=== PATIENT | female | born 1980 | race Caucasian/White ===

== ENCOUNTER → 2018-03-16 13:55 | Outpatient (CLI) | payer MEDICAID, SELFPAY ==
[2018-03-16 15:06] LABS: ALT 84 U/L (12-78); AST 50 U/L (15-37); Albumin 3.8 g/dL (3.4-5.0); Alkaline Phosphatase 73 U/L (46-116); BUN 12 mg/dL (7-18); Bilirubin, Total 0.4 mg/dL (0.2-1.0); CREATININE 1.18 mg/dL (0.55-1.02); Calcium 8.9 mg/dL (8.5-10.1); Chloride 105 mmol/L (98-107); Estimated GFR 51.83 (mL/min/1.73m2); Glucose 89 mg/dL (70-100); Sodium 137 mmol/L (136-145); Total Protein 7.5 g/dL (6.4-8.2)
[2018-03-16 15:06] LABS: PROTEIN < 6.0 mg/dL
[2018-03-16 15:07] LABS: COMMENT (LAB VIEW ONLY) 27.01 mg/dL
[2018-03-16 15:08] LABS: Hemoglobin A1C 6.4 % (4.5-6.2)
== END ==
PROVIDERS: PCP Nurse Practitioner Family; Visit Provider Nurse Practitioner Family
DX: E11.9 Type 2 diabetes mellitus without complications (principal)
CPT/HCPCS: 36415; 80053; 82043; 82565; 82570; 83036; 84156

== ENCOUNTER 2018-03-17 09:23 | Emergency (ER) | payer MEDICAID, SELFPAY ==
[2018-03-17 09:27] VITALS: BP 126/60; PULSE 92; RESP 18; TEMP 36.6; O2SAT 99
[2018-03-17] MEDS: Ketorolac 30 MG/ML VIAL IM (09:51)
[2018-03-17] MEDS: Acetaminophen 500 MG TAB 1000 MG PO (09:53)
[2018-03-17] MEDS: Lidocaine 5% Patch 1 PATCH TP (09:53)
--- NOTE | 2018-03-17 10:15 | ED.GENADUL ---
Disposition Clinical Impression: Rib pain Disposition: HOME Condition: Good Instructions: Chest Wall Pain (ED) Additional Instructions: If you notice any worsening of your symptoms, or any new symptoms such as vomiting, diarrhea, fever, chills, shortness of breath, chest pain, numbness, weakness, or fainting , please return immediately to the emergency department for reevaluation. Please follow up with your primary care provider as soon as possible for reassessment and reevaluation. As always, it was a pleasure participating in your medical care today. Referrals: Toma Isabel [Primary Care Provider] - Medical Decision Making - Medical Decision Making This is a 37-year-old female who presents for evaluation of left rib pain. It occurred when she was having her regular episode of morning vomiting. She had one episode of vomiting, while turning, and she developed a sudden onset of the pain. There is no radiation of the pain to anywhere else in the chest, or the abdomen. It is located on the 10th left rib. The patient has no risk factors for pulmonary embolism, or cardiac disease aside for smoking however she is only 37 years old and has no significant family history and she claims. Her signs and symptoms appear consistent with mildly subluxed rib with an associated pulled muscle. We did get a chest x-ray of the left ribs to evaluate for any evidence of fracture, pneumothorax or deformity. Unfortunately we had a critical patient presented to the ER not long after and I was occupied with this other patient. The patient's chest x-ray came back as negative for any deformity or fracture. The patient was extremely kind and understanding, however she did state that she had a meeting that she needed to leave for. Understanding that the imaging was negative she requested to leave, fully aware of the risks and benefits. She had a long discussion with the nurse regarding the risks and benefits of prolonged observation, waiting for the results, versus leaving. She chose to leave. There was no malice, and she stated she understood the current situation but unfortunately had to leave because of her meeting. 7 PM patient was given a Lidoderm patch, and did have notable relief with this. She was encouraged to take Tylenol Motrin prior to discharge. I did contact the patient and discussed this with her. She has no additional questions or concerns at this time. I feel her symptoms were consistent with a pulled muscle or subluxed rib on her left, and inconsistent with ACS, pulmonary embolism, or aortic dissection. We discussed red flags which to return over phone: The patient understands. I have extensively reviewed the treatment plan with the patient. I have addressed all patient concerns at this time. The patient was made aware of what symptoms to monitor for that would warrant a return to the emergency department. Discussed the plan with the patient, they demonstrate verbal understanding and agreement with our assessment and plan at this time. History of Present Illness - General Chief complaint: Abd Prob Stated complaint: ABDOMINAL PAIN Time Seen by Provider: 03/17/18 09:41 - History of Present Illness Initial comments: This is a 37-year-old female with a past medical history of substance abuse in the past, reflux, chronic daily vomiting in the morning who presents today for left rib pain. Patient states that this morning when she went to have her daily morning vomit she turned to the left and vomited as soon as she was turning while vomiting she developed a sharp aching pain in her 10th rib. Since then the pain has continued. She describes it as dull in nature, it is notably worse with movement. There is no significant pleuritic pain. No abdominal pain. It is mainly focused on the rib itself. She denies any hematuria, dysuria, increased urinary frequency or history of kidney stones. She denies any hematochezia, melena or acholic stool. She states that her vomit had no hematemesis or any other abnormality. It was not green. She has had no other complaints since then. Denies PE risk factors such as recent long car rides, immobilization, recent surgery, prior history of DVT or PE, family history of PE or DVT, morbid obesity, exogenous estrogen and smoking, hemoptysis, history of cancer. Patient does admit to regular tobacco and marijuana use. She denies any other illicit drugs. She denies any pertinent family history. She has no other complaints at this time. - Related Data Omeprazole [Prilosec] 40 mg PO DAILY tab-cap 04/18/15 Albuterol Sulfate [Proair Hfa] PRN 05/10/16 MetFORMIN [Glucophage] 1,000 mg PO DAILY 05/10/16 LevETIRAcetam [Keppra] 500 mg PO BID #60 tab 08/17/16 Loratadine [Claritin] 10 mg PO DAILY tab-cap 07/04/17 Fluticasone Propionate [Flonase] 50 mcg NS DAILY spray 12/01/17 Carmel-3 Fatty Acids/Fish Oil [Fish Oil 1,000 mg Softgel] 2 each PO DAILY 12/01/17 Olanzapine 15 mg PO BID #60 tab-cap 12/14/17 Bupropion HCl [Bupropion Xl] 300 mg PO DAILY #30 tab-cap 12/21/17 Zolpidem Tartrate [Ambien] 5 mg PO DAILY #30 tab 12/21/17 Allergies Allergy/AdvReac Type Severity Reaction Status Date / Time Penicillins Allergy hives/swell Unverified 03/17/18 09:47 ing ondansetron HCl AdvReac Intermediate Hives Unverified 03/17/18 09:47 [From Zofran (as hydrochloride)] erythromycin base AdvReac stomach Unverified 03/17/18 09:47 pain Sulfa (Sulfonamide AdvReac body aches Unverified 03/17/18 09:47 Antibiotics) Review of Systems Other: 10 point review of systems was performed, pertinent positives and negatives are noted in the history of present illness. Past Medical History - Past Medical History Medical history: diabetes, liver disease (Chronic hepatitis C), seizures colitis Surgical history: cholecystectomy, other (tonsillectomy) - Social History Alcohol use: none Drug use: marijuana, other (hx of polysubstance abuse, currently sober on methadone) General Exam - Other Other exam information: 1.Const: Well-nourished, Well-developed, appearing stated age 2.Eyes: PERRL, no conjunctival injection, and symmetrical lids. 3.ENT: Atraumatic external nose and ears. Moist MM. Neck: Symmetric, trachea midline, No thyromegaly. 4.CVS: +S1/S2, No murmurs or gallops. Peripheral pulses 2+ and equal in all extremities. Brisk capillary refill in all extremities. 5.RESP: Unlabored respiratory effort. Clear to auscultation bilaterally. No wheezes rales or rhonchi 6.GI: Soft, Nontender/Nondistended, No hepatosplenomegaly. No guarding or rebound. No abdominal tenderness or flank tenderness on percussion whatsoever. The patient does have pain on the 10th rib, however even with close and deep palpation on the abdomen to this area she has no pain at all. It is only with contact with the rib itself. 7.MSK: Normocephalic/Atraumatic, Extremities w/o deformity. No cyanosis or clubbing, Normal movement of all extremities. Good range of motion of the shoulder and arm. No radiation of pain to the shoulder or arm. Patient has pinpoint focal tenderness on the anterior lateral aspect of the 10th rib. There is no radiation of the pain to any other ribs. No radiation of the pain to the abdomen. No palpation on the abdomen. No deformity, no signs of bruising. 8.Skin: Warm, Dry. No rashes or lesions. 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 Sensation grossly intact, no focal neurologic deficits. 10.Psych: (AAO) x3. Appropriate mood and affect Course Vital Signs - 24 hr 03/17/18 09:27 Temperature 36.6 C Pulse 92 H Respiratory 18 Rate Blood Pressure 126/60 Pulse Oximetry 99
--- NOTE | 2018-03-17 10:17 | DI.REPORT_ITS ---
SYMPTOM/DIAGNOSIS: POST EMESIS LT RIB PAIN, REDUCIBLE PAIN 10TH LT RIBS LEFT RIBS AND PA CHEST: Comparison is made with 04/24/14. Heart size and pulmonary vasculature are within normal limits. The lungs are clear and well expanded. No effusions or pneumothoraces are identified. No rib fracture is present. IMPRESSION: Negative examination.
== END 2018-03-17 11:00 | disposition home or self-care (01) ==
LOC: ER 03-18 10:14
PROVIDERS: Emergency Provider Student in an Organized Health Care Education/Training Program; PCP Nurse Practitioner Family
DX: R07.81 Pleurodynia (principal); Z53.29 Procedure and treatment not carried out because of patient's decision for other reasons; E11.9 Type 2 diabetes mellitus without complications; Z79.84 Long term (current) use of oral hypoglycemic drugs
CPT/HCPCS: 71101; 96372; 99284; 99285; J1885

== ENCOUNTER 2018-05-22 11:16 | Outpatient (REF) | payer MEDICAID, SELFPAY ==
--- NOTE | 2018-05-22 09:20 | PAPFT_PTH ---
PATIENT: Ne Kennedy LOC: [facility] U#:[id number] AGE/SX: 37/F ROOM: RE05/22/[address]: Toma Isabel : 1980 BED: DIS: 05/22/2018 SPEC #: [id number] RECD: 05/22/18 17:45 STATUS: EDGAR REAnand #: [id number] VIKA: 05/22/18 09:[address]: Toma Isabel DEPT: [facility] Cytology RECD BY: Raven Allen Tissues: 1 - CX/ENDOCX FOR PAP SMEARS Procedures: PAP THIN PREP/UVM Screening HPV DNA PROBE Comments: [id number] (CHLAMYDIA/GC)
[2018-05-23 14:06] LABS: Chlamydia Result Negative; GC Result Negative; Specimen Description SEE COMMENTS
== END 2018-05-22 11:36 ==
LOC: NCHCN 11:16
PROVIDERS: PCP Nurse Practitioner Family; Visit Provider Nurse Practitioner Family
DX: Z12.4 Encounter for screening for malignant neoplasm of cervix (principal); Z11.51 Encounter for screening for human papillomavirus (HPV); Z00.00 Encounter for general adult medical examination without abnormal findings; N89.8 Other specified noninflammatory disorders of vagina
CPT/HCPCS: 87491; 87591; 88142; 87480; 87510; 87624; 87660

== ENCOUNTER 2018-08-02 08:24 | Outpatient (CLI) | payer MEDICAID, SELFPAY ==
[2018-08-02 09:07] LABS: Abs Immature Grans 0.13 k/cumm (0.0-0.09); Absolute Basophil Count 0.03 k/cumm (0.0-0.2); Absolute Eosinophil Count 0.29 k/cumm (0.0-0.7); Absolute Lymphocyte Count 2.54 k/cumm (1.2-3.4); Absolute Monocyte Count 0.64 k/cumm (0.11-0.7); Basophils % 0.3; Eosinophils % 2.6; HGB 13.3 g/dL (12.0-15.5); Immature Grans % 1.2; Lymphocytes % 22.6; Mean Corp. HGB Concentration 32.4 g/dL (32.0-36.0); Mean Corpuscular Volume 80.1 fL (80-95); Mean Platelet Volume 9.2 fL (8.0-11.0); Monocytes % 5.7; Neutrophils % 67.6; Platelet Count 303 x1000/uL (130-400); RBC 5.12 m/cumm (4.00-5.20); White Blood Cell Count 11.25 k/cumm (4.4-10.8)
[2018-08-02 09:09] LABS: Absolute Neutrophil Count 7.61 k/cumm (1.2-6.7)
[2018-08-02 10:07] LABS: ALT 130 U/L (12-78); AST 63 U/L (15-37); Albumin 3.4 g/dL (3.4-5.0); Alkaline Phosphatase 92 U/L (46-116); Anion Gap 11.7 mmol/L (3-11); BUN 20 mg/dL (7-18); Bilirubin, Total 0.4 mg/dL (0.2-1.0); CO2 23.3 mmol/L (21.0-32.0); CREATININE 1.31 mg/dL (0.55-1.02); Calcium 8.7 mg/dL (8.5-10.1); Chloride 102 mmol/L (98-107); Estimated GFR 45.94 (mL/min/1.73m2); Glucose 209 mg/dL (70-100); Potassium 4.2 mmol/L (3.5-5.1); Sodium 137 mmol/L (136-145); Total Protein 7.1 g/dL (6.4-8.2)
[2018-08-02 10:08] LABS: COMMENT (LAB VIEW ONLY) 79.28 mg/dL; Microalb ug/mg Crea 2.6 ug/mg Cr
[2018-08-02 10:22] LABS: Ferritin 24 ng/mL (8-388); TSH 0.96 uIU/mL (0.358-3.74)
[2018-08-03 06:07] LABS: Vitamin D 25 Total 59.6 ng/ml (30-100)
== END 2018-08-02 08:44 ==
PROVIDERS: PCP Nurse Practitioner Family; Referring Provider Internal Medicine Sleep Medicine; Visit Provider Nurse Practitioner Family
DX: M25.50 Pain in unspecified joint (principal); E55.9 Vitamin D deficiency, unspecified; B18.2 Chronic viral hepatitis C; E11.9 Type 2 diabetes mellitus without complications
CPT/HCPCS: 36415; 80053; 82306; 82043; 82570; 82728; 84443; 85025

== ENCOUNTER 2018-10-03 12:26 | Outpatient (CLI) | payer MEDICAID, SELFPAY ==
[2018-10-04 10:09] LABS: Hepatitis B Surface Ag Negative (NEGAT)
[2018-10-04 10:57] LABS: HIV-1/2 Ag & Ab Screen Negative (NEGAT)
[2018-10-04 11:24] LABS: HBs Antibody, Quant 46.2 mIU/mL; Hep A Total Ab w Rflx IgM Positive (NEGAT); Hep B Core Antibody Negative (NEGAT); Hepatitis B Surface Ab Positive
[2018-10-04 15:12] LABS: Hep A Antibody IgM Negative (NEGAT)
== END 2018-10-03 12:46 ==
PROVIDERS: PCP Nurse Practitioner Family; Visit Provider Family Medicine
DX: B18.2 Chronic viral hepatitis C (principal)
CPT/HCPCS: 36415; 86704; 86706; 86709; 87340; 87389; 87522

== ENCOUNTER 2018-11-28 09:03 | Outpatient (CLI) | payer MEDICAID, SELFPAY ==
[2018-11-28 10:25] LABS: ALT 103 U/L (12-78); AST 54 U/L (15-37); Albumin 3.8 g/dL (3.4-5.0); Alkaline Phosphatase 80 U/L (46-116); Anion Gap 13.9 mmol/L (3-11); BUN 15 mg/dL (7-18); Bilirubin, Total 0.7 mg/dL (0.2-1.0); CO2 21.1 mmol/L (21.0-32.0); CREATININE 1.19 mg/dL (0.55-1.02); Chloride 100 mmol/L (98-107); Estimated GFR 51.33 (mL/min/1.73m2); Glucose 212 mg/dL (70-100); Potassium 4.3 mmol/L (3.5-5.1); Sodium 135 mmol/L (136-145); Total Protein 7.5 g/dL (6.4-8.2)
[2018-11-29 15:15] LABS: HCV RNA Detection Quantitative Undetected IU/mL (UNDECT)
== END 2018-11-28 09:23 ==
PROVIDERS: PCP Nurse Practitioner Family; Visit Provider Family Medicine
DX: B18.2 Chronic viral hepatitis C (principal)
CPT/HCPCS: 36415; 80053; 87522

== ENCOUNTER 2019-03-08 13:40 | Emergency (ER) | payer MEDICAID, SELFPAY ==
[2019-03-08 13:44] VITALS: BP 133/96; PULSE 110; RESP 18; TEMP 36.6; O2SAT 98
--- NOTE | 2019-03-08 13:51 | DI.RAD_ITS ---
SYMPTOM/DIAGNOSIS: COUGH, FEVER CHEST X-RAY: PA, lateral. Comparison 03/17/18 The heart is normal in size. The lungs are clear. The mediastinal structures and pleura appear intact. CONCLUSION: Normal chest.
--- NOTE | 2019-03-08 14:53 | ED.GENADUL_ITS ---
Discharge Plan Disposition Patient Disposition: HOME Discharge Details Chief Complaint: RespSymp Clinical Impression: Infection, respiratory tract, Otitis externa Primary Care Provider: Nikki Phillips ED Provider: Jovani Zavala Home Meds and New Rx's Prescriptions: New doxycycline hyclate 100 mg capsule 100 mg PO BID Qty: 14 RF: 0 benzonatate 200 mg capsule 200 mg PO TID PRN (Reason: cough) Qty: 30 RF: 0 Ciprodex 0.3-0.1 % drops,suspension 4 drp OT BID 7 Days Qty: 7.5 RF: 0 Continued lorazepam 2 mg tablet 2 mg PO DAILY Qty: 36 RF: 1 gabapentin 800 mg tablet 800 mg PO QHS Qty: 30 RF: 1 bupropion HCl 300 mg tablet extended release 24 hr 300 mg PO DAILY Qty: 30 RF: 5 olanzapine 15 mg tablet 15 mg PO BID Qty: 60 RF: 5 omeprazole [Prilosec] 20 MG capsule,delayed release(DR/EC) 40 mg PO DAILY RF: 0 loratadine 10 MG tablet 10 mg PO DAILY RF: 0 omega-3 fatty acids-fish oil 1 EACH capsule 2 ea PO DAILY RF: 0 metformin [Glucophage] 1,000 MG tablet 1,000 mg PO DAILY RF: 0 levetiracetam [Keppra] 500 MG tablet 500 mg PO BID Qty: 60 RF: 2 Discharge Instructions Instructions: Otitis Externa (ED), Upper Respiratory Infection (ED) Additional Instructions: Please take medication as prescribed and follow-up with your primary care provider if not improving over the next week. Return to emergency department for any new or significant worsening of symptoms. During illness please stay well-hydrated, get plenty of rest. For any fever chills you may take [id number] acetaminophen or Motrin as directed on packaging. Referrals: Nikki Phillips [Primary Care Provider] - (As needed for reassessment or if not improving) Discharge Data Discharge Date/Time-TO BE ENTERED AT DEPARTURE: 03/08/19 16:00 Medical Decision Making Patient presenting to the emergency department for chief complaint of cold-like symptoms for the past pipe 5 days. She states otalgia, nasal congestion, sore throat, and nonproductive cough. She does state night sweats and some chills. Patient is a smoker. Physical exam shows tachycardic patient which is currently afebrile, non-hypotensive, and no acute signs of respiratory distress but does appear ill but nontoxic in appearance. Cardiac exam is unremarkable beyond tachycardia, respiratory exam does show crackles in the left lower lung, patient does have some sinus tenderness. Otherwise nondiagnostic exam. Plan to check chest x-ray for concern of pneumonia. At this point I do not feel that patient needs any laboratory work-up. Review of chest x-ray and radiologist interpretation shows no acute findings noted. And rapid strep is negative. I am concerned for possible bacterial etiology given 5 days worsening symptoms, patient tachycardic, and stating night sweats and chills. Plan to place patient on doxycycline that would cover both early pneumonia or sinusitis. [id number] therapies were also discussed and patient also prescribed Tessalon Perles for cough suppressant. Close return precautions were discussed otherwise I do feel the patient is able to be safely discharged. After discussion of diagnosis and plan of care patient has no further needs, questions, or concerns and states clear understanding to return to the emergency department for any worsening symptoms. HPI General Mode of arrival: ambulatory . Date/Time Provider Initiated Documentation: 03/08/19 13:51 . Limitations to Documentation: no limitations . Information obtained by: patient and RN notes reviewed . History of Present Illness 38 year old F presents to the emergency department with the chief complaint of Cold symptoms with cough, fever, otalgia, described as moderate, with intensity rated at 8. Quality is described as aching, and is localized to the face (Sinuses). Patient started experiencing this day(s) (5) and it has been constant. No relieving factors improve symptom(s), No exacerbating factors reported . Patient did receive the following treatments prior to arrival, none Related Data Home Medications Medication Instructions Recorded Confirmed omeprazole [Prilosec] 40 mg PO DAILY tab-cap 04/18/15 03/08/19 metformin [Glucophage] 1,000 mg PO DAILY 05/10/16 03/08/19 levetiracetam [Keppra] 500 mg PO BID #60 tab 08/17/16 03/08/19 loratadine 10 mg PO DAILY tab-cap 07/04/17 03/08/19 omega-3 fatty acids-fish oil 2 ea PO DAILY 12/01/17 03/08/19 bupropion HCl 300 mg 24 hr tablet, 300 mg PO DAILY #30 tab-cap 11/13/18 03/08/19 extended release olanzapine 15 mg tablet 15 mg PO BID #60 tab-cap 11/13/18 03/08/19 lorazepam 2 mg tablet 2 mg PO DAILY #36 tab 12/25/18 03/08/19 gabapentin 800 mg tablet 800 mg PO QHS #30 tab 01/18/19 03/08/19 benzonatate 200 mg PO TID PRN #30 cap 03/08/19 ciprofloxacin-dexamethasone 4 drp OT BID 7 Days #7.5 ml 03/08/19 [Ciprodex] doxycycline hyclate 100 mg PO BID #14 cap 03/08/19 Previous Rx's Medication Instructions Recorded levetiracetam [Keppra] 500 mg PO BID #60 tab 08/17/16 bupropion HCl 300 mg 24 hr tablet, 300 mg PO DAILY #30 tab-cap 11/13/18 extended release olanzapine 15 mg tablet 15 mg PO BID #60 tab-cap 11/13/18 lorazepam 2 mg tablet 2 mg PO DAILY #36 tab 12/25/18 gabapentin 800 mg tablet 800 mg PO QHS #30 tab 01/18/19 benzonatate 200 mg PO TID PRN #30 cap 03/08/19 ciprofloxacin-dexamethasone 4 drp OT BID 7 Days #7.5 ml 03/08/19 [Ciprodex] doxycycline hyclate 100 mg PO BID #14 cap 03/08/19 Allergies Allergy/AdvReac Type Severity Reaction Status Date / Time Penicillins Allergy hives/swell Unverified 03/08/19 13:49 ing ondansetron HCl AdvReac Intermediate Hives Unverified 03/08/19 13:49 [From Zofran (as hydrochloride)] erythromycin base AdvReac stomach Unverified 03/08/19 13:49 pain Sulfa (Sulfonamide AdvReac body aches Unverified 03/08/19 13:49 Antibiotics) General Stated Complaint: RespSymp RAVEN: 3 Review of Systems Constitutional Reports body ache(s), Reports chills, Reports fever(s), Reports headache(s) and Reports malaise ENT Reports as per HPI, Denies ear discharge, Reports otalgia, Reports headache(s), Denies nasal congestion, Denies nasal discharge, Denies neck pain, Reports sore throat and Denies throat swelling Cardiovascular Denies chest pain and Denies dyspnea Respiratory Reports cough and Denies dyspnea Musculoskeletal Denies joint swelling and Denies neck pain Integumentary/Breasts Denies rash Neurologic Reports headache(s) Allergic/Immunologic Denies throat swelling [facility] Medical History Amenorrhea, secondary Bipolar disorder GERD Hepatitis C IVDU Surgical History Cholecystectomy Diagnostic Laproscopy (~2005) molar extraction , Ectopic (~2010) Social History Smoking/Tobacco Use Status: Current every day Alcohol Intake: never Drug use: Daily Substance use type: marijuana Do you feel safe at home: Yes Do you feel safe in your relationship?: Yes Exam Const General: cooperative, comfortable and no acute distress Orientation: alert and awake HENTX Head: normal to inspection, normocephalic and atraumatic Ears: hearing grossly normal bilaterally and TM's normal bilaterally General nose exam: external nose normal Face and sinus: no erythema and sinus tenderness frontal and maxillary Mouth: oral mucosae normal, no drooling, no muffled voice and no trismus Throat: posterior oropharynx normal Neck Neck: normal visual inspection, full ROM, no lymphadenopathy, no meningeal signs, trachea midline and supple Resp Effort & Inspection: normal respiratory effort, able to speak in complete sentences and cough Quality of cough: dry Auscultation: crackles on the left in the lower lung briscoe Cardio Rate: regular rate Rhythm: regular rhythm Heart Sounds: S1 normal, S2 normal, normal S1 and S2, no click, no gallops, no murmurs and no rubs Skin General skin exam: no rashes or lesions noted and dry skin (warm) Neuro General: alert, awake, oriented x3, gait normal and moves all extremities Cognition: normal cognition Speech: speech normal Course Vital Signs Temperature 36.6 C 03/08/19 13:44 Pulse 110 H 03/08/19 13:44 Respiratory Rate 18 03/08/19 13:44 Blood Pressure 133/96 H 03/08/19 13:44 Pulse Oximetry 98 03/08/19 13:44 Temperature 36.6 C 03/08/19 13:44 Temperature Source Skin 03/08/19 13:44 Pulse 110 H 03/08/19 13:44 Respiratory Rate 18 03/08/19 13:44 Respiratory Effort 03/08/19 13:50 Blood Pressure 133/96 H 03/08/19 13:44 Blood Pressure Position Sitting 03/08/19 13:44 Pulse Oximetry 98 03/08/19 13:44 Oxygen Delivery Method Room Air 03/08/19 13:44 Oxygen Flow Rate 0 03/08/19 13:44 Pain Level 5 03/08/19 13:44 Lab/Test Results Lab/Test Results: 03/08/19 14:20 Pharynx Streptococcus Screen ([facility]) - Pending POC Strep Test-[facility](Rapid) Start: 03/08/19 14:17 Freq: .Rapid Strep Test Status: Active Protocol: Document 03/08/19 14:32 CT (Rec: 03/08/19 14:33 CT [id number]) Strep test-[facility](Rapid)-POC POC-Strep test-[facility] (Rapid) Negative POC-Strep test-[facility] (Rapid) Negative
[2019-03-08 15:59] VITALS: BP 133/96; PULSE 110; RESP 18; TEMP 36.6; O2SAT 98
== END 2019-03-08 16:00 | disposition home or self-care (01) ==
PROVIDERS: Emergency Provider Nurse Practitioner Family; PCP Nurse Practitioner Family
DX: J22 Unspecified acute lower respiratory infection (principal); J02.9 Acute pharyngitis, unspecified
CPT/HCPCS: 87880; 99283; 71046; 87081

== ENCOUNTER 2019-04-02 13:58 | Outpatient (REF) | payer MEDICAID, SELFPAY ==
[2019-04-02 14:14] LABS: HCT 44.8 % (36.0-46.0); HGB 15.1 g/dL (12.0-15.5); Mean Corp. HGB Concentration 33.7 g/dL (32.0-36.0); Mean Corpuscular Hemoglobin 32.5 pg (27.0-33.0); Mean Corpuscular Volume 96.6 fL (80-95); Mean Platelet Volume 11.2 fL (8.0-11.0); Platelet Count 122 x1000/uL (130-400); RBC 4.64 m/cumm (4.00-5.20); RBC Distribution Width 14.9 % (11.7-14.6); White Blood Cell Count 8.18 k/cumm (4.4-10.8)
[2019-04-02 15:03] LABS: ALT 62 U/L (14-59); AST 46 U/L (15-37); Albumin 3.1 g/dL (3.4-5.0); Alkaline Phosphatase 67 U/L (46-116); Anion Gap 12.7 mmol/L (3-11); BUN 10 mg/dL (7-18); Bilirubin, Total 0.7 mg/dL (0.2-1.0); CO2 21.3 mmol/L (21.0-32.0); CREATININE 1.28 mg/dL (0.55-1.02); Calcium 8.4 mg/dL (8.5-10.1); Chloride 101 mmol/L (98-107); Estimated GFR 46.92 (mL/min/1.73m2); Glucose 279 mg/dL (70-100); Potassium 4.2 mmol/L (3.5-5.1); Sodium 135 mmol/L (136-145)
[2019-04-03 15:58] LABS: HCV RNA Detection Quantitative Undetected IU/mL (UNDECT)
== END 2019-04-02 14:18 ==
LOC: NCHCN 13:58
PROVIDERS: PCP Nurse Practitioner Family; Visit Provider Family Medicine
DX: B18.2 Chronic viral hepatitis C (principal)
CPT/HCPCS: 80053; 85027; 87522

== ENCOUNTER 2019-04-22 08:30 | Emergency (ER) | payer MEDICAID, SELFPAY ==
--- NOTE | 2019-04-22 08:33 | ED.GENADUL_ITS ---
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 Clinical Impression: Contact dermatitis Primary Care Provider: Damian Murillo ED Provider: Mckenzie Rowland Home Meds and New Rx's Prescriptions: New methylprednisolone [Medrol (Karan)] 4 mg tablets,dose pack See Rx Instructions .ROUTE .COMPLEX Qty: 21 RF: 0 Continued lorazepam 2 mg tablet 2 mg PO DAILY Qty: 36 RF: 1 gabapentin 800 mg tablet 800 mg PO QHS Qty: 30 RF: 1 bupropion HCl 300 mg tablet extended release 24 hr 300 mg PO DAILY Qty: 30 RF: 5 omeprazole [Prilosec] 20 MG capsule,delayed release(DR/EC) 40 mg PO DAILY RF: 0 loratadine 10 MG tablet 10 mg PO DAILY RF: 0 omega-3 fatty acids-fish oil 1 EACH capsule 2 ea PO DAILY RF: 0 metformin [Glucophage] 1,000 MG tablet 1,000 mg PO DAILY RF: 0 levetiracetam [Keppra] 500 MG tablet 500 mg PO BID Qty: 60 RF: 2 olanzapine 15 mg tablet 30 mg PO HS RF: 0 methylphenidate HCl [Ritalin] 20 mg Tablet 20 mg PO BID RF: 0 glipizide-metformin 5-500 mg Tablet RF: 0 cholecalciferol (vitamin D3) [Vitamin D3] 1,000 unit Capsule 1,000 unit PO DAILY RF: 0 Discharge Instructions Instructions: Dermatitis (ED) Additional Instructions: Encourage hydration. You may use Tylenol and/or Ibuprofen as needed for discomfort. Your labs thus far been negative here. This is most consistent with your known allergy. You will need to take the steroids as prescribed. Please begin the pack today. You will need to closely monitor your glucose as this can cause temporary rising sugars. Please follow-up with your primary care to discuss this further if they continue to rise. A topical numbing cream has been called into your pharmacy. Please call women's wellness tomorrow to schedule appointment as soon as possible for reevaluation. If you develop fever/chills, increased pain or other new/worsening symptoms please seek care urgently once again. Referrals: Sarah Harper [ [facility]YSICIAN] - Damian Murillo [Primary Care Provider] - Discharge Data Discharge Date/Time-TO BE ENTERED AT DEPARTURE: 04/22/19 10:47 Medical Decision Making Patient is a 38-year-old female presenting today with chief complaint of external genitalia pain. She reports the pain began 5 days ago. Does note some discharge associated with this. 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 States that the symptoms came on, she had multiple episodes of unprotected sex. [place] was with a new partner. She denies any fevers or chills. No abdominal pain. No nausea vomiting. No change in bowel or bladder habits. Denies any shortness of breath, wheezing or feeling of tightness. No evidence of anaphylactic reaction. She is self treated with [id number] Monistat without success. Feels that the symptoms have progressively been worsening. Patient reports that she had similar episode historically after being exposed to semen. Had been advised that she has allergy to semen by women's wellness provider. However, patient continues to have unprotected sex as she feels she is low risk for . Patient has had one full-time and one ending in ectopic with right-sided oophorectomy. She reports that the symptoms after unprotected intercourse has progressively been increasing. She describes as burning and itching. On exam, patient appears very uncomfortable. She is tearing and walking with an antalgic gait. She is nontoxic, afebrile. She has raw areas noted on exam of external genitalia. I do not see any erythema, warmth, swelling to suggest vaginosis vaginitis. She does have a thick white discharge which will sampled and sent for vaginal pathology screen. I was able to get a sample from vaginal vault. The exam was limited internally secondary to the patient's exquisite external pain. She would not tolerate having the speculum placed. The change of the skin does not appear assistance with the new onset of herpes. Patient is also been asked to give a sample of urine for gonorrhea and Chlamydia testing. UPT negative. Her exam and history is most consistent with her known allergy being flared after several episodes of re-exposure. Patient has no abdominal tenderness. She is afebrile with no abdominal tenderness, I do not feel that she is likely suffering from PID at this time. She feels that all of her symptoms are external and that she is not having any internal vaginal symptoms. Patient is negative for Hope, Gardnerella, trichomonas. Gonorrhea chlamydia pending. Consulted with Dr. Harper with gynecology. She advised continuing the patient on a topical anesthetic such as Xylocaine or lidocaine. Also advised placing the patient on a Medrol Dosepak. Advised the patient call tomorrow to schedule appointment this week for reevaluation at [facility]. I discussed these plans with the patient. She is feeling much improved and resting comfortably after application of LMX cream. I did call her pharmacy and discussed that there are topical options available to help with discomfort. This is called in. A prescription for Medrol Dosepak will be given. Encourage hydration. We discussed signs symptoms of infection with the care urgently once again. She will call [facility] tomorrow to schedule prompt follow-up exam. All questions and concerns were addressed and she is agreement with this plan. [facility] General Mode of arrival: ambulatory . Date/Time Provider Initiated Documentation: 04/22/19 08:33 . Limitations to Documentation: no limitations . Information obtained by: patient and RN notes reviewed . History of Present Illness 38 year old F presents to the emergency department with the chief complaint of External genitalia pain, described as severe, with intensity rated at >10. Quality is described as burning, and is localized to the genitals. Patient reports no radiation. Patient started experiencing this day(s) (5) and it has been constant. No relieving factors improve symptom(s), No exacerbating factors reported . Patient notes denies cough, fever/chills, loss of appetite, nausea/vomiting and shortness of breath. Patient did receive the following treatments prior to arrival, other ([id number] Monistat) Related Data Home Medications Medication Instructions Recorded Confirmed omeprazole [Prilosec] 40 mg PO DAILY tab-cap 04/18/15 04/22/19 metformin [Glucophage] 1,000 mg PO DAILY 05/10/16 03/08/19 levetiracetam [Keppra] 500 mg PO BID #60 tab 08/17/16 04/22/19 loratadine 10 mg PO DAILY tab-cap 07/04/17 04/22/19 omega-3 fatty acids-fish oil 2 ea PO DAILY 12/01/17 04/22/19 bupropion HCl 300 mg 24 hr tablet, 300 mg PO DAILY #30 tab-cap 11/13/18 04/22/19 extended release lorazepam 2 mg tablet 2 mg PO DAILY #36 tab 12/25/18 04/22/19 gabapentin 800 mg tablet 800 mg PO QHS #30 tab 01/18/19 04/22/19 cholecalciferol (vitamin D3) 1,000 unit PO DAILY 04/22/19 04/22/19 [Vitamin D3] glipizide-metformin tab 04/22/19 methylphenidate HCl [Ritalin] 20 mg PO BID 04/22/19 04/22/19 methylprednisolone [Medrol (Karan)] See Rx Instructions .ROUTE 04/22/19 .COMPLEX #21 dose pk olanzapine 30 mg PO HS 04/22/19 04/22/19 Previous Rx's Medication Instructions Recorded levetiracetam [Keppra] 500 mg PO BID #60 tab 08/17/16 bupropion HCl 300 mg 24 hr tablet, 300 mg PO DAILY #30 tab-cap 11/13/18 extended release lorazepam 2 mg tablet 2 mg PO DAILY #36 tab 12/25/18 gabapentin 800 mg tablet 800 mg PO QHS #30 tab 01/18/19 methylprednisolone [Medrol (Karan)] See Rx Instructions .ROUTE 04/22/19 .COMPLEX #21 dose pk Allergies Allergy/AdvReac Type Severity Reaction Status Date / Time Penicillins Allergy hives/swell Unverified 03/08/19 13:49 ing ondansetron HCl AdvReac Intermediate Hives Unverified 03/08/19 13:49 [From Zofran (as hydrochloride)] erythromycin base AdvReac stomach Unverified 03/08/19 13:49 pain Sulfa (Sulfonamide AdvReac body aches Unverified 03/08/19 13:49 Antibiotics) semen Allergy Hives Uncoded 04/22/19 08:45 General RAVEN: 3 Review of Systems Constitutional Constitutional: Reports as per HPI, Denies chills, Denies fatigue, Denies fever(s) and Denies headache(s) ENT Ears, Nose, Mouth, and Throat: Denies headache(s) Cardiovascular Cardiovascular: Reports as per HPI, Denies chest pain and Denies dyspnea Respiratory Respiratory: Reports as per HPI, Denies cough and Denies dyspnea Gastrointestinal Gastrointestinal: Reports as per HPI Genitourinary Genitourinary: Reports as per HPI, Denies abnormal menses, Reports genital pruritis, Denies genital lesions, Reports dyspareunia, Denies dysuria, Denies pelvic pain, Denies flank pain, Denies urinary incontinence, Denies urinary hesi tancy, Denies urinary urgency, Reports vaginal discharge, Denies vaginal dryness, Denies vaginal odor and Reports vaginal pruritus Musculoskeletal Musculoskeletal: Reports as per HPI and Denies back pain Integumentary/Breasts Skin/Breast: Reports as per HPI, Reports rash, Reports skin pain, Denies skin swelling, Denies sores and Denies wounds Neurologic Neurologic: Reports as per HPI and Denies headache(s) Endocrine Endocrine: Denies fatigue [facility] Medical History Amenorrhea, secondary 06/2014 Nl pelvic us. ES 3.5mm. No response to Progestin challenges. Nl labs. Bipolar disorder ADD, PTSD, Anxiety and Depression GERD Hepatitis C IVDU Surgical History Cholecystectomy Diagnostic Laproscopy (~2005) molar extraction , Ectopic (~2010) Social History Smoking/Tobacco Use Status: Current every day Alcohol Intake: never Drug use: Daily Substance use type: marijuana and crack/cocaine Details: patient states uses crack occasionally. Do you feel safe at home: Yes Do you feel safe in your relationship?: Yes Exam Const General: cooperative, healthy appearing, well developed and acute distress moderate (patient is weeping, appears very uncomfortable) Nutritional Appearance: well nourished and overweight Orientation: alert and awake HENNM Head: normal to inspection Mouth: moist mucous membranes Resp Effort & Inspection: normal respiratory effort, able to speak in complete sentences and no respiratory distress Auscultation: clear to auscultation bilaterally, no rales, no rhonchi and no wheezes Cardio Rate: regular rate Rhythm: regular rhythm Heart Sounds: S1 normal and S2 normal GI Inspection: normal to inspection, no edema, non-distended, no visible herniation and no visible pulsation Palpation: soft, no hepatosplenomegaly, not firm, no hepatosplenomegaly, not rigid and nontender Percussion: normal to percussion Auscultation: normal bowel sounds External Female Exam: abnormal external appearance (Patient has raw areas of the bilateral labia. No erythema, swelling), no erythema, externally tender, no external swelling, external lesions (Raw areas, no evidence of vesicles to suggest herpes), no lacerations, no ecchymosis, No urethral discharge, tenderness of urethra, No bartholin cyst and other (White discharge is noted at vaginal vault) Speculum Exam - Vagina: abnormal appearance of the vagina (Unable to perform secondary to external pain) Back/Spine/Pelvis Back: no CVA tenderness Skin General skin exam: no rashes or lesions noted Trauma: no lacerations or abrasions Neuro General: alert and awake Cognition: normal cognition Speech: speech normal Gait: normal gait Psych Appearance: grossly normal and well kempt Mental Status: mental status grossly normal Speech and Movement: speech and movement normal
[2019-04-22 08:35] VITALS: BP 161/96; PULSE 93; RESP 18; TEMP 36.6; O2SAT 98
[2019-04-22] MEDS: Lidocaine 4% Cream 5 GM TUBE TP (09:00)
[2019-04-22] MEDS: Promethazine 25 MG TAB PO (09:36)
[2019-04-22 10:44] VITALS: BP 122/87; PULSE 98; RESP 16; O2SAT 98
[2019-04-24 12:41] LABS: Chlamydia Result Negative; GC Result Negative; Specimen Description URINE
== END 2019-04-22 10:47 | disposition home or self-care (01) ==
PROVIDERS: Emergency Provider Physician Assistant; PCP Family Medicine
DX: L25.9 Unspecified contact dermatitis, unspecified cause (principal)
CPT/HCPCS: 81025; 87491; 87591; 99283; 87480; 87510; 87660

== ENCOUNTER 2019-06-08 01:27 | Outpatient (CLI) | payer MEDICAID, SELFPAY ==
--- NOTE | 2019-06-08 07:27 | DI.US_ITS ---
EXAM: US ABDOMEN CLINICAL HISTORY: HEPATIC FIBROSIS, K74.0,H/O LIVER FIBROSIS, RECENTlabs suggest cirrhosis, assess l iver contour and spleen size TECHNIQUE: Ultrasound abdomen performed using standard protocol. COMPARISON: PELVIS TRANSVAG from 12/05/2017 FINDINGS: LIVER: There is diffuse increased echogenicity of the liver consistent with hepatic steatosis. The l iver has a nodular contour. The findings are suggestive of hepatic cirrhosis. No hepatic mass is se en. The liver is enlarged measuring 19 centimeters. GALLBLADDER: Patient is status post cholecystectomy. KIDNEYS: Kidneys are symmetric in size. No evidence of renal calculi. No evidence of hydronephrosis. No renal mass or cyst identified. BILIARY SYSTEM: Common bile duct measures 2 millimeters. No intrahepatic biliary ductal dilation. PANCREAS: Normal where visualized. SPLEEN: Not enlarged. ABDOMINAL AORTA AND IVC: Visualized portions normal caliber. ASCITES: None seen. IMPRESSION: 1. Findings suggestive of hepatic cirrhosis and hepatomegaly. 2. Status post cholecystectomy.
== END 2019-06-08 01:47 ==
PROVIDERS: PCP Family Medicine; Visit Provider Family Medicine
DX: K74.0 Hepatic fibrosis (principal); K76.0 Fatty (change of) liver, not elsewhere classified; Z90.49 Acquired absence of other specified parts of digestive tract; R16.0 Hepatomegaly, not elsewhere classified
CPT/HCPCS: 76700

== ENCOUNTER 2019-09-13 20:31 | Outpatient (REF) | payer MEDICAID, SELFPAY ==
[2019-09-17 13:31] LABS: Chlamydia Result Negative (Negative); GC Result Negative (Negative)
== END 2019-09-13 20:51 ==
LOC: NCHCN 20:31
PROVIDERS: PCP Family Medicine; Visit Provider Nurse Practitioner Family
DX: Z20.2 Contact with and (suspected) exposure to infections with a predominantly sexual mode of transmission (principal)
CPT/HCPCS: 87491; 87591

== ENCOUNTER 2019-09-29 13:33 | Emergency (ER) | payer MEDICAID, SELFPAY ==
--- NOTE | 2019-09-29 13:34 | ED.GENADUL_ITS ---
Discharge Plan Disposition Patient Disposition: HOME Condition: Good Discharge Details Chief Complaint: HeadInjury Clinical Impression: Contusion of head, Concussion Primary Care Provider: Damian Murillo ED Provider: Mckenzie Rowland Home Meds and New Rx's Prescriptions: Continued lorazepam 2 mg tablet 2 mg PO DAILY Qty: 36 RF: 1 gabapentin 800 mg tablet 800 mg PO QHS Qty: 30 RF: 1 bupropion HCl 300 mg tablet extended release 24 hr 300 mg PO DAILY Qty: 30 RF: 5 omeprazole [Prilosec] 20 MG capsule,delayed release(DR/EC) 40 mg PO DAILY RF: 0 loratadine 10 MG tablet 10 mg PO DAILY RF: 0 omega-3 fatty acids-fish oil 1 EACH capsule 2 ea PO DAILY RF: 0 metformin [Glucophage] 1,000 MG tablet 1,000 mg PO DAILY RF: 0 levetiracetam [Keppra] 500 MG tablet 500 mg PO BID Qty: 60 RF: 2 olanzapine 15 mg tablet 30 mg PO HS RF: 0 methylphenidate HCl [Ritalin] 20 mg Tablet 20 mg PO BID RF: 0 glipizide-metformin 5-500 mg Tablet RF: 0 cholecalciferol (vitamin D3) [Vitamin D3] 1,000 unit Capsule 1,000 unit PO DAILY RF: 0 Discharge Instructions Instructions: Concussion (ED), Contusion in Adults (ED) Additional Instructions: Encourage water intake. Tylenol as needed for discomfort. Ice or heat to affected area. Try to avoid screens and physical exertion at this time as this will likely increase your headache. You do appear dehydrated on exam which can also increase her symptoms, water intake will help with this. If you develop increased pain, visual changes, fever/chills, weakness or other new/worsening symptom please seek care urgently once again. Otherwise, please follow-up with primary care next week to discuss further return to activity and return to screens. Referrals: Damian Murillo [Primary Care Provider] - Medical Decision Making Patient is a 38-year-old female presenting today with chief complaint of headache. She reports that yesterday she was opening the car door and struck her forehead. No loss of consciousness. No visual changes. Denies falling to the ground after the incident. States that since that time, she has had discomfort in the area that was struck. No swelling or ecchymosis was noted. States that she took ibuprofen but typically this upsets her stomach and she subsequently developed nausea and vomited x1. Is not currently endorsing any nausea. On exam, patient is resting comfortably. Recently into the room, patient is texting on her phone and appears comfortable but quickly and changes do appear more uncomfortable. Did not see any evidence of trauma, no palpable swelling, no ecchymosis. No evidence to suggest skull fracture. Neurologic exam is intact. She did not tolerate the ibuprofen well, plan to give p.o. Tylenol. She is not currently nauseated so hold off on any anti-emetics at this point Patient is able to hydrate orally. Continues to text frequently. At this point, advise head contusion with possible concussion and she continues to have symptoms. However, we did discuss that her cell phone will likely continue to cause increased discomfort in the lighting of the screen and she continues to text and plan her phone despite my warning. Encourage water intake. Advised she can continue with Tylenol as needed for discomfort. She was given return precautions. We discussed postconcussive care. I advised that she contact primary care to discuss return to full activity in the postconcussive time.. All of her questions and concerns were addressed and she is in agreement this plan. HPI General Mode of arrival: ambulatory . Date/Time Provider Initiated Documentation: 09/29/19 13:34 . Limitations to Documentation: no limitations . Information obtained by: patient and RN notes reviewed . History of Present Illness 38 year old F presents to the emergency department with the chief complaint of head injury, described as moderate, with intensity rated at 6. Quality is described as aching, and is localized to the head. Patient reports no radiation. Patient started experiencing this day(s) (1) and it has been constant. No relieving factors improve symptom(s), No exacerbating factors reported . Patient notes nausea/vomiting (one episode of nausea after ibuprofen, none at this time). Patient did receive the following treatments prior to arrival, NSAID Related Data Home Medications Medication Instructions Recorded Confirmed omeprazole [Prilosec] 40 mg PO DAILY tab-cap 04/18/15 09/17/19 metformin [Glucophage] 1,000 mg PO DAILY 05/10/16 09/17/19 levetiracetam [Keppra] 500 mg PO BID #60 tab 08/17/16 09/17/19 loratadine 10 mg PO DAILY tab-cap 07/04/17 09/17/19 omega-3 fatty acids-fish oil 2 ea PO DAILY 12/01/17 09/17/19 bupropion HCl 300 mg 24 hr tablet, 300 mg PO DAILY #30 tab-cap 11/13/18 09/17/19 extended release lorazepam 2 mg tablet 2 mg PO DAILY #36 tab 12/25/18 09/17/19 gabapentin 800 mg tablet 800 mg PO QHS #30 tab 01/18/19 09/17/19 cholecalciferol (vitamin D3) 1,000 unit PO DAILY 04/22/19 09/17/19 [Vitamin D3] glipizide-metformin tab 04/22/19 09/17/19 methylphenidate HCl [Ritalin] 20 mg PO BID 04/22/19 09/17/19 olanzapine 30 mg PO HS 04/22/19 09/17/19 Previous Rx's Medication Instructions Recorded levetiracetam [Keppra] 500 mg PO BID #60 tab 08/17/16 bupropion HCl 300 mg 24 hr tablet, 300 mg PO DAILY #30 tab-cap 11/13/18 extended release lorazepam 2 mg tablet 2 mg PO DAILY #36 tab 12/25/18 gabapentin 800 mg tablet 800 mg PO QHS #30 tab 01/18/19 Allergies Allergy/AdvReac Type Severity Reaction Status Date / Time Penicillins Allergy hives/swell Unverified 09/29/19 13:46 ing ondansetron HCl AdvReac Intermediate Hives Unverified 09/29/19 13:46 [From Zofran (as hydrochloride)] erythromycin base AdvReac stomach Unverified 09/29/19 13:46 pain Sulfa (Sulfonamide AdvReac body aches Unverified 09/29/19 13:46 Antibiotics) semen Allergy Hives Uncoded 09/29/19 13:46 General RAVEN: 3 Review of Systems Constitutional Constitutional: Reports as per HPI, Denies chills, Reports fatigue, Denies fever(s), Denies frequent falls, Reports headache(s), Denies snoring and Denies weakness Eyes Eyes: Reports as per HPI, Denies blurry vision, Denies change in vision and Reports photophobia ENT Ears, Nose, Mouth, and Throat: Denies vertigo, Reports headache(s) and Denies neck pain Cardiovascular Cardiovascular: Reports as per HPI, Denies chest pain, Denies lightheadedness, Denies radiating jaw, neck or arm pain, Denies dyspnea and Denies dyspnea on exertion Respiratory Respiratory: Reports as per HPI, Denies chest congestion, Denies cough, Denies dyspnea, Denies dyspnea on exertion, Denies snoring, Denies stridor and Denies wheezing Gastrointestinal Gastrointestinal: Reports as per HPI, Denies abdominal pain, Denies change in bowel habits, Denies nausea and Denies vomiting Musculoskeletal Musculoskeletal: Reports as per HPI, Denies back pain, Denies myalgias, Denies muscle cramps, Denies neck pain and Denies numbness Integumentary/Breasts Skin/Breast: Reports as per HPI and Denies rash Neurologic Neurologic: Reports as per HPI, Denies abnormal movements, Denies abnormal speech, Denies behavioral changes, Denies confusion, Denies vertigo, Denies frequent falls, Reports headache(s), Denies localized weakness, Denies numbness, Denies sensory deficit and Denies weakness Psychiatric Psychiatric: Denies behavioral changes and Denies confusion Endocrine Endocrine: Reports fatigue Allergic/Immunologic Allergic/Immunologic: Denies wheezing PFSH Medical History Amenorrhea, secondary 06/2014 Nl pelvic us. ES 3.5mm. No response to Progestin challenges. Nl labs. Bipolar disorder ADD, PTSD, Anxiety and Depression GERD Hepatitis C IVDU Screening and evaluation for female sterilization (Acute) 04/2019. Not a candidate for OCPs. Declines L ARC. Given info on laparoscopic sterilization. Vulvitis (Acute) 04/22/2018. Secondary to contact dermatitis. Negative vag path screen, negative STI check. Treated with Dosepak of steroids and topical lidocaine. Surgical History Cholecystectomy Diagnostic Laproscopy (~2005) molar extraction , Ectopic (~2010) Social History Smoking/Tobacco Use Status: Current every day Tobacco Type: cigarettes Alcohol Intake: never Drug use: Daily Substance use type: marijuana and crack/cocaine Details: patient states uses crack occasionally. Do you feel safe at home: Yes Do you feel safe in your relationship?: Yes Exam Const General: cooperative, healthy appearing, comfortable (patient texting on her phone), no acute distress, well developed and well groomed Nutritional Appearance: well nourished and overweight Orientation: alert, awake and oriented x3 [facility] Head: normal to inspection, no palpable skull fracture, normocephalic and atraumatic Ears: hearing grossly normal bilaterally, external ears normal and TM's normal bilaterally General nose exam: external nose normal Mouth: oral mucosae normal and moist mucous membranes Throat: posterior oropharynx normal Eyes General: appearance normal, both eyes and all related structures Alignment and Position: alignment normal Periorbital: periorbital findings normal Eyelids: eyelids normal Sclera: sclerae normal Cornea: corneas normal Pupils: PERRL EOM: EOM intact bilaterally Neck Neck: normal visual inspection, full ROM, no lymphadenopathy and no meningeal signs Resp Effort & Inspection: normal respiratory effort, able to speak in complete sentences and no respiratory distress Auscultation: clear to auscultation bilaterally, no rales, no rhonchi and no wheezes Cardio Rate: regular rate Rhythm: regular rhythm Heart Sounds: S1 normal and S2 normal GI Inspection: normal to inspection and non-distended Palpation: soft, no hepatosplenomegaly, not firm, no guarding, not rigid and nontender Percussion: normal to percussion Auscultation: normal bowel sounds Back/Spine/Pelvis Cervical Spine: normal cervical lordosis and cervical ROM normal Skin General skin exam: no rashes or lesions noted Neuro General: patient alert, patient awake and patient oriented x3 Cranial Nerves: CN's II-XI intact bilaterally Cognition: normal cognition Speech: speech normal Gait: normal gait Motor: muscle tone normal throughout, strength 5/5 throughout, no pronator drift, no movement abnormalities noted and no fasciculations Sensory Exam: no sensory deficits noted DTR's: Rt Triceps: 2+, Lt Triceps: 2+, Rt Biceps: 2+, Lt Biceps: 2+, Rt Brachioradialis: 2+, Lt Brachioradialis: 2+, Rt Patellar: 2+, Lt Patellar: 2+, Rt Ankle: 2+ and Lt Ankle: 2+ Coordination: [id number] test normal, [id number] test normal, Romberg test normal, tandem gait normal, Does not sway with eyes open and rapid alternating movement UE normal Extrem General: normal to inspection, capillary refill normal, no pedal edema and no calf tenderness Psych Appearance: grossly normal and well kempt Mental Status: mental status grossly normal Speech and Movement: speech and movement normal
[2019-09-29 13:41] VITALS: BP 128/86; PULSE 103; TEMP 36.7; O2SAT 97
[2019-09-29] MEDS: Acetaminophen 500 MG TAB 1000 MG PO (14:11)
== END 2019-09-29 15:04 | disposition home or self-care (01) ==
PROVIDERS: Emergency Provider Physician Assistant; PCP Family Medicine
DX: S00.93XA Contusion of unspecified part of head, initial encounter (principal); S06.0X0A Concussion without loss of consciousness, initial encounter; R51 Headache; W20.8XXA Other cause of strike by thrown, projected or falling object, initial encounter
CPT/HCPCS: 99282; 99283

== ENCOUNTER 2019-11-17 10:39 | Emergency (ER) | payer MEDICAID, SELFPAY ==
[2019-11-17] VITALS (19 sets, daily range): BP systolic 126–169; BP diastolic 84–113; PULSE 98–107; RESP 22; TEMP 36.9–37.2; O2SAT 96–98
--- NOTE | 2019-11-17 10:52 | ED.GENADUL_ITS ---
Discharge Plan Disposition Patient Disposition: HOME Condition: Stable Discharge Details Chief Complaint: Abd Prob Clinical Impression: Constipation, Abdominal pain Primary Care Provider: Damian Murillo ED Provider: Brenda Wood Home Meds and New Rx's Prescriptions: New dicyclomine 20 mg tablet 20 mg PO TID PRN (Reason: abdominal pain) Qty: 10 RF: 0 magnesium citrate Solution 150 ml PO BID Qty: 300 RF: 0 Continued lorazepam 2 mg tablet 2 mg PO DAILY Qty: 36 RF: 1 gabapentin 800 mg tablet 800 mg PO QHS Qty: 30 RF: 1 bupropion HCl 300 mg tablet extended release 24 hr 300 mg PO DAILY Qty: 30 RF: 5 omeprazole [Prilosec] 20 MG capsule,delayed release(DR/EC) 40 mg PO DAILY RF: 0 loratadine 10 MG tablet 10 mg PO DAILY RF: 0 omega-3 fatty acids-fish oil 1 EACH capsule 2 ea PO DAILY RF: 0 metformin [Glucophage] 1,000 MG tablet 1,000 mg PO DAILY RF: 0 levetiracetam [Keppra] 500 MG tablet 500 mg PO BID Qty: 60 RF: 2 olanzapine 15 mg tablet 30 mg PO HS RF: 0 methylphenidate HCl [Ritalin] 20 mg Tablet 20 mg PO BID RF: 0 glipizide-metformin 5-500 mg Tablet RF: 0 cholecalciferol (vitamin D3) [Vitamin D3] 1,000 unit Capsule 1,000 unit PO DAILY RF: 0 Discharge Instructions Instructions: Constipation (ED), Abdominal Pain (ED) Additional Instructions: Be sure to drink plenty of water, fruits and vegetables and increase your fiber intake which will help have regular bowel movements. Alternate tylenol and motrin as needed and directed for pain. You can also take the Bentyl prescription as needed and directed for pain. Take the magnesium citrate prescription as directed for your constipation. Also continue your stool softeners, suppositories and laxatives as directed if no relief of your constipation. Avoid narcotic drug use as this can worsen your constipation. Follow up with your primary care doctor in 1 week as needed. Return to the emergency department with any worsening or new concerning symptoms such as fever, worsening vomiting or pain. Discharge Data Discharge Date/Time-TO BE ENTERED AT DEPARTURE: 11/17/19 14:30 Discharge Physician: Brenda J Bugbee Medical Decision Making 1050 -- 38-year-old female with a history of hepatitis C, former IV drug use, current illicit methamphetamine use presents with lower abdominal pain and constipation for the past 5 days. Patient uncooperative at times, pulling her arm away as nurse attempting to place IV. She has been screaming and moaning in the ED complaining of pain. Multiple attempts at IV placement eventually successful. She has minimal lower abdominal tenderness, mostly suprapubic, some LLQ/RLQ. Will check screening labs, urinalysis, urine and obtain CT abdomen pelvis. 1330 -- labs and imaging reviewed. WBC 17, Cr 1.14, Anion gap 12.3, UA negative. CT abdomen/pelvis notes colonic distension but no SBO. Unable to visualize appendix which was similar to previous study but no secondary signs of appendicitis. Patient was reassessed. She has minimal left lower quadrant and suprapubic tenderness but no right lower quadrant tenderness or rebound. Case was discussed with surgery Dr. [place] who stated that there would likely be signs of acute appendicitis on CT after a period of pain for 5 days. Patient feels okay to go home. She was given a dose of Bentyl here as well as prescriptions for magnesium citrate and Bentyl. She was advised on the importance of drinking plenty of water. Advised to follow up with the primary care doctor for re-evaluation. Usual and customary return precautions given prior to discharge. Medical Records Medical records reviewed: Yes I reviewed the patient's medical records. Imaging Data Radiologic Study: Radiologist's impression: CT Abdomen And Pelvis With Contrast Exam date and time: 11/17/2019 11:27 AM Age: 38 years old Clinical indication: Other: Lower abdominal pain, R/O sbo, divertic/appenditis TECHNIQUE: Imaging protocol: Computed tomography of the abdomen and pelvis with intravenous contrast. Radiation optimization: All CT scans at this facility use at least one of these dose optimization techniques: automated exposure control; mA and/or kV adjustment per patient size (includes targeted exams where dose is matched to clinical indication); or iterative reconstruction. Contrast material: OMNIPAQUE 350; Contrast volume: 100 ml; Contrast route: IV; COMPARISON: CT ABD PELVIS WITH CONTRAST 12/05/2017 12:02 PM FINDINGS: Liver: Normal. No mass. Gallbladder and bile ducts: Previous cholecystectomy. Pancreas: Normal. No ductal dilation. Spleen: Normal. No splenomegaly. Adrenals: Normal. No mass. Kidneys and ureters: Medial left renal subcentimeter cyst. Anterior right renal subcentimeter simple cyst. No further imaging workup is recommended. These are benign in appearance. Stomach and bowel: There is liquified colon contents and minor distension of the right colon and cecum. The cecum measures up to approximately 7.2 cm. This could represent a diarrheal illness or mild colitis. There is some distension of the transverse colon as well with air-fluid levels. There is some scattered formed feces in the colon. Small bowel loops are non edematous and nondilated. There is no evidence of mechanical obstruction. Small hiatal hernia. Appendix: The appendix is not visualized on the current study. There is a previous study from 12/05/2017. The appendix cannot be identified on the prior study as well. Please correlate with any history of appendectomy. No secondary features of acute appendicitis are noted. Intraperitoneal space: No free fluid in the abdomen or pelvis. Vasculature: Unremarkable. No abdominal aortic aneurysm. Lymph nodes: Unremarkable. No enlarged lymph nodes. Bladder: Unremarkable as visualized. Reproductive: Unremarkable as visualized. Bones/joints: Mild degenerative lumbar spine changes. Soft tissues: Unremarkable. IMPRESSION: 1. Mild colonic distension and liquified colonic contents suggesting a diarrheal illness. No mechanical obstruction. No small bowel edema or dilatation. 2. Appendix not identified on current study or in review of a previous study from 2018. 3. Minor benign-appearing bilateral renal cysts subcentimeter in size. 4. Previous cholecystectomy. HPI General Mode of arrival: wheelchair . Date/Time Provider Initiated Documentation: 11/17/19 10:42 . Limitations to Documentation: no limitations . Information obtained by: patient . HPI Narrative: Patient is a 38-year-old female with history of hepatitis C and former IV drug abuse who admits to constipation and abdominal pain for the past few days. She states her abdominal pain is across her lower abdomen and is intermittent and sharp. She states her last bowel movement was 5 days ago. She has been using laxatives, stool softeners and used an enema this morning without relief. She admits to vomiting 3 times which is mainly been consisting of food. She denies any fever, cough, chest pain or shortness of breath. She states she did snort and smoke crystal meth over the past week, last use 3 days ago. She states she has not used any IV drugs for the past 8 years. She denies alcohol use. Related Data Home Medications Medication Instructions Recorded Confirmed omeprazole [Prilosec] 40 mg PO DAILY tab-cap 04/18/15 11/17/19 metformin [Glucophage] 1,000 mg PO DAILY 05/10/16 11/17/19 levetiracetam [Keppra] 500 mg PO BID #60 tab 08/17/16 11/17/19 loratadine 10 mg PO DAILY tab-cap 07/04/17 11/17/19 omega-3 fatty acids-fish oil 2 ea PO DAILY 12/01/17 11/17/19 bupropion HCl 300 mg 24 hr tablet, 300 mg PO DAILY #30 tab-cap 11/13/18 11/17/19 extended release lorazepam 2 mg tablet 2 mg PO DAILY #36 tab 12/25/18 11/17/19 gabapentin 800 mg tablet 800 mg PO QHS #30 tab 01/18/19 11/17/19 cholecalciferol (vitamin D3) 1,000 unit PO DAILY 04/22/19 11/17/19 [Vitamin D3] glipizide-metformin tab 04/22/19 09/17/19 methylphenidate HCl [Ritalin] 20 mg PO BID 04/22/19 11/17/19 olanzapine 30 mg PO HS 04/22/19 11/17/19 dicyclomine 20 mg PO TID PRN #10 tab 11/17/19 magnesium citrate 150 ml PO BID #300 ml 11/17/19 Previous Rx's Medication Instructions Recorded levetiracetam [Keppra] 500 mg PO BID #60 tab 08/17/16 bupropion HCl 300 mg 24 hr tablet, 300 mg PO DAILY #30 tab-cap 11/13/18 extended release lorazepam 2 mg tablet 2 mg PO DAILY #36 tab 12/25/18 gabapentin 800 mg tablet 800 mg PO QHS #30 tab 01/18/19 dicyclomine 20 mg PO TID PRN #10 tab 11/17/19 magnesium citrate 150 ml PO BID #300 ml 11/17/19 Allergies Allergy/AdvReac Type Severity Reaction Status Date / Time Penicillins Allergy hives/swell Unverified 11/17/19 10:51 ing ondansetron HCl AdvReac Intermediate Hives Unverified 11/17/19 10:51 [From Zofran (as hydrochloride)] erythromycin base AdvReac stomach Unverified 11/17/19 10:51 pain Sulfa (Sulfonamide AdvReac body aches Unverified 11/17/19 10:51 Antibiotics) semen Allergy Hives Uncoded 11/17/19 10:51 General Stated Complaint: Abd Prob RAVEN: 3 Review of Systems All systems reviewed & are unremarkable except as noted in HPI and below Constitutional Constitutional: Reports as per HPI, Denies chills and Denies fever(s) Eyes Eyes: Denies blurry vision ENT Ears, Nose, Mouth, and Throat: Denies dizziness, Denies sore throat and Denies throat swelling Cardiovascular Cardiovascular: Denies chest pain and Denies dyspnea Respiratory Respiratory: Denies cough and Denies dyspnea Gastrointestinal Gastrointestinal: Reports abdominal pain, Denies diarrhea and Reports vomiting Genitourinary Genitourinary: Denies hematuria and Denies dysuria Musculoskeletal Musculoskeletal: Denies back pain and Denies numbness Integumentary/Breasts Skin/Breast: Denies lesions and Denies rash Neurologic Neurologic: Denies dizziness, Denies localized weakness and Denies numbness Allergic/Immunologic Allergic/Immunologic: Denies throat swelling PFSH Social History Smoking/Tobacco Use Status: Current every day Tobacco Type: cigarettes Alcohol Intake: never Drug use: Occasionally Substance use type: marijuana and crack/cocaine Details: used crystal meth 2 days ago Do you feel safe at home: Yes Do you feel safe in your relationship?: Yes Exam Const General: uncooperative, healthy appearing, uncomfortable, in distress moderate (screaming at times) and anxious Orientation: alert, awake and oriented x3 HENMT Head: normal to inspection Eyes General: appearance normal, both eyes and all related structures EOM: EOM intact bilaterally Neck Neck: normal visual inspection and No submandibular swelling Lymphatic: no lymphadenopathy noted Chest Chest: normal inspection of the chest and no tenderness Resp Effort & Inspection: normal respiratory effort and able to speak in complete sentences Auscultation: clear to auscultation bilaterally Cardio Rate: regular rate Rhythm: regular rhythm GI Inspection: normal to inspection Palpation: soft, not firm, not rigid and tender (minimal) in the LLQ, in the RLQ and suprapubicly Auscultation: hypoactive bowel sounds Skin General skin exam: no rashes or lesions noted Neuro General: patient alert, patient awake and patient oriented x3 Cognition: normal cognition Speech: speech normal Motor: muscle tone normal throughout Sensory Exam: no sensory deficits noted Extrem General: normal to inspection, full ROM, capillary refill normal, no calf tenderness bilaterally and no edema Psych Appearance: grossly normal Mental Status: mental status grossly normal Speech and Movement: speech and movement normal Affect: normal affect Course Vital Signs Vital signs: Vital Signs Temperature 98.4 F 11/17/19 10:46 Pulse 98 H 11/17/19 10:46 Respiratory Rate 22 11/17/19 10:46 Blood Pressure 169/113 H 11/17/19 10:46 Pulse Oximetry 98 11/17/19 10:46 Temperature 98.4 F 11/17/19 10:46 Temperature Source Temporal Artery Scan 11/17/19 10:46 Pulse 98 H 11/17/19 10:46 Respiratory Rate 22 11/17/19 10:46 Respiratory Effort Non-Labored 11/17/19 10:49 Blood Pressure 169/113 H 11/17/19 10:46 Blood Pressure Position Sitting 11/17/19 10:46 Pulse Oximetry 98 11/17/19 10:46 Oxygen Delivery Method Room Air 11/17/19 10:46 Oxygen Flow Rate 0 11/17/19 10:46 Pain Level 10 11/17/19 10:46
--- NOTE | 2019-11-17 10:58 | NUR.NOTE ---
Nursing Note: Attempted to place IV via ultrasound. Patient started screaming to take needle out- pt asked to hold still so IV could safely be retracted. Pt jerked arm towards this tag writer with near miss needle stick. MD notified that no further IV attempt would be made.
[2019-11-17 11:44] LABS: Abs Immature Grans 0.08 k/cumm (0.0-0.09); Absolute Eosinophil Count 0.27 k/cumm (0.0-0.7); Absolute Monocyte Count 1.04 k/cumm (0.11-0.7); Absolute Neutrophil Count 13.65 k/cumm (1.2-6.7); Basophils % 0.2; Eosinophils % 1.5; HCT 46.1 % (36.0-46.0); HGB 16.8 g/dL (12.0-15.5); Immature Grans % 0.4 %; Lymphocytes % 15.9; Mean Corp. HGB Concentration 36.4 g/dL (32.0-36.0); Mean Corpuscular Hemoglobin 33.3 pg (27.0-33.0); Mean Corpuscular Volume 91.3 fL (80-95); Mean Platelet Volume 8.7 fL (8.0-11.0); Monocytes % 5.8; Neutrophils % 76.2; Platelet Count 308 x1000/uL (130-400); RBC 5.05 m/cumm (4.00-5.20); White Blood Cell Count 17.91 k/cumm (4.4-10.8)
[2019-11-17 11:52] LABS: Absolute Basophil Count 0.04 k/cumm (0.0-0.2); Absolute Lymphocyte Count 2.85 k/cumm (1.2-3.4)
[2019-11-17 11:56] LABS: ALT 30 U/L (14-59); AST 17 U/L (15-37); Albumin 3.9 g/dL (3.4-5.0); Alkaline Phosphatase 73 U/L (46-116); Anion Gap 12.3 mmol/L (3-11); BUN 8 mg/dL (7-18); Bilirubin, Total 0.7 mg/dL (0.2-1.0); CO2 22.7 mmol/L (21.0-32.0); CREATININE 1.14 mg/dL (0.55-1.02); Calcium 9.1 mg/dL (8.5-10.1); Chloride 100 mmol/L (98-107); Estimated GFR 53.63 (mL/min/1.73m2); Glucose 271 mg/dL (74-106); Lipase 103 U/L (73-393); Potassium 3.5 mmol/L (3.5-5.1); Sodium 135 mmol/L (136-145); Total Protein 7.9 g/dL (6.4-8.2)
[2019-11-17] MEDS: Ketorolac 30 MG/ML VIAL IVP (12:05)
[2019-11-17] MEDS: Metoclopramide 10 MG/2 ML VIAL IVP (12:06)
[2019-11-17] MEDS: Normal Saline Flush 10 ML SYR IVP ×2 (12:07→13:18)
[2019-11-17] MEDS: Normal Saline 1,000 ML 1000 ML IV (12:07)
[2019-11-17 12:53] LABS: Bilirubin Negative (Negative); Blood Negative (Negative); Clarity Clear (Clear); Glucose 500 mg/dL (Negative); Ketones Negative (Negative); Leukocyte Esterase Negative (Negative); Nitrite Negative (Negative)
[2019-11-17] MEDS: Normal Saline - Diluent 50 ML VIAL IV (13:18)
[2019-11-17] MEDS: Omnipaque 350 MG/ML 100 ML BTL IJ (13:18)
--- NOTE | 2019-11-17 13:20 | DI.CT_ITS ---
EXAM: CT ABDOMEN PELVIS W CLINICAL HISTORY: lower abdominal pain, r/o sbo, divertic/appenditis. TECHNIQUE: Imaging Protocol: Axial computed tomography images with coronal and sagittal reformatted images were created and reviewed CONTRAST MATERIAL: Intravenous: Omnipaque 350 Contrast volume:structured data in ml Oral: yes / no COMPARISON: ABD PELVIS WITH CONTRAST from 12/05/2017 FINDINGS: ABDOMEN: Lung Bases: Normal where visualized. Liver: Normal density. No measurable mass. Gallbladder and biliary tract: Status post cholecystectomy. No radiodense calculus or dilation. Pancreas: Normal density, no abnormal calcifications or inflammatory process. Spleen: Normal. Kidneys: Normal size, contour and axis. No radiodense stones or obstructive uropathy. No masses seen. Adrenal glands: No masses seen. Abdominal Aorta: Abdominal portion non-dilated. PELVIS: Bladder: Symmetric distention, no gross wall thickening. Bowel: No obstruction or bowel wall thickening. There is stool and fluid within the cecum through tr ansverse colon. There is formed stool in the upper descending colon. The more distal colon is mainl y decompressed. Peritoneal cavity: No ascites, collection or mesenteric inflammatory response. Bones: Within normal limits. Reproductive organs: Within normal limits. Lymph nodes: Unremarkable. Impression: Fluid-filled right and transverse colon could be secondary to a diarrheal illness. There is no evide nce of obstruction, free fluid or perforation. The appendix is not seen. RADIATION DOSE DELIVERED: Total DLP DATA REPOSITORY: All CT scans at this facility are submitted to the National Radiology Data Registry (NRDR) Dose Index Registry (DIR) with the [employer] (A[employer]). RADIATION OPTIMIZATION: All CT scans at this facility use at least one of these dose optimization te chniques: automated exposure control; mA and/or kV adjustment per patient size (includes targeted exa ms where dose is matched to clinical indication); or iterative reconstruction.
--- NOTE | 2019-11-17 13:43 | DI.VRAD_ITS ---
PROCEDURE INFORMATION: Exam: CT Abdomen And Pelvis With Contrast Exam date and time: 11/17/2019 11:27 AM Age: 38 years old Clinical indication: Other: Lower abdominal pain, R/O sbo, divertic/appenditis TECHNIQUE: Imaging protocol: Computed tomography of the abdomen and pelvis with intravenous contrast. Radiation optimization: All CT scans at this facility use at least one of these dose optimization techniques: automated exposure control; mA and/or kV adjustment per patient size (includes targeted exams where dose is matched to clinical indication); or iterative reconstruction. Contrast material: OMNIPAQUE 350; Contrast volume: 100 ml; Contrast route: IV; COMPARISON: CT ABD PELVIS WITH CONTRAST 12/05/2017 12:02 PM FINDINGS: Liver: Normal. No mass. Gallbladder and bile ducts: Previous cholecystectomy. Pancreas: Normal. No ductal dilation. Spleen: Normal. No splenomegaly. Adrenals: Normal. No mass. Kidneys and ureters: Medial left renal subcentimeter cyst. Anterior right renal subcentimeter simple cyst. No further imaging workup is recommended. These are benign in appearance. Stomach and bowel: There is liquified colon contents and minor distension of the right colon and cecum. The cecum measures up to approximately 7.2 cm. This could represent a diarrheal illness or mild colitis. There is some distension of the transverse colon as well with air-fluid levels. There is some scattered formed feces in the colon. Small bowel loops are non edematous and nondilated. There is no evidence of mechanical obstruction. Small hiatal hernia. Appendix: The appendix is not visualized on the current study. There is a previous study from 12/05/2017. The appendix cannot be identified on the prior study as well. Please correlate with any history of appendectomy. No secondary features of acute appendicitis are noted. Intraperitoneal space: No free fluid in the abdomen or pelvis. Vasculature: Unremarkable. No abdominal aortic aneurysm. Lymph nodes: Unremarkable. No enlarged lymph nodes. Bladder: Unremarkable as visualized. Reproductive: Unremarkable as visualized. Bones/joints: Mild degenerative lumbar spine changes. Soft tissues: Unremarkable. IMPRESSION: 1. Mild colonic distension and liquified colonic contents suggesting a diarrheal illness. No mechanical obstruction. No small bowel edema or dilatation. 2. Appendix not identified on current study or in review of a previous study from 2018. 3. Minor benign-appearing bilateral renal cysts subcentimeter in size. 4. Previous cholecystectomy. Dictated and Authenticated by: Ruben Plascencia MD. Ordering:SALVADOR Gutierrez MD
[2019-11-17] MEDS: Dicyclomine 20 MG TAB PO (14:19)
== END 2019-11-17 14:30 | disposition home or self-care (01) ==
PROVIDERS: Emergency Provider Physician Assistant; PCP Family Medicine
DX: K59.00 Constipation, unspecified (principal); R10.32 Left lower quadrant pain; F11.20 Opioid dependence, uncomplicated
CPT/HCPCS: 36415; 80053; 81025; 83690; 96361; 96374; 96375; 99285; 74177; 81003; 84703; 85025; 99284; J1885; J2765; J3490

== ENCOUNTER 2019-12-11 01:38 | Outpatient (CLI) | payer MEDICAID, SELFPAY ==
[2019-12-11 11:12] LABS: HCT 43.3 % (36.0-46.0); HGB 15.4 g/dL (12.0-15.5); Mean Corp. HGB Concentration 35.6 g/dL (32.0-36.0); Mean Corpuscular Hemoglobin 33.8 pg (27.0-33.0); Mean Platelet Volume 8.8 fL (8.0-11.0); Platelet Count 309 x1000/uL (130-400); RBC 4.56 m/cumm (4.00-5.20); RBC Distribution Width 13.4 % (11.7-14.6); White Blood Cell Count 8.36 k/cumm (4.4-10.8)
[2019-12-11 11:59] LABS: ALT 30 U/L (14-59); AST 16 U/L (15-37); Albumin 3.6 g/dL (3.4-5.0); Alkaline Phosphatase 61 U/L (46-116); Anion Gap 8.5 mmol/L (3-11); BUN 8 mg/dL (7-18); Bilirubin, Total 0.3 mg/dL (0.2-1.0); CO2 25.5 mmol/L (21.0-32.0); CREATININE 1.05 mg/dL (0.55-1.02); Chloride 103 mmol/L (98-107); Estimated GFR 58.65 (mL/min/1.73m2); Glucose 148 mg/dL (74-106); Potassium 4.3 mmol/L (3.5-5.1); Sodium 137 mmol/L (136-145); Total Protein 6.8 g/dL (6.4-8.2)
[2019-12-11 12:12] LABS: HCG Qual (Serum) Negative
== END 2019-12-11 01:58 ==
PROVIDERS: PCP Family Medicine; Visit Provider Obstetrics & Gynecology Gynecology
DX: Z30.2 Encounter for sterilization (principal); Z64.1 Problems related to multiparity; Z01.818 Encounter for other preprocedural examination; Z01.812 Encounter for preprocedural laboratory examination
CPT/HCPCS: 36415; 80053; 85027; 86850; 86900; 86901; 84703

== ENCOUNTER 2019-12-17 08:02 | Outpatient (CLI) | payer MEDICAID, SELFPAY ==
[2019-12-17 19:58] LABS: COVID-19 RT-PCR UVMMC Result Negative (Negative)
== END 2019-12-17 08:22 ==
PROVIDERS: PCP Family Medicine; Visit Provider Obstetrics & Gynecology Gynecology
DX: Z11.59 Encounter for screening for other viral diseases (principal)
CPT/HCPCS: U0003

== ENCOUNTER 2019-12-19 08:36 | Day surgery (SDC) | payer MEDICAID, SELFPAY ==
[2019-12-19 09:10] VITALS: BP 126/94; PULSE 95; RESP 20; TEMP 37.1; O2SAT 99
[2019-12-19] MEDS: Lactated Ringers 1,000 ML 125 ML IV (09:33)
--- NOTE | 2019-12-19 10:11 | W.PM.DSUDISC ---
Discharge Plan Discharge Details Attending Provider: Celeste Pepper Primary Care Provider: Damian Murillo Home Meds and New Rx's Prescriptions: No Action methylphenidate HCl [Concerta] 54 mg tablet extended release 24hr 54 mg PO DAILY RF: 0 oxycodone-acetaminophen [Endocet] 5-325 mg tablet 1 tab PO Q6H MDD 4 PRN (Reason: pain) Qty: 10 RF: 0 gabapentin 800 mg tablet 800 mg PO QHS Qty: 30 RF: 1 bupropion HCl 300 mg tablet extended release 24 hr 300 mg PO DAILY Qty: 30 RF: 5 omeprazole [Prilosec] 20 MG capsule,delayed release(DR/EC) 40 mg PO DAILY RF: 0 loratadine 10 MG tablet 10 mg PO DAILY RF: 0 omega-3 fatty acids-fish oil 1 EACH capsule 2 ea PO DAILY RF: 0 levetiracetam [Keppra] 500 MG tablet 500 mg PO BID Qty: 60 RF: 2 dicyclomine 20 mg tablet 20 mg PO TID PRN (Reason: abdominal pain) Qty: 10 RF: 0 olanzapine 15 mg tablet 30 mg PO HS RF: 0 glipizide-metformin 5-500 mg Tablet 1 tab PO DAILY RF: 0 cholecalciferol (vitamin D3) [Vitamin D3] 1,000 unit Capsule 1,000 unit PO DAILY RF: 0 DS: Diagnosis Discharge Diagnosis (1) History of tubal ligation: Status: Chronic
--- NOTE | 2019-12-19 11:30 | FALL_PTH ---
PATIENT: Ne Kennedy LOC: [facility] U#:[id number] AGE/SX: 39/F ROOM: RE12/19/[address]: Celeste Pepper : 1980 BED: DIS: 12/19/2019 SPEC #: [id number] RECD: 12/19/19 12:06 STATUS: EDGAR REAnand #: [id number] VIKA: 12/19/19 11:[address]: Celeste Pepper DEPT: Surgical Specimen RECD BY: Raven Allen ENTERED: 12/19/19 12:06 SP TYPE: Fall OTHR DR: Damian Murillo Tissues: 1 - FALLOPIAN TUBE (STERILIZATION) Procedures: GROSS AND MICRO LEVEL 2 Comments: [id number]
[2019-12-19] MEDS: Bupivacaine 0.25% Pres-Free 30 ML VIAL (11:42)
[2019-12-19 11:52] VITALS: BP 99/48; PULSE 90; RESP 26; TEMP 36.1
[2019-12-19 11:57] VITALS: BP 113/80; PULSE 93; RESP 28; TEMP 36.1
[2019-12-19 12:02] VITALS: BP 114/74; PULSE 93; RESP 15; TEMP 36.1
[2019-12-19 12:17] VITALS: BP 109/63; PULSE 97; RESP 13; TEMP 36.7
[2019-12-19] MEDS: oxyCODONE 5 mg/Acetaminophen 325 mg TAB PO (12:42)
[2019-12-19 13:10] VITALS: BP 117/84; PULSE 92; RESP 18; TEMP 36.7; O2SAT 95
--- NOTE | 2019-12-19 16:37 | W.PM.OP ---
Operative Note Operative Note DATE OF PROCEDURE: 12/19/19 PRE-OP DIAGNOSIS: Desires permanent sterilization, previous right salpingectomy POST-OP DIAGNOSIS: same PROCEDURE: Laparoscopic left salpingectomy SURGEON: Celeste Pepper HAIR SPINNING MACHINE OPERATOR: Jocelyne Garces ANESTHESIA: GETA ESTIMATED BLOOD LOSS: 0 PATHOLOGY: other (Left fallopian tube) COMPLICATIONS: None Patient was transported to: PACU Patient's condition: stable Indications: 39yo female who has been counseled regarding alternatives to permanent sterilization who reiterated her desire for a permanent sterilization. Findings: Right fallopian tube surgically absent to the level of the right uterine cornua small adhesion of the serosal surface of the small intestine to the right upper lateral abdominal wall. Normal ovaries bilaterally normal left fallopian tube. Normal appendix Procedure Description: Description of procedure patient was taken to the operating room she is placed in the dorsal supine position and general endotracheal anesthesia was administered without difficulty. She was prepped and draped in the usual sterile fashion along with placement of SCDs. Surgical timeout was performed. Attention was turned to the patient's abdomen where the gabby-umbilical fold was infiltrated with quarter percent Marcaine without epinephrine. A vertical skin incision was made in the umbilical fold with a scalpel and through this incision a Veres needle was introduced and intra-abdominal placement confirmed by drop in the insufflation pressure of carbon dioxide. Patient was placed in Trendelenburg and under direct visualization two 5 mm trocar and sleeves were introduced approximately 2 cm medial to the superior anterior iliac crest. The right fallopian tube remnant was identified at the uterine cornua. There was no evidence of any isthmic portion or fibriated end. Attention was then turned to the left fallopian tube where it's attachment to the left uterine cornua was clamped, cauterized and transected with the bipolor Ligasure device. The mesosalpinx was then sequentially clamped, cauterized and transected to the fimbriated end. The left fallopian tube was then delivered through the 10 mm umbilical port. The left surgery site was noted to be hemostatic at the completion of the procedure. Under direct visualization both 5 mm lower trochars were removed pneumoperitoneum was reduced and a umbilical port was removed in a parallel fashion to the anterior abdominal wall. The rectus fascia was then reapproximated with a suture of 0 Vicryl and the skin of all port sites was reapproximated with a subcuticular closure of 4-0 Monocryl and sealed with skin glue. Patient was awakened extubated and transported recovery area in stable condition. All sponge lap needle counts correct x2.
== END 2019-12-19 13:35 | disposition home or self-care (01) ==
LOC: SUR 08:36
PROVIDERS: PCP Family Medicine; Visit Provider Obstetrics & Gynecology Gynecology
PROC: (CPT 58661; principal; 2019-12-19 10:30)
DX: Z30.2 Encounter for sterilization (principal); Z90.79 Acquired absence of other genital organ(s)
CPT/HCPCS: 58661; 88302; J1100; J1885; J2001; J2250; J2405; J2704

== ENCOUNTER 2020-01-06 00:45 | Emergency (ER) | payer MEDICAID, SELFPAY ==
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
[2020-01-06 00:46] VITALS: BP 131/78; PULSE 110; RESP 22; TEMP 36.9; O2SAT 96
--- NOTE | 2020-01-06 00:48 | NUR.NOTE ---
Nursing Note: REFERAL COPIED TO [employer] 01/06/20
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
[2020-01-06] MEDS: Doxycycline Hyclate 100 MG, 2 CAPS/BTL PO (00:56)
[2020-01-06 01:29] LABS: HIV 1/2 Ab Rapid Negative (Negative)
[2020-01-07 11:33] LABS: Hepatitis B Surface Ag Negative (Negative)
[2020-01-07 11:55] LABS: Hepatitis C Ab w Rflx HCV PCR Reactive (Negative)
[2020-01-09 15:06] LABS: HCV RNA Qualitative Undetected (Undetected)
== END 2020-01-06 01:20 | disposition home or self-care (01) ==
PROVIDERS: Emergency Provider Student in an Organized Health Care Education/Training Program; PCP Family Medicine
DX: S51.852A Open bite of left forearm, initial encounter (principal); Y04.1XXA Assault by human bite, initial encounter; E11.9 Type 2 diabetes mellitus without complications
CPT/HCPCS: 36415; 86803; 87340; 87522; 90471; 99284; 99283

== ENCOUNTER 2020-01-11 16:49 | Outpatient (REF) | payer MEDICAID, SELFPAY ==
[2020-01-14 12:18] LABS: HSV 1 DNA Result Negative (Negative); HSV 2 DNA Result Positive (Negative)
[2020-01-14 16:43] LABS: Chlamydia Result Negative (Negative); GC Result Negative (Negative)
== END 2020-01-11 17:09 ==
LOC: LBN 16:49
PROVIDERS: PCP Family Medicine; Visit Provider Obstetrics & Gynecology
DX: N90.89 Other specified noninflammatory disorders of vulva and perineum (principal); R10.2 Pelvic and perineal pain; N89.8 Other specified noninflammatory disorders of vagina; Z11.3 Encounter for screening for infections with a predominantly sexual mode of transmission; Z11.59 Encounter for screening for other viral diseases
CPT/HCPCS: 87491; 87529; 87591; 87480; 87510; 87660

== ENCOUNTER 2020-03-05 09:32 | Emergency (ER) | payer MEDICAID, SELFPAY ==
[2020-03-05] VITALS (14 sets, daily range): BP systolic 147–151; BP diastolic 84–97; PULSE 89–101; RESP 11–24; TEMP 37.1; O2SAT 95–100
--- NOTE | 2020-03-05 09:34 | W.ED.GENAD ---
Discharge Plan Disposition Patient Disposition: OTHER Condition: Stable Discharge Details Chief Complaint: DrugWithdr/MAT Clinical Impression: Opiate withdrawal, Pneumonia Primary Care Provider: Damian Murillo ED Provider: Brenda Wood Home Meds and New Rx's Prescriptions: New levofloxacin [Levaquin] 750 mg tablet 750 mg PO DAILY 4 Days Qty: 4 RF: 0 promethazine 25 mg tablet 25 mg PO TID PRN (Reason: nausea and vomiting) Qty: 7 RF: 0 albuterol sulfate 90 mcg/actuation aerosol powdr breath activated 2 inh IH Q6H PRN (Reason: shortness of breath or wheezing) Qty: 1 RF: 0 Continued valacyclovir [Valtrex] 500 mg tablet 500 mg PO Q12H Qty: 6 RF: 6 methylphenidate HCl [Concerta] 54 mg tablet extended release 24hr 54 mg PO DAILY RF: 0 bupropion HCl 300 mg tablet extended release 24 hr 300 mg PO DAILY Qty: 30 RF: 5 omeprazole [Prilosec] 20 MG capsule,delayed release(DR/EC) 40 mg PO DAILY RF: 0 loratadine 10 MG tablet 10 mg PO DAILY RF: 0 omega-3 fatty acids-fish oil 1 EACH capsule 2 ea PO DAILY RF: 0 levetiracetam [Keppra] 500 MG tablet 500 mg PO BID Qty: 60 RF: 2 olanzapine 15 mg tablet 30 mg PO HS RF: 0 glipizide-metformin 5-500 mg Tablet 1 tab PO DAILY RF: 0 cholecalciferol (vitamin D3) [Vitamin D3] 1,000 unit Capsule 1,000 unit PO DAILY RF: 0 No Action gabapentin 800 mg tablet 800 mg PO BID RF: 0 Discharge Instructions Instructions: Opioid Withdrawal (ED), Pneumonia (ED) Additional Instructions: Go directly to [facility] behavioral clinic for further management of your opiate withdrawal. You can take the Phenergan as needed and vomiting. Your chest x-ray noted findings consistent with possible pneumonia. You were given an albuterol inhaler to use as needed and directed for shortness of breath or coughing. Take the antibiotics until finished. Follow-up with your primary care doctor in 1 week. Return to the emergency department with any worsening or new concerning symptoms. Discharge Data Discharge Date/Time-TO BE ENTERED AT DEPARTURE: 03/05/20 13:41 Discharge Physician: Brenda Wood Medical Decision Making 39-year-old female with a history of IV drug abuse presents with nausea, diarrhea, agitation, cough and shortness of breath since last night 2 hours after her last use of heroin. BP mildly hypertensive, heart rate elevated. She is afebrile and appears nontoxic. She is crying and moaning but appears nontoxic. EKG notes a rate of 101, sinus with no acute ST-T wave ischemic changes. Suspect most likely opiate withdrawal will obtain screening labs and urinalysis to rule out any other acute process. We will also give a dose of Ativan, Phenergan and fluids and reassess. Labs and imaging reviewed. White blood cell count 12. Troponin negative. Urinalysis notes cocaine and THC. Chest x-ray notes bilateral perihilar infiltrates. Patient admits to cough and shortness of breath with history of smoking heroin. Will treat for pneumonia. Patient given 1 dose of Levaquin here as well as prescription for Levaquin and Phenergan to go. Case discussed with Dr. Acuna at [facility] -patient is cleared for discharge and will plan for evaluation at the clinic today for Suboxone induction if indicated. Dr. Acuna agreeable with plan. Usual and customary return precautions given prior to discharge. Medical Records Medical records reviewed: Yes I reviewed the patient's medical records. Imaging Data Radiologic Study: Radiologist's impression: XR PORTABLE CHEST AP CLINICAL HISTORY: shortness of breath, r/o acute disease TECHNIQUE: 2D digital imaging was performed. COMPARISON: CR XR CHEST 2V PA LATERAL from 03/08/2019 FINDINGS: Heart size is normal. There are arm is peribronchial thickening and mildly increased pulmonary markings, slightly greater on the left. The findings could represent viral pneumonitis versus inhalational injury. No focal consolidation or effusion. IMPRESSION: Mild bilateral perihilar infiltrates. Lab Data Lab results reviewed: Yes I reviewed the patient's lab results. Labs: Laboratory Tests Range/Units 03/05/20 03/05/20 03/05/20 10:00 10:00 12:05 WBC (4.4-10.8) 10^3/uL RBC (3.93-5.22) 10^6/uL Hgb (11.2-15.7) g/dL Hct (36.0-46.0) % MCV (80-95) fL MCH (27.0-33.0) pg MCHC (32.0-36.0) % RDW (11.7-14.6) % Plt Count (130-400) 10^3/uL MPV (8.0-11.0) fL Immature Gran % Neutrophils % Lymphocytes % Monocytes % Eosinophils % Basophils % Nucleated RBC % % Absolute Neutrophils (1.2-6.7) 10^3/uL Absolute Lymphocytes (1.2-3.4) 10^3/uL Absolute Monocytes (0.1-0.8) 10^3/uL Absolute Eosinophils (0.0-0.7) 10^3/uL Absolute Basophils (0.0-0.2) 10^3/uL Sodium (136-145) mmol/L 138 Potassium (3.5-5.1) mmol/L 4.0 Chloride (98-107) mmol/L 104 Carbon Dioxide (21.0-32.0) mmol/L 23.8 Anion Gap (3-11) mmol/L 10.2 BUN (7-18) mg/dL 6 L Creatinine (0.55-1.02) mg/dL 0.90 Estimated GFR/1.73 m2 (mL/min/1.73m2) >= 60.00 Glucose (74-106) mg/dL 204 H Calcium (8.5-10.1) mg/dL 8.8 Magnesium (1.8-2.4) mg/dL 1.8 Total Bilirubin (0.2-1.0) mg/dL 0.6 AST (15-37) U/L 15 ALT (14-59) U/L 16 Alkaline Phosphatase (46-116) U/L 61 Troponin I (<0.06) ng/mL < 0.05 Total Protein (6.4-8.2) g/dL 7.5 Albumin (3.4-5.0) g/dL 3.4 Lipase (73-393) U/L Urine Color (Yellow) Yellow Urine Clarity (Clear) Clear Urine pH (5-8) 7.5 Ur Specific [place] (1.005-1.025) 1.020 Urine Protein (Negative) mg/dL Negative Urine Ketones (Negative) mg/dL Negative Urine Blood (Negative) Trace-intact H Urine Nitrite (Negative) Negative Urine Bilirubin (Negative) Negative Urine Urobilinogen (Up TO 0.2) EU/dL 0.2 Ur Leukocyte Esterase (Negative) Small H Urine RBC (0-2) HPF 3-5 H Urine WBC (0-5) HPF 5-10 Ur Epithelial Cells (Negative) HPF Many Urine Crystals (Negative) HPF Negative Urine Bacteria (Negative) HPF Few Urine Casts (Negative) LPF Negative Urine Mucus (Negative) Trace Urine Other (Negative) Few trichomonas Ur Culture Indicated? No/sq. contamination Urine Glucose (Negative) mg/dL Negative Urine Opiates Screen (Negative) Negative Urine Methadone Screen (Negative) Negative Ur Barbiturates Screen (Negative) Negative Ur Tricyclics Screen (Negative) Negative Ur Amphetamines Screen (Negative) Negative U Benzodiazepines Scrn (Negative) Negative Urine Cocaine Screen (Negative) Positive A Ur THC Screen (Negative) Positive A Ethyl Alcohol (<3) mg/dL < 3.0 Range/Units 03/05/20 03/05/20 12:05 12:05 WBC (4.4-10.8) 10^3/uL 12.78 H RBC (3.93-5.22) 10^6/uL 4.79 Hgb (11.2-15.7) g/dL 15.4 Hct (36.0-46.0) % 44.6 MCV (80-95) fL 93.1 MCH (27.0-33.0) pg 32.2 MCHC (32.0-36.0) % 34.5 RDW (11.7-14.6) % 12.0 Plt Count (130-400) 10^3/uL 310 MPV (8.0-11.0) fL 8.5 Immature Gran % 0.5 Neutrophils % 78.4 Lymphocytes % 15.0 Monocytes % 4.9 Eosinophils % 0.9 Basophils % 0.3 Nucleated RBC % % 0 Absolute Neutrophils (1.2-6.7) 10^3/uL 10.02 H Absolute Lymphocytes (1.2-3.4) 10^3/uL 1.92 Absolute Monocytes (0.1-0.8) 10^3/uL 0.63 Absolute Eosinophils (0.0-0.7) 10^3/uL 0.12 Absolute Basophils (0.0-0.2) 10^3/uL 0.04 Sodium (136-145) mmol/L Potassium (3.5-5.1) mmol/L Chloride (98-107) mmol/L Carbon Dioxide (21.0-32.0) mmol/L Anion Gap (3-11) mmol/L BUN (7-18) mg/dL Creatinine (0.55-1.02) mg/dL Estimated GFR/1.73 m2 (mL/min/1.73m2) Glucose (74-106) mg/dL Calcium (8.5-10.1) mg/dL Magnesium (1.8-2.4) mg/dL Total Bilirubin (0.2-1.0) mg/dL AST (15-37) U/L ALT (14-59) U/L Alkaline Phosphatase (46-116) U/L Troponin I (<0.06) ng/mL Total Protein (6.4-8.2) g/dL Albumin (3.4-5.0) g/dL Lipase (73-393) U/L 80 Urine Color (Yellow) Urine Clarity (Clear) Urine pH (5-8) Ur Specific [place] (1.005-1.025) Urine Protein (Negative) mg/dL Urine Ketones (Negative) mg/dL Urine Blood (Negative) Urine Nitrite (Negative) Urine Bilirubin (Negative) Urine Urobilinogen (Up TO 0.2) EU/dL Ur Leukocyte Esterase (Negative) Urine RBC (0-2) HPF Urine WBC (0-5) HPF Ur Epithelial Cells (Negative) HPF Urine Crystals (Negative) HPF Urine Bacteria (Negative) HPF Urine Casts (Negative) LPF Urine Mucus (Negative) Urine Other (Negative) Ur Culture Indicated? Urine Glucose (Negative) mg/dL Urine Opiates Screen (Negative) Urine Methadone Screen (Negative) Ur Barbiturates Screen (Negative) Ur Tricyclics Screen (Negative) Ur Amphetamines Screen (Negative) U Benzodiazepines Scrn (Negative) Urine Cocaine Screen (Negative) Ur THC Screen (Negative) Ethyl Alcohol (<3) mg/dL ECG Data Attestation: I personally reviewed and interpreted this ECG (s) as follows: Interpretation: rate of 101, sinus, no acute ST elevation or depression. MT 159. QRS 76. QTc 434. HPI General Mode of arrival: ambulatory. Date/Time Provider Initiated Documentation: 03/05/20 09:34. Limitations to Documentation: no limitations. Information obtained by: patient. HPI Narrative: Patient is a 39-year-old female with a history of bipolar disorder, PTSD, OCD, anxiety, IV drug abuse presents for evaluation for nausea, vomiting, diarrhea, agitations and shortness of breath with concern for opiate withdrawal. Dr. Acuna from [facility] clinic called to state that she was sending patient up here for evaluation for likely opiate withdrawal but to rule out any other organic cause. She states patient presented to [facility] this morning and was hysterical, crying, not making any sense and requesting medication for opiate withdrawal. She thinks that patient likely needs induction for Suboxone but would like her evaluated at the hospital to rule out any other medical cause. Patient admits to using 20 bags mixed fentanyl/heroin daily for 2 months which she either injects or smokes. She last smoked heroin at 5 PM yesterday. 2 hours later at approximately 7 PM last night she developed hot and cold flashes, nausea, diarrhea, agitation shortness of breath. She denies any known fever, chest pain or abdominal pain. Related Data Home Medications Medication Instructions Recorded Confirmed omeprazole [Prilosec] 40 mg PO DAILY tab-cap 04/18/15 03/05/20 levetiracetam [Keppra] 500 mg PO BID #60 tab 08/17/16 03/05/20 loratadine 10 mg PO DAILY tab-cap 07/04/17 03/05/20 omega-3 fatty acids-fish oil 2 ea PO DAILY 12/01/17 03/05/20 bupropion HCl 300 mg 24 hr tablet, 300 mg PO DAILY #30 tab-cap 11/13/18 03/05/20 extended release cholecalciferol (vitamin D3) 1,000 unit PO DAILY 04/22/19 03/05/20 [Vitamin D3] glipizide-metformin 1 tab PO DAILY 04/22/19 03/05/20 olanzapine 30 mg PO HS 04/22/19 03/05/20 methylphenidate HCl 54 mg 54 mg PO DAILY 12/11/19 03/05/20 tablet,extended release 24 hr valacyclovir 500 mg tablet 500 mg PO Q12H #6 tab 01/15/20 01/15/20 albuterol sulfate 2 inh IH Q6H PRN #1 each 03/05/20 gabapentin 800 mg PO BID 03/05/20 03/05/20 levofloxacin [Levaquin] 750 mg PO DAILY 4 Days #4 tab 03/05/20 promethazine 25 mg PO TID PRN #7 tab 03/05/20 Previous Rx's Medication Instructions Recorded levetiracetam [Keppra] 500 mg PO BID #60 tab 08/17/16 bupropion HCl 300 mg 24 hr tablet, 300 mg PO DAILY #30 tab-cap 11/13/18 extended release valacyclovir 500 mg tablet 500 mg PO Q12H #6 tab 01/15/20 albuterol sulfate 2 inh IH Q6H PRN #1 each 03/05/20 levofloxacin [Levaquin] 750 mg PO DAILY 4 Days #4 tab 03/05/20 promethazine 25 mg PO TID PRN #7 tab 03/05/20 Allergies Allergy/AdvReac Type Severity Reaction Status Date / Time Penicillins Allergy hives/swell Unverified 01/11/20 10:22 ing ondansetron HCl AdvReac Intermediate Hives Unverified 01/11/20 10:22 [From Zofran (as hydrochloride)] erythromycin base AdvReac stomach Unverified 01/11/20 10:22 pain Sulfa (Sulfonamide AdvReac body aches Unverified 01/11/20 10:22 Antibiotics) semen Allergy Hives Uncoded 01/11/20 10:22 General RAVEN: 4 Review of Systems All systems reviewed & are unremarkable except as noted in HPI and below Constitutional Constitutional: Reports as per HPI, Denies chills and Denies fever(s) Eyes Eyes: Denies blurry vision ENT Ears, Nose, Mouth, and Throat: Denies dizziness, Denies sore throat and Denies throat swelling Cardiovascular Cardiovascular: Denies chest pain and Reports dyspnea Respiratory Respiratory: Reports cough and Reports dyspnea Gastrointestinal Gastrointestinal: Denies abdominal pain, Reports diarrhea, Reports nausea and Denies vomiting Genitourinary Genitourinary: Denies hematuria and Denies dysuria Musculoskeletal Musculoskeletal: Denies back pain and Denies numbness Integumentary/Breasts Skin/Breast: Denies lesions and Denies rash Neurologic Neurologic: Denies dizziness, Denies localized weakness and Denies numbness Allergic/Immunologic Allergic/Immunologic: Denies throat swelling [facility] Medical History (Updated 03/05/20 @ 13:14 by Brenda Wood DO) Amenorrhea, secondary 06/2014 Nl pelvic us. ES 3.5mm. No response to Progestin challenges. Nl labs. Bipolar disorder ADD, PTSD, Anxiety and Depression Diabetes type 2, controlled (Acute) Pt. states she tested her blood sugar 12/15 and it was 400, and not sure why it was so high Elevated serum creatinine (Acute) 12/2019: 1.05 at time of preop evaluation GERD Hepatitis C pt. states she was treated and is now non-detectable History of intravenous drug abuse (Acute) states she has not used in 8 years IVDU Postoperative pain (Acute) Screening and evaluation for female sterilization (Acute) 04/2019. Not a candidate for OCPs. Declines L ARC. Given info on laparoscopic sterilization. 09/2019. Medicaid consent obtained. Vulvitis (Acute) 04/22/2018. Secondary to contact dermatitis. Negative vag path screen, negative STI check. Treated with Dosepak of steroids and topical lidocaine. Surgical History Cholecystectomy Diagnostic Laproscopy (~2005) History of tonsillectomy (Chronic) History of tubal ligation (Chronic) 12/19/19. Laparoscopic left salpingectomy. Patient previously had a right salpingectomy. molar extraction , Ectopic (~2010) Social History Smoking/Tobacco Use Status: Current every day Tobacco Type: cigarettes Alcohol Intake: current Alcohol Intake frequency: a few times a week Drug use: Daily Substance use type: marijuana and crack/cocaine Do you feel safe at home: Yes Do you feel safe in your relationship?: Yes Exam Const General: acute distress moderate (Crying, moaning) and disheveled Orientation: alert, awake and oriented x3 HENMT Head: normal to inspection Ears: hearing grossly normal bilaterally and external ears normal General nose exam: external nose normal Face and sinus: normal facial exam Mouth: oral mucosae normal Teeth and gingiva: dentition normal Throat: posterior oropharynx normal Eyes General: appearance normal, both eyes and all related structures Eyelids: eyelids normal Pupils: PERRL EOM: EOM intact bilaterally Neck Neck: normal visual inspection Lymphatic: no lymphadenopathy noted Chest Chest: normal inspection of the chest Resp Effort & Inspection: normal respiratory effort and able to speak in complete sentences Auscultation: clear to auscultation bilaterally Cardio Rate: regular rate Rhythm: regular rhythm GI Inspection: normal to inspection Palpation: soft, not firm, no guarding, no hepatosplenomegaly, no masses and nontender Auscultation: normal bowel sounds Skin General skin exam: no rashes or lesions noted Neuro General: patient alert and patient awake Cognition: normal cognition Speech: speech normal Gait: normal gait Motor: muscle tone normal throughout Sensory Exam: no sensory deficits noted Extrem General: normal to inspection, full ROM and capillary refill normal Psych Appearance: grossly normal Mental Status: mental status grossly normal Speech and Movement: speech and movement normal Affect: normal affect Thought Process: normal
--- NOTE | 2020-03-05 09:45 | RT.EKG_ITS ---
APPROVED REPORT Exam: Resting ECG Patient Location: E HR:101 bpm ECG Measurements Heart Rate 101 AXIS [place] 159 P 32 QRSd 76 QRS 34 QT 334 T 48 QTc 434 Conclusion Sinus. No acute ST/T wave ischemic findings.
[2020-03-05 10:09] LABS: Bilirubin Negative (Negative); Blood Trace-intact (Negative); Clarity Clear (Clear); Glucose Negative (Negative); Ketones Negative (Negative); Leukocyte Esterase Small (Negative); Nitrite Negative (Negative); Urobilinogen 0.2 EU/dL (Up TO 0.2); pH 7.5 (5-8)
[2020-03-05 10:19] LABS: Bacteria Few HPF (Negative); Crystals Negative HPF (Negative); Epithelial Cells Many HPF (Negative)
[2020-03-05 10:20] LABS: C & S Indicated? No/Sq. Contamination; Casts Negative LPF (Negative); Mucus Trace (Negative)
[2020-03-05] MEDS: LORazepam 2 MG/ML VIAL 1 MG IVP (10:25)
[2020-03-05] MEDS: Normal Saline 1,000 ML 1000 ML IV (10:25)
[2020-03-05] MEDS: Normal Saline Flush 10 ML SYR IVP (10:25)
[2020-03-05 10:27] LABS: *AMPHETAMINES SCREEN URINE Negative (Negative); *BARBITURATES SCREEN URINE Negative (Negative); *BENZODIAZEPINES SCREEN URINE Negative (Negative); Cannabinoids THC POSITIVE (Negative); Cocaine Screen,Urine POSITIVE (Negative); METHADONE URINE SCREEN Negative (Negative); OPIATES URINE SCREEN Negative (Negative)
[2020-03-05 10:28] LABS: Tricyclic Antidepressants Negative (Negative)
--- NOTE | 2020-03-05 11:50 | DI.RAD_ITS ---
EXAM: XR PORTABLE CHEST AP CLINICAL HISTORY: shortness of breath, r/o acute disease TECHNIQUE: 2D digital imaging was performed. COMPARISON: CR XR CHEST 2V PA LATERAL from 03/08/2019 FINDINGS: Heart size is normal. There are arm is peribronchial thickening and mildly increased pulmonary suni ngs, slightly greater on the left. The findings could represent viral pneumonitis versus inhalationa l injury. No focal consolidation or effusion. IMPRESSION: Mild bilateral perihilar infiltrates. DATA REPOSITORY: RADIATION DOSE DELIVERED:
[2020-03-05 12:14] LABS: Abs Immature Grans 0.06 10^3/uL (0.0-0.06); Absolute Basophil Count 0.04 10^3/uL (0.0-0.2); Absolute Eosinophil Count 0.12 10^3/uL (0.0-0.7); Absolute Lymphocyte Count 1.92 10^3/uL (1.2-3.4); Absolute Monocyte Count 0.63 10^3/uL (0.1-0.8); Basophils % 0.3; Eosinophils % 0.9; HCT 44.6 % (36.0-46.0); HGB 15.4 g/dL (11.2-15.7); Immature Grans % 0.5; MCH 32.2 pg (27.0-33.0); MCHC 34.5 % (32.0-36.0); MCV 93.1 fL (80-95); MPV 8.5 fL (8.0-11.0); Monocytes % 4.9; Neutrophils % 78.4; Nucleated RBC 0 %; Platelet Count 310 10^3/uL (130-400); RBC 4.79 10^6/uL (3.93-5.22); RDW-SD 41.4 fL; WBC 12.78 10^3/uL (4.4-10.8)
[2020-03-05 12:18] LABS: Absolute Neutrophil Count 10.02 10^3/uL (1.2-6.7)
[2020-03-05 12:24] LABS: Lipase 80 U/L (73-393)
[2020-03-05 12:32] LABS: ALT 16 U/L (14-59); AST 15 U/L (15-37); Albumin 3.4 g/dL (3.4-5.0); Alkaline Phosphatase 61 U/L (46-116); Anion Gap 10.2 mmol/L (3-11); BUN 6 mg/dL (7-18); Bilirubin, Total 0.6 mg/dL (0.2-1.0); CO2 23.8 mmol/L (21.0-32.0); Calcium 8.8 mg/dL (8.5-10.1); Chloride 104 mmol/L (98-107); Glucose 204 mg/dL (74-106); Magnesium 1.8 mg/dL (1.8-2.4); Sodium 138 mmol/L (136-145); Total Protein 7.5 g/dL (6.4-8.2)
[2020-03-05 12:44] LABS: ETHANOL BLOOD < 3.0 mg/dL (<3); Troponin I < 0.05 ng/mL (<0.06)
[2020-03-05] MEDS: Ketorolac 30 MG/ML VIAL IVP (13:16)
[2020-03-05] MEDS: levoFLOXacin 250 MG TAB (13:18)
[2020-03-05] MEDS: levoFLOXacin 500 MG TAB (13:18)
== END 2020-03-05 13:41 | disposition other institution (70) ==
PROVIDERS: Emergency Provider Physician Assistant; PCP Family Medicine
DX: F10.230 Alcohol dependence with withdrawal, uncomplicated (principal); J18.9 Pneumonia, unspecified organism; R11.0 Nausea; R19.7 Diarrhea, unspecified; R06.02 Shortness of breath; E11.9 Type 2 diabetes mellitus without complications; Z79.84 Long term (current) use of oral hypoglycemic drugs; F41.8 Other specified anxiety disorders
CPT/HCPCS: 36415; 80053; 80307; 81025; 83690; 93005; 96361; 96365; 96375; 99285; 71045; 80320; 81003; 81015; 83735; 84484; 85025; 93010; J1885; J2060

== ENCOUNTER 2020-03-20 17:42 | Outpatient (REF) | payer MEDICAID, SELFPAY ==
[2020-03-23 18:04] LABS: Patient Race White; SARS-CoV-2 RNA Undetected (Undetected); SARS-CoV-2 Specimen Source Nasal
== END 2020-03-20 18:02 ==
LOC: NCHCN 17:42
PROVIDERS: PCP Family Medicine; Visit Provider Nurse Practitioner Family
DX: R06.2 Wheezing (principal)
CPT/HCPCS: U0003

== ENCOUNTER 2020-04-08 00:35 | Outpatient (CLI) | payer MEDICAID, SELFPAY ==
--- NOTE | 2020-04-08 | DI.RAD_ITS ---
EXAM: XR CHEST 2V PA LATERAL CLINICAL HISTORY: WHEEZING,R06.02 TECHNIQUE: 2D digital imaging was performed. COMPARISON: CR XR CHEST 2V PA LATERAL from 03/08/2019 FINDINGS: MEDIASTINUM: Normal. HEART: Normal. PULMONARY VASCULATURE: Normal. LUNGS: Clear. PLEURAL SPACE: No pleural effusion or pneumothorax. BONE:Within normal limits for the patient's age. OTHER FINDINGS:Normal. IMPRESSION: No acute pulmonary findings. DATA REPOSITORY: RADIATION DOSE DELIVERED:
== END 2020-04-08 00:55 ==
PROVIDERS: PCP Family Medicine; Visit Provider Nurse Practitioner Family
DX: R06.02 Shortness of breath (principal)
CPT/HCPCS: 71046

== ENCOUNTER 2020-04-23 17:53 | Outpatient (REF) | payer MEDICAID, SELFPAY ==
[2020-04-25 14:42] LABS: Chlamydia Result Negative (Negative); GC Result Negative (Negative)
== END 2020-04-23 18:13 ==
LOC: LBN 17:53
PROVIDERS: PCP Family Medicine; Visit Provider Obstetrics & Gynecology
DX: N89.8 Other specified noninflammatory disorders of vagina (principal); Z11.3 Encounter for screening for infections with a predominantly sexual mode of transmission
CPT/HCPCS: 87491; 87591; 87480; 87510; 87660

== ENCOUNTER 2020-05-02 12:47 | Outpatient (CLI) | payer MEDICAID, SELFPAY ==
[2020-05-03 17:54] LABS: COVID-19 RT-PCR Result NEGATIVE (Negative)
== END 2020-05-02 13:07 ==
PROVIDERS: PCP Family Medicine; Visit Provider Family Medicine
DX: Z11.59 Encounter for screening for other viral diseases (principal); Z01.811 Encounter for preprocedural respiratory examination
CPT/HCPCS: U0003

== ENCOUNTER 2020-05-05 04:11 | Outpatient (CLI) | payer MEDICAID, SELFPAY ==
--- NOTE | 2020-05-05 15:15 | RT.EKG_ITS ---
APPROVED REPORT Exam: Resting ECG Patient Location: O HR:80 bpm ECG Measurements Heart Rate 80 AXIS [place] 169 P 39 QRSd 81 QRS 21 QT 381 T 44 QTc 441 Conclusion Sinus rhythm...normal P axis, V-rate 60- 99
[2020-05-05] MEDS: Inhaler, Assist Device 1 EACH MC (16:25)
[2020-05-05] MEDS: Albuterol HFA 18 GM 200 PUFF INH IH (16:25)
== END 2020-05-05 04:31 ==
PROVIDERS: PCP Family Medicine; Visit Provider Family Medicine
DX: R06.2 Wheezing (principal); R06.02 Shortness of breath; R06.09 Other forms of dyspnea; R05 Cough; F11.20 Opioid dependence, uncomplicated
CPT/HCPCS: 94060; 94726; 94729; 93005; 93010

== ENCOUNTER 2020-05-13 19:41 | Outpatient (REF) | payer MEDICAID, SELFPAY | END 2020-05-13 20:01 | LOC: LBN 19:41 | PROVIDERS: PCP Family Medicine; Visit Provider Obstetrics & Gynecology | DX: A59.9 Trichomoniasis, unspecified (principal) | CPT/HCPCS: 87480; 87510; 87660 ==

== ENCOUNTER 2020-05-19 16:38 | Outpatient (CLI) | payer MEDICAID, SELFPAY ==
--- NOTE | 2020-05-19 10:48 | DI.RAD_ITS ---
EXAM: XR SHOULDER RT COMPLETE 2+V CLINICAL HISTORY: SHOULDER PAIN RT, M25.511 PAIN 2-3 MONTHS. TECHNIQUE: 2D digital imaging was performed. COMPARISON: No exams were available for comparison FINDINGS: BONES: No acute fracture is present. No bony destructive lesion is seen. JOINTS: No dislocation present. SOFT TISSUE: Normal. IMPRESSION: Unremarkable radiographs of the right shoulder. DATA REPOSITORY: RADIATION DOSE DELIVERED:
== END 2020-05-19 16:58 ==
PROVIDERS: PCP Family Medicine; Visit Provider Family Medicine
DX: M25.511 Pain in right shoulder (principal)
CPT/HCPCS: 73030

== ENCOUNTER 2020-06-10 01:48 | Outpatient (CLI) | payer MEDICAID, SELFPAY ==
--- NOTE | 2020-06-10 | DI.MRI_ITS ---
EXAM: MR CERVICAL SPINE WO/W CLINICAL HISTORY: RT ARM NUMBNESS AND TINGLING,R20.2,H/O IVDU,? DISCITIS OR ABSCESS TECHNIQUE: Multiplanar multisequence MRI of the cervical spine was performed. CONTRAST MATERIAL: IV Contrast: 14 ML of Dotarem contrast administered. COMPARISON: No exams were available for comparison FINDINGS: BONES: Vertebral body heights are maintained. Intervertebral disc spaces are normal. Alignment is nor mal. Bone marrow signal intensity is within normal limits. CERVICAL CORD: Craniovertebral junction is unremarkable. The cervical cord is normal size and signal intensity. No lesion is present. SOFT TISSUES: Unremarkable. ENHANCEMENT: No suspicious enhancement identified. C2-3: No disc herniation or bulge is identified. C3-4: No disc herniation or bulge is identified. C4-5: No disc herniation or bulge is identified. C5-6: There is a large right foraminal disc protrusion. The herniated discs material measures 6 mill imeters transverse by 6 millimeters AP by 9 millimeters cephalo caudad. It occupies the neural patric en, causing severe narrowing and impinges on the anterolateral aspect of the right side of the cerv ical cord. C6-7: No disc herniation or bulge is identified. C7-T1: No disc herniation or bulge is identified. IMPRESSION: Large right foraminal disc herniation at C5-6. No evidence of diskitis, epidural abscess or osteomye litis. DATA REPOSITORY:
[2020-06-10 09:09] LABS: Estimated GFR 50.28 (mL/min/1.73m2)
[2020-06-10] MEDS: Gadoterate meglumine 20 ML VIAL 14 ML IVP (09:56)
== END 2020-06-10 02:08 ==
PROVIDERS: PCP Family Medicine; Visit Provider Family Medicine
DX: M50.222 Other cervical disc displacement at C5-C6 level (principal); R20.2 Paresthesia of skin
CPT/HCPCS: 72156; 82565

== ENCOUNTER 2020-07-23 20:16 | Emergency (ER) | payer MEDICAID, SELFPAY ==
[2020-07-23 20:19] VITALS: BP 132/86; PULSE 99; RESP 16; TEMP 36.5; O2SAT 99
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
--- NOTE | 2020-07-23 20:36 | ED.GENADUL_ITS ---
Discharge Plan Disposition Patient Disposition: HOME Condition: Stable Discharge Details Clinical Impression: Accidental medication error Primary Care Provider: Damian Murillo ED Provider: Jai Arriaza Home Meds and New Rx's Prescriptions: Continued albuterol sulfate 90 mcg/actuation aerosol powdr breath activated 2 inh IH Q4H PRN (Reason: shortness of breath or wheezing) RF: 0 methadone 10 mg/5 mL Solution 150 mg PO DAILY RF: 0 methylphenidate HCl [Concerta] 54 mg tablet extended release 24hr 54 mg PO DAILY RF: 0 methylphenidate HCl [Ritalin] 20 mg tablet 20 mg PO .NOON RF: 0 ferrous sulfate [FeroSul] 325 mg (65 mg iron) tablet 325 mg PO DAILY RF: 0 bupropion HCl 300 mg tablet extended release 24 hr 300 mg PO DAILY Qty: 30 RF: 5 loratadine 10 MG tablet 10 mg PO DAILY RF: 0 (DME) blood sugar diagnostic Strip See Rx Instructions .ROUTE .MEDSUPPLY Qty: 10 RF: 0 (DME) blood sugar diagnostic Strip See Rx Instructions .ROUTE .MEDSUPPLY Qty: 10 RF: 0 (DME) lancets Misc See Rx Instructions .ROUTE .MEDSUPPLY Qty: 100 RF: 0 multivitamin Tablet 1 tab PO DAILY RF: 0 doxepin 50 mg capsule 25 mg PO QHS RF: 0 levetiracetam 750 mg tablet 750 mg PO BID RF: 0 metformin 500 mg tablet 850 mg PO BID RF: 0 cholecalciferol (vitamin D3) [Vitamin D3] 1,000 unit Capsule 1,000 unit PO DAILY RF: 0 No Action omeprazole [Prilosec] 20 MG capsule,delayed release(DR/EC) 40 mg PO DAILY RF: 0 omega-3 fatty acids-fish oil 1 EACH capsule 2 ea PO DAILY RF: 0 promethazine 25 mg tablet 25 mg PO TID PRNRF: 0 polyethylene glycol 3350 [Miralax] 17 gram/dose powder 17 g PO DAILY PRNRF: 0 meloxicam 15 mg tablet 15 mg PO DAILY RF: 0 duloxetine 60 mg Capsule,Delayed Release(Dr/Ec) 60 mg PO DAILY RF: 0 olanzapine 15 mg tablet 30 mg PO HS RF: 0 Discharge Instructions Additional Instructions: Do not take your morning medications as you took them tonight and restart your medications as prescribed tomorrow night ask your pharmacy to package your meds into night and daytime medications if you have abdominal pain, nausea and vomit or feel more ill return to the emergency department Medical Decision Making 39 yo female comes in after she accidentally took her morning medications tonight (one dose each except methadone and concentra) as she was setting them up for the morning, states she spaced out and just took them as she had just taken her night meds. She has no symptoms, states she called an adjunct physical education instructor provider who referred him here. Denies si/hi and is caox4 in no distress on exam with no abodminal tenderness, clear speech, normal gait. On medication review took one extra dose of keppra and metformin and advised this is unlikely to cause any harmful affects. Advised to hold her morning medications and resume normal dosing tomorrow evening. Return precautions given Differential Diagnosis Differential Diagnosis: accidental medication mistake, overdose Medical Records Medical records reviewed: Yes I reviewed the patient's medical records. HPI General Mode of arrival: ambulatory . Date/Time Provider Initiated Documentation: 07/23/20 20:20 . Limitations to Documentation: no limitations . Information obtained by: patient . History of Present Illness 39 year old F presents to the emergency department with the chief complaint of took morning medications by mistake, Patient started experiencing this hour(s) (1) and it has been constant. No relieving factors improve symptom(s), No exacerbating factors reported . Patient notes no other symptoms.. Patient did receive the following treatments prior to arrival, none Related Data Home Medications Medication Instructions Recorded Confirmed omeprazole [Prilosec] 40 mg PO DAILY tab-cap 04/18/15 07/21/20 loratadine 10 mg PO DAILY tab-cap 07/04/17 07/21/20 omega-3 fatty acids-fish oil 2 ea PO DAILY 12/01/17 07/21/20 bupropion HCl 300 mg 24 hr tablet, 300 mg PO DAILY #30 tab-cap 11/13/18 07/21/20 extended release cholecalciferol (vitamin D3) 1,000 unit PO DAILY 04/22/19 07/21/20 [Vitamin D3] olanzapine 30 mg PO HS 04/22/19 07/21/20 methylphenidate HCl 54 mg 54 mg PO DAILY 12/11/19 07/21/20 tablet,extended release 24 hr ferrous sulfate 325 mg (65 mg 325 mg PO DAILY 04/23/20 04/23/20 iron) tablet methylphenidate HCl 20 mg tablet 20 mg PO DAILY tab 04/23/20 07/21/20 blood sugar diagnostic #10 ea 06/05/20 blood sugar diagnostic #10 ea 06/05/20 doxepin 50 mg capsule 50 mg PO QHS 06/05/20 07/21/20 lancets #100 ea 06/05/20 levetiracetam 750 mg tablet 750 mg PO BID 06/05/20 07/21/20 metformin 500 mg tablet 500 mg PO BID 06/05/20 07/21/20 multivitamin 1 tab PO DAILY 06/05/20 07/21/20 polyethylene glycol 3350 17 17 g PO DAILY PRN 06/05/20 gram/dose oral powder promethazine 25 mg tablet 25 mg PO TID PRN 06/05/20 07/21/20 albuterol sulfate 2 inh IH Q4H PRN 07/21/20 07/21/20 methadone 110 mg PO DAILY 07/21/20 07/21/20 duloxetine 60 mg PO DAILY 07/23/20 07/23/20 meloxicam 15 mg PO DAILY 07/23/20 07/23/20 Previous Rx's Medication Instructions Recorded bupropion HCl 300 mg 24 hr tablet, 300 mg PO DAILY #30 tab-cap 11/13/18 extended release Allergies Allergy/AdvReac Type Severity Reaction Status Date / Time sulfamethoxazole Allergy Mild Verified 07/23/20 20:33 [From Bactrim] trimethoprim [From Bactrim] Allergy Mild Verified 07/23/20 20:33 Penicillins Allergy hives/swell Unverified 07/23/20 20:33 ing morphine AdvReac Intermediate Nausea Unverified 07/23/20 20:33 ondansetron HCl AdvReac Intermediate Hives Unverified 07/23/20 20:33 [From Zofran (as hydrochloride)] erythromycin base AdvReac stomach Unverified 07/23/20 20:33 pain Sulfa (Sulfonamide AdvReac body aches Unverified 07/23/20 20:33 Antibiotics) General Stated Complaint: GenMedical RAVEN: 3 Review of Systems All systems reviewed & are unremarkable except as noted in HPI and below Constitutional Constitutional: Denies chills, Denies fever(s) and Denies weakness Eyes Eyes: Denies loss of vision ENT Ears, Nose, Mouth, and Throat: Denies change in voice Cardiovascular Cardiovascular: Denies chest pain and Denies dyspnea Respiratory Respiratory: Denies cough and Denies dyspnea Gastrointestinal Gastrointestinal: Denies abdominal pain, Denies nausea and Denies vomiting Neurologic Neurologic: Denies loss of vision and Denies weakness Psychiatric Psychiatric: Denies depression [facility] Medical History (Updated 07/23/20 @ 20:38 by Jai Arriaza MD) ADHD Alcohol use Amenorrhea Amenorrhea, secondary 06/2014 Nl pelvic us. ES 3.5mm. No response to Progestin challenges. Nl labs. Asthma, moderate persistent Bipolar disorder ADD, PTSD, Anxiety and Depression Central sleep apnea Cervical radiculopathy Chronic diarrhea CKD (chronic kidney disease), stage III Diabetes type 2, controlled Pt. states she tested her blood sugar 12/15 and it was 400, and not sure why it was so high Dyslipidemia Eating disorder Elevated serum creatinine 12/2019: 1.05 at time of preop evaluation GERD Hepatic fibrosis Hepatitis C pt. states she was treated and is now non-detectable History of intravenous drug abuse states she has not used in 8 years IVDU Low back pain Metabolic syndrome Methamphetamine abuse Migraine headache Numbness and tingling of right arm Opioid dependence Otitis externa, chronic Postoperative pain Problem related to living arrangement PTSD (post-traumatic stress disorder) Rhinitis, allergic Screening and evaluation for female sterilization 04/2019. Not a candidate for OCPs. Declines L ARC. Given info on laparoscopic sterilization. 09/2019. Medicaid consent obtained. Seizure disorder Sexually transmitted disease exposure Tobacco dependency Unspecified disorder resulting from impaired renal function Vulvitis 04/22/2018. Secondary to contact dermatitis. Negative vag path screen, negative STI check. Treated with Dosepak of steroids and topical lidocaine. Surgical History Cholecystectomy Diagnostic Laproscopy (~2005) History of tonsillectomy History of tubal ligation 12/19/19. Laparoscopic left salpingectomy. Patient previously had a right salpingectomy. molar extraction , Ectopic (~2010) Social History Smoking/Tobacco Use Status: Current every day Tobacco Type: cigarettes Smoking risk assessment performed?: Yes Alcohol Intake: never Drug use: Daily Substance use type: marijuana, crack/cocaine and heroin Details: reports getting off heroin. Do you feel safe at home: Yes Exam Const General: no acute distress Orientation: alert HENMT Head: normal to inspection Ears: external ears normal General nose exam: external nose normal Mouth: moist mucous membranes Eyes General: appearance normal, both eyes and all related structures Neck Neck: normal visual inspection Resp Effort & Inspection: normal respiratory effort and able to speak in complete sentences Cardio Rate: regular rate Skin General skin exam: no rashes or lesions noted Neuro General: patient alert and patient oriented x3 Extrem General: normal to inspection Psych Mental Status: mental status grossly normal Course Vital Signs Vital signs: Vital Signs Temperature 36.5 C 07/23/20 20:19 Pulse 99 H 07/23/20 20:19 Respiratory Rate 16 07/23/20 20:19 Blood Pressure 132/86 07/23/20 20:19 Pulse Oximetry 99 07/23/20 20:19 Temperature 36.5 C 07/23/20 20:19 Temperature Source Skin 07/23/20 20:19 Pulse 99 H 07/23/20 20:19 Respiratory Rate 16 07/23/20 20:19 Respiratory Effort Non-Labored 07/23/20 20:30 Blood Pressure 132/86 07/23/20 20:19 Blood Pressure Position Sitting 07/23/20 20:19 Pulse Oximetry 99 07/23/20 20:19 Oxygen Delivery Method Room Air 07/23/20 20:19 Oxygen Flow Rate 0 07/23/20 20:19 Pain Level 0 07/23/20 20:19 Comment 07/23/20 20:19
[2020-07-23 20:46] VITALS: RESP 16
== END 2020-07-23 20:55 | disposition home or self-care (01) ==
PROVIDERS: Emergency Provider Emergency Medicine; PCP Family Medicine
DX: T42.71XA Poisoning by unspecified antiepileptic and sedative-hypnotic drugs, accidental (unintentional), initial encounter (principal); T38.3X2A Poisoning by insulin and oral hypoglycemic [antidiabetic] drugs, intentional self-harm, initial encounter
CPT/HCPCS: 99282; 99283

== ENCOUNTER 2020-10-29 02:49 | Outpatient (CLI) | payer MEDICAID, SELFPAY ==
[2020-10-29 11:10] LABS: Source Nasal/Nares
[2020-10-29 14:05] LABS: COVID-19 PCR Negative (Negative)
== END 2020-10-29 02:50 | disposition home or self-care (01) ==
LOC: LBO 02:49
PROVIDERS: PCP Family Medicine; Visit Provider Internal Medicine Sleep Medicine
DX: Z20.822 Contact with and (suspected) exposure to COVID-19 (principal); Z01.818 Encounter for other preprocedural examination
CPT/HCPCS: 87635

== ENCOUNTER 2021-04-08 15:55 | Outpatient (REF) | payer MEDICAID, SELFPAY ==
[2021-04-10 14:26] LABS: Chlamydia Result Negative (Negative); GC Result Negative (Negative)
== END 2021-04-08 15:56 | disposition home or self-care (01) ==
LOC: LBN 15:55
PROVIDERS: PCP Family Medicine; Visit Provider Obstetrics & Gynecology
DX: Z11.3 Encounter for screening for infections with a predominantly sexual mode of transmission (principal)
CPT/HCPCS: 87491; 87591

== ENCOUNTER 2021-10-13 03:23 | Outpatient (CLI) | payer MEDICAID, SELFPAY | END 2021-10-13 03:24 | disposition home or self-care (01) | LOC: RT 03:23 | PROVIDERS: PCP Family Medicine; Visit Provider Family Medicine ==

== ENCOUNTER 2021-10-20 05:04 | Outpatient (CLI) | payer MEDICAID, SELFPAY ==
--- NOTE | 2021-10-20 08:00 | RT.EKG_ITS ---
APPROVED REPORT Exam: Resting ECG Reason for Exam: high risk med Patient Location: O HR:77 bpm ECG Measurements Heart Rate 77 AXIS OR 157 P 16 QRSd 77 QRS 47 QT 394 T 58 QTc 445 Conclusion Sinus rhythm...normal P axis, V-rate 60- 99 Normal Electrocardiogram
== END 2021-10-20 05:05 | disposition home or self-care (01) ==
LOC: RT 05:04
PROVIDERS: PCP Family Medicine; Visit Provider Family Medicine
DX: Z79.899 Other long term (current) drug therapy (principal)
CPT/HCPCS: 93005; 93010

== ENCOUNTER 2022-01-10 12:58 | Emergency (ER) | payer MEDICAID, SELFPAY ==
[2022-01-10 13:12] VITALS: BP 113/73; PULSE 104; RESP 16; TEMP 38; O2SAT 93
[2022-01-10 13:12] LABS: Bilirubin Large (Negative); Blood Moderate (Negative); Clarity Sl Cloudy (Clear); Glucose 250 mg/dL (Negative); Ketones 15 mg/dL (Negative); Leukocyte Esterase Large (Negative); Nitrite Positive (Negative); Specific Gravity 1.025 (1.005-1.025); Urobilinogen >=8.0 EU/dL (Up TO 0.2)
[2022-01-10 13:21] LABS: Bacteria Moderate HPF (Negative); C & S Indicated? No/Sq. Contamination; Casts Negative LPF (Negative); Crystals Negative HPF (Negative); Epithelial Cells Moderate HPF (Negative); Mucus Trace (Negative); RBC 20-50 HPF (0-2); WBC >50 HPF (0-5)
--- NOTE | 2022-01-10 13:30 | RT.EKG_ITS ---
APPROVED REPORT Exam: Resting ECG Reason for Exam: monitor QT for antibiotics Patient Location: E HR:96 bpm ECG Measurements Heart Rate 96 AXIS RI 158 P 54 QRSd 78 QRS 46 QT 335 T 70 QTc 424 Conclusion Sinus rhythm...normal P axis, V-rate 60- 99. Sinus. Normal axis. No STEMI. I have reviewed and interpreted ECG and agree with software generated interpretation.
--- NOTE | 2022-01-10 13:42 | NUR.NOTE ---
Nursing Note: Pt refusing IV start and labs. Dr. Wood made aware.
--- NOTE | 2022-01-10 13:45 | W.ED.GENAD ---
Discharge Plan Disposition Patient Disposition: AGAINST MEDICAL ADVICE Condition: Stable Discharge Details Clinical Impression: Pyelonephritis Primary Care Provider: Damian Murillo ED Provider: Brenda Wood Home Meds and New Rx's Prescriptions: Continued albuterol sulfate 90 mcg/actuation aerosol powdr breath activated 2 inh IH Q4H PRN (Reason: shortness of breath or wheezing) methadone 10 mg/5 mL solution 180 mg PO DAILY ferrous sulfate [FeroSul] 325 mg (65 mg iron) tablet 325 mg PO DAILY bupropion HCl 300 mg tablet extended release 24 hr 300 mg PO DAILY Qty: 30 5RF omeprazole [Prilosec] 20 MG capsule,delayed release(DR/EC) 40 mg PO DAILY loratadine 10 MG tablet 10 mg PO DAILY omega-3 fatty acids-fish oil 1 EACH capsule 2 ea PO DAILY (DME) OneTouch Verio test strips Strip See Rx Instructions .ROUTE .MEDSUPPLY Qty: 10 Rx Instructions: daily As directed (DME) lancets [OneTouch UltraSoft Lancets] Misc See Rx Instructions .ROUTE .MEDSUPPLY Qty: 100 Rx Instructions: DAILY multivitamin Tablet 1 tab PO DAILY levetiracetam 750 mg tablet 750 mg PO BID metformin 500 mg tablet 500 mg PO BID cholecalciferol (vitamin D3) [Vitamin D3] 1,000 unit Capsule 1,000 unit PO DAILY olanzapine 15 mg tablet 15 mg PO BID Label Comments: TAKE ONE TABLET BY MOUTH TWICE A DAY Belsomra 10 mg tablet 10 mg PO HS Label Comments: TAKE ONE TABLET BY MOUTH AT BEDTIME divalproex 500 mg tablet extended release 24 hr 500 mg PO DAILY Label Comments: TAKE 1 TABLET BY MOUTH EVERY DAY No Action sennosides-docusate sodium [JAYDON-COLACE] 8.6-50 mg Tablet 1 tab PO BID PRN PRN polyethylene glycol 3350 [Miralax] 17 gram Powder In Packet 17 g PO DAILY PRN PRN promethazine 25 mg Tablet 25 mg PO BID PRN PRN Rx Instructions: NAUSEA dexmethylphenidate [Focalin XR] 35 mg Capsule,Er Biphasic 50-50 35 mg PO BID Discharge Instructions Instructions: Kidney Infection (ED) Additional Instructions: You are leaving the hospital AGAINST MEDICAL ADVICE. You may have an undiagnosed condition that can lead to missed or incomplete diagnoses which can result in disability or . A prescription for the antibiotic Levaquin has been sent electronically to your pharmacy to take as directed starting tomorrow. You were given 1 dose of this antibiotic today. Drink plenty of fluids and get plenty of rest. Alternate tylenol and motrin as needed and directed for pain. Follow-up with your primary care doctor within the next 1-2 days. Return immediately to the emergency department with any worsening or new concerning symptoms. Discharge Data Discharge Date/Time-TO BE ENTERED AT DEPARTURE: 01/10/22 14:06 Discharge Physician: Brenda Wood Medical Decision Making 41yo F w/ a h/o former IV drug use on methadone, ADHD, asthma, CKD, diabetes, hyperlipidemia, hepatitis C, tobacco dependence presents for urinary frequency for the past few days and right-sided flank pain since last night. Urinalysis obtained on arrival and notes greater than 50 WBCs, large leukocyte esterase, positive nitrite with moderate bacteria but also moderate epithelials cells. Laboratory is requesting separate urine sample for urine culture which was sent. Temp 100.4 on arrival. She is tearful and appears anxious but nontoxic. She has no CVA tenderness. No abdominal tenderness. Discussed with patient that based on her symptom presentation, would recommend IV, labs, and imaging to rule out pyelonephritis and/or kidney stone in the setting of fever. Patient is refusing any work-up at this time and is requesting only antibiotics. Despite our efforts, the patient has decided to leave against medical advice. She has a normal mental status and full decisional capacity. The patient understands her condition and the risks of leaving AMA, including BUT NOT LIMITED TO permanent disability, , etc., and has had an opportunity to ask questions about her medical condition. The patient has been informed that she may return for care at any time, and has been referred to er local medical physician for follow up DOMINIC. Review of medications note that she has multiple medication and antibiotic allergies. She states she is unsure if she has taken Keflex in the past but she has a history of swelling with penicillin. She is taking methadone. An EKG was obtained and her QT interval is within normal limits so we will treat with Levaquin. She was given 1 dose here and a prescription. Advised to follow up with the primary care doctor for re-evaluation. Usual and customary return precautions given prior to leaving AMA. Medical Records Medical records reviewed: Yes I reviewed the patient's medical records. Lab Data Lab results reviewed: Yes I reviewed the patient's lab results. Labs: 01/10/22 13:30 Urine - Clean Catch Urine Culture - Final Escherichia coli Laboratory Tests Range/Units 01/10/22 01/10/22 01/10/22 13:07 13:18 13:18 WBC Cancelled RBC Cancelled Hgb Cancelled Hct Cancelled MCV Cancelled MCH Cancelled MCHC Cancelled RDW Cancelled Plt Count Cancelled MPV Cancelled Immature Gran % Cancelled Neutrophils % Cancelled Band Neutrophils % Cancelled Lymphocytes % Cancelled Atypical Lymphs % Cancelled Monocytes % Cancelled Eosinophils % Cancelled Basophils % Cancelled Metamyelocytes % Cancelled Myelocytes % Cancelled Promyelocytes % Cancelled Other Cells % Cancelled Nucleated RBC % Cancelled Absolute Neutrophils Cancelled Absolute Lymphocytes Cancelled Absolute Monocytes Cancelled Absolute Eosinophils Cancelled Absolute Basophils Cancelled RBC Morphology Cancelled Polychromasia Cancelled Hypochromasia Cancelled Poikilocytosis Cancelled Basophilic Stippling Cancelled Anisocytosis Cancelled Microcytosis Cancelled Macrocytosis Cancelled Spherocytes Cancelled Tear Drop Cells Cancelled Ovalocytes Cancelled Stomatocytes Cancelled Haji-Mahtomedi Bodies Cancelled Murali Cells/Echinocytes Cancelled Acanthocytes (Spur) Cancelled Schistocytes Cancelled Sodium Cancelled Potassium Cancelled Chloride Cancelled Carbon Dioxide Cancelled Anion Gap Cancelled BUN Cancelled Creatinine Cancelled Estimated GFR/1.73 m2 Cancelled Glucose Cancelled Calcium Cancelled Total Bilirubin Cancelled AST Cancelled ALT Cancelled Alkaline Phosphatase Cancelled Total Protein Cancelled Albumin Cancelled Lipase Urine Color (Yellow) [place] Urine Clarity (Clear) Sl Cloudy Urine pH (5-8) 5.0 Ur Specific [place] (1.005-1.025) 1.025 Urine Protein (Negative) mg/dL >=300 H Urine Ketones (Negative) mg/dL 15 H Urine Blood (Negative) Moderate H Urine Nitrite (Negative) Positive H Urine Bilirubin (Negative) Large H Urine Urobilinogen (Up TO 0.2) EU/dL >=8.0 Ur Leukocyte Esterase (Negative) Large H Urine RBC (0-2) HPF 20-50 H Urine WBC (0-5) HPF >50 H Ur Epithelial Cells (Negative) HPF Moderate Urine Crystals (Negative) HPF Negative Urine Bacteria (Negative) HPF Moderate Urine Casts (Negative) LPF Negative Urine Mucus (Negative) Trace Ur Culture Indicated? No/Sq. Contamination Urine Glucose (Negative) mg/dL 250 H Range/Units 01/10/22 01/10/22 13:19 14:13 WBC RBC Hgb Hct MCV MCH MCHC RDW Plt Count MPV Immature Gran % Neutrophils % Band Neutrophils % Lymphocytes % Atypical Lymphs % Monocytes % Eosinophils % Basophils % Metamyelocytes % Myelocytes % Promyelocytes % Other Cells % Nucleated RBC % Absolute Neutrophils Absolute Lymphocytes Absolute Monocytes Absolute Eosinophils Absolute Basophils RBC Morphology Polychromasia Hypochromasia Poikilocytosis Basophilic Stippling Anisocytosis Microcytosis Macrocytosis Spherocytes Tear Drop Cells Ovalocytes Stomatocytes Haji-Mahtomedi Bodies [place] Cells/Echinocytes Acanthocytes (Spur) Schistocytes Sodium Potassium Chloride Carbon Dioxide Anion Gap BUN Creatinine Estimated GFR/1.73 m2 Glucose Calcium Total Bilirubin AST ALT Alkaline Phosphatase Total Protein Albumin Lipase Cancelled Urine Color (Yellow) Cancelled Urine Clarity (Clear) Cancelled Urine pH (5-8) Cancelled Ur Specific [place] (1.005-1.025) Cancelled Urine Protein (Negative) mg/dL Cancelled Urine Ketones (Negative) mg/dL Cancelled Urine Blood (Negative) Cancelled Urine Nitrite (Negative) Cancelled Urine Bilirubin (Negative) Cancelled Urine Urobilinogen (Up TO 0.2) EU/dL Cancelled Ur Leukocyte Esterase (Negative) Cancelled Urine RBC (0-2) HPF Urine WBC (0-5) HPF Ur Epithelial Cells (Negative) HPF Urine Crystals (Negative) HPF Urine Bacteria (Negative) HPF Urine Casts (Negative) LPF Urine Mucus (Negative) Ur Culture Indicated? Urine Glucose (Negative) mg/dL Cancelled HPI General Mode of arrival: ambulatory. Date/Time Provider Initiated Documentation: 01/10/22 13:01. Limitations to Documentation: no limitations. Information obtained by: patient. HPI Narrative: Patient is a 41-year-old female with a history of former IV drug use on methadone, ADHD, asthma, CKD, diabetes, hyperlipidemia, hepatitis C, tobacco dependence presents with urinary frequency for the past few days with right flank pain since last night. She was unaware of having a fever. She denies any nausea, vomiting, abdominal pain, hematuria or dysuria. Related Data Home Medications Medication Instructions Recorded Confirmed omeprazole 20 mg capsule,delayed 40 mg PO DAILY 04/18/15 01/11/22 release (Prilosec) loratadine 10 mg tablet 10 mg PO DAILY 07/04/17 01/11/22 omega-3 fatty acids-fish oil 300 2 ea PO DAILY 12/01/17 01/11/22 mg-1,000 mg capsule bupropion HCl 300 mg 24 hr tablet, 300 mg PO DAILY #30 tab-caps 11/13/18 01/11/22 extended release cholecalciferol (vitamin D3) 25 1,000 unit PO DAILY 04/22/19 01/11/22 mcg (1,000 unit) capsule (Vitamin D3) ferrous sulfate 325 mg (65 mg 325 mg PO DAILY 04/23/20 01/11/22 iron) tablet (FeroSul) blood sugar diagnostic (OneTouch #10 ea 06/05/20 08/06/20 Verio test strips) lancets (BlinkitTouch UltraSoft #100 ea 06/05/20 08/06/20 Lancets) levetiracetam 750 mg tablet 750 mg PO BID 06/05/20 01/11/22 metformin 500 mg tablet 500 mg PO BID 06/05/20 01/11/22 multivitamin 1 tab PO DAILY 06/05/20 01/11/22 albuterol sulfate 90 mcg/actuation 2 inh inhalation Q4H PRN shortness 07/21/20 01/11/22 breath activated powder inhaler of breath or wheezing methadone 10 mg/5 mL oral solution 180 mg PO DAILY 04/08/21 01/11/22 divalproex 500 mg tablet,extended 500 mg PO DAILY 01/10/22 01/11/22 release 24 hr olanzapine 15 mg tablet 15 mg PO BID 01/10/22 01/11/22 suvorexant 10 mg tablet (Belsomra) 10 mg PO HS 01/10/22 01/11/22 dexmethylphenidate 35 mg 35 mg PO BID 01/11/22 01/11/22 capsule,extended release [id number] (Focalin XR) polyethylene glycol 3350 17 gram 17 g PO DAILY PRN PRN 01/11/22 01/11/22 oral powder packet (Miralax) promethazine 25 mg tablet 25 mg PO BID PRN PRN 01/11/22 01/11/22 sennosides 8.6 mg-docusate sodium 1 tab PO BID PRN PRN 01/11/22 01/11/22 50 mg tablet Previous Rx's Medication Instructions Recorded bupropion HCl 300 mg 24 hr tablet, 300 mg PO DAILY #30 tab-caps 11/13/18 extended release Allergies Allergy/AdvReac Type Severity Reaction Status Date / Time sulfamethoxazole Allergy Mild Verified 01/11/22 06:28 [From Bactrim] trimethoprim [From Bactrim] Allergy Mild Verified 01/11/22 06:28 Penicillins Allergy hives/swell Unverified 01/11/22 06:28 ing morphine AdvReac Intermediate Nausea Unverified 01/11/22 06:28 ondansetron HCl AdvReac Intermediate Hives Unverified 01/11/22 06:28 [From Zofran (as hydrochloride)] erythromycin base AdvReac stomach Unverified 01/11/22 06:28 pain Sulfa (Sulfonamide AdvReac body aches Unverified 01/11/22 06:28 Antibiotics) General Stated Complaint: Urinary RAVEN: 3 Review of Systems All systems reviewed & are unremarkable except as noted in HPI and below Constitutional Constitutional: Denies chills, Denies excessive sweating, Denies fatigue, Denies fever(s), Denies weakness and Denies weight loss Eyes Eyes: Reports system reviewed and no additional complaints, except as documented and Denies blurry vision ENT Ears, Nose, Mouth, and Throat: Denies vertigo, Denies dizziness, Denies otalgia, Denies nasal congestion, Denies sore throat and Denies throat swelling Cardiovascular Cardiovascular: Denies chest pain, Denies syncope, Denies rapid heart rate and Denies dyspnea Respiratory Respiratory: Denies chest congestion, Denies cough, Denies pain on inspiration and Denies dyspnea Gastrointestinal Gastrointestinal: Denies abdominal pain, Denies diarrhea and Denies vomiting Genitourinary Genitourinary: Denies hematuria, Denies dysuria and Reports flank pain Musculoskeletal Musculoskeletal: Denies back pain and Denies joint swelling Integumentary/Breasts Skin/Breast: Denies lesions and Denies rash Neurologic Neurologic: Denies behavioral changes, Denies confusion, Denies vertigo, Denies dizziness, Denies syncope, Denies localized weakness and Denies weakness Psychiatric Psychiatric: Denies behavioral changes, Denies confusion and Denies depression Endocrine Endocrine: Denies excessive sweating and Denies fatigue Hematologic/Lymphatic Hematologic/Lymphatic: Denies easy bruising and Denies lymphadenopathy Allergic/Immunologic Allergic/Immunologic: Denies throat swelling PFSH All Active Problems (Updated 01/11/22 @ 15:58 by Sahara Medrano MD) Discharge planning issues (Acute) DVT prophylaxis (Acute) Hyponatremia (Acute) Non-insulin treated type 2 diabetes mellitus (Acute) Polysubstance (including opioids) dependence with physiological dependence (Chronic) Hydronephrosis with obstructing calculus (Acute) E. coli pyelonephritis (Acute) Septic shock (Acute) Right distal ureteral calculus (Acute) Pyelonephritis (Acute) UTI (urinary tract infection) (Acute) Infection due to trichomonas (Acute) Right cervical radiculopathy (Acute) Right carpal tunnel syndrome (Acute) Trichomoniasis (Acute) Genital HSV (Acute) (Acute) Labial lesion (Acute) Vaginal discharge (Acute) Pelvic pain (Acute) Elevated serum creatinine (Acute) 12/2019: 1.05 at time of preop evaluation History of tubal ligation (Chronic) 12/19/19. Laparoscopic left salpingectomy. Patient previously had a right salpingectomy. Ovarian cyst (Acute) Postoperative pain (Acute) Screening and evaluation for female sterilization (Acute) 04/2019. Not a candidate for OCPs. Declines L ARC. Given info on laparoscopic sterilization. 09/2019. Medicaid consent obtained. Vulvitis (Acute) 04/22/2018. Secondary to contact dermatitis. Negative vag path screen, negative STI check. Treated with Dosepak of steroids and topical lidocaine. Medical History ADHD Alcohol use Amenorrhea Amenorrhea, secondary 06/2014 Nl pelvic us. ES 3.5mm. No response to Progestin challenges. Nl labs. Asthma, moderate persistent Bipolar disorder ADD, PTSD, Anxiety and Depression Central sleep apnea Cervical radiculopathy Chronic diarrhea CKD (chronic kidney disease), stage III Diabetes type 2, controlled Pt. states she tested her blood sugar 12/15 and it was 400, and not sure why it was so high Dyslipidemia Eating disorder GERD Hepatic fibrosis Hepatitis C pt. states she was treated and is now non-detectable History of intravenous drug abuse states she has not used in 8 years IVDU Low back pain Metabolic syndrome Methamphetamine abuse Migraine headache Numbness and tingling of right arm Opioid dependence Otitis externa, chronic Problem related to living arrangement PTSD (post-traumatic stress disorder) Rhinitis, allergic Seizure disorder Sexually transmitted disease exposure Tobacco dependency Unspecified disorder resulting from impaired renal function Surgical History Cholecystectomy Diagnostic Laproscopy (~2005) History of tonsillectomy molar extraction , Ectopic (~2010) Social History Smoking/Tobacco Use Status: Current every day Tobacco Type: cigarettes Smoking risk assessment performed?: Yes Alcohol Intake: never Drug use: Daily Substance use type: marijuana Details: reports getting off heroin. Household members: none Housing: apartment current occupation: Disabled Pets and animals: Yes Pets and animals: cat(s) What type of physical activity do you participate in: none and independent ambulation Seatbelt use: always Do you feel safe at home: Yes Exam Const General: cooperative and disheveled Orientation: alert, awake and oriented x3 HENMT Head: normal to inspection Ears: hearing grossly normal bilaterally, external ears normal and TM's normal bilaterally General nose exam: external nose normal Face and sinus: normal facial exam Mouth: oral mucosae normal Teeth and gingiva: dentition normal Throat: posterior oropharynx normal Eyes General: appearance normal, both eyes and all related structures Eyelids: eyelids normal Pupils: PERRL EOM: EOM intact bilaterally Neck Neck: normal visual inspection Lymphatic: no lymphadenopathy noted Chest Chest: normal inspection of the chest Resp Effort & Inspection: normal respiratory effort and able to speak in complete sentences Auscultation: clear to auscultation bilaterally Cardio Rate: tachycardic Rhythm: regular rhythm GI Inspection: normal to inspection Palpation: soft, not firm, no guarding, no hepatosplenomegaly, no masses and nontender Auscultation: hypoactive bowel sounds Back/Spine/Pelvis Back: no CVA tenderness Skin General skin exam: no rashes or lesions noted Neuro General: patient alert and patient awake Cognition: normal cognition Speech: speech normal Gait: normal gait Motor: muscle tone normal throughout Sensory Exam: no sensory deficits noted Extrem General: normal to inspection, full ROM and capillary refill normal Psych Appearance: grossly normal Mental Status: mental status grossly normal Speech and Movement: speech and movement normal Affect: normal affect Thought Process: normal Course Vital Signs Vital signs: Vital Signs Temperature 100.4 F H 01/10/22 13:12 Pulse 104 H 01/10/22 13:12 Respiratory Rate 16 01/10/22 13:12 Blood Pressure 113/73 01/10/22 13:12 Pulse Oximetry 93 01/10/22 13:12 Temperature 100.4 F H 01/10/22 13:12 Temperature Source Oral 01/10/22 13:12 Pulse 104 H 01/10/22 13:12 Respiratory Rate 16 01/10/22 13:12 Respiratory Effort 01/10/22 13:12 Blood Pressure 113/73 01/10/22 13:12 Blood Pressure Position Sitting 01/10/22 13:12 Pulse Oximetry 93 01/10/22 13:12 Oxygen Delivery Method Room Air 01/10/22 13:12 Oxygen Flow Rate 0 01/10/22 13:12 Pain Level 4 01/10/22 13:12 Lab/Test Results Lab/Test Results: Laboratory Tests Range/Units 01/10/22 13:07 Urine Color (Yellow) [place] Urine Clarity (Clear) Sl Cloudy Urine pH (5-8) 5.0 Ur Specific [place] (1.005-1.025) 1.025 Urine Protein (Negative) mg/dL >=300 H Urine Ketones (Negative) mg/dL 15 H Urine Blood (Negative) Moderate H Urine Nitrite (Negative) Positive H Urine Bilirubin (Negative) Large H Urine Urobilinogen (Up TO 0.2) EU/dL >=8.0 Ur Leukocyte Esterase (Negative) Large H Urine RBC (0-2) HPF 20-50 H Urine WBC (0-5) HPF >50 H Ur Epithelial Cells (Negative) HPF Moderate Urine Crystals (Negative) HPF Negative Urine Bacteria (Negative) HPF Moderate Urine Casts (Negative) LPF Negative Urine Mucus (Negative) Trace Ur Culture Indicated? No/Sq. Contamination Urine Glucose (Negative) mg/dL 250 H
[2022-01-10] MEDS: levoFLOXacin 500 MG, levoFLOXacin 250 MG 750 MG PO (14:13)
== END 2022-01-10 14:06 | disposition left against medical advice (07) ==
PROVIDERS: Emergency Provider Physician Assistant; PCP Family Medicine
DX: N12 Tubulo-interstitial nephritis, not specified as acute or chronic (principal); E11.22 Type 2 diabetes mellitus with diabetic chronic kidney disease; N18.30 Chronic kidney disease, stage 3 unspecified; Z53.29 Procedure and treatment not carried out because of patient's decision for other reasons
CPT/HCPCS: 36415; 80053; 81025; 83690; 87077; 93005; 96361; 96365; 96366; 96375; 99283; 99285; 81003; 81015; 85025; 87086; 87186; 93010

== ENCOUNTER 2022-01-11 06:16 | Inpatient (IN) | payer MEDICAID, SELFPAY ==
[2022-01-11] VITALS (81 sets, daily range): BP systolic 85–144; BP diastolic 45–88; PULSE 84–117; RESP 11–27; TEMP 36.7–39.6; TEMPC 36.2; O2SAT 90–99; BMI 24.7
--- NOTE | 2022-01-11 06:45 | W.ED.GENAD ---
Discharge Plan Disposition Patient Disposition: STILL A PATIENT Condition: Good Discharge Details Chief Complaint: Urinary Clinical Impression: UTI (urinary tract infection) Primary Care Provider: Damian Murillo ED Provider: Kamaljit Vogel Home Meds and New Rx's Prescriptions: No Action albuterol sulfate 90 mcg/actuation aerosol powdr breath activated 2 inh IH Q4H PRN (Reason: shortness of breath or wheezing) methadone 10 mg/5 mL solution 180 mg PO DAILY ferrous sulfate [FeroSul] 325 mg (65 mg iron) tablet 325 mg PO DAILY bupropion HCl 300 mg tablet extended release 24 hr 300 mg PO DAILY Qty: 30 5RF omeprazole [Prilosec] 20 MG capsule,delayed release(DR/EC) 40 mg PO DAILY loratadine 10 MG tablet 10 mg PO DAILY omega-3 fatty acids-fish oil 1 EACH capsule 2 ea PO DAILY (DME) blood sugar diagnostic Strip See Rx Instructions .ROUTE .MEDSUPPLY Qty: 10 Rx Instructions: As directed (DME) lancets Misc See Rx Instructions .ROUTE .MEDSUPPLY Qty: 100 Rx Instructions: As directed multivitamin Tablet 1 tab PO DAILY levetiracetam 750 mg tablet 750 mg PO BID metformin 500 mg tablet 850 mg PO BID olanzapine 15 mg tablet 30 mg PO HS Label Comments: 03/17/18 pt takes 30 mg at once in the evening cholecalciferol (vitamin D3) [Vitamin D3] 1,000 unit Capsule 1,000 unit PO DAILY olanzapine 15 mg tablet 15 mg PO BID Label Comments: TAKE ONE TABLET BY MOUTH TWICE A DAY dexmethylphenidate [Focalin XR] 20 mg capsule,ER biphasic 50-50 35 mg PO BID Label Comments: TAKE ONE CAPSULE BY MOUTH EVERY EVENING Belsomra 10 mg tablet 10 mg PO .QHS Label Comments: TAKE ONE TABLET BY MOUTH AT BEDTIME divalproex 500 mg tablet extended release 24 hr 500 mg PO DAILY Label Comments: TAKE 1 TABLET BY MOUTH EVERY DAY levofloxacin 750 mg tablet 750 mg PO DAILY 6 Days Qty: 6 0RF Medical Decision Making This is a 41-year-old female with a past medical history of being a former IV drug user, currently on methadone, ADHD, asthma, chronic kidney disease, high cholesterol, hepatitis C, tobacco dependence, presents today for evaluation of right flank pain and urinary frequency with dysuria. Patient was here just last night, she was seen by Dr. Wood. At that time it was recommended that she have labs and imaging however she refused this and left AMA. She did get a dose of Levaquin no. She states that since then she has not been able to fill her prescription, she has had continued pain, and she would like to be reevaluated. She admits to vomiting the last 6 to 12 hours. She denies chest pain. She denies any hematuria. She has been taking Azo for her UTI. Exam demonstrates notable right CVA tenderness. No reproducible abdominal tenderness in spite of her right-sided flank pain. Concern is highest for pyelonephritis, but I do feel that a kidney stone should be further evaluated as well. We will treat her pain, monitor closely, get a CT scan and reassess. Patient will be signed out to my colleague Dr. Yessenia Narayanan for follow-up on labs and imaging. HPI General Date/Time Provider Initiated Documentation: 01/11/22 06:18. HPI Narrative: This is a 41-year-old female with a past medical history of being a former IV drug user, currently on methadone, ADHD, asthma, chronic kidney disease, high cholesterol, hepatitis C, tobacco dependence, presents today for evaluation of right flank pain and urinary frequency with dysuria. Patient was here just last night, she was seen by Dr. Wood. At that time it was recommended that she have labs and imaging however she refused this and left AMA. She did get a dose of Levaquin no. She states that since then she has not been able to fill her prescription, she has had continued pain, and she would like to be reevaluated. She admits to vomiting the last 6 to 12 hours. She denies chest pain. She denies any hematuria. She has been taking Azo for her UTI. Related Data Home Medications Medication Instructions Recorded Confirmed omeprazole 20 mg capsule,delayed 40 mg PO DAILY 04/18/15 01/11/22 release (Prilosec) loratadine 10 mg tablet 10 mg PO DAILY 07/04/17 01/11/22 omega-3 fatty acids-fish oil 300 2 ea PO DAILY 12/01/17 01/11/22 mg-1,000 mg capsule bupropion HCl 300 mg 24 hr tablet, 300 mg PO DAILY #30 tab-caps 11/13/18 01/11/22 extended release cholecalciferol (vitamin D3) 25 1,000 unit PO DAILY 04/22/19 01/11/22 mcg (1,000 unit) capsule (Vitamin D3) olanzapine 15 mg tablet 30 mg PO HS 04/22/19 01/10/22 ferrous sulfate 325 mg (65 mg 325 mg PO DAILY 04/23/20 01/11/22 iron) tablet (FeroSul) blood sugar diagnostic #10 ea 06/05/20 08/06/20 lancets #100 ea 06/05/20 08/06/20 levetiracetam 750 mg tablet 750 mg PO BID 06/05/20 01/11/22 metformin 500 mg tablet 850 mg PO BID 06/05/20 01/11/22 multivitamin 1 tab PO DAILY 06/05/20 01/11/22 albuterol sulfate 90 mcg/actuation 2 inh inhalation Q4H PRN shortness 07/21/20 01/11/22 breath activated powder inhaler of breath or wheezing methadone 10 mg/5 mL oral solution 180 mg PO DAILY 04/08/21 01/11/22 dexmethylphenidate 20 mg 35 mg PO BID 01/10/22 01/11/22 capsule,extended release [id number] (Focalin XR) divalproex 500 mg tablet,extended 500 mg PO DAILY 01/10/22 01/11/22 release 24 hr levofloxacin 750 mg tablet 750 mg PO DAILY 6 days #6 tabs 01/10/22 olanzapine 15 mg tablet 15 mg PO BID 01/10/22 01/11/22 suvorexant 10 mg tablet (Belsomra) 10 mg PO .QHS 01/10/22 01/11/22 Previous Rx's Medication Instructions Recorded bupropion HCl 300 mg 24 hr tablet, 300 mg PO DAILY #30 tab-caps 11/13/18 extended release levofloxacin 750 mg tablet 750 mg PO DAILY 6 days #6 tabs 01/10/22 Allergies Allergy/AdvReac Type Severity Reaction Status Date / Time sulfamethoxazole Allergy Mild Verified 01/11/22 06:28 [From Bactrim] trimethoprim [From Bactrim] Allergy Mild Verified 01/11/22 06:28 Penicillins Allergy hives/swell Unverified 01/11/22 06:28 ing morphine AdvReac Intermediate Nausea Unverified 01/11/22 06:28 ondansetron HCl AdvReac Intermediate Hives Unverified 01/11/22 06:28 [From Zofran (as hydrochloride)] erythromycin base AdvReac stomach Unverified 01/11/22 06:28 pain Sulfa (Sulfonamide AdvReac body aches Unverified 01/11/22 06:28 Antibiotics) General Stated Complaint: Urinary RAVEN: 3 Review of Systems All systems reviewed & are unremarkable except as noted in HPI and below PFSH All Active Problems (Updated 01/11/22 @ 06:53 by Kamaljit Vogel DO) Pyelonephritis (Acute) UTI (urinary tract infection) (Acute) Infection due to trichomonas (Acute) Right cervical radiculopathy (Acute) Right carpal tunnel syndrome (Acute) Trichomoniasis (Acute) Genital HSV (Acute) (Acute) Labial lesion (Acute) Vaginal discharge (Acute) Pelvic pain (Acute) Elevated serum creatinine (Acute) 12/2019: 1.05 at time of preop evaluation History of tubal ligation (Chronic) 12/19/19. Laparoscopic left salpingectomy. Patient previously had a right salpingectomy. Ovarian cyst (Acute) Postoperative pain (Acute) Screening and evaluation for female sterilization (Acute) 04/2019. Not a candidate for OCPs. Declines L ARC. Given info on laparoscopic sterilization. 09/2019. Medicaid consent obtained. Vulvitis (Acute) 04/22/2018. Secondary to contact dermatitis. Negative vag path screen, negative STI check. Treated with Dosepak of steroids and topical lidocaine. Medical History ADHD Alcohol use Amenorrhea Amenorrhea, secondary 06/2014 Nl pelvic us. ES 3.5mm. No response to Progestin challenges. Nl labs. Asthma, moderate persistent Bipolar disorder ADD, PTSD, Anxiety and Depression Central sleep apnea Cervical radiculopathy Chronic diarrhea CKD (chronic kidney disease), stage III Diabetes type 2, controlled Pt. states she tested her blood sugar 12/15 and it was 400, and not sure why it was so high Dyslipidemia Eating disorder GERD Hepatic fibrosis Hepatitis C pt. states she was treated and is now non-detectable History of intravenous drug abuse states she has not used in 8 years IVDU Low back pain Metabolic syndrome Methamphetamine abuse Migraine headache Numbness and tingling of right arm Opioid dependence Otitis externa, chronic Problem related to living arrangement PTSD (post-traumatic stress disorder) Rhinitis, allergic Seizure disorder Sexually transmitted disease exposure Tobacco dependency Unspecified disorder resulting from impaired renal function Surgical History Cholecystectomy Diagnostic Laproscopy (~2005) History of tonsillectomy molar extraction , Ectopic (~2010) Social History Smoking/Tobacco Use Status: Current every day Tobacco Type: cigarettes Smoking risk assessment performed?: Yes Alcohol Intake: never Drug use: Daily Substance use type: marijuana Details: reports getting off heroin. Household members: none Housing: apartment current occupation: Disabled Pets and animals: Yes Pets and animals: cat(s) What type of physical activity do you participate in: none and independent ambulation Seatbelt use: always Do you feel safe at home: Yes Exam Narrative Exam Narrative: 1.Const: Well-nourished, Well-developed, appearing stated age 2.Eyes: PERRL, no conjunctival injection, and symmetrical lids. 3.ENT: Atraumatic external nose and ears. Moist MM. Neck: Symmetric, trachea midline, No thyromegaly. 4.CVS: +S1/S2, No murmurs or gallops. Peripheral pulses 2+ and equal in all extremities. Brisk capillary refill in all extremities. 5.RESP: Unlabored respiratory effort. Clear to auscultation bilaterally. No wheezes rales or rhonchi 6.GI: Soft, Nontender/Nondistended, No hepatosplenomegaly. No guarding or rebound. Notable right CVA tenderness. No left CVA tenderness. 7.MSK: Normocephalic/Atraumatic, Extremities w/o deformity or ttp No cyanosis or clubbing, Normal movement of all extremities 8.Skin: Warm, Dry. No rashes or lesions. 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 Sensation grossly intact, no focal neurologic deficits. 10.Psych: (AAO) x3. Appropriate mood and affect Course Vital Signs Vital signs: Vital Signs Temperature 37.7 C H 01/11/22 06:26 Pulse 106 H 01/11/22 06:26 Respiratory Rate 18 01/11/22 06:26 Blood Pressure 135/88 01/11/22 06:26 Pulse Oximetry 96 01/11/22 06:26 Temperature 37.7 C H 01/11/22 06:26 Temperature Source Oral 01/11/22 06:26 Pulse 106 H 01/11/22 06:26 Respiratory Rate 18 01/11/22 06:26 Respiratory Effort Non-Labored 01/11/22 06:37 Blood Pressure 135/88 01/11/22 06:26 Blood Pressure Position Supine 01/11/22 06:26 Pulse Oximetry 96 01/11/22 06:26 Oxygen Delivery Method Room Air 01/11/22 06:26 Oxygen Flow Rate 0 01/11/22 06:26 Pain Level 10 01/11/22 06:37 Lab/Test Results Lab/Test Results: 01/11/22 06:33 Blood Blood Culture - Pending 01/11/22 06:33 Blood Blood Culture - Pending
[2022-01-11] MEDS: MORPHine 4 MG/ML SYR IVP ×4 (07:19→21:32)
[2022-01-11] MEDS: Ondansetron 4 MG/2 ML VIAL IVP (07:19)
[2022-01-11] MEDS: Ketorolac 15 MG/ML VIAL IVP (07:20)
[2022-01-11] MEDS: Normal Saline 1,000 ML 1000 ML IV ×2 (07:23→08:10)
[2022-01-11 07:37] LABS: Abs Immature Grans 0.09 10^3/uL (0.0-0.06); Absolute Basophil Count 0.03 10^3/uL (0.0-0.2); Absolute Eosinophil Count 0.01 10^3/uL (0.0-0.7); Absolute Monocyte Count 0.75 10^3/uL (0.1-0.8); Absolute Neutrophil Count 11.65 10^3/uL (1.2-6.7); Basophils % 0.2; Eosinophils % 0.1; HCT 35.1 % (36.0-46.0); HGB 11.8 g/dL (11.2-15.7); Immature Grans % 0.7; Lymphocytes % 6.1; MCH 30.4 pg (27.0-33.0); MCHC 33.6 % (32.0-36.0); MCV 91 fL (80-95); MPV 8.2 fL (8.0-11.0); Monocytes % 5.6; Neutrophils % 87.3; Platelet Count 277 10^3/uL (130-400); RBC 3.88 10^6/uL (3.93-5.22); RDW 12.5 % (11.7-14.6); RDW-SD 41.1 fL; WBC 13.35 10^3/uL (4.4-10.8)
[2022-01-11 07:39] LABS: Absolute Lymphocyte Count 0.81 10^3/uL (1.2-3.4); Lactate 2.2 mmol/L (0.6-1.4)
[2022-01-11 07:57] LABS: ALT 8 U/L (14-59); AST 11 U/L (15-37); Albumin 2.8 g/dL (3.4-5.0); Alkaline Phosphatase 54 U/L (46-116); Anion Gap 8.6 mmol/L (3-11); BUN 13 mg/dL (7-18); Bilirubin, Total 0.6 mg/dL (0.2-1.0); CO2 28.4 mmol/L (21.0-32.0); CREATININE 1.1 mg/dL (0.55-1.02); Calcium 8.9 mg/dL (8.5-10.1); Chloride 92 mmol/L (98-107); Estimated GFR 55.01 (mL/min/1.73m2); Glucose 198 mg/dL (74-106); Potassium 3.5 mmol/L (3.5-5.1); Sodium 129 mmol/L (136-145); Total Protein 6.9 g/dL (6.4-8.2)
[2022-01-11 08:00] LABS: Bilirubin Small (Negative); Blood Trace-intact (Negative); Clarity Cloudy (Clear); Glucose Negative (Negative); Ketones 40 mg/dL (Negative); Leukocyte Esterase Trace (Negative); Nitrite Positive (Negative); Specific Gravity >= 1.030 (1.005-1.025)
[2022-01-11] MEDS: levoFLOXacin 750 MG/150 ML BAG 100 MG IVPB (08:02)
[2022-01-11 08:18] LABS: Bacteria Few HPF (Negative); C & S Indicated? Yes; Casts 0-2 Hyaline LPF (Negative); Crystals Negative HPF (Negative); Epithelial Cells Few HPF (Negative); Mucus Trace (Negative)
--- NOTE | 2022-01-11 08:27 | DI.CT_ITS ---
Exam(s) CT RENAL COLIC WO EXAM: CT RENAL COLIC WO CLINICAL HISTORY: right flank pain, pyelo present, eval for stone. TECHNIQUE: Imaging Protocol: Axial computed tomography images with coronal and sagittal reformatted images were created and reviewed CONTRAST MATERIAL: Intravenous: none Oral: None COMPARISON: CT CT ABDOMEN PELVIS W from 11/17/2019 FINDINGS: VISUALIZED LUNG BASES: Mild increased markings both lung bases. No pleural effusions.. ABDOMEN: There is no ascites. LIVER: There are no obvious focal hepatic lesions evident of this noninfused study. GALLBLADDER/BILIARY: The gallbladder surgically absent. CBD is not dilated. PANCREAS: No evidence of pancreatic mass nor dilatation of the pancreatic duct. SPLEEN: Spleen size upper normal. No obvious intrasplenic lesions evident on this noninfused study. ADRENALS: There are no significant adrenal masses. KIDNEYS:Small cyst again noted in the medial cortex of the left kidney, as seen on CT scan of November 0. No other focal left kidney findings. Small cyst is also noted in the inferior pole of the right kidney, as also previously seen. However, there is a calculus in the distal right ureter at the UVJ with dilatation of the right collecting system above this level. This calculus measures approximatel y 3 x 2 millimeters.. ABDOMINAL AORTA: Abdominal aorta is not enlarged. LYMPH NODES: There is no retroperitoneal nor paraaortic adenopathy. ABDOMINAL WALL: No evidence of significant anterior abdominal wall nor inguinal hernia. GI: There is no evidence of bowel obstruction, free air, nor abscess. PELVIS: LYMPH NODES: There is no intrapelvic nor inguinal adenopathy. GI: No evidence of appendicitis.No evidence of sigmoid diverticulitis. URINARY BLADDER: No calculi nor obvious masses evident REPRODUCTIVE: Uterus and adnexal regions unremarkable. No free fluid OSSEOUS: No significant osseous lesions. Disc space narrowing at L3-4 level. IMPRESSION: 1. The main finding here is an obstructing 3 x 2 millimeter calculus in the lower right ureter at the UVJ junction. There is mild nephrosis and hydroureter above this level. No other renal calculi dereje dent. Small benign cysts noted, 1 in each kidney, as evident on prior CT scan of November 2019. 2. Mild increased markings both lung bases. No associated pleural effusions. 3. Gallbladder is surgically absent. No significant dilatation of the biliary tree. RADIATION DOSE DELIVERED: 720.28mGy.cm Total DLP DATA REPOSITORY: All CT scans at this facility are submitted to the National Radiology Data Registry (NRDR) Dose Index Registry (DIR) with the [employer] ([employer]). RADIATION OPTIMIZATION: All CT scans at this facility use at least one of these dose optimization te chniques: automated exposure control; mA and/or kV adjustment per patient size (includes targeted exa ms where dose is matched to clinical indication); or iterative reconstruction.
--- NOTE | 2022-01-11 09:15 | ED.PROG_ITS ---
Date of service: 01/11/22 Time of Service: 07:30 Medical Decision Making Patient was signed out to me at time of shift change by Dr. Vogel with labs, imaging pending. Labs reviewed, WBC 13.35, hemoglobin 11.8, anion gap 8.6, sodium 129, creatinine 1.1. CT shows obstructing stone in the distal right ureter, 3 mm. Pt with hypotension, SBP 86. Will continue IVF hydration. Concern for sepsis, Pt has received abx at this time. I discussed patient with Dr. Carmona of urology and with Dr. Medrano, hospitalist, who will admit. Patient reports that she did have her methadone this morning prior to arrival. Medical Records Medical records reviewed: Yes I reviewed the patient's medical records. Imaging Data Radiologic Study: Attestation: I personally reviewed and interpreted this imaging study as follows: Radiologist's impression: EXAM: ? CT RENAL COLIC WO CLINICAL HISTORY: ? right flank pain, pyelo present, eval for stone. ? TECHNIQUE:? Imaging Protocol: Axial computed tomography images with coronal and sagittal reformatted images were created and reviewed CONTRAST MATERIAL:? Intravenous: none Oral: None COMPARISON:? CT CT ABDOMEN ? PELVIS W from 11/17/2019 FINDINGS: VISUALIZED LUNG BASES: Mild increased markings both lung bases.? No pleural effusions..? ABDOMEN: There is no ascites. LIVER: There are no obvious focal hepatic lesions evident of this noninfused study.? GALLBLADDER/BILIARY: The gallbladder surgically absent.? CBD is not dilated. PANCREAS: No evidence of pancreatic mass nor dilatation of the pancreatic duct.? SPLEEN: Spleen size upper normal.? No obvious intrasplenic lesions evident on this noninfused study. ADRENALS: There are no significant adrenal masses. KIDNEYS:Small cyst again noted in the medial cortex of the left kidney, as seen on CT scan of November 2019.? No other focal left kidney findings.? Small cyst is also noted in the inferior pole of the right kidney, as also previously seen.? However, there is a calculus in the distal right ureter at the UVJ with dilatation of the right collecting system above this level.? This calculus measures approximately 3 x 2 millimeters.. ABDOMINAL AORTA: Abdominal aorta is not enlarged. LYMPH NODES: There is no retroperitoneal nor paraaortic adenopathy. ABDOMINAL WALL: No evidence of significant anterior abdominal wall nor inguinal hernia. GI: There is no evidence of bowel obstruction, free air, nor abscess. PELVIS:? LYMPH NODES: There is no intrapelvic nor inguinal adenopathy. GI: No evidence of appendicitis.No evidence of sigmoid diverticulitis. URINARY BLADDER: No calculi nor obvious masses evident REPRODUCTIVE: Uterus and adnexal regions unremarkable.? No free fluid OSSEOUS: No significant osseous lesions. Disc space narrowing at L3-4 level. IMPRESSION: 1. The main finding here is an obstructing 3 x 2 millimeter calculus in the lower right ureter at the UVJ junction.? There is mild nephrosis and hydroureter above this level.? No other renal calculi evident.? Small benign cysts noted, 1 in each kidney, as evident on prior CT scan of November 2019. 2. Mild increased markings both lung bases.? No associated pleural effusions. 3. Gallbladder is surgically absent.? No significant dilatation of the biliary tree. Lab Data Lab results reviewed: Yes I reviewed the patient's lab results. Labs: 01/11/22 06:35 Urine - Reflex from Ua Urine Culture - Pending 01/11/22 07:58 Blood Blood Culture - Pending 01/11/22 07:20 Blood Blood Culture - Pending Laboratory Tests Range/Units 01/11/22 01/11/22 01/11/22 06:35 07:20 07:20 WBC (4.4-10.8) 10^3/uL RBC (3.93-5.22) 10^6/uL Hgb (11.2-15.7) g/dL Hct (36.0-46.0) % MCV (80-95) fL MCH (27.0-33.0) pg MCHC (32.0-36.0) % RDW (11.7-14.6) % Plt Count (130-400) 10^3/uL MPV (8.0-11.0) fL Immature Gran % Neutrophils % Lymphocytes % Monocytes % Eosinophils % Basophils % Nucleated RBC % (0.0-0.3) % Absolute Neutrophils (1.2-6.7) 10^3/uL Absolute Lymphocytes (1.2-3.4) 10^3/uL Absolute Monocytes (0.1-0.8) 10^3/uL Absolute Eosinophils (0.0-0.7) 10^3/uL Absolute Basophils (0.0-0.2) 10^3/uL VBG Lactate (0.6-1.4) mmol/L 2.2 H* Sodium (136-145) mmol/L 129 L Potassium (3.5-5.1) mmol/L 3.5 Chloride (98-107) mmol/L 92 L Carbon Dioxide (21.0-32.0) mmol/L 28.4 Anion Gap (3-11) mmol/L 8.6 BUN (7-18) mg/dL 13 Creatinine (0.55-1.02) mg/dL 1.1 H Estimated GFR/1.73 m2 (mL/min/1.73m2) 55.01 Glucose (74-106) mg/dL 198 H Calcium (8.5-10.1) mg/dL 8.9 Total Bilirubin (0.2-1.0) mg/dL 0.6 AST (15-37) U/L 11 L ALT (14-59) U/L 8 L Alkaline Phosphatase (46-116) U/L 54 Total Protein (6.4-8.2) g/dL 6.9 Albumin (3.4-5.0) g/dL 2.8 L Urine Color (Yellow) Yellow Urine Clarity (Clear) Cloudy Urine pH (5-8) 6.0 Ur Specific [place] (1.005-1.025) >= 1.030 H Urine Protein (Negative) mg/dL 100 H Urine Ketones (Negative) mg/dL 40 H Urine Blood (Negative) Trace-intact H Urine Nitrite (Negative) Positive H Urine Bilirubin (Negative) Small H Urine Urobilinogen (Up TO 0.2) EU/dL 1.0 H Ur Leukocyte Esterase (Negative) Trace H Urine RBC (0-2) HPF 5-10 H Urine WBC (0-5) HPF 10-20 H Ur Epithelial Cells (Negative) HPF Few Urine Crystals (Negative) HPF Negative Urine Bacteria (Negative) HPF Few Urine Casts (Negative) LPF 0-2 Hyaline Urine Mucus (Negative) Trace Ur Culture Indicated? Yes Urine Glucose (Negative) mg/dL Negative Range/Units 01/11/22 07:20 WBC (4.4-10.8) 10^3/uL 13.35 H RBC (3.93-5.22) 10^6/uL 3.88 L Hgb (11.2-15.7) g/dL 11.8 Hct (36.0-46.0) % 35.1 L MCV (80-95) fL 91 MCH (27.0-33.0) pg 30.4 MCHC (32.0-36.0) % 33.6 RDW (11.7-14.6) % 12.5 Plt Count (130-400) 10^3/uL 277 MPV (8.0-11.0) fL 8.2 Immature Gran % 0.7 Neutrophils % 87.3 Lymphocytes % 6.1 Monocytes % 5.6 Eosinophils % 0.1 Basophils % 0.2 Nucleated RBC % (0.0-0.3) % 0.0 Absolute Neutrophils (1.2-6.7) 10^3/uL 11.65 H Absolute Lymphocytes (1.2-3.4) 10^3/uL 0.81 L Absolute Monocytes (0.1-0.8) 10^3/uL 0.75 Absolute Eosinophils (0.0-0.7) 10^3/uL 0.01 Absolute Basophils (0.0-0.2) 10^3/uL 0.03 VBG Lactate (0.6-1.4) mmol/L Sodium (136-145) mmol/L Potassium (3.5-5.1) mmol/L Chloride (98-107) mmol/L Carbon Dioxide (21.0-32.0) mmol/L Anion Gap (3-11) mmol/L BUN (7-18) mg/dL Creatinine (0.55-1.02) mg/dL Estimated GFR/1.73 m2 (mL/min/1.73m2) Glucose (74-106) mg/dL Calcium (8.5-10.1) mg/dL Total Bilirubin (0.2-1.0) mg/dL AST (15-37) U/L ALT (14-59) U/L Alkaline Phosphatase (46-116) U/L Total Protein (6.4-8.2) g/dL Albumin (3.4-5.0) g/dL Urine Color (Yellow) Urine Clarity (Clear) Urine pH (5-8) Ur Specific [place] (1.005-1.025) Urine Protein (Negative) mg/dL Urine Ketones (Negative) mg/dL Urine Blood (Negative) Urine Nitrite (Negative) Urine Bilirubin (Negative) Urine Urobilinogen (Up TO 0.2) EU/dL Ur Leukocyte Esterase (Negative) Urine RBC (0-2) HPF Urine WBC (0-5) HPF Ur Epithelial Cells (Negative) HPF Urine Crystals (Negative) HPF Urine Bacteria (Negative) HPF Urine Casts (Negative) LPF Urine Mucus (Negative) Ur Culture Indicated? Urine Glucose (Negative) mg/dL ECG Data Attestation: I personally reviewed and interpreted this ECG (s) as follows: Interpretation: EKG shows sinus rhythm at 90, normal axis, no STEMI, QTC 444 Sign Out Sign Out Data: Sign Out Comment: Pyelonephritis, pending CT scan and labs. Last updated by Kamaljit Vogel DO at 01/11/22 07:24 Discharge Plan Disposition Patient Disposition: STILL A PATIENT Condition: Improving Discharge Details Clinical Impression: UTI (urinary tract infection) Admit Date/Time: 01/11/22 09:13 Admit Provider: Sahara Medrano Attending Provider: Sahara Medrano Primary Care Provider: Damian Murillo ED Provider: Sarah Narayanan Discharge Data Discharge Date/Time-TO BE ENTERED AT DEPARTURE: 01/11/22 10:05
[2022-01-11 09:30] LABS: Source Nasal/Nares
--- NOTE | 2022-01-11 09:30 | RT.EKG_ITS ---
APPROVED REPORT Exam: Resting ECG Reason for Exam: QT check Patient Location: E HR:90 bpm ECG Measurements Heart Rate 90 AXIS SC 157 P 45 QRSd 77 QRS 30 QT 363 T 53 QTc 444 Conclusion Sinus rhythm...normal P axis, V-rate 60- 99 no STEMI I have reviewed and interpreted ECG and agree with software generated interpretation.
[2022-01-11] MEDS: levETIRAcetam 250 MG TAB 500 MG PO (09:38)
[2022-01-11] MEDS: Lactated Ringers 1,000 ML 1000 ML IV (09:39)
--- NOTE | 2022-01-11 09:49 | UCONE_ITS ---
Date of service: 01/11/22 Time of Service: 09:49 Assessment and Plan Assessment and plan (1) Right distal ureteral calculus: Status: Acute Assessment and plan: With her low blood pressure and slightly elevated lactate, the patient is at risk for sepsis. Given the presence of a urinary tract infection and an obstructing stone, we will plan on placing a ureteral stent to allow for maximal drainage from the right kidney. Once her infection has cleared, we can then go back more electively (and safely) to deal with the stone. (2) Pyelonephritis: Status: Acute History of Present Illness History of Present Illness Chief Complaint: Ureteral stone Narrative: This is a 41-year-old woman who presented to the emergency department yesterday with right flank and lower back pain. Her urinalysis was suggestive of a urinary tract infection. She did not allow additional testing to be done and she left AGAINST MEDICAL ADVICE. Levaquin was prescribed, but the patient tells me that she never took her first dose of medication. She presented back to the emergency department this morning when her pain worsened. She has had fevers but no chills. She developed nausea and vomiting as well as urinary incontinence. This time, she was agreeable to more of a work-up and she was identified as having a right distal ureteral stone with hydronephrosis. Her blood pressures have been lower than usual for her. She has not been tachycardic. Blood and urine cultures are pending. She is admitted for presumptive pyelonephritis/sepsis with an obstructing ureteral stone. She has never had stones prior to this event. She has no metabolic issues such as gout or hyperparathyroidism. Review of Systems Narrative: Fevers. No chills No vision change or dysphasia No diabetes or thyroid dysfunction No shortness of breath, cough or hemoptysis No chest pain or palpitations Nausea and vomiting. No ulcers, jaundice Hx seizures only when I overdose. No strokes or peripheral neuropathy Hx IV drug use - now on Methadone. No bleeding disorders or anemia No gout PFSH All Active Problems (Updated 01/11/22 @ 10:22 by Kenrick Carmona MD) Right distal ureteral calculus (Acute) Pyelonephritis (Acute) UTI (urinary tract infection) (Acute) Infection due to trichomonas (Acute) Right cervical radiculopathy (Acute) Right carpal tunnel syndrome (Acute) Trichomoniasis (Acute) Genital HSV (Acute) (Acute) Labial lesion (Acute) Vaginal discharge (Acute) Pelvic pain (Acute) Elevated serum creatinine (Acute) 12/2019: 1.05 at time of preop evaluation History of tubal ligation (Chronic) 12/19/19. Laparoscopic left salpingectomy. Patient previously had a right salpingectomy. Ovarian cyst (Acute) Postoperative pain (Acute) Screening and evaluation for female sterilization (Acute) 04/2019. Not a candidate for OCPs. Declines L ARC. Given info on laparoscopic sterilization. 09/2019. Medicaid consent obtained. Vulvitis (Acute) 04/22/2018. Secondary to contact dermatitis. Negative vag path screen, negative STI check. Treated with Dosepak of steroids and topical lidocaine. Medical History ADHD Alcohol use Amenorrhea Amenorrhea, secondary 06/2014 Nl pelvic us. ES 3.5mm. No response to Progestin challenges. Nl labs. Asthma, moderate persistent Bipolar disorder ADD, PTSD, Anxiety and Depression Central sleep apnea Cervical radiculopathy Chronic diarrhea CKD (chronic kidney disease), stage III Diabetes type 2, controlled Pt. states she tested her blood sugar 12/15 and it was 400, and not sure why it was so high Dyslipidemia Eating disorder GERD Hepatic fibrosis Hepatitis C pt. states she was treated and is now non-detectable History of intravenous drug abuse states she has not used in 8 years IVDU Low back pain Metabolic syndrome Methamphetamine abuse Migraine headache Numbness and tingling of right arm Opioid dependence Otitis externa, chronic Problem related to living arrangement PTSD (post-traumatic stress disorder) Rhinitis, allergic Seizure disorder Sexually transmitted disease exposure Tobacco dependency Unspecified disorder resulting from impaired renal function Surgical History Cholecystectomy Diagnostic Laproscopy (~2005) History of tonsillectomy molar extraction , Ectopic (~2010) Social History Smoking/Tobacco Use Status: Current every day Tobacco Type: cigarettes Smoking risk assessment performed?: Yes Alcohol Intake: never Drug use: Daily Substance use type: marijuana Details: reports getting off heroin. Household members: none Housing: apartment current occupation: Disabled Pets and animals: Yes Pets and animals: cat(s) What type of physical activity do you participate in: none and independent ambulation Seatbelt use: always Do you feel safe at home: Yes Exam Const General: ill appearing Neck Neck: supple Resp Effort & Inspection: normal respiratory effort Auscultation: clear to auscultation bilaterally Cardio Rate: regular rate Rhythm: regular rhythm GI Palpation: soft and not rigid Neuro General: patient alert and patient awake Results Last Vital Signs Temp 37.7 C H 01/11/22 06:26 Pulse 86 01/11/22 09:15 Resp 17 01/11/22 09:20 BP 90/57 L 01/11/22 09:15 Pulse Ox 92 01/11/22 09:20 Labs Result diagrams: 01/11/22 07:20 01/11/22 07:20 Labs: Laboratory Results - last 24 hr 01/11/22 01/11/22 01/11/22 06:35 07:20 07:20 WBC RBC Hgb Hct MCV MCH MCHC RDW Plt Count MPV Immature Gran % Neutrophils % Lymphocytes % Monocytes % Eosinophils % Basophils % Nucleated RBC % Absolute Neutrophils Absolute Lymphocytes Absolute Monocytes Absolute Eosinophils Absolute Basophils VBG Lactate 2.2 H* Sodium 129 L Potassium 3.5 Chloride 92 L Carbon Dioxide 28.4 Anion Gap 8.6 BUN 13 Creatinine 1.1 H Estimated GFR/1.73 m2 55.01 Glucose 198 H Calcium 8.9 Total Bilirubin 0.6 AST 11 L ALT 8 L Alkaline Phosphatase 54 Total Protein 6.9 Albumin 2.8 L Urine Color Yellow Urine Clarity Cloudy Urine pH 6.0 Ur Specific [place] >= 1.030 H Urine Protein 100 H Urine Ketones 40 H Urine Blood Trace-intact H Urine Nitrite Positive H Urine Bilirubin Small H Urine Urobilinogen 1.0 H Ur Leukocyte Esterase Trace H Urine RBC 5-10 H Urine WBC 10-20 H Ur Epithelial Cells Few Urine Crystals Negative Urine Bacteria Few Urine Casts 0-2 Hyaline Urine Mucus Trace Ur Culture Indicated? Yes Urine Glucose Negative COVID-19 Source 01/11/22 01/11/22 07:20 09:30 WBC 13.35 H RBC 3.88 L Hgb 11.8 Hct 35.1 L MCV 91 MCH 30.4 MCHC 33.6 RDW 12.5 Plt Count 277 MPV 8.2 Immature Gran % 0.7 Neutrophils % 87.3 Lymphocytes % 6.1 Monocytes % 5.6 Eosinophils % 0.1 Basophils % 0.2 Nucleated RBC % 0.0 Absolute Neutrophils 11.65 H Absolute Lymphocytes 0.81 L Absolute Monocytes 0.75 Absolute Eosinophils 0.01 Absolute Basophils 0.03 VBG Lactate Sodium Potassium Chloride Carbon Dioxide Anion Gap BUN Creatinine Estimated GFR/1.73 m2 Glucose Calcium Total Bilirubin AST ALT Alkaline Phosphatase Total Protein Albumin Urine Color Urine Clarity Urine pH Ur Specific [place] Urine Protein Urine Ketones Urine Blood Urine Nitrite Urine Bilirubin Urine Urobilinogen Ur Leukocyte Esterase Urine RBC Urine WBC Ur Epithelial Cells Urine Crystals Urine Bacteria Urine Casts Urine Mucus Ur Culture Indicated? Urine Glucose COVID-19 Source Nasal/Nares Imaging Imaging Studies: I reviewed her CT scan on the PACS system. I do not see any stones in the kidneys, but she does have a right distal ureteral stone with dilation of the right ureter and collecting system
[2022-01-11 10:30] LABS: COVID-19 PCR Negative (Negative)
[2022-01-11] MEDS: Dextrose 50%-Water 25 GM/50 ML SYR IVP (11:13)
[2022-01-11 11:17] LABS: C-Reactive Protein 15.35 mg/dL (0.0-0.3)
[2022-01-11 11:45] LABS: Procalcitonin 0.5 ng/mL
[2022-01-11] MEDS: Pantoprazole 40 MG VIAL IVP (11:59)
--- NOTE | 2022-01-11 12:15 | DI.RAD_ITS ---
Exam(s) XR RETROGRADE IN OR EXAM: XR RETROGRADE IN OR CLINICAL HISTORY: RIGHT DISTAL URETERAL CALCULUS. TECHNIQUE: 2D digital imaging was performed. COMPARISON: No exams were available for comparison FINDINGS: Fluoroscopy provided during retrograde urologic procedure performed by the urologist. See separate procedure report for details. Total fluoroscopy time 10 seconds. Cumulative dose 1.70mGy IMPRESSION: DATA REPOSITORY: RADIATION DOSE DELIVERED:
--- NOTE | 2022-01-11 12:32 | HPE_ITS ---
Date of service: 01/11/22 Time of Service: 10:50 Assessment and Plan Assessment and plan (1) Septic shock: Status: Acute Assessment and plan: Due to E. Coli pyelonephritis in setting of an obstructing kidney stone, present on admission. Fluid responsive. S/p cysto/stent. Continue IVF, monitoring lactate. Await sensitivities, blood cultures. Continue empiric levofloxacin. Trend CRP, procalcitonin. (2) E. coli pyelonephritis: Status: Acute Assessment and plan: As above (3) Hydronephrosis with obstructing calculus: Status: Acute Assessment and plan: As above (4) Polysubstance (including opioids) dependence with physiological dependence: Status: Chronic Assessment and plan: Monitor for sx of withdrawal. Continue methadone (gets it through [facility]). (5) Non-insulin treated type 2 diabetes mellitus: Status: Acute Assessment and plan: Cover with SSI (6) Hyponatremia: Status: Acute Assessment and plan: Hydrating Check morning cortisol. (7) DVT prophylaxis: Status: Acute Assessment and plan: SC heparin (8) Discharge planning issues: Status: Acute Assessment and plan: Full code Admit to ICU. Discussed with Dr Carmona. Total Critical Care Time 60 minutes. History of Present Illness History of Present Illness Chief Complaint: I couldn't pee enough Narrative: Ms Kennedy is a 41 year old female with PMHx of NIDDM2 on metformin, CKD III, as well as ,seizure disorder, bipolar d/o, central sleep apnea, and h/o polysubstance use (patient admits to ongoing smoking heroin, crack) who presented to [facility] today with two weeks of urinary urgency and frequency as well as subjective fevers and right lower back pain since yesterday and RLQ pain today. The patient was seen in our ED yesterday, was diagnosed with pyelonpehritis and sent home on levofloxacin. Her urine culture from that visit is groing E. Coli (sensitivities pending). Today in the ED, the patient had a white count of 13.35, was tachycardic and hypotensive to BP of 86/47. She was fluid responsive. Her lactate was 2.2 (and she refused a follow up draw at 10:30). She was given IV levofloxacin. Her renal CT showed an obstructing 3x2 mm calculus in the lower right ureter at the UVJ junction. Urology has evaluated the patient and is planning to take her to the OR later today. The patient is full code. Review of Systems All systems reviewed & are unremarkable except as noted in HPI and below PFSH All Active Problems (Updated 01/11/22 @ 15:58 by Sahara Medrano MD) Discharge planning issues (Acute) DVT prophylaxis (Acute) Hyponatremia (Acute) Non-insulin treated type 2 diabetes mellitus (Acute) Polysubstance (including opioids) dependence with physiological dependence (Chronic) Hydronephrosis with obstructing calculus (Acute) E. coli pyelonephritis (Acute) Septic shock (Acute) Right distal ureteral calculus (Acute) Pyelonephritis (Acute) UTI (urinary tract infection) (Acute) Infection due to trichomonas (Acute) Right cervical radiculopathy (Acute) Right carpal tunnel syndrome (Acute) Trichomoniasis (Acute) Genital HSV (Acute) (Acute) Labial lesion (Acute) Vaginal discharge (Acute) Pelvic pain (Acute) Elevated serum creatinine (Acute) 12/2019: 1.05 at time of preop evaluation History of tubal ligation (Chronic) 12/19/19. Laparoscopic left salpingectomy. Patient previously had a right salpingectomy. Ovarian cyst (Acute) Postoperative pain (Acute) Screening and evaluation for female sterilization (Acute) 04/2019. Not a candidate for OCPs. Declines L ARC. Given info on laparoscopic sterilization. 09/2019. Medicaid consent obtained. Vulvitis (Acute) 04/22/2018. Secondary to contact dermatitis. Negative vag path screen, negative STI check. Treated with Dosepak of steroids and topical lidocaine. Medical History ADHD Alcohol use Amenorrhea Amenorrhea, secondary 06/2014 Nl pelvic us. ES 3.5mm. No response to Progestin challenges. Nl labs. Asthma, moderate persistent Bipolar disorder ADD, PTSD, Anxiety and Depression Central sleep apnea Cervical radiculopathy Chronic diarrhea CKD (chronic kidney disease), stage III Diabetes type 2, controlled Pt. states she tested her blood sugar 12/15 and it was 400, and not sure why it was so high Dyslipidemia Eating disorder GERD Hepatic fibrosis Hepatitis C pt. states she was treated and is now non-detectable History of intravenous drug abuse states she has not used in 8 years IVDU Low back pain Metabolic syndrome Methamphetamine abuse Migraine headache Numbness and tingling of right arm Opioid dependence Otitis externa, chronic Problem related to living arrangement PTSD (post-traumatic stress disorder) Rhinitis, allergic Seizure disorder Sexually transmitted disease exposure Tobacco dependency Unspecified disorder resulting from impaired renal function Surgical History Cholecystectomy Diagnostic Laproscopy (~2005) History of tonsillectomy molar extraction , Ectopic (~2010) Social History Smoking/Tobacco Use Status: Current every day Tobacco Type: cigarettes Smoking risk assessment performed?: Yes Alcohol Intake: never Drug use: Daily Substance use type: marijuana Details: reports getting off heroin. Household members: none Housing: apartment current occupation: Disabled Pets and animals: Yes Pets and animals: cat(s) What type of physical activity do you participate in: none and independent ambulation Seatbelt use: always Do you feel safe at home: Yes Meds Allergies and Home Medications Allergies Allergy/AdvReac Type Severity Reaction Status Date / Time sulfamethoxazole Allergy Mild Verified 01/11/22 06:28 [From Bactrim] trimethoprim [From Bactrim] Allergy Mild Verified 01/11/22 06:28 Penicillins Allergy hives/swell Unverified 01/11/22 06:28 ing morphine AdvReac Intermediate Nausea Unverified 01/11/22 06:28 ondansetron HCl AdvReac Intermediate Hives Unverified 01/11/22 06:28 [From Zofran (as hydrochloride)] erythromycin base AdvReac stomach Unverified 01/11/22 06:28 pain Sulfa (Sulfonamide AdvReac body aches Unverified 01/11/22 06:28 Antibiotics) Home Medications Medication Instructions Recorded Confirmed Type omeprazole 20 mg capsule,delayed 40 mg PO DAILY 04/18/15 01/11/22 History release (Prilosec) loratadine 10 mg tablet 10 mg PO DAILY 07/04/17 01/11/22 History omega-3 fatty acids-fish oil 300 2 ea PO DAILY 12/01/17 01/11/22 History mg-1,000 mg capsule bupropion HCl 300 mg 24 hr tablet, 300 mg PO DAILY #30 tab-caps 11/13/18 01/11/22 Rx extended release cholecalciferol (vitamin D3) 25 1,000 unit PO DAILY 04/22/19 01/11/22 History mcg (1,000 unit) capsule (Vitamin D3) ferrous sulfate 325 mg (65 mg 325 mg PO DAILY 04/23/20 01/11/22 History iron) tablet (FeroSul) blood sugar diagnostic (OneTouch #10 ea 06/05/20 08/06/20 History Verio test strips) lancets (OneTouch UltraSoft #100 ea 06/05/20 08/06/20 History Lancets) levetiracetam 750 mg tablet 750 mg PO BID 06/05/20 01/11/22 History metformin 500 mg tablet 500 mg PO BID 06/05/20 01/11/22 History multivitamin 1 tab PO DAILY 06/05/20 01/11/22 History albuterol sulfate 90 mcg/actuation 2 inh inhalation Q4H PRN shortness 07/21/20 01/11/22 History breath activated powder inhaler of breath or wheezing methadone 10 mg/5 mL oral solution 180 mg PO DAILY 04/08/21 01/11/22 History divalproex 500 mg tablet,extended 500 mg PO DAILY 01/10/22 01/11/22 History release 24 hr olanzapine 15 mg tablet 15 mg PO BID 01/10/22 01/11/22 History suvorexant 10 mg tablet (Belsomra) 10 mg PO HS 01/10/22 01/11/22 History dexmethylphenidate 35 mg 35 mg PO BID 01/11/22 01/11/22 History capsule,extended release [id number] (Focalin XR) polyethylene glycol 3350 17 gram 17 g PO DAILY PRN PRN 01/11/22 01/11/22 History oral powder packet (Miralax) promethazine 25 mg tablet 25 mg PO BID PRN PRN 01/11/22 01/11/22 History sennosides 8.6 mg-docusate sodium 1 tab PO BID PRN PRN 01/11/22 01/11/22 History 50 mg tablet Exam Narrative Exam Narrative: General: Ill-appearing middle-aged female who is uncomfortable in bed, A&Ox3 Neurological: A&Ox3, no focal deficits Psychiatric: anxious/impulsive Skin: Skin with tattoos, no bruises or rashes HEENT: Atraumatic, normocephalic, EOMI, dry MM, clear oropharynx, healing sore on lower lip, no submandibular or cervical lymphadenopathy, ?goiter, no JVD Cardiovascular: RRR, no m/r/g Lungs: CTAB Gastrointestinal: soft, tender in RLQ, nondistended Genitourinary: deferred Extremities: no edema BLEs, 1+ pedal pulses B Results Imaging Additional studies: Renal CT: 1. The main finding here is an obstructing 3 x 2 millimeter calculus in the lower right ureter at the UVJ junction.? There is mild nephrosis and hydroureter above this level.? No other renal calculi evident.? Small benign cysts noted, 1 in each kidney, as evident on prior CT scan of November 2019. 2. Mild increased markings both lung bases.? No associated pleural effusions. 3. Gallbladder is surgically absent.? No significant dilatation of the biliary tree. Labs Result diagrams: 01/11/22 07:20 01/11/22 07:20 Labs: Laboratory Results - last 24 hr 01/11/22 01/11/22 01/11/22 06:35 07:20 07:20 WBC RBC Hgb Hct MCV MCH MCHC RDW Plt Count MPV Immature Gran % Neutrophils % Lymphocytes % Monocytes % Eosinophils % Basophils % Nucleated RBC % Absolute Neutrophils Absolute Lymphocytes Absolute Monocytes Absolute Eosinophils Absolute Basophils VBG Lactate 2.2 H* Sodium 129 L Potassium 3.5 Chloride 92 L Carbon Dioxide 28.4 Anion Gap 8.6 BUN 13 Creatinine 1.1 H Estimated GFR/1.73 m2 55.01 Glucose 198 H Calcium 8.9 Total Bilirubin 0.6 AST 11 L ALT 8 L Alkaline Phosphatase 54 C-Reactive Protein 15.35 H Total Protein 6.9 Albumin 2.8 L Procalcitonin 0.5 Urine Color Yellow Urine Clarity Cloudy Urine pH 6.0 Ur Specific [place] >= 1.030 H Urine Protein 100 H Urine Ketones 40 H Urine Blood Trace-intact H Urine Nitrite Positive H Urine Bilirubin Small H Urine Urobilinogen 1.0 H Ur Leukocyte Esterase Trace H Urine RBC 5-10 H Urine WBC 10-20 H Ur Epithelial Cells Few Urine Crystals Negative Urine Bacteria Few Urine Casts 0-2 Hyaline Urine Mucus Trace Ur Culture Indicated? Yes Urine Glucose Negative COVID-19 Source SARS-CoV-2 (PCR) 01/11/22 01/11/22 07:20 09:30 WBC 13.35 H RBC 3.88 L Hgb 11.8 Hct 35.1 L MCV 91 MCH 30.4 MCHC 33.6 RDW 12.5 Plt Count 277 MPV 8.2 Immature Gran % 0.7 Neutrophils % 87.3 Lymphocytes % 6.1 Monocytes % 5.6 Eosinophils % 0.1 Basophils % 0.2 Nucleated RBC % 0.0 Absolute Neutrophils 11.65 H Absolute Lymphocytes 0.81 L Absolute Monocytes 0.75 Absolute Eosinophils 0.01 Absolute Basophils 0.03 VBG Lactate Sodium Potassium Chloride Carbon Dioxide Anion Gap BUN Creatinine Estimated GFR/1.73 m2 Glucose Calcium Total Bilirubin AST ALT Alkaline Phosphatase C-Reactive Protein Total Protein Albumin Procalcitonin Urine Color Urine Clarity Urine pH Ur Specific [place] Urine Protein Urine Ketones Urine Blood Urine Nitrite Urine Bilirubin Urine Urobilinogen Ur Leukocyte Esterase Urine RBC Urine WBC Ur Epithelial Cells Urine Crystals Urine Bacteria Urine Casts Urine Mucus Ur Culture Indicated? Urine Glucose COVID-19 Source Nasal/Nares SARS-CoV-2 (PCR) Negative Last Vital Signs Temp 37.0 C 01/11/22 12:26 Pulse 109 H 01/11/22 12:26 Resp 18 01/11/22 12:26 BP 101/68 01/11/22 12:26 Pulse Ox 98 01/11/22 12:26
--- NOTE | 2022-01-11 13:07 | W.ANESPRE ---
General Info Date of Service Date Performed: 01/11/22 Height: 5 ft 2 in Weight: 61.3 kg Body Mass Index (BMI): 24.7 Surgical Procedure: Operation Date: 01/11/22 11:55 Proposed Procedure Side Surgeon p Cystoscopy/Retrograde/ Stent Insertion Right Kenrick Carmona MD Meds Allergies and Home Medications Allergies Allergy/AdvReac Type Severity Reaction Status Date / Time sulfamethoxazole Allergy Mild Verified 01/11/22 06:28 [From Bactrim] trimethoprim [From Bactrim] Allergy Mild Verified 01/11/22 06:28 Penicillins Allergy hives/swell Unverified 01/11/22 06:28 ing morphine AdvReac Intermediate Nausea Unverified 01/11/22 06:28 ondansetron HCl AdvReac Intermediate Hives Unverified 01/11/22 06:28 [From Zofran (as hydrochloride)] erythromycin base AdvReac stomach Unverified 01/11/22 06:28 pain Sulfa (Sulfonamide AdvReac body aches Unverified 01/11/22 06:28 Antibiotics) Home Medication Medication Instructions Recorded omeprazole 20 mg capsule,delayed 40 mg PO DAILY 04/18/15 release (Prilosec) loratadine 10 mg tablet 10 mg PO DAILY 07/04/17 omega-3 fatty acids-fish oil 300 2 ea PO DAILY 12/01/17 mg-1,000 mg capsule bupropion HCl 300 mg 24 hr tablet, 300 mg PO DAILY #30 tab-caps 11/13/18 extended release cholecalciferol (vitamin D3) 25 1,000 unit PO DAILY 04/22/19 mcg (1,000 unit) capsule (Vitamin D3) ferrous sulfate 325 mg (65 mg 325 mg PO DAILY 04/23/20 iron) tablet (FeroSul) blood sugar diagnostic (OneTouch #10 ea 06/05/20 Verio test strips) lancets (WhoochTouch UltraSoft #100 ea 06/05/20 Lancets) levetiracetam 750 mg tablet 750 mg PO BID 06/05/20 metformin 500 mg tablet 500 mg PO BID 06/05/20 multivitamin 1 tab PO DAILY 06/05/20 albuterol sulfate 90 mcg/actuation 2 inh inhalation Q4H PRN shortness 07/21/20 breath activated powder inhaler of breath or wheezing methadone 10 mg/5 mL oral solution 180 mg PO DAILY 04/08/21 dexmethylphenidate 20 mg 35 mg PO BID 01/10/22 capsule,extended release [id number] (Focalin XR) divalproex 500 mg tablet,extended 500 mg PO DAILY 01/10/22 release 24 hr olanzapine 15 mg tablet 15 mg PO BID 01/10/22 suvorexant 10 mg tablet (Belsomra) 10 mg PO HS 01/10/22 polyethylene glycol 3350 17 gram 17 g PO DAILY PRN PRN 01/11/22 oral powder packet (Miralax) promethazine 25 mg tablet 25 mg PO BID PRN PRN 01/11/22 sennosides 8.6 mg-docusate sodium 1 tab PO BID PRN PRN 01/11/22 50 mg tablet Current Visit Medications: Current Medications Generic Name Dose Route Start Last Admin Trade Name Freq PRN Reason Stop Dose Admin Acetaminophen 0 mg 01/11/22 09:12 Acetaminophen 325 Mg Tab PO Q4H PRN PRN Al Hydrox/Mg Hydrox/Simethicone 30 ml 01/11/22 09:12 Mylanta Suspension 30 Ml Cup PO Q2H PRN PRN Albuterol Sulfate 2 puff 01/11/22 09:24 Albuterol Hfa 8 Gm 60 Puff Inh IH Q4H PRN PRN shortness of breath or wheezin Bupropion HCl 300 mg 01/12/22 08:30 Bupropion-Xl 150 Mg Tabcr PO DAILY DANIEL Dextrose 0 gm 01/11/22 09:19 Glucose 40% Oral Solution 15 Gm/37.5 Gm Tube PO DIRECTED PRN Dextrose/Water 0 gm 01/11/22 09:19 01/11/22 11:13 Dextrose 50%-Water 25 Gm/50 Ml Syr IVP 25 gm DIRECTED PRN Administration Dimethicone/Zinc Oxide 0 gm 01/11/22 09:12 Rama Protect Cream 142 Gm Tube TP PRN PRN Divalproex Sodium 500 mg 01/12/22 08:30 Divalproex Sodium 500 Mg Tab.Er.24h PO DAILY DANIEL Docusate Sodium 100 mg 01/11/22 09:12 Docusate Sodium 100 Mg Cap PO TID PRN PRN Ferrous Sulfate 325 mg 01/12/22 08:30 Ferrous Sulfate 325 Mg Tab PO DAILY DANIEL Sodium Chloride 500 mls @ 0 mls/hr 01/11/22 09:12 Saline 500ml Bag IV PRN PRN As Directed Levofloxacin 750 mg in 150 mls @ 100 mls/hr 01/12/22 08:00 Levaquin Premixed Bag IVPB Q24H [facility] Protocol Dextrose/Lactated Ringer's 1,000 mls @ 100 mls/hr 01/11/22 11:00 Dextrose 5%-Lr IV INFUSION [facility] IV Miscellaneous Supplies 1 each 01/11/22 09:15 Iv Access IV DIRECTED [facility] Insulin Aspart 0 units 01/11/22 12:00 01/11/22 12:02 Insulin Aspart 300 Units/3 Ml Pen SC Not Given Q6H [facility] Protocol Ketorolac Tromethamine 30 mg 01/11/22 09:20 Ketorolac 30 Mg/Ml Vial IVP 01/16/22 09:19 Q6H PRN PRN Levetiracetam 750 mg 01/11/22 20:00 Levetiracetam 250 Mg Tab PO BID [facility] Loratadine 10 mg 01/12/22 08:30 Loratidine 10 Mg Tab PO DAILY [facility] Magnesium Hydroxide 30 ml 01/11/22 09:12 Milk Of Magnesia 30 Ml Cup PO DAILY PRN PRN Methadone HCl 180 mg 01/12/22 08:30 Methadone Liquid 10 Mg/Ml PO DAILY [facility] Morphine Sulfate 4 mg 01/11/22 09:23 Morphine 4 Mg/Ml Syr IVP Q4H PRN PRN Multivitamins 1 tab 01/12/22 08:30 Multivitamin Tab PO DAILY [facility] Non-Formulary Medication 35 mg 01/11/22 20:00 Dexmethylphenidate [Focalin Xr] PO BID [facility] Non-Formulary Medication 10 mg 01/11/22 09:30 Suvorexant [Belsomra] PO .QHS DANIEL Olanzapine 5 mg 01/11/22 20:00 Olanzapine 5 Mg Tab PO BID DANIEL Olanzapine 10 mg 01/11/22 20:00 Olanzapine 10 Mg Tab PO BID DANIEL Ondansetron HCl 4 mg 01/11/22 09:20 Ondansetron 4 Mg/2 Ml Vial IVP Q6H PRN PRN Pantoprazole Sodium 40 mg 01/11/22 10:00 01/11/22 11:59 Pantoprazole 40 Mg Vial IVP 40 mg Q24H [facility] Administration Sodium Chloride 0 ml 01/11/22 09:12 Normal Saline Flush 10 Ml Syr IVP PRN PRN PFSH Active Problems Active Problems: Problem Status Onset Code Right distal ureteral calculus N20.1 Pyelonephritis N12 UTI (urinary tract infection) N39.0 Infection due to trichomonas A59.9 Right cervical radiculopathy M54.12 Right carpal tunnel syndrome G56.01 Trichomoniasis A59.9 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 ES 3.5mm. No response to Progestin challenges. Nl labs. Asthma, moderate persistent Bipolar disorder ADD, PTSD, Anxiety and Depression Central sleep apnea Cervical radiculopathy Chronic diarrhea CKD (chronic kidney disease), stage III Diabetes type 2, controlled Pt. states she tested her blood sugar 12/15 and it was 400, and not sure why it was so high Dyslipidemia Eating disorder GERD Hepatic fibrosis Hepatitis C pt. states she was treated and is now non-detectable History of intravenous drug abuse states she has not used in 8 years IVDU Low back pain Metabolic syndrome Methamphetamine abuse Migraine headache Numbness and tingling of right arm Opioid dependence Otitis externa, chronic Problem related to living arrangement PTSD (post-traumatic stress disorder) Rhinitis, allergic Seizure disorder Sexually transmitted disease exposure Tobacco dependency Unspecified disorder resulting from impaired renal function Surgical History Surgical History Cholecystectomy Diagnostic Laproscopy (~2005) History of tonsillectomy molar extraction , Ectopic (~2010) Tobacco Smoking/Tobacco Use Status: Current every day Tobacco Type: cigarettes Smoking cigarettes per day: 4 Alcohol Alcohol Intake: never Substance Use Substance use: Daily Substance use type: marijuana Details: reports getting off heroin. Vital Signs and Lab Results Vital Signs Most Recent Vital Signs in EMR: Most Recent Vital Signs Temp Pulse Resp BP Pulse Ox 37.0 C 109 H 18 101/68 98 06/27/22 12:26 01/11/22 12:26 01/11/22 12:26 01/11/22 12:26 01/11/22 12:26 Point of Care Results Point of Care Results: POC- Test(urine) Negative 01/11/22 07:47 Finger Stick Blood Glucose 66 01/11/22 12:38 Lab Results Result Diagrams: 01/11/22 07:20 01/11/22 07:20 Blood Type / Crossmatch: No Data to Display Complete Blood Count: White Blood Count 13.35 10^3/uL (4.4-10.8) H 01/11/22 07:20 Red Blood Count 3.88 10^6/uL (3.93-5.22) L 01/11/22 07:20 Hemoglobin 11.8 g/dL (11.2-15.7) 01/11/22 07:20 Hematocrit 35.1 % (36.0-46.0) L 01/11/22 07:20 Platelet Count 277 10^3/uL (130-400) 01/11/22 07:20 Venous Blood Lactate 2.2 mmol/L (0.6-1.4) H* 01/11/22 07:20 Complete Metabolic Panel: Sodium Level 129 mmol/L (136-145) L 01/11/22 07:20 Potassium Level 3.5 mmol/L (3.5-5.1) 01/11/22 07:20 Chloride Level 92 mmol/L (98-107) L 01/11/22 07:20 Carbon Dioxide Level 28.4 mmol/L (21.0-32.0) 01/11/22 07:20 Blood Urea Nitrogen 13 mg/dL (7-18) 01/11/22 07:20 Creatinine 1.1 mg/dL (0.55-1.02) H 01/11/22 07:20 Estimated GFR/1.73 m2 55.01 (mL/min/1.73m2) 01/11/22 07:20 Calcium Level 8.9 mg/dL (8.5-10.1) 01/11/22 07:20 Albumin 2.8 g/dL (3.4-5.0) L 01/11/22 07:20 Glucose Level 198 mg/dL (74-106) H 01/11/22 07:20 C-Reactive Protein 15.35 mg/dL (0.0-0.3) H 01/11/22 07:20 Liver Function Panel: Alanine Aminotransferase (ALT/SGPT) 8 U/L (14-59) L 01/11/22 07:20 Aspartate Amino Transf (AST/SGOT) 11 U/L (15-37) L 01/11/22 07:20 Coagulation Panel: No Data to Display Cardiac Panel: No Data to Display Arterial Blood Gas: No Data to Display Venous Blood Gas: No Data to Display Pancreas Panel: No Data to Display Thyroid Panel: No Data to Display Infectious Disease: Coronavirus (COVID-19)(PCR) Negative (Negative) 01/11/22 09:30 Coronavirus 2019 Source Nasal/Nares 01/11/22 09:30 Blood Cultures: No Data to Display Toxicology Panel: No Data to Display Panel: No Data to Display Anesthesia Assessment and Plan Anesthesia History Personal History: No History of Anesthesia Complications Family History: No Family History of Anesthesia Complications Exercise Tolerance Exercise Tolerance: Metabolic Equivalents>4 Pertinent Negatives Pertinent Negatives: No History of CVA/TIA Cardiac & Pulmonary Exam Cardiac Exam: Normal S1/S2 Heart Sounds Pulmonary Exam: Clear Bilateral Breath Sounds Implantable Cardiac Device Does patient have a Pacemaker or an ICD?: No Airway Exam Known Difficult Airway: No Mallampati Class: 1 Mouth Opening: Normal (> 3cm) Thyromental Distance: Greater than 3 cm Neck Range of Motion: Full ROM Neck Circumference: Normal Teeth Condition: Normal Dentition and Removable Dentures/Plates Upper ASA Classification ASA Score: ASA 2 Emergency Case?: No NPO Status NPO Status: NPO Clears >2 hours, Solids >8 hours Status Status: Negative HCG Anesthesia Plan Resuscitation Status: Full Code Anesthesia Technique: General Anesthesia Airway Planned: Natural Airway Monitors Used: Standard Monitors
[2022-01-11] MEDS: Lidocaine 2% Jelly 6 ML SYR (13:35)
[2022-01-11] MEDS: Omnipaque 300 MG/ML 50 ML BTL (13:36)
--- NOTE | 2022-01-11 13:45 | ROE_ITS ---
Date of service: 01/11/22 Time of Service: 13:46 Operative Note Operative Note DATE OF PROCEDURE: 01/11/22 PRE-OP DIAGNOSIS: Right ureteral stone Right pyelonephritis PROCEDURE: Cystoscopy, right retrograde pyelogram, insert right ureteral stent SURGEON: Kenrick Carmona ANESTHESIA TYPE: General:No Airway Refer to Anesthesia Record ESTIMATED BLOOD LOSS: 0 PATHOLOGY: none sent COMPLICATIONS: None Patient was transported to: ICU Patient's condition: critical Implants: 6 [place] by 22 to 30 cm right ureteral stent Indications: This is a 41-year-old woman who presented to the emergency department with right flank pain, fevers and signs of sepsis. She was found to have a 3 mm distal ureteral stone. She presents now for stent placement. Findings: stone visible at right UVJ Procedure Description: The patient was brought down from the intensive care unit to the operating room on 01/11/2022. After successful induction of general anesthesia without intubation, she was placed in the dorsal lithotomy position. Her indwelling urethral catheter was removed. Her genitalia was prepped and draped. 2% Xylocaine jelly was instilled into the urethra to act as a local anesthetic. A 22 [place] rigid cystoscope was then passed through the urethra into the bladder. The bladder was inspected with a 30 degree lens. The left ureteral orifice appeared normal. At the right ureteral orifice, a stone was visible. I was unable to grasp the stone with alligator forceps. I then passed a 6 [place] access catheter through the cystoscope and maneuvered the end of the catheter into the right ureteral orifice. A retrograde pyelogram was obtained by injecting Omnipaque through the access catheter under fluoroscopic guidance. The filling defect in the distal ureter was outlined. I then passed a guidewire through the lumen of the access catheter and remove the catheter. A hydronephrotic drip was obtained once the wire was placed. A 6 [place] variable length stent was then advanced over the wire. The proximal end of the stent was curled in the renal pelvis and the distal and was curled within the bladder. The positioning of the stent was confirmed both fluoroscopically and cystoscopically. Once the stent had been placed, the cystoscope was removed. A 16 [place] catheter was then passed back through the urethra into the bladder. The catheter balloon was inflated with 10 cc of sterile water and the catheter was hooked to gravity drainage. The patient tolerated the procedure well with no complications.
--- NOTE | 2022-01-11 13:58 | W.ANESPOSTOP ---
Postoperative Evaluation Date, Time and Location Date Performed: 01/11/22 Time Performed: 13:58 Patient Location: Intensive Care Unit Vital Signs Most Recent Imported Vital Signs: Most Recent Vital Signs Temp Pulse Resp BP Pulse Ox 37.0 C 109 H 18 101/68 98 01/11/22 12:01/11/22 12:01/11/22 12:01/11/22 12:01/11/22 12:26 Most Recent Manually Entered Vital Signs: Adult Blood Pressure: 134/73 Heart Rate: 111 Respirations: 14 Oxygen Saturation (%): 96 Temperature (C): 36.2 C Pain Score (0-10 Scale): 0 Pain Score Most Recent Pain Score: Most Recent Pain Score Pain Level 0 01/11/22 12:26 Assessment Mental Status: Arousable with meaningful communication Airway and Respiratory Function: Patent airway with normal (patient baseline) respiratory exam Cardiovascular Function: Hemodynamically Stable Hydration Status: Adequately Hydrated Nausea & Vomiting: No Nausea or Vomiting Pain: Pt. Denies Any Pain Peripheral Nerve Block: Patient did not receive a nerve block
[2022-01-11] MEDS: Ketorolac 30 MG/ML VIAL IVP ×2 (15:23→21:32)
[2022-01-11] MEDS: Normal Saline Flush 10 ML SYR IVP ×3 (15:23→21:32)
--- NOTE | 2022-01-11 15:26 | NUR.NOTE ---
Patient hit call bates stating that she had to pee. I reassured her that she has a sky cath. She stated, This thing is giving me no relief Very tearful and in noticeable pain. RN notified and this telegraphic typewriter operator bladder scanned patient in 4 different areas near where bladder could be and the bladder scanner said 0 in all 4 spots. RN notified of this and double checked sky bag to make sure it was still draining. It was indeed draining and I reassured and showed patient bag that it was working properly. RN also present when I did this. Nursing Note:
[2022-01-11] MEDS: DEXTROSE 5%-LACTATED RINGERS 1,000 ML 100 ML IV (18:31)
[2022-01-11] MEDS: OLANZapine 10 MG TAB PO (19:15)
[2022-01-11] MEDS: levETIRAcetam 250 MG TAB 750 MG PO (19:15)
[2022-01-11] MEDS: OLANZapine 5 MG TAB PO (19:16)
[2022-01-11] MEDS: Acetaminophen 325 MG TAB PO (20:40)
[2022-01-12] VITALS (53 sets, daily range): BP systolic 93–137; BP diastolic 46–86; PULSE 67–110; RESP 9–28; TEMP 36.1–39.4; O2SAT 97–99
[2022-01-12] MEDS: MORPHine 4 MG/ML SYR IVP ×2 (01:37→04:24)
[2022-01-12] MEDS: DEXTROSE 5%-LACTATED RINGERS 1,000 ML 100 ML IV ×2 (03:22→22:52)
[2022-01-12] MEDS: Acetaminophen 325 MG TAB PO (04:23)
[2022-01-12] MEDS: Ketorolac 30 MG/ML VIAL IVP ×3 (04:23→20:45)
--- NOTE | 2022-01-12 07:31 | PGE_ITS ---
Date of Service Date of service: 01/12/22 Time of Service: 11:39 Assessment and Plan Assessment and plan (1) Hydronephrosis with obstructing calculus: Status: Acute Assessment and plan: Her right collecting system has been drained with a ureteral stent. Now, we wait for the final culture results and adjust her antibiotic coverage. Once her infection has been treated , we will plan to bring her back for an outpatient procedure (stent removal, ureteroscopy and stone extraction). (2) E. coli pyelonephritis: Status: Acute Subjective Subjective Interval history since last seen: Flank pain has improved. She continues to have urinary frequency and is asking if she can have her catheter removed Exam Narrative Exam Narrative: Tmax 39.6 overnight Urine output has been adequate. Her urine is grossly clear at this time Initial urine culture from 01/10 ED visit growing pansensitive E. coli One of her blood cultures from admission yesterday is growing gram-negative rods Objective Last Vital Signs Temp 37.6 C H 01/12/22 06:21 Pulse 103 H 01/12/22 04:30 Resp 13 01/12/22 04:32 BP 122/86 01/12/22 04:30 Pulse Ox 99 01/11/22 19:29 Laboratory Results - last 24 hr 01/11/22 01/11/22 01/11/22 06:35 07:20 07:20 WBC RBC Hgb Hct MCV MCH MCHC RDW Plt Count MPV Immature Gran % Neutrophils % Lymphocytes % Monocytes % Eosinophils % Basophils % Nucleated RBC % Absolute Neutrophils Absolute Lymphocytes Absolute Monocytes Absolute Eosinophils Absolute Basophils VBG Lactate 2.2 H* Sodium 129 L Potassium 3.5 Chloride 92 L Carbon Dioxide 28.4 Anion Gap 8.6 BUN 13 Creatinine 1.1 H Estimated GFR/1.73 m2 55.01 Glucose 198 H Calcium 8.9 Total Bilirubin 0.6 AST 11 L ALT 8 L Alkaline Phosphatase 54 C-Reactive Protein 15.35 H Total Protein 6.9 Albumin 2.8 L Procalcitonin 0.5 Urine Color Yellow Urine Clarity Cloudy Urine pH 6.0 Ur Specific [place] >= 1.030 H Urine Protein 100 H Urine Ketones 40 H Urine Blood Trace-intact H Urine Nitrite Positive H Urine Bilirubin Small H Urine Urobilinogen 1.0 H Ur Leukocyte Esterase Trace H Urine RBC 5-10 H Urine WBC 10-20 H Ur Epithelial Cells Few Urine Crystals Negative Urine Bacteria Few Urine Casts 0-2 Hyaline Urine Mucus Trace Ur Culture Indicated? Yes Urine Glucose Negative COVID-19 Source SARS-CoV-2 (PCR) Add-On Test Request 01/11/22 01/11/22 01/11/22 07:20 09:10 09:30 WBC 13.35 H RBC 3.88 L Hgb 11.8 Hct 35.1 L MCV 91 MCH 30.4 MCHC 33.6 RDW 12.5 Plt Count 277 MPV 8.2 Immature Gran % 0.7 Neutrophils % 87.3 Lymphocytes % 6.1 Monocytes % 5.6 Eosinophils % 0.1 Basophils % 0.2 Nucleated RBC % 0.0 Absolute Neutrophils 11.65 H Absolute Lymphocytes 0.81 L Absolute Monocytes 0.75 Absolute Eosinophils 0.01 Absolute Basophils 0.03 VBG Lactate Sodium Potassium Chloride Carbon Dioxide Anion Gap BUN Creatinine Estimated GFR/1.73 m2 Glucose Calcium Total Bilirubin AST ALT Alkaline Phosphatase C-Reactive Protein Total Protein Albumin Procalcitonin Urine Color Urine Clarity Urine pH Ur Specific [place] Urine Protein Urine Ketones Urine Blood Urine Nitrite Urine Bilirubin Urine Urobilinogen Ur Leukocyte Esterase Urine RBC Urine WBC Ur Epithelial Cells Urine Crystals Urine Bacteria Urine Casts Urine Mucus Ur Culture Indicated? Urine Glucose COVID-19 Source Nasal/Nares SARS-CoV-2 (PCR) Negative Add-On Test Request Cancelled 01/11/22 01/11/22 10:30 13:30 WBC RBC Hgb Hct MCV MCH MCHC RDW Plt Count MPV Immature Gran % Neutrophils % Lymphocytes % Monocytes % Eosinophils % Basophils % Nucleated RBC % Absolute Neutrophils Absolute Lymphocytes Absolute Monocytes Absolute Eosinophils Absolute Basophils VBG Lactate Cancelled Cancelled Sodium Potassium Chloride Carbon Dioxide Anion Gap BUN Creatinine Estimated GFR/1.73 m2 Glucose Calcium Total Bilirubin AST ALT Alkaline Phosphatase C-Reactive Protein Total Protein Albumin Procalcitonin Urine Color Urine Clarity Urine pH Ur Specific [place] Urine Protein Urine Ketones Urine Blood Urine Nitrite Urine Bilirubin Urine Urobilinogen Ur Leukocyte Esterase Urine RBC Urine WBC Ur Epithelial Cells Urine Crystals Urine Bacteria Urine Casts Urine Mucus Ur Culture Indicated? Urine Glucose COVID-19 Source SARS-CoV-2 (PCR) Add-On Test Request
--- NOTE | 2022-01-12 07:47 | W.PULMCC ---
General Date of Service Date of service: 01/12/22 Time of Service: 07:47 Reason for Admission to ICU: Sepsis due to obstructive pyelonephritis Assessment and Plan Assessment and plan (1) Hyponatremia: Status: Acute (2) Non-insulin treated type 2 diabetes mellitus: Status: Acute (3) Polysubstance (including opioids) dependence with physiological dependence: Status: Chronic (4) Hydronephrosis with obstructing calculus: Status: Acute (5) Hypotension: Status: Acute (6) E. coli pyelonephritis: Status: Acute (7) Sepsis: Status: Acute (8) Leukocytosis: Status: Acute (9) Lactate blood increase: Status: Acute Assessment and plan: This is a 41 yo female with polysubstance use disorder who is admitted to the ICU for sepsis due to and obstructing kidney stone s/p stent. She is on appropriate antibiotics and has been fluid resuscitated. I do not feel as though she requires IVF's at this time and will stop these. She can also be transitioned to appropriate PO medications. There is issue with IV access and she is a hard stick so would recommend a midline or PICC. She is improving with the care provided and will need to follow up with urology regarding the stent in the future. Recommendations Pulmonary: Asthma - continue home prn albuterol Cardiac: Hypotension - transient and resolved with fluid resuscitation - euvolemic - can stop IVF Renal: Obstructing renal stone - s/p stent - urology is following - Jules in place and draining I&O: Intake & Output 01/09/22 01/10/22 01/11/22 01/12/22 23:59 23:59 23:59 23:59 Intake Total 3190.000 / 3190.000 1605 / 1605 Output Total 2300 / 2300 275 / 275 Balance 890.000 / 648.111 8793 / 1330 Weight 61.3 kg 58.1 kg Daily Fluid Goal:: Even GI Nutrition: Ok for normal diet Infectious Disease: E.coli Pyelonephritis - f/u sensitivites from urine culture - on Levaquin - which will be good as a PO agent on D/C - recommend a 7 day course - morphine prn Hematologic: Leukocytosis - reactive Neurologic: Polysubstance use disorder - will receive methadone - supportive care - on home psych meds - on Zofran - can consider low dose clonidine if BP's remain stable Seizure disorder - on home anti-seizure meds Endocrine: Diabetes - on SSI Lines: PIV - recommend a midline or PICC Jules Prophylaxis: Heparin ordered but patient refused on home PPI - will change this to PO Code Status: Resuscitation Status Full Code Subjective Critical and life-threatening events over the past 24 hours: This is a 41 yo woman who has polysubstance abuse disorder who is admitted for pyelonephritis and an obstructing kidney stone. Dr. Carmona performed a stent placement yesterday. She was transiently hypotensive but did respond to fluid resuscitation and never needed vasopressors. She is on Levaquin. Today she states she is withdrawaling and needs methadone. We will provide this but i did set expectations with her that she will likely withdrawal even with the methadone as she was smoking crack and fentanyl in addition to using methadone on the streets. She does understand this. She has back pain and abdominal discomfort. She was sweating all night - her sheets had to be changed 3 times due to withdrawals. Exam Narrative Exam Narrative: Gen: NAD, normal respiratory effort, well-nourished, sweaty and anxious HENT: PERRL, nasal turbinates normal without erythema or inflammation, moist oral mucosa, Mallampati 2, No LAD or JVD Chest: No respiratory distress, normal appearance of chest, clear to auscultation bilaterally, no crackles or wheezes, normal inspiratory effort Heart: regular rate and rhythym, no murmurs, rubs or gallops Abdomen: Non-distended, soft, non tender Extremities: No clubbing, edema, cyanosis, rashes Neuro: AAOx3 , non focal Psych: cooperative, appropriate mental affect Most Recent VS/Results Last Vital Signs Temp 37.6 C H 01/12/22 06:21 Pulse 103 H 01/12/22 04:30 Resp 13 01/12/22 04:32 BP 122/86 01/12/22 04:30 Pulse Ox 99 01/11/22 19:29 Laboratory Results - last 24 hr 01/11/22 01/11/22 01/11/22 06:35 07:20 07:20 VBG Lactate Sodium 129 L Potassium 3.5 Chloride 92 L Carbon Dioxide 28.4 Anion Gap 8.6 BUN 13 Creatinine 1.1 H Estimated GFR/1.73 m2 55.01 Glucose 198 H Calcium 8.9 Total Bilirubin 0.6 AST 11 L ALT 8 L Alkaline Phosphatase 54 C-Reactive Protein 15.35 H Total Protein 6.9 Albumin 2.8 L Procalcitonin 0.5 Urine Color Yellow Urine Clarity Cloudy Urine pH 6.0 Ur Specific [place] >= 1.030 H Urine Protein 100 H Urine Ketones 40 H Urine Blood Trace-intact H Urine Nitrite Positive H Urine Bilirubin Small H Urine Urobilinogen 1.0 H Ur Leukocyte Esterase Trace H Urine RBC 5-10 H Urine WBC 10-20 H Ur Epithelial Cells Few Urine Crystals Negative Urine Bacteria Few Urine Casts 0-2 Hyaline Urine Mucus Trace Ur Culture Indicated? Yes Urine Glucose Negative COVID-19 Source SARS-CoV-2 (PCR) Add-On Test Request 01/11/22 01/11/22 01/11/22 09:10 09:30 10:30 VBG Lactate Cancelled Sodium Potassium Chloride Carbon Dioxide Anion Gap BUN Creatinine Estimated GFR/1.73 m2 Glucose Calcium Total Bilirubin AST ALT Alkaline Phosphatase C-Reactive Protein Total Protein Albumin Procalcitonin Urine Color Urine Clarity Urine pH Ur Specific [place] Urine Protein Urine Ketones Urine Blood Urine Nitrite Urine Bilirubin Urine Urobilinogen Ur Leukocyte Esterase Urine RBC Urine WBC Ur Epithelial Cells Urine Crystals Urine Bacteria Urine Casts Urine Mucus Ur Culture Indicated? Urine Glucose COVID-19 Source Nasal/Nares SARS-CoV-2 (PCR) Negative Add-On Test Request Cancelled 01/11/22 01/12/22 13:30 Unknown VBG Lactate Cancelled Sodium Potassium Chloride Carbon Dioxide Anion Gap BUN Creatinine Estimated GFR/1.73 m2 Glucose Calcium Total Bilirubin AST ALT Alkaline Phosphatase C-Reactive Protein Total Protein Albumin Procalcitonin Urine Color Urine Clarity Urine pH Ur Specific [place] Urine Protein Urine Ketones Urine Blood Urine Nitrite Urine Bilirubin Urine Urobilinogen Ur Leukocyte Esterase Urine RBC Urine WBC Ur Epithelial Cells Urine Crystals Urine Bacteria Urine Casts Urine Mucus Ur Culture Indicated? Urine Glucose COVID-19 Source SARS-CoV-2 (PCR) Add-On Test Request Cancelled Review of Systems All systems reviewed & are unremarkable except as noted in HPI and below Time spent with patient Time spent in Critical Care: 40 Time spent in Critical care included: Chart review, Documenting critically ill care, Time at immediate bedside and Discussing critically ill care with other medical staff Multi-Disciplinary Checklist Lines/Tubes CENTRAL LINE: no ARTERIAL LINE: no JULES: yes, Jules Day#: 1 ENDOTRACHEAL TUBE: no ICU Maintenance GLUCOSE 140-180mg/dL: no, Reason/Intervention: on SSI - may need adjusting NUTRITION AT GOAL: no, Reason/Intervention: will start diet today PRESSURE ULCER: no RESTRAINTS: no ANTIBIOTICS(if yes, consider Stewardship): Yes Social Issues FAMILY UPDATED: no, Reason/Intervention: patient able to update PT/OT: no, Reason/Intervention: not needed GOALS/DISPOSITION/SALES MERCHANDISING SPECIALIST: yes CODE STATUS: Full Prophylaxis DVT PROPHYLAXIS: no Reason/Intervention: patient refusing today GI PROPHYLAXIS: yes, Indication: home medication
[2022-01-12] MEDS: Methadone Liquid 10 MG/ML 180 MG PO (08:26)
[2022-01-12] MEDS: buPROPion-XL 150 MG TABCR 300 MG PO (08:27)
[2022-01-12] MEDS: Divalproex Sodium 500 MG TAB.ER.24H PO (08:27)
[2022-01-12] MEDS: OLANZapine 10 MG TAB PO ×2 (08:28→20:45)
[2022-01-12] MEDS: Multivitamin TAB 1 TAB PO (08:28)
[2022-01-12] MEDS: Ferrous Sulfate 325 MG TAB PO (08:28)
[2022-01-12] MEDS: Loratidine 10 MG TAB PO (08:28)
[2022-01-12] MEDS: OLANZapine 5 MG TAB PO ×2 (08:28→20:45)
[2022-01-12] MEDS: levETIRAcetam 250 MG TAB 750 MG PO ×2 (08:28→20:45)
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
[2022-01-12] MEDS: levoFLOXacin 750 MG/150 ML BAG 100 MG IVPB (08:30)
[2022-01-12] MEDS: Pantoprazole 40 MG TABCR PO (10:06)
[2022-01-12 13:04] LABS: Abs Immature Grans 0.06 10^3/uL (0.0-0.06); Absolute Basophil Count 0.01 10^3/uL (0.0-0.2); Absolute Eosinophil Count 0.04 10^3/uL (0.0-0.7); Absolute Lymphocyte Count 0.76 10^3/uL (1.2-3.4); Absolute Monocyte Count 0.24 10^3/uL (0.1-0.8); Absolute Neutrophil Count 2.99 10^3/uL (1.2-6.7); Basophils % 0.2; HCT 32.7 % (36.0-46.0); HGB 10.9 g/dL (11.2-15.7); Immature Grans % 1.5; Lymphocytes % 18.5; MCH 30.4 pg (27.0-33.0); MCHC 33.3 % (32.0-36.0); MCV 91 fL (80-95); MPV 8.3 fL (8.0-11.0); Monocytes % 5.9; Neutrophils % 72.9; Platelet Count 159 10^3/uL (130-400); RBC 3.59 10^6/uL (3.93-5.22); RDW 12.4 % (11.7-14.6); RDW-SD 41.2 fL
[2022-01-12 13:21] LABS: Lactate 1.4 mmol/L (0.6-1.4)
[2022-01-12 13:26] LABS: BUN 6 mg/dL (7-18); C-Reactive Protein 13.53 mg/dL (0.0-0.3); CREATININE 0.9 mg/dL (0.55-1.02); Calcium 8.5 mg/dL (8.5-10.1); Chloride 100 mmol/L (98-107); Glucose 106 mg/dL (74-106); Magnesium 1.3 mg/dL (1.8-2.4); Potassium 3.7 mmol/L (3.5-5.1); Sodium 134 mmol/L (136-145); TSH (W/Ref FT4) 0.94 uIU/mL (0.36-3.74)
[2022-01-12] MEDS: Enoxaparin 40 MG/0.4 ML SYR SC (13:50)
[2022-01-12] MEDS: Phenazopyridine 200 MG TAB PO (13:50)
[2022-01-12] MEDS: Magnesium Oxide 400 MG TAB PO ×2 (14:31→20:45)
--- NOTE | 2022-01-12 14:48 | PGE_ITS ---
Date of Service Date of service: 01/12/22 Time of Service: 14:48 Assessment and Plan Assessment and plan (1) Septic shock: Status: Deleted Assessment and plan: Due to E. Coli pyelonephritis in setting of an obstructing kidney stone, present on admission. Fluid responsive. S/p cysto/stent. Continue IVF; large insensible losses and modest po intake. Lactate normalized. WBC count now 4.1. Await sensitivities of urine culture Blood culture: aerobic bottle growing gram neg rods. Continue empiric levofloxacin. Trend CRP (15 > 13 > ordered for tomorrow), procalcitonin (0.5 > ordered for tomorrow). (2) E. coli pyelonephritis: Status: Acute Assessment and plan: As above (3) Hydronephrosis with obstructing calculus: Status: Acute Assessment and plan: As above (4) Polysubstance (including opioids) dependence with physiological dependence: Status: Chronic Assessment and plan: Showing symptoms of withdrawal. UDS + for cocaine and THC. Admits to smoking heroine and crack. Continue methadone (gets it through [facility]). Add clonidine 0.1mg BID (5) Non-insulin treated type 2 diabetes mellitus: Status: Acute Assessment and plan: Blood glucose has been ranging from 126 to 142 today. Will stop fingerstick glucose and SS correction dosing. (6) Hyponatremia: Status: Acute Assessment and plan: Hydrating Check morning cortisol. (7) DVT prophylaxis: Status: Acute Assessment and plan: SC heparin ordered; she has refused doses. Change to daily SQ lovenox 40mg. (8) Discharge planning issues: Status: Acute Assessment and plan: Full code Cont ICU care. Subjective Subjective Patient reports: fever (T of 39.4 this AM. ); denies vomiting or shortness of breath Interval history since last seen: Diaphoretic overnight. She states she is going through withdrawal. Exam Narrative Exam Narrative: General: Lying in bed. Uncomfortable appearing. Neurological: A&Ox3, no focal deficits Psychiatric: anxious. Cooperative. Skin: Skin with tattoos, no bruises or rashes. + generalized sweat. HEENT: slcera clear. MMM Cardiovascular: RRR, no murmur Lungs: CTAB Gastrointestinal: soft, tender in RLQ, nondistended Extremities: no edema BLEs, no calf tenderness. Objective Last Vital Signs Temp 37.4 C 01/12/22 12:00 Pulse 70 01/12/22 12:14 Resp 16 01/12/22 13:00 BP 93/65 L 01/12/22 12:14 Pulse Ox 99 01/12/22 12:00 Laboratory Results - last 24 hr 01/11/22 01/11/22 01/11/22 09:10 10:30 13:30 WBC RBC Hgb Hct MCV MCH MCHC RDW Plt Count MPV Immature Gran % Neutrophils % Lymphocytes % Monocytes % Eosinophils % Basophils % Nucleated RBC % Absolute Neutrophils Absolute Lymphocytes Absolute Monocytes Absolute Eosinophils Absolute Basophils VBG Lactate Cancelled Cancelled Sodium Potassium Chloride Carbon Dioxide Anion Gap BUN Creatinine Estimated GFR/1.73 m2 Glucose Calcium Magnesium C-Reactive Protein TSH Add-On Test Request Cancelled 01/12/22 01/12/22 01/12/22 12:50 12:50 12:50 WBC 4.10 L RBC 3.59 L Hgb 10.9 L Hct 32.7 L MCV 91 MCH 30.4 MCHC 33.3 RDW 12.4 Plt Count 159 MPV 8.3 Immature Gran % 1.5 Neutrophils % 72.9 Lymphocytes % 18.5 Monocytes % 5.9 Eosinophils % 1.0 Basophils % 0.2 Nucleated RBC % 0.0 Absolute Neutrophils 2.99 Absolute Lymphocytes 0.76 L Absolute Monocytes 0.24 Absolute Eosinophils 0.04 Absolute Basophils 0.01 VBG Lactate 1.4 Sodium 134 L Potassium 3.7 Chloride 100 Carbon Dioxide 29.0 Anion Gap 5.0 BUN 6 L Creatinine 0.9 Estimated GFR/1.73 m2 >= 60.00 Glucose 106 Calcium 8.5 Magnesium 1.3 L C-Reactive Protein 13.53 H TSH 0.94 Add-On Test Request 01/12/22 Unknown WBC RBC Hgb Hct MCV MCH MCHC RDW Plt Count MPV Immature Gran % Neutrophils % Lymphocytes % Monocytes % Eosinophils % Basophils % Nucleated RBC % Absolute Neutrophils Absolute Lymphocytes Absolute Monocytes Absolute Eosinophils Absolute Basophils VBG Lactate Sodium Potassium Chloride Carbon Dioxide Anion Gap BUN Creatinine Estimated GFR/1.73 m2 Glucose Calcium Magnesium C-Reactive Protein TSH Add-On Test Request Cancelled
[2022-01-12] MEDS: Lactated Ringers 500 ML IV (17:32)
[2022-01-12] MEDS: cloNIDine 0.1 MG TAB PO (17:32)
[2022-01-12] MEDS: Normal Saline Flush 10 ML SYR IVP (20:46)
[2022-01-12] MEDS: Lactated Ringers 1,000 ML 1000 ML IV (21:54)
[2022-01-12] MEDS: MAGNESIUM SULFATE 4 GM/100 ML BAG IVPB (21:57)
[2022-01-13] VITALS (20 sets, daily range): BP systolic 99–135; BP diastolic 62–83; PULSE 65–90; RESP 6–23; TEMP 36–36.3; O2SAT 94–97
[2022-01-13] MEDS: MORPHine 4 MG/ML SYR IVP ×2 (01:40→05:15)
--- NOTE | 2022-01-13 05:52 | NUR.NOTE ---
lab here to draw for am labs. Pt refused to have labs drawn. tech will report to lab and someone else may try.
[2022-01-13] MEDS: Magnesium Oxide 400 MG TAB PO (07:50)
[2022-01-13] MEDS: cloNIDine 0.1 MG TAB PO (07:51)
[2022-01-13] MEDS: levETIRAcetam 250 MG TAB 750 MG PO (07:51)
[2022-01-13] MEDS: Pantoprazole 40 MG TABCR PO (07:51)
[2022-01-13] MEDS: OLANZapine 10 MG TAB PO (07:51)
[2022-01-13] MEDS: Loratidine 10 MG TAB PO (07:51)
[2022-01-13] MEDS: buPROPion-XL 150 MG TABCR 300 MG PO (07:51)
[2022-01-13] MEDS: OLANZapine 5 MG TAB PO (07:51)
[2022-01-13] MEDS: Multivitamin TAB 1 TAB PO (07:51)
[2022-01-13] MEDS: Divalproex Sodium 500 MG TAB.ER.24H PO (07:51)
[2022-01-13] MEDS: Ketorolac 30 MG/ML VIAL IVP (07:52)
[2022-01-13] MEDS: Methadone Liquid 10 MG/ML 180 MG PO (07:52)
[2022-01-13] MEDS: levoFLOXacin 750 MG/150 ML BAG 100 MG IVPB (08:00)
--- NOTE | 2022-01-13 08:43 | W.PULMCC ---
General Date of Service Date of service: 01/13/22 Time of Service: 08:43 Reason for Admission to ICU: Pyelonephritis obstructing renal stone Assessment and Plan Assessment and plan (1) Hyponatremia: Status: Acute (2) Non-insulin treated type 2 diabetes mellitus: Status: Acute (3) Polysubstance (including opioids) dependence with physiological dependence: Status: Chronic (4) Hydronephrosis with obstructing calculus: Status: Acute (5) Hypotension: Status: Acute (6) Gram-negative bacteremia: Status: Acute (7) E. coli pyelonephritis: Status: Acute (8) Sepsis: Status: Acute (9) Leukocytosis: Status: Acute (10) Lactate blood increase: Status: Acute Assessment and plan: This is a 41 yo female with polysubstance use disorder who is admitted to the ICU for sepsis due to and obstructing kidney stone s/p stent. She is on appropriate antibiotics and has been fluid resuscitated. I do not feel as though she requires IVF's at this time. She can also be transitioned to appropriate PO medications. She is anxious to go home. I would assess whether she may need home health prior to discharge. I also recommend ensuring she can void without the Jules and making sure she can get up and walk around unassisted prior to her discharge. Her blood cultures were positive for gram negative rods (likely pansensitive E. coli as found in her urine). Given this, I would probably plan to extend the antibiotics from 7 to at least 10 days. Recommendations Pulmonary: Asthma - continue home prn albuterol Cardiac: Hypotension - transient and resolved with fluid resuscitation - euvolemic - can stop IVF Renal: Obstructing renal stone - s/p stent - urology is following - Jules can be discontinued followed by a voiding trial prior to discharge - outpatient urology follow up for stent removal I&O: Intake & Output 01/10/22 01/11/22 01/12/22 01/13/22 23:59 23:59 23:59 23:59 Intake Total 3190.000 / 3190.000 3355.000 / 3355.000 2310 / 2310 Output Total 2300 / 2300 770 / 770 800 / 800 Balance 890.000 / 249.684 7342.000 / 2585.000 1510 / 1510 Weight 61.3 kg 58.1 kg 64.5 kg Daily Fluid Goal:: even GI Nutrition: Ok for normal diet Date of Last Bowel Movement: 01/11/22 Infectious Disease: E.coli Pyelonephritis with bacteremia - f/u sensitivites from urine culture - on Levaquin (which is sensitive) - recommend a 10 day course Hematologic: Leukocytosis - improved Neurologic: Polysubstance use disorder - will receive methadone - supportive care - on home psych meds - on Zofran - clonidine was ineffective Seizure disorder - on home anti-seizure meds Endocrine: Diabetes - SSI held due to normalized blood sugars Lines: PIV Jules Prophylaxis: Lovenox Protonix Code Status: Resuscitation Status Full Code Subjective Critical and life-threatening events over the past 24 hours: She is feeling a bit better today. She has an appetite and is about to eat breakfast at the time of my assessment. She is anxious to get home. Clonidine was started to try and help with the withdrawals, but it does seemed to have made a difference. Exam Narrative Exam Narrative: Gen: NAD, normal respiratory effort, well-nourished, sweaty and anxious HENT: PERRL, nasal turbinates normal without erythema or inflammation, moist oral mucosa, Mallampati 2, No LAD or JVD Chest: No respiratory distress, normal appearance of chest, clear to auscultation bilaterally, no crackles or wheezes, normal inspiratory effort Heart: regular rate and rhythym, no murmurs, rubs or gallops Abdomen: Non-distended, soft, non tender Extremities: No clubbing, edema, cyanosis, rashes Neuro: AAOx3 , non focal Psych: cooperative, appropriate mental affect Most Recent VS/Results Last Vital Signs Temp 36 C L 01/13/22 04:02 Pulse 80 01/13/22 04:02 Resp 20 01/13/22 05:00 BP 118/73 01/13/22 04:02 Pulse Ox 94 01/13/22 04:02 Laboratory Results - last 24 hr 01/12/22 01/12/22 01/12/22 12:50 12:50 12:50 WBC 4.10 L RBC 3.59 L Hgb 10.9 L Hct 32.7 L MCV 91 MCH 30.4 MCHC 33.3 RDW 12.4 Plt Count 159 MPV 8.3 Immature Gran % 1.5 Neutrophils % 72.9 Lymphocytes % 18.5 Monocytes % 5.9 Eosinophils % 1.0 Basophils % 0.2 Nucleated RBC % 0.0 Absolute Neutrophils 2.99 Absolute Lymphocytes 0.76 L Absolute Monocytes 0.24 Absolute Eosinophils 0.04 Absolute Basophils 0.01 VBG Lactate Sodium 134 L Potassium 3.7 Chloride 100 Carbon Dioxide 29.0 Anion Gap 5.0 BUN 6 L Creatinine 0.9 Estimated GFR/1.73 m2 >= 60.00 Glucose 106 Calcium 8.5 Magnesium 1.3 L C-Reactive Protein 13.53 H TSH 0.94 Cortisol 9 01/12/22 12:50 WBC RBC Hgb Hct MCV MCH MCHC RDW Plt Count MPV Immature Gran % Neutrophils % Lymphocytes % Monocytes % Eosinophils % Basophils % Nucleated RBC % Absolute Neutrophils Absolute Lymphocytes Absolute Monocytes Absolute Eosinophils Absolute Basophils VBG Lactate 1.4 Sodium Potassium Chloride Carbon Dioxide Anion Gap BUN Creatinine Estimated GFR/1.73 m2 Glucose Calcium Magnesium C-Reactive Protein TSH Cortisol Review of Systems All systems reviewed & are unremarkable except as noted in HPI and below Time spent with patient Time spent in Critical Care: 35 Time spent in Critical care included: Chart review, Documenting critically ill care, Time at immediate bedside and Discussing critically ill care with other medical staff Multi-Disciplinary Checklist Lines/Tubes CENTRAL LINE: no ARTERIAL LINE: no JULES: yes, Jules Day#: 2 ENDOTRACHEAL TUBE: no ICU Maintenance GLUCOSE 140-180mg/dL: yes NUTRITION AT GOAL: no, Reason/Intervention: will start diet today PRESSURE ULCER: no RESTRAINTS: no ANTIBIOTICS(if yes, consider Stewardship): Yes Social Issues FAMILY UPDATED: no, Reason/Intervention: patient able to update PT/OT: yes GOALS/DISPOSITION/TECHNICAL STAFF ASSISTANT: yes CODE STATUS: Full Prophylaxis DVT PROPHYLAXIS: yes GI PROPHYLAXIS: yes, Indication: home medication
--- NOTE | 2022-01-13 09:08 | CMPROGNOTE_ITS ---
- If Service Date Differs Date of service: 01/13/22 Time of Service: 09:08 Care Management Progress Note S/O: A:41 year old female admitted to [facility] on 01/11/22 for Septic shock, UTI P: Anticipate Ne will discharge home via private vehicle with family when medically ready. Pt will follow up with community providers and discharge plan of care. CM will provide pt with a Last Dose letter for [facility] and assist patient with additional community support/resources such as [facility] and [facility], if pt is agreeable.
--- NOTE | 2022-01-13 09:31 | PT.INIE ---
Date of service: 01/13/22 Time of Service: 09:00 PT Notes Visit Reasons: Septic Shock Due to Complicated UTI, Inpatient Physical Therapy Evaluation Date: 01/13/22 Referring Doctor: Jan Maria MD PT Orders: PT CONSULT: Non-urgent Precautions: Standard Patient Profile/Admitting Diagnosis: 41 year old female with PMHx of NIDDM2 on metformin,? CKD III, as well as ,seizure disorder, bipolar d/o, central sleep apnea, and h/o polysubstance use (patient admits to ongoing smoking heroin, crack), admitted for treatment of septic shock due to E. Coli pyelonephritis in setting of an obstructing kidney stone, present on admission. PMHX: All Active Problems?(Updated 01/11/22 @ 15:58 by Sahara Medrano MD) Discharge planning issues (Acute) DVT prophylaxis (Acute) Hyponatremia (Acute) Non-insulin treated type 2 diabetes mellitus (Acute) Polysubstance (including opioids) dependence with physiological dependence (Chronic) Hydronephrosis with obstructing calculus (Acute) E. coli pyelonephritis (Acute) Septic shock (Acute) Right distal ureteral calculus (Acute) Pyelonephritis (Acute) UTI (urinary tract infection) (Acute) Infection due to trichomonas (Acute) Right cervical radiculopathy (Acute) Right carpal tunnel syndrome (Acute) Trichomoniasis (Acute) Genital HSV (Acute) (Acute) Labial lesion (Acute) Vaginal discharge (Acute) Pelvic pain (Acute) Elevated serum creatinine (Acute) 12/2019: 1.05 at time of preop evaluationHistory of tubal ligation (Chronic) 12/19/19. Laparoscopic left salpingectomy.? Patient previously had a right salpingectomy.Ovarian cyst (Acute) Postoperative pain (Acute) Screening and evaluation for female sterilization (Acute) 04/2019.? Not a candidate for OCPs.? Declines L ARC.? Given info on laparoscopic sterilization. 09/2019. Medicaid consent obtained.Vulvitis (Acute) 04/22/2018.? Secondary to contact dermatitis.? Negative vag path screen, negative STI check.? Treated with Dosepak of steroids and topical lidocaine. Medical History? ADHD Alcohol use Amenorrhea Amenorrhea, secondary 06/2014 Nl pelvic us. ES 3.5mm. No response to Progestin challenges. Nl labs.Asthma, moderate persistent Bipolar disorder ADD,? PTSD,? Anxiety and DepressionCentral sleep apnea Cervical radiculopathy Chronic diarrhea CKD (chronic kidney disease), stage III Diabetes type 2, controlled Pt. states she tested her blood sugar 12/15 and it was 400, and not sure why it was so highDyslipidemia Eating disorder GERD Hepatic fibrosis Hepatitis C pt. states she was treated and is now non-detectableHistory of intravenous drug abuse states she has not used in 8 yearsIVDU Low back pain Metabolic syndrome Methamphetamine abuse Migraine headache Numbness and tingling of right arm Opioid dependence Otitis externa, chronic Problem related to living arrangement PTSD (post-traumatic stress disorder) Rhinitis, allergic Seizure disorder Sexually transmitted disease exposure Tobacco dependency Unspecified disorder resulting from impaired renal function Surgical History? Cholecystectomy Diagnostic Laproscopy (~2005) History of tonsillectomy molar extraction , Ectopic (~2010) Social History/Home Situation: Lives in a 3rd floor apartment, lives with a friend. Does not work. Current Functional Limitations: None Equipment Owned/DME: None Subjective: Anxious to go home. Sweaty due to detox. Objective: General Observation: Sweaty and perspiring. Lying comfortably in hospital bed, IV, sky, telemetry. Mental Status: A & O x 3 Pain: 0/10 Vital Signs: Pre rx BP 90/66. Post rx BP 111/77. Stable vitals ROM: Right Upper Extremity: WNL Left Upper Extremity: WNL Right Lower Extremity: WNL Left Lower Extremity: WNL Strength: Right Upper Extremity: Grossly 5/5 Left Upper Extremity: Grossly 5/5 Right Lower Extremity: Grossly 5/5 Left Lower Extremity: Grossly 5/5 Sensation: Intact Bed Mobility/Transfers: Independent with bed mobility, STS, ambulation, transfers Gait: WNL, no assistive device. Stairs not able to be assessed due to IV attachment, MATERIAL ASSEMBLER to assess at my request prior to discharge, but I do not anticipate difficulty. Balance: Static Sitting: Good Dynamic Sitting: Good Static Standing: Good Dynamic Standing: Good Stage 4 Balance Test Time (seconds) Feet together 10 Partial tandem 10 Tandem 5 One foot 10 Special Tests: Mobility Limitations Standardized Measure [facility] AM-PAC 6 clicks Basic Mobility Inpatient Short Form: 0% disability Informed Consent/Education: Patient instructed in purpose of PT consult and plan of care. Assessment: Patient is a 41 year old female referred to physical therapy services with the diagnosis of septic shock due to E. Coli pyelonephritis with history of polysubstance abuse currently in detox. Patient presents with clinical signs and symptoms consistent with detox, but demonstrating to impairments of physical limitations from PT perspective discouraging discharge. AMPAC score 0% disability. Patient is assessed as a Low 32945 complexity based on the following: History: See comorbidities Examination: No impairment of functional limitations Presentation: Stable from PT perspective Decision Making: Easy Plan of Care/Treatment Plan: Discharged. MATERIAL ASSEMBLER to eval stair ambulation prior to discharge. DISCHARGE RECOMMENDATIONS: Home with outpatient PT TREATMENT CODE/TIME: 30 min, 35310
[2022-01-13] MEDS: Ferrous Sulfate 325 MG TAB PO (10:29)
--- NOTE | 2022-01-13 10:31 | W.PM.DS.N ---
Date of service: 01/13/22 Time of Service: 10:31 DS: Diagnosis Discharge Diagnosis (1) Hyponatremia: Status: Acute (2) Non-insulin treated type 2 diabetes mellitus: Status: Acute (3) Polysubstance (including opioids) dependence with physiological dependence: Status: Chronic (4) Hydronephrosis with obstructing calculus: Status: Acute (5) Hypotension: Status: Acute (6) Gram-negative bacteremia: Status: Acute (7) E. coli pyelonephritis: Status: Acute (8) Sepsis: Status: Acute (9) Leukocytosis: Status: Acute (10) Lactate blood increase: Status: Acute Discharge Plan Disposition Patient Disposition: HOME Condition: Improving Discharge Details Reason For Visit: Septic Shock Due to Complicated UTI,nephrolithiasi Admit Date/Time: 01/11/22 09:13 Admit Provider: Sahara Medrano Attending Provider: Sahara Medrano Primary Care Provider: [facility] Course: Ms Kennedy is a 41 year old female with PMHx of NIDDM2 on metformin,? CKD III, as well as ,seizure disorder, bipolar d/o, central sleep apnea, and h/o polysubstance use (patient admits to ongoing smoking heroin, crack) who presented to [facility] ED today with two weeks of urinary urgency and frequency as well as subjective fevers and right lower back pain since yesterday and RLQ pain today. The patient was seen in our ED yesterday, was diagnosed with pyelonpehritis and sent home on levofloxacin. Her urine culture from that visit is groing E. Coli (sensitivities pending). Today in the ED, the patient had a white count of 13.35, was tachycardic and hypotensive to BP of 86/47. She was fluid responsive.? Her lactate was 2.2 (and she refused a follow up draw at 10:30). She was given IV levofloxacin. Her renal CT showed an obstructing 3x2 mm calculus in the lower right ureter at the UVJ junction. Urology has evaluated the patient and placed a right ureteral stent. The patient is full code. She did exhibit drug withdrawal symptoms of diaphoresis and generally feeling poorly. She continued on IV levaquin and her elevated WBC normalized. She will d/c on oral Levaquin 750mg po daily for 12 more doses. She has been in rehab facilities 15 times in the past per her report. She endorses the desire to go home rather than inpatient treatment. [facility] was contacted by case management and they will arrange for a community mental health worker. F/U with PCP in 1 week. A F/U with Dr Carmona, urology, to be arranged. Home Meds and New Rx's Prescriptions: New levofloxacin 750 mg tablet 750 mg PO DAILY Qty: 12 0RF Rx Instructions: First dose on , 01/14/22 Continued albuterol sulfate 90 mcg/actuation aerosol powdr breath activated 2 inh IH Q4H PRN (Reason: shortness of breath or wheezing) methadone 10 mg/5 mL solution 180 mg PO DAILY ferrous sulfate [FeroSul] 325 mg (65 mg iron) tablet 325 mg PO DAILY bupropion HCl 300 mg tablet extended release 24 hr 300 mg PO DAILY Qty: 30 5RF omeprazole [Prilosec] 20 MG capsule,delayed release(DR/EC) 40 mg PO DAILY loratadine 10 MG tablet 10 mg PO DAILY omega-3 fatty acids-fish oil 1 EACH capsule 2 ea PO DAILY multivitamin Tablet 1 tab PO DAILY levetiracetam 750 mg tablet 750 mg PO BID metformin 500 mg tablet 500 mg PO BID cholecalciferol (vitamin D3) [Vitamin D3] 1,000 unit Capsule 1,000 unit PO DAILY olanzapine 15 mg tablet 15 mg PO BID Label Comments: TAKE ONE TABLET BY MOUTH TWICE A DAY Belsomra 10 mg tablet 10 mg PO HS Label Comments: TAKE ONE TABLET BY MOUTH AT BEDTIME divalproex 500 mg tablet extended release 24 hr 500 mg PO DAILY Label Comments: TAKE 1 TABLET BY MOUTH EVERY DAY sennosides-docusate sodium 8.6-50 mg Tablet 1 tab PO BID PRN PRN polyethylene glycol 3350 [Miralax] 17 gram Powder In Packet 17 g PO DAILY PRN PRN promethazine 25 mg Tablet 25 mg PO BID PRN PRN Rx Instructions: NAUSEA dexmethylphenidate [Focalin XR] 35 mg Capsule,Er Biphasic 50-50 35 mg PO BID No Action (DME) OneTouch Verio test strips Strip See Rx Instructions .ROUTE .MEDSUPPLY Qty: 10 Rx Instructions: daily As directed (DME) lancets [OneTouch UltraSoft Lancets] Misc See Rx Instructions .ROUTE .MEDSUPPLY Qty: 100 Rx Instructions: DAILY Discharge Instructions Instructions: Urinary Tract Infection in Women (DC) Referrals: Kenrick Carmona MD [ [facility] STAFF PHYSICIAN] - (F/U in 10-14 days) Activity:: Activity as Tolerated Equipment/Supplies:: No Equipment Needed Diet:: Resume usual diet Discharge Orders Discharge Orders: Discharge Order (Routine); Ordered 01/13/22 Ordered By: Jan Maria DS: Summary Time Spent with Patient providing and/or coordinating discharge services: Greater than 30 minutes Status at Discharge Functional status at discharge: independent ambulation Overall status at discharge: patient is progressing back to baseline Mental Status: mental status grossly normal Speech and Movement: speech and movement normal Mood: congruent mood Affect: normal affect Exam Narrative Exam Narrative: General: Lying in bed. Cooperative. Neurological: A&Ox3, no focal deficits Psychiatric: Fatigued appearing. Cooperative. Skin: Skin with tattoos, no bruises or rashes. HEENT: sclera clear. MMM Cardiovascular: RRR, no murmur Lungs: CTAB Gastrointestinal: soft, tender in RLQ, nondistended Extremities: no edema BLEs, no calf tenderness. Psych Mental Status: mental status grossly normal Speech and Movement: speech and movement normal Mood: congruent mood Affect: normal affect DS: Data Vitals/I&O Vitals and I&O: Vital Signs Temperature 36 C L 01/13/22 08:00 Temperature Source Temporal Artery Scan 01/13/22 08:00 Pulse 65 01/13/22 10:00 Pulse 65 01/13/22 10:01 Respiratory Rate 14 01/13/22 10:01 Respiratory Effort 01/13/22 08:00 Respiratory Depth Normal 01/13/22 08:00 Respiratory Pattern Normal 01/13/22 08:00 Blood Pressure 102/70 01/13/22 10:00 Blood Pressure Mean 78 01/13/22 10:00 Blood Pressure Position Supine 01/13/22 08:00 Pulse Oximetry 94 01/13/22 08:00 Oxygen Delivery Method Room Air 01/13/22 08:00 Oxygen Flow Rate 0 01/13/22 08:00 Pain Level 5 01/13/22 08:00 Comment 01/11/22 10:10 Intake & Output 01/12/22 01/12/22 01/13/22 11:59 23:59 11:59 Intake Total 2298.333 / 3355.000 1056.667 / 3355.000 2430 / 2430 Output Total 275 / 770 495 / 770 1825 / 1825 Balance 2023.333 / 2585.000 561.667 / 2585.000 605 / 605 Weight 58.1 kg 64.5 kg Intake: IV 1578.333 / 2535.000 956.667 / 2535.000 2069 / 0 Oral 720 / 820 100 / 820 360 / 360 Output: Urine 275 / 770 495 / 770 1825 / 1825 Other: Urine Color Dark Shannon Dark Shannon Light Shannon [place] Dark Shannon Urine Appearance Sediment Cloudy Sediment Sediment Mucous Threads Comment sky to gravity with dark shannon urine with blood streaks Shannon colored urine Patient voided while in shower. Data Completed and Pending Labs on day of discharge: Labs from last 24 hours 01/13/22 01/13/22 01/13/22 05:35 05:35 05:35 WBC Cancelled RBC Cancelled Hgb Cancelled Hct Cancelled MCV Cancelled MCH Cancelled MCHC Cancelled RDW Cancelled Plt Count Cancelled MPV Cancelled Immature Gran % Cancelled Neutrophils % Cancelled Band Neutrophils % Cancelled Lymphocytes % Cancelled Atypical Lymphs % Cancelled Monocytes % Cancelled Eosinophils % Cancelled Basophils % Cancelled Metamyelocytes % Cancelled Myelocytes % Cancelled Promyelocytes % Cancelled Other Cells % Cancelled Nucleated RBC % Cancelled Absolute Neutrophils Cancelled Absolute Lymphocytes Cancelled Absolute Monocytes Cancelled Absolute Eosinophils Cancelled Absolute Basophils Cancelled RBC Morphology Cancelled Polychromasia Cancelled Hypochromasia Cancelled Poikilocytosis Cancelled Basophilic Stippling Cancelled Anisocytosis Cancelled Microcytosis Cancelled Macrocytosis Cancelled Spherocytes Cancelled Tear Drop Cells Cancelled Ovalocytes Cancelled Stomatocytes Cancelled [place] Bodies Cancelled [place] Cells/Echinocytes Cancelled Acanthocytes (Spur) Cancelled Schistocytes Cancelled VBG Lactate Sodium Cancelled Potassium Cancelled Chloride Cancelled Carbon Dioxide Cancelled Anion Gap Cancelled BUN Cancelled Creatinine Cancelled Estimated GFR/1.73 m2 Cancelled Glucose Cancelled Calcium Cancelled Magnesium Cancelled Total Bilirubin Cancelled AST Cancelled ALT Cancelled Alkaline Phosphatase Cancelled C-Reactive Protein Cancelled Total Protein Cancelled Albumin Cancelled 25-OH Vitamin D Total Procalcitonin Cancelled TSH Cortisol 01/13/22 01/12/22 01/12/22 05:35 12:50 12:50 WBC RBC Hgb Hct MCV MCH MCHC RDW Plt Count MPV Immature Gran % Neutrophils % Band Neutrophils % Lymphocytes % Atypical Lymphs % Monocytes % Eosinophils % Basophils % Metamyelocytes % Myelocytes % Promyelocytes % Other Cells % Nucleated RBC % Absolute Neutrophils Absolute Lymphocytes Absolute Monocytes Absolute Eosinophils Absolute Basophils RBC Morphology Polychromasia Hypochromasia Poikilocytosis Basophilic Stippling Anisocytosis Microcytosis Macrocytosis Spherocytes Tear Drop Cells Ovalocytes Stomatocytes [place] Bodies [place] Cells/Echinocytes Acanthocytes (Spur) Schistocytes VBG Lactate Cancelled 1.4 Sodium Potassium Chloride Carbon Dioxide Anion Gap BUN Creatinine Estimated GFR/1.73 m2 Glucose Calcium Magnesium Total Bilirubin AST ALT Alkaline Phosphatase C-Reactive Protein Total Protein Albumin 25-OH Vitamin D Total Procalcitonin TSH Cortisol 9 01/12/22 01/12/22 01/12/22 12:50 12:50 12:50 WBC 4.10 L RBC 3.59 L Hgb 10.9 L Hct 32.7 L MCV 91 MCH 30.4 MCHC 33.3 RDW 12.4 Plt Count 159 MPV 8.3 Immature Gran % 1.5 Neutrophils % 72.9 Band Neutrophils % Lymphocytes % 18.5 Atypical Lymphs % Monocytes % 5.9 Eosinophils % 1.0 Basophils % 0.2 Metamyelocytes % Myelocytes % Promyelocytes % Other Cells % Nucleated RBC % 0.0 Absolute Neutrophils 2.99 Absolute Lymphocytes 0.76 L Absolute Monocytes 0.24 Absolute Eosinophils 0.04 Absolute Basophils 0.01 RBC Morphology Polychromasia Hypochromasia Poikilocytosis Basophilic Stippling Anisocytosis Microcytosis Macrocytosis Spherocytes Tear Drop Cells Ovalocytes Stomatocytes [place] Bodies Murali Cells/Echinocytes Acanthocytes (Spur) Schistocytes VBG Lactate Sodium 134 L Potassium 3.7 Chloride 100 Carbon Dioxide 29.0 Anion Gap 5.0 BUN 6 L Creatinine 0.9 Estimated GFR/1.73 m2 >= 60.00 Glucose 106 Calcium 8.5 Magnesium 1.3 L Total Bilirubin AST ALT Alkaline Phosphatase C-Reactive Protein 13.53 H Total Protein Albumin 25-OH Vitamin D Total Pending Procalcitonin TSH 0.94 Cortisol Preliminary micro results at discharge 01/11/22 07:58 Blood Culture - Preliminary Blood Escherichia coli 01/11/22 07:20 Blood Culture - Preliminary Blood Gram Negative Ned 01/11/22 06:35 Urine Culture - Preliminary [facility] Active Problems Gram-negative bacteremia (Acute) Hypotension (Acute) KOBI (acute kidney injury) (Acute) Lactate blood increase (Acute) Leukocytosis (Acute) Sepsis (Acute) Discharge planning issues (Acute) DVT prophylaxis (Acute) Hyponatremia (Acute) Non-insulin treated type 2 diabetes mellitus (Acute) Polysubstance (including opioids) dependence with physiological dependence (Chronic) Hydronephrosis with obstructing calculus (Acute) E. coli pyelonephritis (Acute) Right distal ureteral calculus (Acute) Pyelonephritis (Acute) UTI (urinary tract infection) (Acute) Infection due to trichomonas (Acute) Right cervical radiculopathy (Acute) Right carpal tunnel syndrome (Acute) Trichomoniasis (Acute) Genital HSV (Acute) (Acute) Labial lesion (Acute) Vaginal discharge (Acute) Pelvic pain (Acute) Elevated serum creatinine (Acute) 12/2019: 1.05 at time of preop evaluation History of tubal ligation (Chronic) 12/19/19. Laparoscopic left salpingectomy. Patient previously had a right salpingectomy. Ovarian cyst (Acute) Postoperative pain (Acute) Screening and evaluation for female sterilization (Acute) 04/2019. Not a candidate for OCPs. Declines L ARC. Given info on laparoscopic sterilization. 09/2019. Medicaid consent obtained. Vulvitis (Acute) 04/22/2018. Secondary to contact dermatitis. Negative vag path screen, negative STI check. Treated with Dosepak of steroids and topical lidocaine. Medical History ADHD Alcohol use Amenorrhea Amenorrhea, secondary 06/2014 Nl pelvic us. ES 3.5mm. No response to Progestin challenges. Nl labs. Asthma, moderate persistent Bipolar disorder ADD, PTSD, Anxiety and Depression Central sleep apnea Cervical radiculopathy Chronic diarrhea CKD (chronic kidney disease), stage III Diabetes type 2, controlled Pt. states she tested her blood sugar 5/31 and it was 400, and not sure why it was so high Dyslipidemia Eating disorder GERD Hepatic fibrosis Hepatitis C pt. states she was treated and is now non-detectable History of intravenous drug abuse states she has not used in 8 years IVDU Low back pain Metabolic syndrome Methamphetamine abuse Migraine headache Numbness and tingling of right arm Opioid dependence Otitis externa, chronic Problem related to living arrangement PTSD (post-traumatic stress disorder) Rhinitis, allergic Seizure disorder Sexually transmitted disease exposure Tobacco dependency Unspecified disorder resulting from impaired renal function Surgical History Cholecystectomy Diagnostic Laproscopy (~2005) History of tonsillectomy molar extraction , Ectopic (~2010) Social History Smoking/Tobacco Use Status: Current every day Tobacco Type: cigarettes Smoking risk assessment performed?: Yes Alcohol Intake: never Drug use: Daily Substance use type: marijuana Details: reports getting off heroin. Household members: none Housing: apartment current occupation: Disabled Pets and animals: Yes Pets and animals: cat(s) What type of physical activity do you participate in: none and independent ambulation Seatbelt use: always Do you feel safe at home: Yes
--- NOTE | 2022-01-13 13:14 | PT.INTREAT ---
Date of service: 01/13/22 Time of Service: 11:38 PT Notes Visit Reasons: Septic Shock Due to Complicated UTI, Inpatient Physical Therapy Treatment Note [facility] Date: 01/13/2022 PRECAUTIONS: Activity as tolerated SUBJECTIVE: Ne is pleasant and agreeable to participating in PT. She reports feeling tired today, and is looking forward to discharging to home later today. OBJECTIVE: PAIN: No c/o pain TRANSFERS/BED MOBILITY: Supine-sit: I Sit-supine: I Sit-stand: I Stand-sit: I Bed-chair: I Chair-bed: I GAIT: Assistive device: No AD Weight bearing: Full Assist: I Distance: ~300' Deviation: None STAIRS: Up/down 30 steps utilizing a step-over pattern with only occasional use of U rail, independently. ASSESSMENT: Patient tolerated session without complaint. She demonstrates independence with all functional mobility at this time. PLAN: Patient to discharge to home later today, per provider. TREATMENT CODE/TIME: 8 minutes; 90627 (11:38)
--- NOTE | 2022-01-13 15:06 | CMDISCH_ITS ---
- If Service Date Differs Date of service: 01/13/22 Time of Service: 15:06 LACE Index Scoring Tool - Questions: Length of Stay (in days): 2 Acuity (Admit via E.D.?): Yes E.D. Visits: 2 - Answers: Total Score: 7 Risk of Readmission: Low Risk Care Management Discharge Reason for Hospitalization: Septic shock, UTI Discharge Plan: Discharge home via private vehicle with family. New RX for PO ABX printed and provided to patient. Ne will follow up with Dr. Carmona in 10-14 days and her PCP, if needed. No new [facility] services are indicated at this time. Pt will follow up with [facility] and [facility] inpatient substance abuse treatment, if needed. CM placed community referral to [facility] to help patient navigate community resources. [facility] coordinator will reach out to patient directly following discharge. Patient/Family Education Needs: Review discharge instructions, limitations, medications and plan to follow up with community providers. ask me three.
[2022-01-14 05:25] LABS: Vitamin D 25 Total 55.6 ng/mL (30-100)
--- NOTE | 2022-01-14 08:21 | PT.INDS ---
PT Notes Visit Reasons: Septic Shock Due to Complicated UTI,nephrolithiasi Inpatient Physical Therapy Discharge Summary Dates: 01/14/2022 Dates of Service: 01/13/2022 SUBJECTIVE: Patient is to return home OBJECTIVE: . Has full functional pain-free range of motion throughout STRENGTH: . Strength generally rated 5/5 BED MOBILITY/TRANSFERS: Supine-sit independent Sit-supine independent Sit-stand independent Stand-sit independent Bed-Chair independent Chair-bed independent GAIT: Ambulating without assistive device greater than 200 feet. Was able to ascend and descend 14 steps safely occasionally using a railing BALANCE: Static sitting stable Dynamic sitting stable Static standing stable Dynamic standing stable SPECIAL TESTS: ASSESSMENT: Patient demonstrated safe transfers, bed mobility, and and ambulation without assistance. GOALS Met . Home with outpatient PT . Disclaimer: This note was created using [employer] voice recognition software. It was reviewed for major content. However, there may be multiple small discrepancies and errors due to the voice recognition aspects of the software.
== END 2022-01-13 14:22 | disposition home or self-care (01) | DRG 871 ==
LOC: ER 10:10 → ICU 10:21
PROVIDERS: Family Medicine; Student in an Organized Health Care Education/Training Program; Urology; Admitting Provider Internal Medicine; Emergency Provider Student in an Organized Health Care Education/Training Program; PCP Family Medicine; Visit Provider Internal Medicine
PROC: 0T9680Z Drainage of Right Ureter with Drainage Device, Via Natural or Artificial Opening Endoscopic (ICD-10-PCS; CPT 74450; principal; 2022-01-11 11:45)
DX: A41.51 Sepsis due to Escherichia coli [E. coli] (principal); R65.21 Severe sepsis with septic shock; N13.6 Pyonephrosis; F11.20 Opioid dependence, uncomplicated; F19.20 Other psychoactive substance dependence, uncomplicated; E87.1 Hypo-osmolality and hyponatremia; M54.12 Radiculopathy, cervical region; F17.210 Nicotine dependence, cigarettes, uncomplicated; B96.20 Unspecified Escherichia coli [E. coli] as the cause of diseases classified elsewhere; Z79.84 Long term (current) use of oral hypoglycemic drugs; N18.30 Chronic kidney disease, stage 3 unspecified; E11.22 Type 2 diabetes mellitus with diabetic chronic kidney disease; G40.909 Epilepsy, unspecified, not intractable, without status epilepticus; F31.9 Bipolar disorder, unspecified; G47.31 Primary central sleep apnea; J45.909 Unspecified asthma, uncomplicated
CPT/HCPCS: 52332; 52005; 36415; 80048; 80053; 82306; 82533; 84145; 87040; 87077; 87635; 93005; 97162; 97530; J1650; 74176; 74420; 81003; 81015; 83605; 83735; 84443; 85025; 86140; 87086; 87186; 93010; 99233; 99239; 99291; J1885; J1956; J2250; J2270; J2405; J3475; J3490; Q9967

== ENCOUNTER 2022-01-15 16:20 | Outpatient (REF) | payer MEDICAID, SELFPAY | END 2022-01-15 16:21 | disposition home or self-care (01) | LOC: LBN 16:20 | PROVIDERS: PCP Family Medicine; Visit Provider Urology | DX: N12 Tubulo-interstitial nephritis, not specified as acute or chronic (principal); B96.20 Unspecified Escherichia coli [E. coli] as the cause of diseases classified elsewhere; R35.0 Frequency of micturition | CPT/HCPCS: 87086 ==

== ENCOUNTER 2022-01-26 18:39 | Outpatient (REF) | payer MEDICAID, SELFPAY | END 2022-01-26 18:40 | disposition home or self-care (01) | LOC: LBN 18:39 | PROVIDERS: PCP Family Medicine; Visit Provider Nurse Practitioner Gerontology | DX: R30.0 Dysuria (principal) | CPT/HCPCS: 87086 ==

== ENCOUNTER 2022-02-02 16:50 | Outpatient (REF) | payer MEDICAID, SELFPAY ==
[2022-02-02 10:08] LABS: Source Nasal/Nares
[2022-02-02 12:42] LABS: COVID-19 PCR Negative (Negative)
== END 2022-02-02 16:51 | disposition home or self-care (01) ==
LOC: LBN 16:50
PROVIDERS: PCP Family Medicine; Visit Provider Urology
DX: Z20.822 Contact with and (suspected) exposure to COVID-19 (principal); Z01.818 Encounter for other preprocedural examination
CPT/HCPCS: 87635

== ENCOUNTER 2022-02-04 09:32 | Day surgery (SDC) | payer MEDICAID, SELFPAY ==
[2022-02-04] VITALS (9 sets, daily range): BP systolic 104–136; BP diastolic 64–95; PULSE 73–102; RESP 11–16; TEMP 36.3–36.5; O2SAT 94–100; BMI 22.9
[2022-02-04] MEDS: Lactated Ringers 1,000 ML 80 ML IV (10:30)
--- NOTE | 2022-02-04 11:08 | W.ANESPRE ---
General Info Date of Service Date Performed: 02/04/22 Height: 5 ft 2 in Weight: 56.9 kg Body Mass Index (BMI): 22.9 Surgical Procedure: Operation Date: 02/04/22 12:25 Proposed Procedure Side Surgeon p Cystoscopy/Possible Laser/Retrograde/Ureteroscopy/RT Ureteral Stent Removal Right Kenrick Carmona MD Meds Allergies and Home Medications Allergies Allergy/AdvReac Type Severity Reaction Status Date / Time Penicillins Allergy Intermediate hives/swell Verified 02/04/22 10:01 ing sulfamethoxazole Allergy Mild Verified 02/04/22 10:01 [From Bactrim] trimethoprim [From Bactrim] Allergy Mild Verified 02/04/22 10:01 Sulfa (Sulfonamide AdvReac Severe body aches Verified 02/04/22 10:01 Antibiotics) erythromycin base AdvReac Intermediate stomach Verified 02/04/22 10:01 pain morphine AdvReac Intermediate Nausea Verified 02/04/22 10:01 ondansetron HCl AdvReac Intermediate Hives Verified 02/04/22 10:01 [From Zofran (as hydrochloride)] Home Medication Medication Instructions Recorded omeprazole 20 mg capsule,delayed 40 mg PO DAILY 04/18/15 release (Prilosec) loratadine 10 mg tablet 10 mg PO DAILY 07/04/17 omega-3 fatty acids-fish oil 300 2 ea PO DAILY 12/01/17 mg-1,000 mg capsule bupropion HCl 300 mg 24 hr tablet, 300 mg PO DAILY #30 tab-caps 11/13/18 extended release cholecalciferol (vitamin D3) 25 1,000 unit PO DAILY 04/22/19 mcg (1,000 unit) capsule (Vitamin D3) ferrous sulfate 325 mg (65 mg 325 mg PO DAILY 04/23/20 iron) tablet (FeroSul) blood sugar diagnostic (OneTouch #10 ea 06/05/20 Verio test strips) lancets (Site LockTouch UltraSoft #100 ea 06/05/20 Lancets) levetiracetam 750 mg tablet 750 mg PO BID 06/05/20 metformin 500 mg tablet 500 mg PO QAM 06/05/20 multivitamin 1 tab PO DAILY 06/05/20 albuterol sulfate 90 mcg/actuation 2 inh inhalation Q4H PRN shortness 07/21/20 breath activated powder inhaler of breath or wheezing methadone 10 mg/5 mL oral solution 180 mg PO DAILY 04/08/21 divalproex 500 mg tablet,extended 500 mg PO DAILY 01/10/22 release 24 hr olanzapine 15 mg tablet 15 mg PO BID 01/10/22 suvorexant 10 mg tablet (Belsomra) 10 mg PO HS 01/10/22 polyethylene glycol 3350 17 gram 17 g PO DAILY PRN PRN 01/11/22 oral powder packet (Miralax) promethazine 25 mg tablet 25 mg PO BID PRN PRN 01/11/22 sennosides 8.6 mg-docusate sodium 1 tab PO BID PRN PRN 01/11/22 50 mg tablet hyoscyamine sulfate 0.125 mg 0.125 mg sublingual BID-QID PRN 01/15/22 sublingual tablet (Levsin/SL) bladder spasms #20 tabs dexmethylphenidate 35 mg 40 mg PO DAILY 01/26/22 capsule,extended release [id number] (Focalin XR) Current Visit Medications: Current Medications Generic Name Dose Route Start Last Admin Trade Name Aidanq PRN Reason Stop Dose Admin Ringer's Solution 1,000 mls @ 80 mls/hr 02/04/22 06:00 02/04/22 10:30 IV 03/05/22 23:59 80 mls/hr INFUSION DANIEL Administration Gentamicin Sulfate 120 mg/ 103 mls @ 206 mls/hr 02/04/22 06:00 Sodium Chloride IVPB 02/04/22 18:00 PREOP DANIEL IV Miscellaneous Supplies 1 each 02/04/22 06:00 Iv Access IV 03/05/22 23:59 DIRECTED DANIEL Sodium Chloride 0 ml 02/04/22 06:00 Normal Saline Flush 10 Ml Syr IV 03/05/22 23:59 PRN PRN Sodium Chloride 0 ml 02/04/22 06:00 Normal Saline 10 Ml Vial IJ 03/05/22 23:59 DIRECTED PRN Sterile Water 0 ml 02/04/22 06:00 Water,Injection,Sterile 10 Ml Vial IJ 03/05/22 23:59 DIRECTED PRN PFSH Active Problems Active Problems: Problem Status Onset Code Ovarian cyst N83.209 Vulvitis N76.2 Screening and evaluation for female sterilization Z30.09 Postoperative pain G89.18 History of tubal ligation Z98.51 Elevated serum creatinine R79.89 Pelvic pain R10.2 Vaginal discharge N89.8 Labial lesion N90.89 Z34.90 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 coli pyelonephritis N12, B96.20 Hydronephrosis with obstructing calculus N13.2 Polysubstance (including opioids) dependence with physiological dependence F19.20 Non-insulin treated type 2 diabetes mellitus E11.9 KOBI (acute kidney injury) N17.9 Gram-negative bacteremia R78.81 Frequency of micturition R35.0 Medical History Medical History ADHD Alcohol use Amenorrhea Amenorrhea, secondary 06/2014 Nl pelvic us. ES 3.5mm. No response to Progestin challenges. Nl labs. Asthma, moderate persistent Bipolar disorder ADD, PTSD, Anxiety and Depression Central sleep apnea Cervical radiculopathy Chronic diarrhea CKD (chronic kidney disease), stage III Diabetes type 2, controlled Pt. states she tested her blood sugar 12/15 and it was 400, and not sure why it was so high Dyslipidemia Eating disorder GERD Hepatic fibrosis Hepatitis C pt. states she was treated and is now non-detectable History of intravenous drug abuse states she has not used in 9 years IVDU Low back pain Metabolic syndrome Methamphetamine abuse Migraine headache Numbness and tingling of right arm Opioid dependence Otitis externa, chronic Problem related to living arrangement PTSD (post-traumatic stress disorder) Rhinitis, allergic Seizure disorder Pt. states she has not had a seizure in a very long time, states it was a result of ovrdosing on drugs Sexually transmitted disease exposure Tobacco dependency Unspecified disorder resulting from impaired renal function Surgical History Surgical History Cholecystectomy Diagnostic Laproscopy (~2005) History of tonsillectomy molar extraction , Ectopic (~2010) Tobacco Smoking/Tobacco Use Status: Current every day Tobacco Type: cigarettes Smoking cigarettes per day: 4 Alcohol Alcohol Intake: never Substance Use Substance use: Daily Substance use type: marijuana Vital Signs and Lab Results Vital Signs Most Recent Vital Signs in EMR: Most Recent Vital Signs Temp Pulse Resp BP Pulse Ox 36.4 C L 102 H 16 114/88 96 02/04/22 09:42 02/04/22 09:42 02/04/22 09:42 02/04/22 09:42 02/04/22 09:42 Point of Care Results Point of Care Results: POC- Test(urine) Negative 02/04/22 10:23 Finger Stick Blood Glucose 129 02/04/22 10:15 Lab Results Blood Type / Crossmatch: No Data to Display Complete Blood Count: White Blood Count 4.10 10^3/uL (4.4-10.8) L 01/12/22 12:50 Red Blood Count 3.59 10^6/uL (3.93-5.22) L 01/12/22 12:50 Hemoglobin 10.9 g/dL (11.2-15.7) L 01/12/22 12:50 Hematocrit 32.7 % (36.0-46.0) L 01/12/22 12:50 Platelet Count 159 10^3/uL (130-400) 01/12/22 12:50 Venous Blood Lactate 1.4 mmol/L (0.6-1.4) 01/12/22 12:50 Complete Metabolic Panel: Sodium Level 134 mmol/L (136-145) L 01/12/22 12:50 Potassium Level 3.7 mmol/L (3.5-5.1) 01/12/22 12:50 Chloride Level 100 mmol/L (98-107) 01/12/22 12:50 Carbon Dioxide Level 29.0 mmol/L (21.0-32.0) 01/12/22 12:50 Blood Urea Nitrogen 6 mg/dL (7-18) L 01/12/22 12:50 Creatinine 0.9 mg/dL (0.55-1.02) 01/12/22 12:50 Estimated GFR/1.73 m2 >= 60.00 (mL/min/1.73m2) 01/12/22 12:50 Magnesium Level 1.3 mg/dL (1.8-2.4) L 01/12/22 12:50 Calcium Level 8.5 mg/dL (8.5-10.1) 01/12/22 12:50 Albumin 2.8 g/dL (3.4-5.0) L 01/11/22 07:20 Glucose Level 106 mg/dL (74-106) 01/12/22 12:50 C-Reactive Protein 13.53 mg/dL (0.0-0.3) H 01/12/22 12:50 Liver Function Panel: Alanine Aminotransferase (ALT/SGPT) 8 U/L (14-59) L 01/11/22 07:20 Aspartate Amino Transf (AST/SGOT) 11 U/L (15-37) L 01/11/22 07:20 Coagulation Panel: No Data to Display Cardiac Panel: No Data to Display Arterial Blood Gas: No Data to Display Venous Blood Gas: No Data to Display Pancreas Panel: No Data to Display Thyroid Panel: Thyroid Stimulating Hormone (TSH) 0.94 uIU/mL (0.36-3.74) 01/12/22 12:50 Infectious Disease: Coronavirus (COVID-19)(PCR) Negative (Negative) 02/02/22 08:50 Coronavirus 2019 Source Nasal/Nares 02/02/22 08:50 Blood Cultures: No Data to Display Toxicology Panel: No Data to Display Panel: No Data to Display Imaging and Studies Imaging and Studies Study information below may be from another EMR and interpreted by another provider. Please see original notes in EMR for more complete details. EKG Summary: DATE/TIME OF SERVICE: 01/11/22 1000 : 1980PERFORMING LOCATION: ICU APPROVED REPORT Exam: Resting ECG Reason for Exam: QT check Patient Location: E HR:90 bpm ECG Measurements Heart Rate 90 AXIS SC 157 P 45 QRSd 77 QRS 30 QT 363 T53 QTc 444 Conclusion Sinus rhythm...normal P axis, V-rate 60- 99 Pulmonary Function Summary: Date of service: 05/05/20 Time of Service: 03:33 Pulmonary Function Test Result Interpretation Spirometry: Shows borderline mild obstructive airways disease, may be a normal variant, no bronchodilator response Lung Volumes: No evidence of restriction Diffusion Capacity: Borderline mildly low which is normal when corrected to alveolar volume Airway Pressure: Normal Impression Potentially borderline mild obstructive airways disease, though may represent a normal variant, no bronchodilator response. If underlying asthma diagnosis is in question, proceeding with methacholine challenge testing may prove to be useful Clinical Correlation therefore is recommended. Anesthesia Assessment and Plan Anesthesia History Personal History: No History of Anesthesia Complications Family History: No Family History of Anesthesia Complications Exercise Tolerance Exercise Tolerance: Metabolic Equivalents>4 Pertinent Negatives Pertinent Negatives: No Symptoms of GERD, No Major Cardiovascular Symptoms or Complaints and No Major Pulmonary Symptoms or Complaints Cardiac & Pulmonary Exam Cardiac Exam: Normal S1/S2 Heart Sounds Pulmonary Exam: Clear Bilateral Breath Sounds Implantable Cardiac Device Does patient have a Pacemaker or an ICD?: No Airway Exam Known Difficult Airway: No Mallampati Class: 1 Mouth Opening: Normal (> 3cm) Thyromental Distance: Greater than 3 cm Neck Range of Motion: Full ROM Neck Circumference: Normal Teeth Condition: Normal Dentition and Removable Dentures/Plates Upper ASA Classification ASA Score: ASA 3 Emergency Case?: No NPO Status NPO Status: NPO Clears >2 hours, Solids >8 hours Status Status: Negative HCG Anesthesia Plan Resuscitation Status: Full Code Anesthesia Technique: General Anesthesia Airway Planned: LMA Monitors Used: Standard Monitors
[2022-02-04] MEDS: GENTAMICIN 120 MG in Normal Saline 100 ML 206 MG IVPB (11:51)
--- NOTE | 2022-02-04 11:55 | W.PM.HP.N ---
Date of service: 02/04/22 Time of Service: 11:56 Assessment and Plan Assessment and plan (1) Right distal ureteral calculus: Status: Acute Assessment and plan: We will perform cystoscopy, remove her ureteral stent and perform ureteroscopy to address her right sided stones. History of Present Illness History of Present Illness Chief Complaint: Right ureteral stone Narrative: This is a 41 year old woman who presented with right flank pain, fever and chills. She was found to have hydronephrosis from a right distal ureteral stone. Her urine appeared infected and clinically she appeared septic. We placed a ureteral stone and treated her infection (E Coli). She has had followup urine cultures showing resolution of her infection. She presents for ureteroscopy to address the ureteral stone. Review of Systems Narrative: No fevers or chills No vision change or dysphasia No diabetes or thyroid No shortness of breath, cough or hemoptysis No chest pain or palpitations No nausea, vomiting, hepatitis, ulcers, jaundice, diarrhea or constipation No seizures, strokes or peripheral neuropathy No bleeding disorders or anemia No gout or arthralgia PFSH All Active Problems Ovarian cyst (Acute) Vulvitis (Acute) 04/22/2018. Secondary to contact dermatitis. Negative vag path screen, negative STI check. Treated with Dosepak of steroids and topical lidocaine. Screening and evaluation for female sterilization (Acute) 04/2019. Not a candidate for OCPs. Declines L ARC. Given info on laparoscopic sterilization. 09/2019. Medicaid consent obtained. Postoperative pain (Acute) History of tubal ligation (Chronic) 12/19/19. Laparoscopic left salpingectomy. Patient previously had a right salpingectomy. Elevated serum creatinine (Acute) 12/2019: 1.05 at time of preop evaluation Pelvic pain (Acute) Vaginal discharge (Acute) Labial lesion (Acute) (Acute) Genital HSV (Acute) Trichomoniasis (Acute) Right carpal tunnel syndrome (Acute) Right cervical radiculopathy (Acute) Infection due to trichomonas (Acute) Right distal ureteral calculus (Acute) E. coli pyelonephritis (Acute) Hydronephrosis with obstructing calculus (Acute) Polysubstance (including opioids) dependence with physiological dependence (Chronic) Non-insulin treated type 2 diabetes mellitus (Acute) KOBI (acute kidney injury) (Acute) Gram-negative bacteremia (Acute) Frequency of micturition (Acute) Medical History ADHD Alcohol use Amenorrhea Amenorrhea, secondary 06/2014 Nl pelvic us. ES 3.5mm. No response to Progestin challenges. Nl labs. Asthma, moderate persistent Bipolar disorder ADD, PTSD, Anxiety and Depression Central sleep apnea Cervical radiculopathy Chronic diarrhea CKD (chronic kidney disease), stage III Diabetes type 2, controlled Pt. states she tested her blood sugar 12/15 and it was 400, and not sure why it was so high Dyslipidemia Eating disorder GERD Hepatic fibrosis Hepatitis C pt. states she was treated and is now non-detectable History of intravenous drug abuse states she has not used in 9 years IVDU Low back pain Metabolic syndrome Methamphetamine abuse Migraine headache Numbness and tingling of right arm Opioid dependence Otitis externa, chronic Problem related to living arrangement PTSD (post-traumatic stress disorder) Rhinitis, allergic Seizure disorder Pt. states she has not had a seizure in a very long time, states it was a result of ovrdosing on drugs Sexually transmitted disease exposure Tobacco dependency Unspecified disorder resulting from impaired renal function Surgical History Cholecystectomy Diagnostic Laproscopy (~2005) History of tonsillectomy molar extraction , Ectopic (~2010) Social History Smoking/Tobacco Use Status: Current every day Tobacco Type: cigarettes Smoking risk assessment performed?: Yes Alcohol Intake: never Drug use: Daily Substance use type: marijuana Household members: none Housing: apartment current occupation: Disabled Pets and animals: Yes Pets and animals: cat(s) What type of physical activity do you participate in: none and independent ambulation Seatbelt use: always Do you feel safe at home: Yes Do you feel safe in your relationship?: Yes Meds Allergies and Home Medications Allergies Allergy/AdvReac Type Severity Reaction Status Date / Time Penicillins Allergy Intermediate hives/swell Verified 02/04/22 10:01 ing sulfamethoxazole Allergy Mild Verified 02/04/22 10:01 [From Bactrim] trimethoprim [From Bactrim] Allergy Mild Verified 02/04/22 10:01 Sulfa (Sulfonamide AdvReac Severe body aches Verified 02/04/22 10:01 Antibiotics) erythromycin base AdvReac Intermediate stomach Verified 02/04/22 10:01 pain morphine AdvReac Intermediate Nausea Verified 02/04/22 10:01 ondansetron HCl AdvReac Intermediate Hives Verified 02/04/22 10:01 [From Zofran (as hydrochloride)] Home Medications Medication Instructions Recorded Confirmed Type omeprazole 20 mg capsule,delayed 40 mg PO DAILY 04/18/15 02/04/22 History release (Prilosec) loratadine 10 mg tablet 10 mg PO DAILY 07/04/17 02/04/22 History omega-3 fatty acids-fish oil 300 2 ea PO DAILY 12/01/17 02/04/22 History mg-1,000 mg capsule bupropion HCl 300 mg 24 hr tablet, 300 mg PO DAILY #30 tab-caps 11/13/18 02/04/22 Rx extended release cholecalciferol (vitamin D3) 25 1,000 unit PO DAILY 04/22/19 02/03/22 History mcg (1,000 unit) capsule (Vitamin D3) ferrous sulfate 325 mg (65 mg 325 mg PO DAILY 04/23/20 02/03/22 History iron) tablet (FeroSul) blood sugar diagnostic (OneTouch #10 ea 06/05/20 02/03/22 History Verio test strips) lancets (Dynamic YieldTouch UltraSoft #100 ea 06/05/20 02/03/22 History Lancets) levetiracetam 750 mg tablet 750 mg PO BID 06/05/20 02/04/22 History metformin 500 mg tablet 500 mg PO QAM 06/05/20 02/04/22 History multivitamin 1 tab PO DAILY 06/05/20 02/03/22 History albuterol sulfate 90 mcg/actuation 2 inh inhalation Q4H PRN shortness 07/21/20 02/03/22 History breath activated powder inhaler of breath or wheezing methadone 10 mg/5 mL oral solution 180 mg PO DAILY 04/08/21 02/04/22 History divalproex 500 mg tablet,extended 500 mg PO DAILY 01/10/22 02/03/22 History release 24 hr olanzapine 15 mg tablet 15 mg PO BID 01/10/22 02/04/22 History suvorexant 10 mg tablet (Belsomra) 10 mg PO HS 01/10/22 02/04/22 History polyethylene glycol 3350 17 gram 17 g PO DAILY PRN PRN 01/11/22 02/03/22 History oral powder packet (Miralax) promethazine 25 mg tablet 25 mg PO BID PRN PRN 01/11/22 02/03/22 History sennosides 8.6 mg-docusate sodium 1 tab PO BID PRN PRN 01/11/22 02/04/22 History 50 mg tablet hyoscyamine sulfate 0.125 mg 0.125 mg sublingual BID-QID PRN 01/15/22 02/03/22 Rx sublingual tablet (Levsin/SL) bladder spasms #20 tabs dexmethylphenidate 35 mg 40 mg PO DAILY 01/26/22 02/04/22 History capsule,extended release [id number] (Focalin XR) Exam Const General: cooperative Neck Neck: supple Resp Effort & Inspection: normal respiratory effort Auscultation: clear to auscultation bilaterally Cardio Rate: regular rate Rhythm: regular rhythm GI Palpation: soft and no masses Neuro General: patient alert and patient awake Results Last Vital Signs Temp 36.4 C L 02/04/22 09:42 Pulse 102 H 02/04/22 09:42 Resp 16 02/04/22 09:42 BP 114/88 02/04/22 09:42 Pulse Ox 96 02/04/22 09:42
--- NOTE | 2022-02-04 12:00 | DI.RAD_ITS ---
Exam(s) XR RETROGRADE IN OR EXAM: XR RETROGRADE IN OR CLINICAL HISTORY: RIGHT URETERAL STONE. TECHNIQUE: 2D digital imaging was performed. COMPARISON: No exams were available for comparison FINDINGS: Fluoroscopy was provided during retrograde urologic procedure performed by the urologist. See proced ure report for details. Total clipped of dose 0.1332mGy IMPRESSION: DATA REPOSITORY: RADIATION DOSE DELIVERED:
[2022-02-04] MEDS: Lidocaine 2% Jelly 6 ML SYR (12:43)
--- NOTE | 2022-02-04 12:54 | W.PM.DSUDISC ---
Discharge Plan Disposition Patient Disposition: HOME Condition: Good Discharge Details Reason For Visit: ureteral stone Attending Provider: Kenrick Carmona Primary Care Provider: Damian Murillo [place] Meds and New Rx's Prescriptions: No Action albuterol sulfate 90 mcg/actuation aerosol powdr breath activated 2 inh IH Q4H PRN (Reason: shortness of breath or wheezing) methadone 10 mg/5 mL solution 180 mg PO DAILY ferrous sulfate [FeroSul] 325 mg (65 mg iron) tablet 325 mg PO DAILY hyoscyamine sulfate [Levsin/SL] 0.125 mg tablet, sublingual 0.125 mg sublingual BID-QID PRN (Reason: bladder spasms) Qty: 20 0RF bupropion HCl 300 mg tablet extended release 24 hr 300 mg PO DAILY Qty: 30 5RF omeprazole [Prilosec] 20 MG capsule,delayed release(DR/EC) 40 mg PO DAILY loratadine 10 MG tablet 10 mg PO DAILY omega-3 fatty acids-fish oil 1 EACH capsule 2 ea PO DAILY (DME) OneTouch Verio test strips Strip See Rx Instructions .ROUTE .MEDSUPPLY Qty: 10 Rx Instructions: daily As directed (DME) lancets [OneTouch UltraSoft Lancets] Misc See Rx Instructions .ROUTE .MEDSUPPLY Qty: 100 Rx Instructions: DAILY multivitamin Tablet 1 tab PO DAILY levetiracetam 750 mg tablet 750 mg PO BID metformin 500 mg tablet 500 mg PO QAM cholecalciferol (vitamin D3) [Vitamin D3] 1,000 unit Capsule 1,000 unit PO DAILY olanzapine 15 mg tablet 15 mg PO BID Label Comments: TAKE ONE TABLET BY MOUTH TWICE A DAY Belsomra 10 mg tablet 10 mg PO HS Label Comments: TAKE ONE TABLET BY MOUTH AT BEDTIME divalproex 500 mg tablet extended release 24 hr 500 mg PO DAILY Label Comments: TAKE 1 TABLET BY MOUTH EVERY DAY sennosides-docusate sodium 8.6-50 mg Tablet 1 tab PO BID PRN PRN polyethylene glycol 3350 [Miralax] 17 gram Powder In Packet 17 g PO DAILY PRN PRN promethazine 25 mg Tablet 25 mg PO BID PRN PRN Rx Instructions: NAUSEA dexmethylphenidate [Focalin XR] 35 mg capsule,ER biphasic 50-50 40 mg PO DAILY Discharge Instructions Additional Instructions: no need to strain urine followup 6 to 8 weeks with renal ultrasound same day Activity:: Activity as Tolerated Shower/Bathe:: 24 hours Diet:: As Tolerated Discharge Orders Discharge Orders: Discharge Order (Routine); Ordered 02/04/22 Ordered By: Kenrick Carmona DS: Diagnosis Discharge Diagnosis (1) Right distal ureteral calculus: Status: Acute
--- NOTE | 2022-02-04 13:12 | NUR.NOTE ---
Voicing concerns of belongings being safe while in OR. Offered to have belongings securely locked up Nursing but patient declined saying, That's OK. I just don't want anyone going through my pocketbook. Charge nurse made aware. Belongings remained at bedside. Note:
--- NOTE | 2022-02-04 13:19 | ROE_ITS ---
Date of service: 02/04/22 Time of Service: 13:19 Operative Note Operative Note DATE OF PROCEDURE: 02/04/22 PRE-OP DIAGNOSIS: Right ureteral stone POST-OP DIAGNOSIS: same PROCEDURE: cystoscopy, remove right ureteral stent, right ureteroscopy with stone extraction SURGEON: Kenrick Carmona ANESTHESIA TYPE: General LMA/ETT Refer to Anesthesia Record ESTIMATED BLOOD LOSS: 0 PATHOLOGY: other (stone for chemical analysis) COMPLICATIONS: None Patient was transported to: PACU Patient's condition: stable Implants: none Indications: This is a 41-year-old woman who presented with E. coli urosepsis. As part of her evaluation, she was found to have a right distal ureteral stone that was causing hydronephrosis. We placed a ureteral stent and she successfully completed her antibiotic course. Her urine cultures show no bacterial growth. She comes in now for stent removal and stone manipulation Findings: right distal ureteral stone Procedure Description: The patient was given a dose of IV antibiotics. After successful induction of general anesthesia, she was placed in the dorsal lithotomy position. Genitalia was prepped and draped. 2% Xylocaine jelly was instilled into the urethra to act as a local anesthetic. A 22 [place] rigid cystoscope was passed through the urethra into the bladder. The bladder was inspected with a 30 degree lens. There was marked edema around the right ureteral orifice. The stent could be seen protruding from the orifice. The stent was grasped with alligator forceps and brought out to the level of the urethral meatus. I then passed a guidewire through the lumen of the stent and remove the stent leaving the wire in place. I introduced the semirigid ureteroscope and advanced the scope into the right distal ureter. A stone was visualized and we were able to grasp the stone in a Leslie stone basket. The stone was sent to pathology for chemical analysis. Because of the lack of trauma from this particular surgery, we elected not to replace her ureteral st ent. The guidewire was removed. The patient tolerated this procedure well with no complications.
--- NOTE | 2022-02-04 14:03 | W.ANESPOSTOP ---
Postoperative Evaluation Date, Time and Location Date Performed: 02/04/22 Time Performed: 13:55 Patient Location: PACU Vital Signs Most Recent Imported Vital Signs: Most Recent Vital Signs Temp Pulse Resp BP Pulse Ox 36.5 C 78 16 124/77 100 02/04/22 13:49 02/04/22 13:49 02/04/22 13:49 02/04/22 13:49 02/04/22 13:49 Pain Score Most Recent Pain Score: Most Recent Pain Score Pain Level 0 02/04/22 13:49 Assessment Mental Status: Awake (Alert & Oriented to Patient Baseline) Airway and Respiratory Function: Patent airway with normal (patient baseline) respiratory exam Cardiovascular Function: Hemodynamically Stable Hydration Status: Adequately Hydrated Nausea & Vomiting: No Nausea or Vomiting Pain: Pt. Denies Any Pain Peripheral Nerve Block: Patient did not receive a nerve block
[2022-02-10 13:37] LABS: Source: Right Ureter
== END 2022-02-04 14:26 | disposition home or self-care (01) ==
PROVIDERS: PCP Family Medicine; Visit Provider Urology
PROC: (CPT 52352; principal; 2022-02-04 12:15)
DX: N20.1 Calculus of ureter (principal)
CPT/HCPCS: 52352; 96365; 74420; 82365; J1100; J1580; J1885; J2250; J2704

== ENCOUNTER 2022-06-16 17:22 | Outpatient (REF) | payer MEDICAID, SELFPAY ==
[2022-06-16 19:48] LABS: HCT 39.3 % (36.0-46.0); MCH 30.2 pg (27.0-33.0); MCHC 33.1 % (32.0-36.0); MCV 91 fL (80-95); MPV 8.6 fL (8.0-11.0); Platelet Count 297 10^3/uL (130-400); RBC 4.31 10^6/uL (3.93-5.22); RDW 13.6 % (11.7-14.6); RDW-SD 46.5 fL; WBC 13.27 10^3/uL (4.4-10.8)
[2022-06-16 19:54] LABS: ALT 12 U/L (14-59); AST 11 U/L (15-37); Albumin 3.5 g/dL (3.4-5.0); Alkaline Phosphatase 92 U/L (46-116); Anion Gap 8.9 mmol/L (3-11); BUN 23 mg/dL (7-18); Bilirubin, Total 0.1 mg/dL (0.2-1.0); CO2 28.1 mmol/L (21.0-32.0); CREATININE 1.3 mg/dL (0.55-1.02); Calcium 9.1 mg/dL (8.5-10.1); Calculated LDL 175 mg/dL (<100); Chloride 98 mmol/L (98-107); Cholesterol 259 mg/dL (<200); Estimated GFR 53.31 (mL/min/1.73m2); Glucose 127 mg/dL (74-106); HDL Cholesterol 41 mg/dL (40-60); Potassium 4.8 mmol/L (3.5-5.1); Sodium 135 mmol/L (136-145); Total Protein 7.2 g/dL (6.4-8.2); Triglyceride 217 mg/dL (<150)
[2022-06-18 11:24] LABS: Hepatitis B Surface Ag Negative (Negative)
[2022-06-18 11:38] LABS: HIV-1/2 Ag & Ab Screen Negative (Negative)
[2022-06-18 12:15] LABS: HCV RNA Qualitative Undetected (Undetected)
[2022-06-18 13:31] LABS: Syphilis Serology (RPR) Negative (Negative)
[2022-06-23 09:34] LABS: Cocaine Negative ng/mL (Cutoff: 50)
== END 2022-06-16 17:23 | disposition home or self-care (01) ==
LOC: NCHCN 17:22
PROVIDERS: PCP Family Medicine; Visit Provider Family Medicine
DX: K74.01 Hepatic fibrosis, early fibrosis (principal); N18.1 Chronic kidney disease, stage 1; Z11.4 Encounter for screening for human immunodeficiency virus [HIV]; Z11.59 Encounter for screening for other viral diseases; E11.9 Type 2 diabetes mellitus without complications; F15.10 Other stimulant abuse, uncomplicated
CPT/HCPCS: 80053; 80061; 85027; 87340; 87389; 87522; 80353; 86592

== ENCOUNTER → 2022-07-06 01:20 | Outpatient (CLI) | payer MEDICAID, SELFPAY ==
--- NOTE | 2022-07-06 07:00 | DI.US_ITS ---
Exam(s) US RENAL EXAM: US RENAL CLINICAL HISTORY: ? hydronephrosis post operatively,URETERAL STONE, N20.1 TECHNIQUE: Ultrasound of both kidneys performed using standard protocol. COMPARISON: US US ABDOMEN from 06/08/2019 FINDINGS: RIGHT KIDNEY: Measures 10.3 cm in length. No cysts evident. Normal cortical thickness and corticomedullary differen tiation .No solid masses No intrarenal calculi nor hydronephrosis. LEFT KIDNEY: Measures 10.6 cm in length. No cysts evident. Normal cortical thickness and corticomedullary differe ntiaion. No solids masses. No intrarenal calculi nor hydonephrosis. URINARY BLADDER: Prevoid volume is 13 cc Therefore bladder was not adequately distended for proper examination. IMPRESSION: 1. No significant ultrasound findings in the kidneys. 2. Urinary bladder was not adequately filled for evaluation. DATA REPOSITORY:
== END ==
PROVIDERS: PCP Family Medicine; Visit Provider Urology
DX: N20.1 Calculus of ureter (principal)
CPT/HCPCS: 76770

== ENCOUNTER 2022-07-26 15:59 | Outpatient (REF) | payer MEDICAID, SELFPAY ==
[2022-07-29 11:31] LABS: Methylphenidate 479 ng/mL (Cutoff: 10)
[2022-07-30 13:58] LABS: Benzoylecgonine 269 ng/mL (Cutoff: 50); Cocaine Negative ng/mL (Cutoff: 50); Cocaine Interpretation Positive.
== END 2022-07-26 16:00 | disposition home or self-care (01) ==
LOC: LBN 15:59
PROVIDERS: PCP Family Medicine; Visit Provider Registered Nurse
DX: F90.0 Attention-deficit hyperactivity disorder, predominantly inattentive type (principal)
CPT/HCPCS: 80360; 80353

== ENCOUNTER 2022-09-24 18:37 | Outpatient (REF) | payer MEDICAID, SELFPAY ==
[2022-09-29 04:47] LABS: Amphetamine Negative ng/mL (Cutoff: 25); Amphetamines Interpretation Negative.; MDA (Ecstasy Metabolite) Negative ng/mL (Cutoff: 25); MDMA (Ecstasy) Negative ng/mL (Cutoff: 25); Methamphetamine Negative ng/mL (Cutoff: 25); Phentermine Negative ng/mL (Cutoff: 25); Pseudoephedrine/Ephedrine Negative ng/mL (Cutoff: 25)
[2022-09-29 16:56] LABS: Methylphenidate 4785 ng/mL (Cutoff: 10)
[2022-09-30 17:18] LABS: Codeine 206 ng/mL (Cutoff: 25); Dihydrocodeine Negative ng/mL (Cutoff: 25); Hydrocodone Negative ng/mL (Cutoff: 25); Hydromorphone Negative ng/mL (Cutoff: 25); Morphine Negative ng/mL (Cutoff: 25); Naloxone Negative ng/mL (Cutoff: 25); Norhydrocodone Negative ng/mL (Cutoff: 25); Noroxycodone Negative ng/mL (Cutoff: 25); Noroxymorphone Negative ng/mL (Cutoff: 25); Opiates Interpretation Positive.
== END 2022-09-24 18:38 | disposition home or self-care (01) ==
LOC: NCHCN 18:37
PROVIDERS: Registered Nurse; PCP Family Medicine; Visit Provider Family Medicine
DX: F90.9 Attention-deficit hyperactivity disorder, unspecified type (principal); F15.10 Other stimulant abuse, uncomplicated
CPT/HCPCS: 80324; 80360; 80361; 80362; 80365

== ENCOUNTER 2022-09-25 12:34 | Emergency (ER) | payer MEDICAID, SELFPAY ==
[2022-09-25 12:38] VITALS: BP 151/93; PULSE 79; RESP 22; TEMP 37; O2SAT 100
[2022-09-25 13:00] LABS: Bilirubin Negative (Negative); Blood Negative (Negative); Clarity Clear (Clear); Glucose Negative (Negative); Ketones Trace mg/dL (Negative); Leukocyte Esterase Negative (Negative); Nitrite Negative (Negative); Specific Gravity 1.025 (1.005-1.025); Urobilinogen 0.2 mg/dL (Up to 0.2)
[2022-09-25 13:08] LABS: Bacteria Few HPF (Negative); C & S Indicated? No/Sq. Contamination; Crystals Few Amorphous HPF (Negative); Epithelial Cells Moderate HPF (Negative); Mucus Trace (Negative); RBC 0-2 HPF (0-2); WBC 0-2 HPF (0-5)
--- NOTE | 2022-09-25 13:31 | DI.CT_ITS ---
Exam(s) CT ABDOMEN PELVIS W EXAM: CT ABDOMEN PELVIS W CLINICAL HISTORY: lower abdominal pain. TECHNIQUE: Imaging Protocol: Axial computed tomography images with coronal and sagittal reformatted images were created and reviewed CONTRAST MATERIAL: Intravenous: Omnipaque 350 Contrast volume:100 ml Oral: no COMPARISON: CT CT RENAL COLIC WO from 01/11/2022 FINDINGS: ABDOMEN: Lung Bases: Patchy densities right posterior costophrenic angle may represent acute infiltrate. Liver: Normal density. No measurable mass. Gallbladder and biliary tract: Status post cholecystectomy. No radiodense calculus Pancreas: Normal density, no abnormal calcifications or inflammatory process. Spleen: Normal. Kidneys: Normal size, contour and axis. No radiodense stones or obstructive uropathy. No suspicious m asses seen. Adrenal glands: No masses seen. Abdominal Aorta: Abdominal portion non-dilated. Soft tissues: Unremarkable. PELVIS: Bladder: No gross wall thickening. No calculi.No focal mass. Bowel: Large quantity of stool. Localized area of bowel wall thickening and mild luminal narrowing a pproximately 5 cm in length seen in the mid descending colon. This may represent a mass versus area of inflammation. No perforation or abscess peer appendix not identified. Peritoneal cavity: No ascites, collection or mesenteric inflammatory response. Bones: Within normal limits for age. Reproductive organs: Within normal limits. Lymph nodes: Unremarkable. Impression: Large quantity of stool throughout the colon. Localized area of bowel wall thickening the mid descen ding colon could represent mass versus area of inflammation. Consider colonoscopy. RADIATION DOSE DELIVERED: 839.63mGy.cm Total DLP DATA REPOSITORY: All CT scans at this facility are submitted to the National Radiology Data Registry (NRDR) Dose Index Registry (DIR) with the [employer] (ACR). RADIATION OPTIMIZATION: All CT scans at this facility use at least one of these dose optimization te chniques: automated exposure control; mA and/or kV adjustment per patient size (includes targeted exa ms where dose is matched to clinical indication); or iterative reconstruction.
[2022-09-25 14:45] LABS: Abs Immature Grans 0.13 10^3/uL (0.0-0.06); Absolute Lymphocyte Count 4.47 10^3/uL (1.2-3.4); Basophils % 0.5; Eosinophils % 1.1; HCT 43.7 % (36.0-46.0); HGB 15.2 g/dL (11.2-15.7); Immature Grans % 0.7; Lymphocytes % 25.4; MCH 29.9 pg (27.0-33.0); MCHC 34.8 % (32.0-36.0); MCV 86 fL (80-95); MPV 8.3 fL (8.0-11.0); Monocytes % 4.5; Neutrophils % 67.8; Platelet Count 350 10^3/uL (130-400); RBC 5.09 10^6/uL (3.93-5.22); RDW 12.7 % (11.7-14.6); RDW-SD 39.3 fL; WBC 17.59 10^3/uL (4.4-10.8)
[2022-09-25] MEDS: Normal Saline Flush 10 ML SYR IVP (14:48)
[2022-09-25] MEDS: Omnipaque 350 MG/ML 100 ML BTL IJ (14:48)
[2022-09-25] MEDS: Normal Saline - Diluent 50 ML VIAL IJ (14:50)
[2022-09-25 14:53] LABS: Absolute Basophil Count 0.09 10^3/uL (0.0-0.2); Absolute Eosinophil Count 0.19 10^3/uL (0.0-0.7); Absolute Monocyte Count 0.79 10^3/uL (0.1-0.8); Absolute Neutrophil Count 11.93 10^3/uL (1.2-6.7)
[2022-09-25 14:58] LABS: ALT 15 U/L (14-59); AST 11 U/L (15-37); Albumin 3.9 g/dL (3.4-5.0); Alkaline Phosphatase 101 U/L (46-116); Anion Gap 9.4 mmol/L (3-11); BUN 15 mg/dL (7-18); Bilirubin, Total 0.4 mg/dL (0.2-1.0); CO2 30.6 mmol/L (21.0-32.0); CREATININE 1.4 mg/dL (0.55-1.02); Calcium 9.8 mg/dL (8.5-10.1); Chloride 95 mmol/L (98-107); Estimated GFR 48.78 (mL/min/1.73m2); Glucose 177 mg/dL (74-106); Lipase 38 U/L (16-77); Potassium 4.7 mmol/L (3.5-5.1); Sodium 135 mmol/L (136-145); Total Protein 8.5 g/dL (6.4-8.2)
[2022-09-25] MEDS: ACETAMINOPHEN 1,000 MG/100 ML BTL 400 MG IVPB (15:03)
[2022-09-25] MEDS: Normal Saline 1,000 ML 1000 ML IV (15:03)
--- NOTE | 2022-09-25 15:34 | DI.VRAD_ITS ---
PROCEDURE INFORMATION: Exam: CT Abdomen And Pelvis With Contrast Exam date and time: 09/25/2022 2:44 PM Age: 41 years old Clinical indication: Other: Lower abdominal pain TECHNIQUE: Imaging protocol: Computed tomography of the abdomen and pelvis with contrast. Radiation optimization: All CT scans at this facility use at least one of these dose optimization techniques: automated exposure control; mA and/or kV adjustment per patient size (includes targeted exams where dose is matched to clinical indication); or iterative reconstruction. Contrast material: OMNIPAQUE 350; Contrast volume: 100 ml; Contrast route: INTRAVENOUS (IV); COMPARISON: CT ABDOMEN PELVIS W 08/22/2019 13:08 FINDINGS: Lungs: Right lower lobe infiltrate. Liver: Normal. No mass. Gallbladder and bile ducts: Cholecystectomy. Mildly prominent intrahepatic biliary ducts consistent with cholecystectomy. Pancreas: Normal. No ductal dilation. Spleen: Normal. No splenomegaly. Adrenal glands: Normal. No mass. Kidneys and ureters: Stable bilateral subcentimeter renal cysts. Stomach and bowel: Very large solid stool volume. Normal caliber small bowel. Circumferential thickening and narrowing of the lumen of a 5.3 cm section of distal left colon with pericolonic fat infiltration. This thickened section of distal left colon may represent a developing colonic mass. Appendix: The appendix is not identified. Intraperitoneal space: Unremarkable. No free air. No significant fluid collection. Vasculature: Atherosclerotic disease. No abdominal aortic aneurysm. Lymph nodes: Unremarkable. No enlarged lymph nodes. Urinary bladder: Unremarkable as visualized. Reproductive: Unremarkable as visualized. Bones/joints: Unremarkable. No acute fracture. Soft tissues: Unremarkable. IMPRESSION: 1. Marked constipation. 2. 5.3 cm section of thickened distal left colon with pericolonic fat infiltration of concern for possible colonic mass or inflammation or infectious process. 3. Multiple additional findings as discussed above. Dictated and Authenticated by: Morena Crowley MD. Ordering:MORAIMA Carbajal MD
--- NOTE | 2022-09-25 15:58 | ED.GENADUL_ITS ---
Discharge Plan Disposition Patient Disposition: Home Discharge Details Clinical Impression: Sigmoid diverticulitis Primary Care Provider: Damian Murillo ED Provider: Raven Hewitt Home Meds and New Rx's Prescriptions: New docusate sodium [Colace] 100 mg capsule 100 mg PO BID Qty: 30 0RF ciprofloxacin HCl [Cipro] 500 mg tablet 500 mg PO BID Qty: 14 0RF metronidazole 500 mg tablet 500 mg PO TID Qty: 21 0RF promethazine 25 mg tablet 25 mg PO TID PRNQty: 14 0RF Continued albuterol sulfate 90 mcg/actuation aerosol powdr breath activated 2 inh IH Q4H PRN (Reason: shortness of breath or wheezing) methadone 10 mg/5 mL solution 165 mg PO DAILY ferrous sulfate [FeroSul] 325 mg (65 mg iron) tablet 325 mg PO DAILY bupropion HCl 300 mg tablet extended release 24 hr 300 mg PO DAILY Qty: 30 5RF omeprazole [Prilosec] 20 MG capsule,delayed release(DR/EC) 40 mg PO DAILY loratadine 10 MG tablet 10 mg PO DAILY omega-3 fatty acids-fish oil 1 EACH capsule 2 ea PO DAILY (DME) OneTouch Verio test strips Strip See Rx Instructions .ROUTE .MEDSUPPLY Qty: 10 Rx Instructions: daily As directed (DME) lancets [OneTouch UltraSoft Lancets] Misc See Rx Instructions .ROUTE .MEDSUPPLY Qty: 100 Rx Instructions: DAILY multivitamin Tablet 1 tab PO DAILY levetiracetam 750 mg tablet 750 mg PO BID metformin 500 mg tablet 500 mg PO QAM cholecalciferol (vitamin D3) [Vitamin D3] 1,000 unit Capsule 1,000 unit PO DAILY olanzapine 15 mg tablet 15 mg PO BID Patient Comments: TAKE ONE TABLET BY MOUTH TWICE A DAY divalproex 500 mg tablet extended release 24 hr 500 mg PO DAILY Patient Comments: TAKE 1 TABLET BY MOUTH EVERY DAY sennosides-docusate sodium 8.6-50 mg Tablet 1 tab PO BID PRN PRN polyethylene glycol 3350 [Miralax] 17 gram Powder In Packet 17 g PO DAILY PRN PRN dexmethylphenidate [Focalin XR] 35 mg capsule,ER biphasic 50-50 40 mg PO DAILY clonidine HCl 0.1 mg Tablet 0.1 mg PO BID hydroxyzine HCl 25 mg tablet 25 mg PO HS Discharge Instructions Instructions: Diverticulitis (ED), Constipation (ED), Diverticulitis Diet (ED) Additional Instructions: Please follow-up with your primary care physician on Tuesday for reassessment Take the antibiotics as prescribed Yogurt daily while on antibiotics Take the Phenergan as needed for nausea and vomiting Restart the Colace for constipation and take MiraLAX daily until you have a bowel movement Increase fluid hydration Return earlier with new or worsening complaints You will need an outpatient colonoscopy, this is very important to fully evaluate the findings on your CT scan Referrals: Damian Murillo [Primary Care Provider] - Discharge Data Discharge Date/Time-TO BE ENTERED AT DEPARTURE: 09/25/22 16:35 Medical Decision Making 41-year-old female presents with abdominal pain, history of IV drug use, given clinical exam findings and history, will order CT abdomen pelvis and diagnostic blood work CT scan shows evidence of possible sigmoid diverticulitis or mass, she will be placed on Cipro and Flagyl as she has a penicillin allergy, QTc is not prolonged on EKG which was interpreted today Pain is controlled, able to tolerate p.o., given first dose of antibiotics prior to discharge Patient does have a notable white count of 17,000, she will need this rechecked by her primary care physician and surgery Discussed with Dr. Porter regarding CT scan and leukocytosis, recommendation to start patient on antibiotics and close outpatient colonoscopy, patient made aware regarding possible mass and need for outpatient colonoscopy and expressed understanding, fully alert and oriented throughout this encounter Return precautions reviewed and patient expressed understanding HPI General Date/Time Provider Initiated Documentation: 09/25/22 13:24 . HPI Narrative: This 41-year-old female presents with abdominal pain, nausea and vomiting that started yesterday. Unsure regarding last bowel movement. Has had nausea and vomiting in the past 24 hours, unsure the number of episodes. Denies any chance of . Denies any fever or chills. Denies any chest pain or shortness of breath. History of IV drug abuse, taking methadone, denies any current IV drug use. Denies any urinary complaints. Denies any exacerbating or alleviating factors. Denies risk of sexually transmitted disease. Related Data Home Medications Medication Instructions Recorded Confirmed omeprazole 20 mg capsule,delayed 40 mg PO DAILY 04/18/15 09/25/22 release (Prilosec) loratadine 10 mg tablet 10 mg PO DAILY 07/04/17 09/25/22 omega-3 fatty acids-fish oil 300 2 ea PO DAILY 12/01/17 09/25/22 mg-1,000 mg capsule bupropion HCl 300 mg 24 hr tablet, 300 mg PO DAILY #30 tab-caps 11/13/18 09/25/22 extended release cholecalciferol (vitamin D3) 25 1,000 unit PO DAILY 04/22/19 09/25/22 mcg (1,000 unit) capsule (Vitamin D3) ferrous sulfate 325 mg (65 mg 325 mg PO DAILY 04/23/20 09/25/22 iron) tablet (FeroSul) blood sugar diagnostic (DryncTouch #10 ea 06/05/20 07/06/22 Verio test strips) lancets ([employer] UltraSoft #100 ea 06/05/20 07/06/22 Lancets) levetiracetam 750 mg tablet 750 mg PO BID 06/05/20 09/25/22 metformin 500 mg tablet 500 mg PO QAM 06/05/20 09/25/22 multivitamin 1 tab PO DAILY 06/05/20 09/25/22 albuterol sulfate 90 mcg/actuation 2 inh inhalation Q4H PRN shortness 07/21/20 09/25/22 breath activated powder inhaler of breath or wheezing divalproex 500 mg tablet,extended 500 mg PO DAILY 01/10/22 09/25/22 release 24 hr olanzapine 15 mg tablet 15 mg PO BID 01/10/22 09/25/22 polyethylene glycol 3350 17 gram 17 g PO DAILY PRN PRN 01/11/22 09/25/22 oral powder packet (Miralax) sennosides 8.6 mg-docusate sodium 1 tab PO BID PRN PRN 01/11/22 09/25/22 50 mg tablet dexmethylphenidate 35 mg 40 mg PO DAILY 01/26/22 09/25/22 capsule,extended release -80 (Focalin XR) methadone 10 mg/5 mL oral solution 165 mg PO DAILY 07/06/22 09/25/22 ciprofloxacin HCl 500 mg tablet 500 mg PO BID #14 tabs 09/25/22 (Cipro) clonidine HCl 0.1 mg tablet 0.1 mg PO BID 09/25/22 09/25/22 docusate sodium 100 mg capsule 100 mg PO BID #30 caps 09/25/22 (Colace) hydroxyzine HCl 25 mg tablet 25 mg PO HS 09/25/22 09/25/22 metronidazole 500 mg tablet 500 mg PO TID #21 tabs 09/25/22 promethazine 25 mg tablet 25 mg PO TID PRN #14 tabs 09/25/22 Previous Rx's Medication Instructions Recorded bupropion HCl 300 mg 24 hr tablet, 300 mg PO DAILY #30 tab-caps 11/13/18 extended release ciprofloxacin HCl 500 mg tablet 500 mg PO BID #14 tabs 09/25/22 (Cipro) docusate sodium 100 mg capsule 100 mg PO BID #30 caps 09/25/22 (Colace) metronidazole 500 mg tablet 500 mg PO TID #21 tabs 09/25/22 promethazine 25 mg tablet 25 mg PO TID PRN #14 tabs 09/25/22 Allergies Allergy/AdvReac Type Severity Reaction Status Date / Time Penicillins Allergy Intermediate hives/swell Verified 09/25/22 12:43 ing sulfamethoxazole Allergy Mild Verified 09/25/22 12:43 [From Bactrim] trimethoprim [From Bactrim] Allergy Mild Verified 09/25/22 12:43 Sulfa (Sulfonamide AdvReac Severe body aches Verified 09/25/22 12:43 Antibiotics) erythromycin base AdvReac Intermediate stomach Verified 09/25/22 12:43 pain morphine AdvReac Intermediate Nausea Verified 09/25/22 12:43 ondansetron HCl AdvReac Intermediate Hives Verified 09/25/22 12:43 [From Zofran (as hydrochloride)] General Stated Complaint: Abd Prob RAVEN: 3 PFSH All Active Problems (Updated 09/25/22 @ 16:06 by DUKE Guidry) Sigmoid diverticulitis (Acute) Ovarian cyst (Acute) Vulvitis (Acute) 04/22/2018. Secondary to contact dermatitis. Negative vag path screen, negative STI check. Treated with Dosepak of steroids and topical lidocaine. Screening and evaluation for female sterilization (Acute) 04/2019. Not a candidate for OCPs. Declines L ARC. Given info on laparoscopic sterilization. 09/2019. Medicaid consent obtained. Postoperative pain (Acute) History of tubal ligation (Chronic) 12/19/19. Laparoscopic left salpingectomy. Patient previously had a right salpingectomy. Elevated serum creatinine (Acute) 12/2019: 1.05 at time of preop evaluation Pelvic pain (Acute) Vaginal discharge (Acute) Labial lesion (Acute) (Acute) Genital HSV (Acute) Trichomoniasis (Acute) Right carpal tunnel syndrome (Acute) Right cervical radiculopathy (Acute) Infection due to trichomonas (Acute) Polysubstance (including opioids) dependence with physiological dependence (Chronic) Non-insulin treated type 2 diabetes mellitus (Acute) KOBI (acute kidney injury) (Acute) Frequency of micturition (Acute) Medical History (Updated 09/25/22 @ 16:06 by DUKE Guidry) ADHD Alcohol use Amenorrhea Amenorrhea, secondary 06/2014 Nl pelvic us. ES 3.5mm. No response to Progestin challenges. Nl labs. Asthma, moderate persistent Bipolar disorder ADD, PTSD, Anxiety and Depression Central sleep apnea Cervical radiculopathy Chronic diarrhea CKD (chronic kidney disease), stage III Diabetes type 2, controlled Pt. states she tested her blood sugar 12/15 and it was 400, and not sure why it was so high Dyslipidemia E. coli pyelonephritis Eating disorder GERD Gram-negative bacteremia Hepatic fibrosis Hepatitis C pt. states she was treated and is now non-detectable History of intravenous drug abuse states she has not used in 9 years Hydronephrosis with obstructing calculus IVDU Low back pain Metabolic syndrome Methamphetamine abuse Migraine headache Numbness and tingling of right arm Opioid dependence Otitis externa, chronic Problem related to living arrangement PTSD (post-traumatic stress disorder) Rhinitis, allergic Right distal ureteral calculus Seizure disorder Pt. states she has not had a seizure in a very long time, states it was a result of ovrdosing on drugs Sexually transmitted disease exposure Tobacco dependency Unspecified disorder resulting from impaired renal function Surgical History Cholecystectomy Diagnostic Laproscopy (~2005) History of tonsillectomy molar extraction , Ectopic (~2010) Social History Smoking/Tobacco Use Status: Current every day Tobacco Type: cigarettes Smoking risk assessment performed?: Yes Alcohol Intake: never Drug use: Daily Substance use type: marijuana Household members: none Housing: apartment current occupation: Disabled Pets and animals: Yes Pets and animals: cat(s) What type of physical activity do you participate in: none and independent ambulation Seatbelt use: always Do you feel safe at home: Yes Do you feel safe in your relationship?: Yes Exam Const General: cooperative and disheveled Orientation: alert and oriented x3 Eyes Pupils: PERRL Resp Effort & Inspection: normal respiratory effort Auscultation: clear to auscultation bilaterally Cardio Rate: regular rate Rhythm: regular rhythm GI Inspection: normal to inspection Other: Mild diffuse lower abdominal tenderness, no rebound or guarding Skin General skin exam: no rashes or lesions noted Neuro General: patient alert and patient oriented x3 Course Vital Signs Vital signs: Vital Signs Temperature 37.0 C 09/25/22 12:38 Pulse 79 09/25/22 12:38 Respiratory Rate 22 09/25/22 12:38 Blood Pressure 151/93 H 09/25/22 12:38 Pulse Oximetry 100 09/25/22 12:38 Temperature 37.0 C 09/25/22 12:38 Temperature Source Oral 09/25/22 12:38 Pulse 79 09/25/22 12:38 Respiratory Rate 22 09/25/22 12:38 Respiratory Effort Normal, Non-Labored 09/25/22 12:42 Blood Pressure 151/93 H 09/25/22 12:38 Blood Pressure Position Sitting 09/25/22 12:38 Pulse Oximetry 100 09/25/22 12:38 Oxygen Delivery Method Room Air 09/25/22 12:38 Oxygen Flow Rate 0 09/25/22 12:38 Pain Level 4 09/25/22 12:38 Lab/Test Results Lab/Test Results: Laboratory Tests Range/Units 09/25/22 09/25/22 09/25/22 12:55 14:30 14:30 WBC (4.4-10.8) 10^3/uL 17.59 H RBC (3.93-5.22) 10^6/uL 5.09 Hgb (11.2-15.7) g/dL 15.2 Hct (36.0-46.0) % 43.7 MCV (80-95) fL 86 MCH (27.0-33.0) pg 29.9 MCHC (32.0-36.0) % 34.8 RDW (11.7-14.6) % 12.7 Plt Count (130-400) 10^3/uL 350 MPV (8.0-11.0) fL 8.3 Immature Gran % 0.7 Neutrophils % 67.8 Lymphocytes % 25.4 Monocytes % 4.5 Eosinophils % 1.1 Basophils % 0.5 Nucleated RBC % (0.0-0.3) % 0.0 Absolute Neutrophils (1.2-6.7) 10^3/uL 11.93 H Absolute Lymphocytes (1.2-3.4) 10^3/uL 4.47 H Absolute Monocytes (0.1-0.8) 10^3/uL 0.79 Absolute Eosinophils (0.0-0.7) 10^3/uL 0.19 Absolute Basophils (0.0-0.2) 10^3/uL 0.09 Sodium (136-145) mmol/L 135 L Potassium (3.5-5.1) mmol/L 4.7 Chloride (98-107) mmol/L 95 L Carbon Dioxide (21.0-32.0) mmol/L 30.6 Anion Gap (3-11) mmol/L 9.4 BUN (7-18) mg/dL 15 Creatinine (0.55-1.02) mg/dL 1.4 H Est GFR (CKD-EPI 2020) (mL/min/1.73m2) 48.78 Glucose (74-106) mg/dL 177 H Calcium (8.5-10.1) mg/dL 9.8 Total Bilirubin (0.2-1.0) mg/dL 0.4 AST (15-37) U/L 11 L ALT (14-59) U/L 15 Alkaline Phosphatase (46-116) U/L 101 Total Protein (6.4-8.2) g/dL 8.5 H Albumin (3.4-5.0) g/dL 3.9 Lipase (16-77) U/L 38 Urine Color (Yellow) Yellow Urine Clarity (Clear) Clear Urine pH (5-8) 7.0 Ur Specific [place] (1.005-1.025) 1.025 Urine Protein (Negative) mg/dL Trace H Urine Ketones (Negative) mg/dL Trace H Urine Blood (Negative) Negative Urine Nitrite (Negative) Negative Urine Bilirubin (Negative) Negative Urine Urobilinogen (Up to 0.2) mg/dL 0.2 Ur Leukocyte Esterase (Negative) Negative Urine RBC (0-2) HPF 0-2 Urine WBC (0-5) HPF 0-2 Ur Epithelial Cells (Negative) HPF Moderate Urine Crystals (Negative) HPF Few Amorphous Urine Bacteria (Negative) HPF Few Urine Casts (Negative) LPF Urine Mucus (Negative) Trace Ur Culture Indicated? No/Sq. Contamination Urine Glucose (Negative) mg/dL Negative
--- NOTE | 2022-09-25 16:00 | RT.EKG_ITS ---
APPROVED REPORT Exam: Resting ECG Reason for Exam: to eval for qtc Patient Location: E HR:74 bpm ECG Measurements Heart Rate 74 AXIS IN 177 P 38 QRSd 82 QRS 5 QT 406 T 36 QTc 452 Conclusion Sinus rhythm...normal P axis, V-rate 60- 99 sinus rhythm, normal axis, normal intervals, non ischemic
[2022-09-25 16:28] VITALS: BP 134/97; PULSE 78; RESP 18; TEMP 37; O2SAT 100
[2022-09-25] MEDS: Docusate Sodium 100 MG CAP ×2 (16:30)
[2022-09-25] MEDS: metroNIDAZOLE 500 MG TAB, 3 TABS/BTL PO (16:30)
--- NOTE | 2022-09-25 16:33 | NUR.NOTE ---
upon discharge, patient upset and crying because dad was angry he had to come get her. she stated he would not take her to the pharmacy today, but she could cook pickled meat the meds tomorrow. upon discharge, patient given 1 bottle of cipro with two tabs, one bottle of flagyl with 3 tabs, one bottle of promethazine with 3 tabs, and 2 colace capsules. Advised patient not to drink while taking these medications.
== END 2022-09-25 16:35 | disposition home or self-care (01) ==
PROVIDERS: Emergency Provider Physician Assistant; PCP Family Medicine
DX: K57.32 Diverticulitis of large intestine without perforation or abscess without bleeding (principal); Z88.0 Allergy status to penicillin; D72.829 Elevated white blood cell count, unspecified; J45.909 Unspecified asthma, uncomplicated; E11.22 Type 2 diabetes mellitus with diabetic chronic kidney disease; N18.30 Chronic kidney disease, stage 3 unspecified
CPT/HCPCS: 80053; 83690; 93005; 96361; 96365; 96375; 99285; 74177; 81003; 81015; 85025; 93010; 99284; J0131; J3490

== ENCOUNTER 2022-10-02 09:55 | Emergency (ER) | payer MEDICAID, SELFPAY ==
[2022-10-02] VITALS (51 sets, daily range): BP systolic 95–169; BP diastolic 77–103; PULSE 71–93; RESP 8–41; TEMP 36.7; O2SAT 96–100
--- NOTE | 2022-10-02 10:15 | RT.EKG_ITS ---
APPROVED REPORT Exam: Resting ECG Reason for Exam: ?qt prolongation Patient Location: E HR:87 bpm ECG Measurements Heart Rate 87 AXIS HI 172 P 53 QRSd 77 QRS 35 QT 362 T 53 QTc 435 Conclusion Sinus rhythm...normal P axis, V-rate 60- 99
--- NOTE | 2022-10-02 10:15 | DI.CT_ITS ---
Exam(s) CT ABDOMEN PELVIS CTA EXAM: CT ABDOMEN PELVIS CTA CLINICAL HISTORY: diffuse abdominal pain. TECHNIQUE: Imaging Protocol: Axial CT angiography was performed with multi-slice acquisition and m ulti-planar and/or 3D reconstructions. CONTRAST MATERIAL: Intravenous: Omnipaque 350 Contrast volume:100mL Oral: No COMPARISON: CT CT ABDOMEN PELVIS W from 09/25/2022 FINDINGS: ABDOMEN AND PELVIS: Abdomen: Celiac axis/mesenteric arteries: No evidence of occlusion or significant stenosis. Renal Arteries: No evidence of occlusion or significant stenosis. There is a single renal artery perf using each kidney. Aorta: No evidence of occlusion or significant stenosis. No aneurysm or dissection. Pelvis: Iliac Arteries: No evidence of occlusion or significant stenosis. Common Femoral Arteries: No evidence of occlusion or significant stenosis. ABDOMEN: Lung bases: Basilar atelectasis. There is a moderate hiatal hernia. Liver: Normal density. No measurable mass. Portal, Superior Mesenteric, and Splenic Veins: Unremarkable. Gallbladder and Biliary Tract: Status post cholecystectomy. No biliary ductal dilatation. Pancreas: Normal density, no abnormal calcifications or inflammatory process. Spleen: Normal. Adrenals: No masses seen. Kidneys: Normal size, contour and axis. No radiodense stones or obstructive uropathy. No masses seen. Bowel: No obstruction or bowel wall thickening. There is a large amount of stool in the colon suspici ous for constipation. No evidence of appendicitis. Peritoneal Cavity: No ascites, collection or mesenteric inflammatory response. No free air. Lymph Nodes: Within normal limits. Bones: Unremarkable. Soft Tissues: Unremarkable. PELVIS: Bladder: Symmetric distention, no gross wall thickening. Reproductive Organs: Unremarkable as visualized. Lymph Nodes: Within normal limits. Bones: Within normal limits. IMPRESSION: 1. Unremarkable CT angiography of the abdomen and pelvis. 2. Constipation. RADIATION DOSE DELIVERED: 816.67mGy.cm Total DLP DATA REPOSITORY: All CT scans at this facility are submitted to the National Radiology Data Registry (NRDR) Dose Index Registry (DIR) with the [employer] (ACR). RADIATION OPTIMIZATION: All CT scans at this facility use at least one of these dose optimization te chniques: automated exposure control; mA and/or kV adjustment per patient size (includes targeted exa ms where dose is matched to clinical indication); or iterative reconstruction.
--- NOTE | 2022-10-02 10:25 | ED.GENADUL_ITS ---
Discharge Plan Disposition Patient Disposition: Home Condition: Stable Discharge Details Clinical Impression: Abdominal pain Primary Care Provider: Damian Murillo ED Provider: Jai Arriaza Home Meds and New Rx's Prescriptions: Continued albuterol sulfate 90 mcg/actuation aerosol powdr breath activated 2 inh IH Q4H PRN (Reason: shortness of breath or wheezing) methadone 10 mg/5 mL solution 165 mg PO DAILY ferrous sulfate [FeroSul] 325 mg (65 mg iron) tablet 325 mg PO DAILY bupropion HCl 300 mg tablet extended release 24 hr 300 mg PO DAILY Qty: 30 5RF omeprazole [Prilosec] 20 MG capsule,delayed release(DR/EC) 40 mg PO DAILY loratadine 10 MG tablet 10 mg PO DAILY omega-3 fatty acids-fish oil 1 EACH capsule 2 ea PO DAILY (DME) OneTouch Verio test strips Strip See Rx Instructions .ROUTE .MEDSUPPLY Qty: 10 Rx Instructions: daily As directed (DME) lancets [OneTouch UltraSoft Lancets] Misc See Rx Instructions .ROUTE .MEDSUPPLY Qty: 100 Rx Instructions: DAILY multivitamin Tablet 1 tab PO DAILY levetiracetam 750 mg tablet 750 mg PO BID metformin 500 mg tablet 500 mg PO QAM cholecalciferol (vitamin D3) [Vitamin D3] 1,000 unit Capsule 1,000 unit PO DAILY olanzapine 15 mg tablet 15 mg PO BID Patient Comments: TAKE ONE TABLET BY MOUTH TWICE A DAY divalproex 500 mg tablet extended release 24 hr 500 mg PO DAILY Patient Comments: TAKE 1 TABLET BY MOUTH EVERY DAY sennosides-docusate sodium 8.6-50 mg Tablet 1 tab PO BID PRN PRN polyethylene glycol 3350 [Miralax] 17 gram Powder In Packet 17 g PO DAILY PRN PRN Patient Comments: not taking dexmethylphenidate [Focalin XR] 35 mg capsule,ER biphasic 50-50 40 mg PO DAILY clonidine HCl 0.1 mg Tablet 0.1 mg PO BID hydroxyzine HCl 25 mg tablet 25 mg PO HS docusate sodium [Colace] 100 mg capsule 100 mg PO BID Qty: 30 0RF ciprofloxacin HCl [Cipro] 500 mg tablet 500 mg PO BID Qty: 14 0RF metronidazole 500 mg tablet 500 mg PO TID Qty: 21 0RF Patient Comments: not taking promethazine 25 mg tablet 25 mg PO TID PRNQty: 14 0RF Discharge Instructions Instructions: Abdominal Pain (ED) Additional Instructions: follow up with your primary care provider within 1 week you can try using topical capsaicin if you feel more ill, have persistent vomiting or high fevers return to the emergency department Medical Decision Making 41 yo female with hx of prior ivdu on methadone and denies drug use other than marijuana comes in with continued abdominal discomfort intermittently. She was seen on 09/25 and had labs with wbc of [address] showing sigmoid mass vs inflammation. was placed on cipro/flagyl which she states she has taken but still has intermittent abdominal cramping and n/v. Denies chest pain, dyspnea, fevers, chills. She states the discomfort in her abdomen is all over. She is tender with soft palpation to the entire abdomen, it is not distended, normal bowel sounds. Unclear etiology for continued pain, will obtain cbc, cmp, lipase and ct to evaluate for possible pancreatitis, sbo, abscess. Consider cannabinoid hyperemesis syndrome as well given daily marijuana use. labs show lactate of 4.5, otherwise no acute findings, was a difficult iv start so feel it could be related to tourniquet time. CTA read as negative, does have constipation. She is stable, requesting d/c and doesn't want to wait for repeat lactate. She had normal appearing vasculature so doubt mesenteric ischemia. Advised to f/u with her pcp, return precautions given Differential Diagnosis Differential Diagnosis: diverticulitis, pancreatitis, sbo, cannabinoid hyperemesis Imaging Data Radiologic Study: Attestation: I personally reviewed and interpreted this imaging study as follows: Imaging: CT Scan Radiologist's impression: IMPRESSION: 1. Constipation with moderate to marked hard fecal loading in the ascending , transverse and descending colon. The fecal loading has improved in the sigmoid and descending colon since prior which is now under distended with impacted appearing hard stool in the remaining large bowel. 2. Otherwise no acute intra-abdominal abnormality. 3. [id number] sized hiatal hernia. Lab Data Lab results reviewed: Yes I reviewed the patient's lab results. ECG Data Attestation: I personally reviewed and interpreted this ECG (s) as follows: Prior ECG tracings: available for review Interpretation: sinus rhythm, rate of 87, pr 172, qtc 435 HPI General Mode of arrival: ambulatory . Date/Time Provider Initiated Documentation: 10/02/22 09:56 . Limitations to Documentation: no limitations . Information obtained by: patient . History of Present Illness 41 year old F presents to the emergency department with the chief complaint of abdominal pain, described as severe, with intensity rated at 8. Quality is described as aching and sharp, and is localized to the abdomen. Patient reports no radiation. Patient started experiencing this week(s) (1) and it has been intermittent. No relieving factors improve symptom(s), No exacerbating factors reported . Patient notes nausea/vomiting. Patient did receive the following treatments prior to arrival, none Related Data Home Medications Medication Instructions Recorded Confirmed omeprazole 20 mg capsule,delayed 40 mg PO DAILY 04/18/15 10/02/22 release (Prilosec) loratadine 10 mg tablet 10 mg PO DAILY 07/04/17 10/02/22 omega-3 fatty acids-fish oil 300 2 ea PO DAILY 12/01/17 10/02/22 mg-1,000 mg capsule bupropion HCl 300 mg 24 hr tablet, 300 mg PO DAILY #30 tab-caps 11/13/18 10/02/22 extended release cholecalciferol (vitamin D3) 25 1,000 unit PO DAILY 04/22/19 10/02/22 mcg (1,000 unit) capsule (Vitamin D3) ferrous sulfate 325 mg (65 mg 325 mg PO DAILY 04/23/20 10/02/22 iron) tablet (FeroSul) blood sugar diagnostic (OneTouch #10 ea 06/05/20 10/02/22 Verio test strips) lancets (OneTouch UltraSoft #100 ea 06/05/20 10/02/22 Lancets) levetiracetam 750 mg tablet 750 mg PO BID 06/05/20 10/02/22 metformin 500 mg tablet 500 mg PO QAM 06/05/20 10/02/22 multivitamin 1 tab PO DAILY 06/05/20 10/02/22 albuterol sulfate 90 mcg/actuation 2 inh inhalation Q4H PRN shortness 07/21/20 10/02/22 breath activated powder inhaler of breath or wheezing divalproex 500 mg tablet,extended 500 mg PO DAILY 01/10/22 10/02/22 release 24 hr olanzapine 15 mg tablet 15 mg PO BID 01/10/22 10/02/22 polyethylene glycol 3350 17 gram 17 g PO DAILY PRN PRN 01/11/22 09/25/22 oral powder packet (Miralax) sennosides 8.6 mg-docusate sodium 1 tab PO BID PRN PRN 01/11/22 10/02/22 50 mg tablet dexmethylphenidate 35 mg 40 mg PO DAILY 01/26/22 10/02/22 capsule,extended release -47 (Focalin XR) methadone 10 mg/5 mL oral solution 165 mg PO DAILY 07/06/22 10/02/22 ciprofloxacin HCl 500 mg tablet 500 mg PO BID #14 tabs 09/25/22 (Cipro) clonidine HCl 0.1 mg tablet 0.1 mg PO BID 09/25/22 10/02/22 docusate sodium 100 mg capsule 100 mg PO BID #30 caps 09/25/22 10/02/22 (Colace) hydroxyzine HCl 25 mg tablet 25 mg PO HS 09/25/22 10/02/22 metronidazole 500 mg tablet 500 mg PO TID #21 tabs 09/25/22 promethazine 25 mg tablet 25 mg PO TID PRN #14 tabs 09/25/22 10/02/22 Previous Rx's Medication Instructions Recorded bupropion HCl 300 mg 24 hr tablet, 300 mg PO DAILY #30 tab-caps 11/13/18 extended release ciprofloxacin HCl 500 mg tablet 500 mg PO BID #14 tabs 09/25/22 (Cipro) docusate sodium 100 mg capsule 100 mg PO BID #30 caps 09/25/22 (Colace) metronidazole 500 mg tablet 500 mg PO TID #21 tabs 09/25/22 promethazine 25 mg tablet 25 mg PO TID PRN #14 tabs 09/25/22 Allergies Allergy/AdvReac Type Severity Reaction Status Date / Time Penicillins Allergy Intermediate hives/swell Verified 10/02/22 10:15 ing sulfamethoxazole Allergy Mild Verified 10/02/22 10:15 [From Bactrim] trimethoprim [From Bactrim] Allergy Mild Verified 10/02/22 10:15 Sulfa (Sulfonamide AdvReac Severe body aches Verified 10/02/22 10:15 Antibiotics) erythromycin base AdvReac Intermediate stomach Verified 10/02/22 10:15 pain morphine AdvReac Intermediate Nausea Verified 10/02/22 10:15 ondansetron HCl AdvReac Intermediate Hives Verified 10/02/22 10:15 [From Zofran (as hydrochloride)] General Stated Complaint: Abd Prob RAVEN: 3 Review of Systems All systems reviewed & are unremarkable except as noted in HPI and below Constitutional Constitutional: Denies chills, Denies fever(s) and Denies weakness Cardiovascular Cardiovascular: Denies chest pain and Denies dyspnea Respiratory Respiratory: Denies cough and Denies dyspnea Musculoskeletal Musculoskeletal: Denies joint swelling Neurologic Neurologic: Denies weakness Psychiatric Psychiatric: Denies depression PFSH All Active Problems (Updated 10/02/22 @ 13:54 by Jai Arriaza MD) Sigmoid diverticulitis (Acute) Abdominal pain (Acute) Ovarian cyst (Acute) Vulvitis (Acute) 04/22/2018. Secondary to contact dermatitis. Negative vag path screen, negative STI check. Treated with Dosepak of steroids and topical lidocaine. Screening and evaluation for female sterilization (Acute) 04/2019. Not a candidate for OCPs. Declines L ARC. Given info on laparoscopic sterilization. 09/2019. Medicaid consent obtained. Postoperative pain (Acute) History of tubal ligation (Chronic) 12/19/19. Laparoscopic left salpingectomy. Patient previously had a right salpingectomy. Elevated serum creatinine (Acute) 12/2019: 1.05 at time of preop evaluation Pelvic pain (Acute) Vaginal discharge (Acute) Labial lesion (Acute) (Acute) Genital HSV (Acute) Trichomoniasis (Acute) Right carpal tunnel syndrome (Acute) Right cervical radiculopathy (Acute) Infection due to trichomonas (Acute) Polysubstance (including opioids) dependence with physiological dependence (Chronic) Non-insulin treated type 2 diabetes mellitus (Acute) KOBI (acute kidney injury) (Acute) Frequency of micturition (Acute) Medical History (Updated 10/02/22 @ 13:54 by Jai Arriaza MD) ADHD Alcohol use Amenorrhea Amenorrhea, secondary 06/2014 Nl pelvic us. ES 3.5mm. No response to Progestin challenges. Nl labs. Asthma, moderate persistent Bipolar disorder ADD, PTSD, Anxiety and Depression Central sleep apnea Cervical radiculopathy Chronic diarrhea CKD (chronic kidney disease), stage III Diabetes type 2, controlled Pt. states she tested her blood sugar 12/15 and it was 400, and not sure why it was so high Dyslipidemia E. coli pyelonephritis Eating disorder GERD Gram-negative bacteremia Hepatic fibrosis Hepatitis C pt. states she was treated and is now non-detectable History of intravenous drug abuse states she has not used in 9 years Hydronephrosis with obstructing calculus IVDU Low back pain Metabolic syndrome Methamphetamine abuse Migraine headache Numbness and tingling of right arm Opioid dependence Otitis externa, chronic Problem related to living arrangement PTSD (post-traumatic stress disorder) Rhinitis, allergic Right distal ureteral calculus Seizure disorder Pt. states she has not had a seizure in a very long time, states it was a result of ovrdosing on drugs Sexually transmitted disease exposure Tobacco dependency Unspecified disorder resulting from impaired renal function Surgical History Cholecystectomy Diagnostic Laproscopy (~2005) History of tonsillectomy molar extraction , Ectopic (~2010) Social History Smoking/Tobacco Use Status: Current every day Tobacco Type: cigarettes Smoking risk assessment performed?: Yes Alcohol Intake: never Drug use: Daily Substance use type: marijuana Household members: none Housing: apartment current occupation: Disabled Pets and animals: Yes Pets and animals: cat(s) What type of physical activity do you participate in: none and independent ambulation Seatbelt use: always Do you feel safe at home: Yes Do you feel safe in your relationship?: Yes Course Vital Signs Vital signs: Vital Signs Temperature 36.7 C 10/02/22 10:17 Pulse 93 H 10/02/22 10:17 Respiratory Rate 18 10/02/22 10:17 Blood Pressure 162/96 H 10/02/22 10:17 Pulse Oximetry 97 10/02/22 10:17 Temperature 36.7 C 10/02/22 10:17 Temperature Source Oral 10/02/22 10:17 Pulse 93 H 10/02/22 10:17 Respiratory Rate 18 10/02/22 10:17 Respiratory Effort Normal, Non-Labored 10/02/22 10:14 Blood Pressure 162/96 H 10/02/22 10:17 Pulse Oximetry 97 10/02/22 10:17 Oxygen Delivery Method Room Air 10/02/22 10:17 Oxygen Flow Rate 0 10/02/22 10:17
[2022-10-02 11:01] LABS: Abs Immature Grans 0.06 10^3/uL (0.0-0.06); Absolute Basophil Count 0.07 10^3/uL (0.0-0.2); Absolute Eosinophil Count 0.31 10^3/uL (0.0-0.7); Absolute Monocyte Count 0.56 10^3/uL (0.1-0.8); Basophils % 0.7; Eosinophils % 3.3; HCT 45.3 % (36.0-46.0); HGB 15.3 g/dL (11.2-15.7); Immature Grans % 0.6; Lymphocytes % 46.3; MCH 29.3 pg (27.0-33.0); MCHC 33.8 % (32.0-36.0); MCV 87 fL (80-95); MPV 8.2 fL (8.0-11.0); Monocytes % 5.9; Neutrophils % 43.2; Platelet Count 366 10^3/uL (130-400); RBC 5.23 10^6/uL (3.93-5.22); RDW 12.9 % (11.7-14.6); RDW-SD 40.8 fL
[2022-10-02 11:02] LABS: Lactate 4.2 mmol/L (0.6-1.4)
[2022-10-02] MEDS: Normal Saline 1,000 ML 1000 ML IV (11:04)
[2022-10-02] MEDS: Droperidol 5 MG/2 ML VIAL IVP (11:05)
[2022-10-02] MEDS: Ketorolac 15 MG/ML VIAL IVP (11:05)
[2022-10-02 11:20] LABS: ALT 18 U/L (14-59); AST 13 U/L (15-37); Alkaline Phosphatase 104 U/L (46-116); Anion Gap 9.5 mmol/L (3-11); BUN 9 mg/dL (7-18); Bilirubin, Direct 0.1 mg/dL (0.0-0.2); Bilirubin, Total 0.3 mg/dL (0.2-1.0); CO2 27.5 mmol/L (21.0-32.0); CREATININE 1.3 mg/dL (0.55-1.02); Calcium 9.8 mg/dL (8.5-10.1); Chloride 94 mmol/L (98-107); Estimated GFR 53.31 (mL/min/1.73m2); Glucose 262 mg/dL (74-106); Lipase 60 U/L (16-77); Magnesium 1.7 mg/dL (1.8-2.4); Potassium 4.7 mmol/L (3.5-5.1); Sodium 131 mmol/L (136-145); Total Protein 8.4 g/dL (6.4-8.2)
[2022-10-02] MEDS: Normal Saline - Diluent 50 ML VIAL IJ (12:27)
[2022-10-02] MEDS: Normal Saline Flush 10 ML SYR IVP (12:28)
[2022-10-02] MEDS: Omnipaque 350 MG/ML 100 ML BTL IJ (12:28)
[2022-10-02 12:58] LABS: Bilirubin Negative (Negative); Blood Negative (Negative); Clarity Clear (Clear); Glucose 100 mg/dL (Negative); Ketones Negative (Negative); Leukocyte Esterase Negative (Negative); Nitrite Negative (Negative); Urobilinogen 0.2 mg/dL (Up to 0.2)
--- NOTE | 2022-10-02 13:02 | DI.VRAD_ITS ---
PROCEDURE INFORMATION: Exam: CTA Abdomen and Pelvis With Contrast Exam date and time: 10/02/2022 12:23 PM Age: 41 years old Clinical indication: Other: Diffuse abdominal pain TECHNIQUE: Imaging protocol: Computed tomographic angiography of the abdomen and pelvis with contrast. 3D rendering (Not supervised by radiologist): MIP and/or 3D reconstructed images were created by the technologist. Contrast material: ONIPAQUE 350; Contrast volume: 100 ml; Contrast route: INTRAVENOUS (IV); COMPARISON: CT ABDOMEN PELVIS W 09/25/2022 2:44 PM FINDINGS: Lungs: There is bibasilar atelectasis. Aorta: No aortic aneurysm. No aortic dissection. Celiac trunk and mesenteric arteries: No occlusion or significant stenosis. Renal arteries: No occlusion or significant stenosis. Right iliac arteries: No occlusion or significant stenosis. Left iliac arteries: No occlusion or significant stenosis. Liver: No mass. Gallbladder and bile ducts: Cholecystectomy. Pancreas: Unremarkable. No mass. No ductal dilation. Spleen: Unremarkable. No splenomegaly. Adrenal glands: Unremarkable. No mass. Kidneys and ureters: Unremarkable. No solid mass. No hydronephrosis. Stomach and bowel: Moderate sized hiatal hernia containing fundus of the stomach. There is moderate to large solid fecal loading in the colon in the ascending, transverse and descending colon. Mild hard stool in the sigmoid colon and the rectum which is under distended. There is no significant pericolonic stranding. Appendix: No evidence of appendicitis. Intraperitoneal space: Unremarkable. No free air. No significant fluid collection. Lymph nodes: Unremarkable. No enlarged lymph nodes. Urinary bladder: Unremarkable. No mass. Reproductive: Unremarkable as visualized. Bones/joints: Disc degenerative change with mild loss of disc height at L3-L4 and L1-L2. Soft tissues: Unremarkable. Other findings: . IMPRESSION: 1. Constipation with moderate to marked hard fecal loading in the ascending , transverse and descending colon. The fecal loading has improved in the sigmoid and descending colon since prior which is now under distended with impacted appearing hard stool in the remaining large bowel. 2. Otherwise no acute intra-abdominal abnormality. 3. [id number] sized hiatal hernia. Dictated and Authenticated by: Blayne Dunbar MD. Ordering:TJ Vergara MD
== END 2022-10-02 14:00 | disposition home or self-care (01) ==
PROVIDERS: Emergency Provider Emergency Medicine; PCP Family Medicine
DX: R10.9 Unspecified abdominal pain (principal); E11.22 Type 2 diabetes mellitus with diabetic chronic kidney disease; N18.30 Chronic kidney disease, stage 3 unspecified
CPT/HCPCS: 80053; 83690; 93005; 96361; 96374; 96375; 99285; 74174; 81003; 82248; 83605; 83735; 85025; 93010; 99284; J1790; J1885; J3490

== ENCOUNTER 2022-10-14 16:54 | Outpatient (REF) | payer MEDICAID, SELFPAY ==
[2022-10-19 04:41] LABS: Methylphenidate 567 ng/mL (Cutoff: 10); Ritalinic Acid 21579 ng/mL (Cutoff: 50)
== END 2022-10-14 16:55 | disposition home or self-care (01) ==
LOC: NCHCN 16:54
PROVIDERS: PCP Family Medicine; Visit Provider Registered Nurse
DX: F90.8 Attention-deficit hyperactivity disorder, other type (principal); F15.10 Other stimulant abuse, uncomplicated
CPT/HCPCS: 80360

== ENCOUNTER 2022-11-04 15:28 | Outpatient (REF) | payer MEDICAID, SELFPAY ==
[2022-11-18 11:54] LABS: Methylphenidate Negative ng/mL (Cutoff: 10); Ritalinic Acid 21040 ng/mL (Cutoff: 50)
== END 2022-11-04 15:29 | disposition home or self-care (01) ==
LOC: NCHCN 15:28
PROVIDERS: PCP Family Medicine; Visit Provider Registered Nurse
DX: F15.10 Other stimulant abuse, uncomplicated (principal)
CPT/HCPCS: 80360

== ENCOUNTER 2022-11-09 07:45 | Day surgery (SDC) | payer MEDICAID, SELFPAY ==
--- NOTE | 2022-11-08 18:30 | PDOC.DSDIS_ITS ---
Date of service: 11/09/22 Time of Service: 10:17 Discharge Plan Disposition Patient Disposition: Home Condition: Fair Discharge Details Reason For Visit: colon scope Attending Provider: Neida Lama Primary Care Provider: Damian Murillo [place] Meds and New Rx's Prescriptions: Continued albuterol sulfate 90 mcg/actuation aerosol powdr breath activated 2 inh IH Q4H PRN (Reason: shortness of breath or wheezing) Patient Comments: pt states she has never used methadone 10 mg/5 mL solution 165 mg PO DAILY ferrous sulfate [FeroSul] 325 mg (65 mg iron) tablet 325 mg PO DAILY bupropion HCl 300 mg tablet extended release 24 hr 300 mg PO DAILY Qty: 30 5RF omeprazole [Prilosec] 20 MG capsule,delayed release(DR/EC) 40 mg PO DAILY loratadine 10 MG tablet 10 mg PO DAILY omega-3 fatty acids-fish oil 1 EACH capsule 2 ea PO DAILY (DME) OneTouch Verio test strips Strip See Rx Instructions .ROUTE .MEDSUPPLY Qty: 10 Rx Instructions: daily As directed (DME) lancets [OneTouch UltraSoft Lancets] Misc See Rx Instructions .ROUTE .MEDSUPPLY Qty: 100 Rx Instructions: DAILY multivitamin Tablet 1 tab PO DAILY levetiracetam 750 mg tablet 750 mg PO BID metformin 500 mg tablet 1,000 mg PO BID atorvastatin 20 mg tablet 20 mg PO QHS olanzapine 15 mg tablet 7.5 mg PO BID magnesium oxide 400 mg magnesium capsule 400 mg PO BID cholecalciferol (vitamin D3) [Vitamin D3] 1,000 unit Capsule 1,000 unit PO DAILY olanzapine 15 mg tablet 15 mg PO BID Patient Comments: TAKE ONE TABLET BY MOUTH TWICE A DAY divalproex 500 mg tablet extended release 24 hr 500 mg PO DAILY Patient Comments: TAKE 1 TABLET BY MOUTH EVERY DAY polyethylene glycol 3350 [Miralax] 17 gram Powder In Packet 17 g PO DAILY PRN PRN Patient Comments: not taking dexmethylphenidate [Focalin XR] 35 mg capsule,ER biphasic 50-50 40 mg PO DAILY clonidine HCl 0.1 mg Tablet 0.1 mg PO BID hydroxyzine HCl 25 mg tablet 25 mg PO HS docusate sodium [Colace] 100 mg capsule 100 mg PO BID Qty: 30 0RF promethazine 25 mg tablet 25 mg PO TID PRNQty: 14 0RF Discontinued bisacodyl [Dulcolax (bisacodyl)] 5 mg tablet,delayed release (DR/EC) 5 mg PO ONCE Qty: 4 0RF Rx Instructions: take per colonoscopy instructions polyethylene glycol 3350 17 gram/dose powder 238 g PO ONCE Qty: 238 0RF Rx Instructions: take per colonoscopy instructions Discharge Instructions Additional Instructions: DSU Colonoscopy Post- Op Instructions -Contact my office to reschedule your colonoscopy. Activity:: Activity as Tolerated Diet:: As Tolerated Discharge Orders Discharge Orders: Discharge Order (Routine); Ordered 11/09/22 Ordered By: Neida Lama
--- NOTE | 2022-11-09 08:13 | ANES.PREOP_ITS ---
General Info Date of Service Date Performed: 11/09/22 Height: 5 ft 2 in Weight: 68.039 kg Body Mass Index (BMI): 27.4 Surgical Procedure: Operation Date: 11/09/22 09:20 Proposed Procedure Side Surgeon jammie Lama, Meds Allergies and Home Medications Allergies Allergy/AdvReac Type Severity Reaction Status Date / Time Penicillins Allergy Intermediate hives/swell Verified 11/08/22 08:34 ing sulfamethoxazole Allergy Mild Verified 11/08/22 08:34 [From Bactrim] trimethoprim [From Bactrim] Allergy Mild Verified 11/08/22 08:34 Sulfa (Sulfonamide AdvReac Severe body aches Verified 11/08/22 08:34 Antibiotics) erythromycin base AdvReac Intermediate stomach Verified 11/08/22 08:34 pain morphine AdvReac Intermediate Nausea Verified 11/08/22 08:34 ondansetron HCl AdvReac Intermediate Hives Verified 11/08/22 08:34 [From Zofran (as hydrochloride)] Home Medication Medication Instructions Recorded omeprazole 20 mg capsule,delayed 40 mg PO DAILY 04/18/15 release (Prilosec) loratadine 10 mg tablet 10 mg PO DAILY 07/04/17 omega-3 fatty acids-fish oil 300 2 ea PO DAILY 12/01/17 mg-1,000 mg capsule bupropion HCl 300 mg 24 hr tablet, 300 mg PO DAILY #30 tab-caps 11/13/18 extended release cholecalciferol (vitamin D3) 25 1,000 unit PO DAILY 04/22/19 mcg (1,000 unit) capsule (Vitamin D3) ferrous sulfate 325 mg (65 mg 325 mg PO DAILY 04/23/20 iron) tablet (FeroSul) blood sugar diagnostic (OneTouch #10 ea 06/05/20 Verio test strips) lancets (OneTouch UltraSoft #100 ea 06/05/20 Lancets) levetiracetam 750 mg tablet 750 mg PO BID 06/05/20 multivitamin 1 tab PO DAILY 06/05/20 albuterol sulfate 90 mcg/actuation 2 inh inhalation Q4H PRN shortness 07/21/20 breath activated powder inhaler of breath or wheezing divalproex 500 mg tablet,extended 500 mg PO DAILY 01/10/22 release 24 hr olanzapine 15 mg tablet 15 mg PO BID 01/10/22 polyethylene glycol 3350 17 gram 17 g PO DAILY PRN PRN 01/11/22 oral powder packet (Miralax) dexmethylphenidate 35 mg 40 mg PO DAILY 01/26/22 capsule,extended release [id number] (Focalin XR) methadone 10 mg/5 mL oral solution 165 mg PO DAILY 07/06/22 clonidine HCl 0.1 mg tablet 0.1 mg PO BID 09/25/22 docusate sodium 100 mg capsule 100 mg PO BID #30 caps 09/25/22 (Colace) hydroxyzine HCl 25 mg tablet 25 mg PO HS 09/25/22 promethazine 25 mg tablet 25 mg PO TID PRN #14 tabs 09/25/22 atorvastatin 20 mg tablet 20 mg PO QHS 10/08/22 magnesium oxide 400 mg PO BID 10/08/22 metformin 500 mg tablet 1,000 mg PO BID 10/08/22 olanzapine 15 mg tablet 7.5 mg PO BID 10/08/22 Current Visit Medications: Current Medications Generic Name Dose Route Start Last Admin Trade Name Aidanq PRN Reason Stop Dose Admin Hyoscyamine Sulfate 0.125 mg 11/09/22 10:29 Hyoscyamine 0.125 Mg Sl/Oral/Chew SL DIRECTED PRN Ringer's Solution 1,000 mls @ 80 mls/hr 11/09/22 06:00 IV 12/08/22 23:59 INFUSION [facility] IV Miscellaneous Supplies 1 each 11/09/22 06:00 Iv Access IV 12/08/22 23:59 DIRECTED [facility] Ondansetron HCl 4 mg 11/09/22 10:29 Ondansetron 4 Mg/2 Ml Vial IVP Q4H PRN PRN Nausea / Vomiting Sodium Chloride 0 ml 11/09/22 06:00 Normal Saline Flush 10 Ml Syr IV 12/08/22 23:59 PRN PRN Sodium Chloride 0 ml 11/09/22 06:00 Normal Saline 10 Ml Vial IJ 12/08/22 23:59 DIRECTED PRN Sterile Water 0 ml 11/09/22 06:00 Water,Injection,Sterile 10 Ml Vial IJ 12/08/22 23:59 DIRECTED PRN PFSH Active Problems Active Problems: Problem Status Onset Code Ovarian cyst N83.209 Vulvitis N76.2 Screening and evaluation for female sterilization Z30.09 Postoperative pain G89.18 History of tubal ligation Z98.51 Elevated serum creatinine R79.89 Pelvic pain R10.2 Vaginal discharge N89.8 Labial lesion N90.89 Z34.90 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 ES 3.5mm. No response to Progestin challenges. Nl labs. Anxiety Asthma, moderate persistent Bipolar disorder ADD, PTSD, Anxiety and Depression Bipolar disorder Central sleep apnea Cervical radiculopathy Chronic diarrhea Chronic kidney disease (CKD) stage G3a/A1, moderately decreased glomerular filtration rate (GFR) between 45-59 mL/min/1.73 square meter and albuminuria creatinine ratio less than 30 mg/g CKD (chronic kidney disease), stage III Depression Diabetes mellitus, type II Diabetes type 2, controlled Pt. states she tested her blood sugar 12/15 and it was 400, and not sure why it was so high Drug abuse Dyslipidemia E. coli pyelonephritis Eating disorder Ectopic of right ovary ETOH abuse GERD GERD (gastroesophageal reflux disease) Gram-negative bacteremia Hepatic fibrosis Hepatitis C pt. states she was treated and is now non-detectable History of hepatitis C History of intravenous drug abuse states she has not used in 9 years Hydronephrosis with obstructing calculus IVDU Low back pain Metabolic syndrome Methamphetamine abuse Migraine headache Numbness and tingling of right arm Opioid dependence Otitis externa, chronic Problem related to living arrangement PTSD (post-traumatic stress disorder) Rhinitis, allergic Right distal ureteral calculus Seizure disorder Pt. states she has not had a seizure in a very long time, states it was a result of ovrdosing on drugs Sexually transmitted disease exposure Stimulant abuse Tobacco dependency Unspecified disorder resulting from impaired renal function Surgical History Surgical History Cholecystectomy (~10/2001) Diagnostic Laproscopy (~2005) History of tonsillectomy molar extraction , Ectopic (~2010) Tobacco Smoking/Tobacco Use Status: Current every day Tobacco Type: cigarettes Smoking cigarettes per day: 4 Alcohol Alcohol Intake: never Substance Use Substance use: Daily Substance use type: former substance user and marijuana Vital Signs and Lab Results Lab Results Blood Type / Crossmatch: No Data to Display Complete Blood Count: No Data to Display Complete Metabolic Panel: No Data to Display Liver Function Panel: No Data to Display Coagulation Panel: No Data to Display Cardiac Panel: No Data to Display Arterial Blood Gas: No Data to Display Venous Blood Gas: No Data to Display Pancreas Panel: No Data to Display Thyroid Panel: 2 No Data to Display Infectious Disease: No Data to Display Blood Cultures: No Data to Display Toxicology Panel: No Data to Display Panel: No Data to Display Imaging and Studies Imaging and Studies Study information below may be from another EMR and interpreted by another provider. Please see original notes in EMR for more complete details. EKG Summary: DATE/TIME OF SERVICE: 01/11/22 1000 : 1980PERFORMING LOCATION: ICU APPROVED REPORT Exam: Resting ECG Reason for Exam: QT check Patient Location: E HR:90 bpm ECG Measurements Heart Rate 90 AXIS MA 157 P 45 QRSd 77 QRS 30 QT 363 T53 QTc 444 Conclusion Sinus rhythm...normal P axis, V-rate 60- 99 Pulmonary Function Summary: Date of service: 05/05/20 Time of Service: 03:33 Pulmonary Function Test Result Interpretation Spirometry: Shows borderline mild obstructive airways disease, may be a normal variant, no bronchodilator response Lung Volumes: No evidence of restriction Diffusion Capacity: Borderline mildly low which is normal when corrected to alveolar volume Airway Pressure: Normal Impression Potentially borderline mild obstructive airways disease, though may represent a normal variant, no bronchodilator response. If underlying asthma diagnosis is in question, proceeding with methacholine challenge testing may prove to be useful Clinical Correlation therefore is recommended. Anesthesia Assessment and Plan Anesthesia History Personal History: No History of Anesthesia Complications Family History: No Family History of Anesthesia Complications Exercise Tolerance Exercise Tolerance: Metabolic Equivalents>4 Pertinent Negatives Pertinent Negatives: No Symptoms of GERD and No Major Cardiovascular Symptoms or Complaints Cardiac & Pulmonary Exam Cardiac Exam: Normal S1/S2 Heart Sounds Pulmonary Exam: Clear Bilateral Breath Sounds Implantable Cardiac Device Does patient have a Pacemaker or an ICD?: No Airway Exam Known Difficult Airway: No Mallampati Class: 1 Mouth Opening: Normal (> 3cm) Thyromental Distance: Greater than 3 cm Neck Range of Motion: Full ROM Neck Circumference: Normal Teeth Condition: Normal Dentition and Removable Dentures/Plates Upper ASA Classification ASA Score: ASA 3 Emergency Case?: No NPO Status NPO Status: NPO Clears >2 hours, Solids >8 hours Status Status: Negative HCG Anesthesia Plan Resuscitation Status: Full Code Anesthesia Technique: General Anesthesia Airway Planned: Natural Airway Monitors Used: Standard Monitors
[2022-11-09 08:17] VITALS: BMI 27.4
[2022-11-09 08:29] VITALS: BP 105/71; PULSE 67; RESP 16; TEMP 36.4; O2SAT 98
[2022-11-09] MEDS: Lactated Ringers 1,000 ML 80 ML IV (08:45)
== END 2022-11-09 07:46 | disposition home or self-care (01) ==
LOC: SUR 07:45
PROVIDERS: PCP Family Medicine; Visit Provider Surgery
DX: R93.3 Abnormal findings on diagnostic imaging of other parts of digestive tract (principal); Z53.29 Procedure and treatment not carried out because of patient's decision for other reasons

== ENCOUNTER 2023-02-03 20:04 | Emergency (ER) | payer MEDICAID, SELFPAY ==
[2023-02-03] VITALS (8 sets, daily range): BP systolic 123–151; BP diastolic 72–113; PULSE 99–120; RESP 20; TEMP 36.7; O2SAT 94–99
[2023-02-03] MEDS: Pantoprazole 40 MG VIAL IVP (20:30)
[2023-02-03] MEDS: Droperidol 5 MG/2 ML VIAL 2.5 MG IVP (20:35)
[2023-02-03 20:39] LABS: Abs Immature Grans 0.13 10^3/uL (0.0-0.06); Absolute Basophil Count 0.08 10^3/uL (0.0-0.2); Absolute Lymphocyte Count 3.32 10^3/uL (1.2-3.4); Absolute Monocyte Count 0.78 10^3/uL (0.1-0.8); Absolute Neutrophil Count 10.61 10^3/uL (1.2-6.7); Basophils % 0.5; HCT 42.6 % (36.0-46.0); HGB 14.8 g/dL (11.2-15.7); Immature Grans % 0.9; Lymphocytes % 21.8; MCH 31.4 pg (27.0-33.0); MCHC 34.7 % (32.0-36.0); MCV 90 fL (80-95); MPV 8.6 fL (8.0-11.0); Monocytes % 5.1; Neutrophils % 69.7; Platelet Count 289 10^3/uL (130-400); RBC 4.72 10^6/uL (3.93-5.22); RDW 12.2 % (11.7-14.6); RDW-SD 40.4 fL; WBC 15.22 10^3/uL (4.4-10.8)
[2023-02-03] MEDS: Normal Saline 1,000 ML 1000 ML IV (20:40)
--- NOTE | 2023-02-03 20:42 | ED.GENADUL_ITS ---
Discharge Plan Disposition Patient Disposition: Home Condition: Stable Discharge Details Clinical Impression: Nausea & vomiting, Hypomagnesemia Primary Care Provider: Damian Murillo ED Provider: Jessica Olvera Home Meds and New Rx's Prescriptions: Continued albuterol sulfate 90 mcg/actuation aerosol powdr breath activated 2 inh IH Q4H PRN (Reason: shortness of breath or wheezing) Patient Comments: pt states she has never used methadone 10 mg/5 mL solution 165 mg PO DAILY ferrous sulfate [FeroSul] 325 mg (65 mg iron) tablet 325 mg PO DAILY bupropion HCl 300 mg tablet extended release 24 hr 300 mg PO DAILY Qty: 30 5RF omeprazole [Prilosec] 20 MG capsule,delayed release(DR/EC) 40 mg PO DAILY loratadine 10 MG tablet 10 mg PO DAILY omega-3 fatty acids-fish oil 1 EACH capsule 2 ea PO DAILY (DME) OneTouch Verio test strips Strip See Rx Instructions .ROUTE .MEDSUPPLY Qty: 10 Rx Instructions: daily As directed (DME) lancets [OneTouch UltraSoft Lancets] Misc See Rx Instructions .ROUTE .MEDSUPPLY Qty: 100 Rx Instructions: DAILY multivitamin Tablet 1 tab PO DAILY levetiracetam 750 mg tablet 750 mg PO BID metformin 500 mg tablet 1,000 mg PO BID atorvastatin 20 mg tablet 20 mg PO QHS magnesium oxide 400 mg magnesium capsule 400 mg PO BID glipizide 2.5 mg tablet extended release 24hr 2.5 mg PO DAILY Glucerna 1 Clive 0.04-1 gram-kcal/mL liquid PO BID hydroxyzine HCl 25 mg tablet 25 mg PO TID PRN cholecalciferol (vitamin D3) [Vitamin D3] 1,000 unit Capsule 1,000 unit PO DAILY olanzapine 15 mg tablet 15 mg PO BID Patient Comments: TAKE ONE TABLET BY MOUTH TWICE A DAY divalproex 500 mg tablet extended release 24 hr 500 mg PO DAILY Patient Comments: TAKE 1 TABLET BY MOUTH EVERY DAY polyethylene glycol 3350 [Miralax] 17 gram Powder In Packet 17 g PO DAILY PRN PRN Patient Comments: not taking dexmethylphenidate [Focalin XR] 35 mg capsule,ER biphasic 50-50 40 mg PO DAILY clonidine HCl 0.1 mg Tablet 0.1 mg PO BID docusate sodium [Colace] 100 mg capsule 100 mg PO BID Qty: 30 0RF promethazine 25 mg tablet 25 mg PO TID PRNQty: 14 0RF Discharge Instructions Instructions: Acute Nausea and Vomiting (ED), Hypomagnesemia (ED) Additional Instructions: You have received 1 L of normal saline with some medication for your nausea which has improved your symptoms we did offer to give you a second liter of fluid which you have declined also your labs showed that your magnesium level was slightly low at 1.4 you should ensure increased magnesium intake or supplementation in your diet. You can pick remover [id number] magnesium supplementation at your local pharmacy. You should follow-up with your primary care provider in a week or 2 for recheck of your levels Referrals: Damian Murillo [Primary Care Provider] - (Follow-up in 1 to 2 weeks for recheck of your magnesium level) Medical Decision Making 42-year-old female patient presents with a 1 week history of nausea now with intractable vomiting. Has had similar presentations suspected to be associated with cannabinoid hyperemesis. Does appear clinically dehydrated will obtain IV access give 2 L of normal saline 2.5 mg of IV droperidol continue to closely monitor. Routine lab including CBC CMP urine and UA sent. No imaging indicated at this time. After receiving the droperidol and 1 L of normal saline patient was requesting discharge to home stating we were not doing anything for her anyways and she can go home and do this at home. Medical Records Medical records reviewed: Yes I reviewed the patient's medical records. Lab Data Lab results reviewed: Yes I reviewed the patient's lab results. Lab results narrative: Laboratory Results - last 24 hr 02/03/23 02/03/23 20:00 20:00 WBC 15.22 H RBC 4.72 Hgb 14.8 Hct 42.6 MCV 90 MCH 31.4 MCHC 34.7 RDW 12.2 Plt Count 289 MPV 8.6 Immature Gran % 0.9 Neutrophils % 69.7 Lymphocytes % 21.8 Monocytes % 5.1 Eosinophils % 2.0 Basophils % 0.5 Nucleated RBC % 0.0 Absolute Neutrophils 10.61 H Absolute Lymphocytes 3.32 Absolute Monocytes 0.78 Absolute Eosinophils 0.30 Absolute Basophils 0.08 Sodium 139 Potassium 4.0 Chloride 101 Carbon Dioxide 25.2 Anion Gap 12.8 H BUN 14 Creatinine 1.4 H Est GFR (CKD-EPI 2020) 48.47 Glucose 284 H Calcium 9.5 Magnesium 1.5 L Total Bilirubin 0.5 AST 20 ALT 28 Alkaline Phosphatase 75 Total Protein 7.9 Albumin 3.9 HPI General Mode of arrival: ambulatory . Date/Time Provider Initiated Documentation: 02/03/23 20:08 . Limitations to Documentation: no limitations . Information obtained by: patient . HPI Narrative: Is a 42-year-old female patient presents to the emergency department with a 1 week history of nausea but today reporting intractable nausea and vomiting denies any fever blood in her vomit or stool. States she has not had any oral intake since yesterday secondary to her symptoms. States she has had similar symptoms in the past that have responded to fluids and antiemetics. Related Data Home Medications Medication Instructions Recorded Confirmed omeprazole 20 mg capsule,delayed 40 mg PO DAILY 04/18/15 12/22/22 release (Prilosec) loratadine 10 mg tablet 10 mg PO DAILY 07/04/17 12/22/22 omega-3 fatty acids-fish oil 300 2 ea PO DAILY 12/01/17 12/22/22 mg-1,000 mg capsule bupropion HCl 300 mg 24 hr tablet, 300 mg PO DAILY #30 tab-caps 11/13/18 12/22/22 extended release cholecalciferol (vitamin D3) 25 1,000 unit PO DAILY 04/22/19 12/22/22 mcg (1,000 unit) capsule (Vitamin D3) ferrous sulfate 325 mg (65 mg 325 mg PO DAILY 04/23/20 12/22/22 iron) tablet (FeroSul) blood sugar diagnostic (Accelerate Mobile AppsTouch #10 ea 06/05/20 12/22/22 Verio test strips) lancets (Accelerate Mobile AppsTouch UltraSoft #100 ea 06/05/20 12/22/22 Lancets) levetiracetam 750 mg tablet 750 mg PO BID 06/05/20 12/22/22 multivitamin 1 tab PO DAILY 06/05/20 12/22/22 albuterol sulfate 90 mcg/actuation 2 inh inhalation Q4H PRN shortness 07/21/20 12/22/22 breath activated powder inhaler of breath or wheezing divalproex 500 mg tablet,extended 500 mg PO DAILY 01/10/22 12/22/22 release 24 hr olanzapine 15 mg tablet 15 mg PO BID 01/10/22 12/22/22 polyethylene glycol 3350 17 gram 17 g PO DAILY PRN PRN 01/11/22 12/22/22 oral powder packet (Miralax) dexmethylphenidate 35 mg 40 mg PO DAILY 01/26/22 12/22/22 capsule,extended release [id number] (Focalin XR) methadone 10 mg/5 mL oral solution 165 mg PO DAILY 07/06/22 12/22/22 clonidine HCl 0.1 mg tablet 0.1 mg PO BID 09/25/22 12/22/22 docusate sodium 100 mg capsule 100 mg PO BID #30 caps 09/25/22 12/22/22 (Colace) promethazine 25 mg tablet 25 mg PO TID PRN #14 tabs 09/25/22 12/22/22 atorvastatin 20 mg tablet 20 mg PO QHS 10/08/22 12/22/22 magnesium oxide 400 mg PO BID 10/08/22 12/22/22 metformin 500 mg tablet 1,000 mg PO BID 10/08/22 12/22/22 glipizide 2.5 mg tablet, extended 2.5 mg PO DAILY 12/02/22 12/22/22 release 24 hr hydroxyzine HCl 25 mg tablet 25 mg PO TID PRN 12/02/22 12/22/22 nutrition tx glu ml PO BID 12/02/22 12/22/22 intol,lac-free,soy-fiber 0.04 gram-1 kcal/mL liquid (Glucerna 1 Clive) Previous Rx's Medication Instructions Recorded bupropion HCl 300 mg 24 hr tablet, 300 mg PO DAILY #30 tab-caps 11/13/18 extended release docusate sodium 100 mg capsule 100 mg PO BID #30 caps 09/25/22 (Colace) promethazine 25 mg tablet 25 mg PO TID PRN #14 tabs 09/25/22 Allergies Allergy/AdvReac Type Severity Reaction Status Date / Time Penicillins Allergy Intermediate hives/swell Verified 12/22/22 09:53 ing sulfamethoxazole Allergy Mild Verified 12/22/22 09:53 [From Bactrim] trimethoprim [From Bactrim] Allergy Mild Verified 12/22/22 09:53 Sulfa (Sulfonamide AdvReac Severe body aches Verified 12/22/22 09:53 Antibiotics) erythromycin base AdvReac Intermediate stomach Verified 12/22/22 09:53 pain morphine AdvReac Intermediate Nausea Verified 12/22/22 09:53 ondansetron HCl AdvReac Intermediate Hives Verified 12/22/22 09:53 [From Zofran (as hydrochloride)] General Stated Complaint: Nausea/Vomit/Diar RAVEN: 3 Review of Systems All systems reviewed & are unremarkable except as noted in HPI and below PFSH All Active Problems (Updated 02/03/23 @ 21:36 by Jessica Olvera NP) Nausea & vomiting (Acute) Hypomagnesemia (Acute) Dyspepsia (Acute) Ovarian cyst (Acute) Vulvitis (Acute) 04/22/2018. Secondary to contact dermatitis. Negative vag path screen, negative STI check. Treated with Dosepak of steroids and topical lidocaine. Screening and evaluation for female sterilization (Acute) 04/2019. Not a candidate for OCPs. Yusuf CANCINO. Given info on laparoscopic sterilization. 09/2019. Medicaid consent obtained. Postoperative pain (Acute) History of tubal ligation (Chronic) 12/19/19. Laparoscopic left salpingectomy. Patient previously had a right salpingectomy. Elevated serum creatinine (Acute) 12/2019: 1.05 at time of preop evaluation Pelvic pain (Acute) Vaginal discharge (Acute) Labial lesion (Acute) (Acute) Genital HSV (Acute) Trichomoniasis (Acute) Right carpal tunnel syndrome (Acute) Right cervical radiculopathy (Acute) Infection due to trichomonas (Acute) Polysubstance (including opioids) dependence with physiological dependence (Chronic) Non-insulin treated type 2 diabetes mellitus (Acute) KOBI (acute kidney injury) (Acute) Frequency of micturition (Acute) Hand numbness (Acute) Asthma, intermittent (Acute) Hoarseness (Acute) Constipation due to pain medication (Acute) Methadone Medical History (Updated 02/03/23 @ 21:36 by Jessica Olvera NP) ADHD Alcohol use Amenorrhea Amenorrhea, secondary 06/2014 Nl pelvic us. ES 3.5mm. No response to Progestin challenges. Nl labs. Anxiety Asthma, moderate persistent Bipolar disorder ADD, PTSD, Anxiety and Depression Bipolar disorder Central sleep apnea Cervical radiculopathy Chronic diarrhea Chronic kidney disease (CKD) stage G3a/A1, moderately decreased glomerular filtration rate (GFR) between 45-59 mL/min/1.73 square meter and albuminuria creatinine ratio less than 30 mg/g CKD (chronic kidney disease), stage III Depression Diabetes mellitus, type II Diabetes type 2, controlled Pt. states she tested her blood sugar 12/15 and it was 400, and not sure why it was so high Drug abuse Dyslipidemia E. coli pyelonephritis Eating disorder Ectopic of right ovary ETOH abuse GERD GERD (gastroesophageal reflux disease) Gram-negative bacteremia Hepatic fibrosis Hepatitis C pt. states she was treated and is now non-detectable History of hepatitis C History of intravenous drug abuse states she has not used in 9 years Hydronephrosis with obstructing calculus IVDU Low back pain Metabolic syndrome Methamphetamine abuse Migraine headache Numbness and tingling of right arm Opioid dependence Otitis externa, chronic Problem related to living arrangement PTSD (post-traumatic stress disorder) Rhinitis, allergic Right distal ureteral calculus Seizure disorder Pt. states she has not had a seizure in a very long time, states it was a result of ovrdosing on drugs Sexually transmitted disease exposure Stimulant abuse Tobacco dependency Unspecified disorder resulting from impaired renal function Surgical History (Updated 12/02/22 @ 12:22 by Bhumi Dominguez RN) Cholecystectomy (~10/2001) Diagnostic Laproscopy (~2005) History of tonsillectomy (~1999) molar extraction , Ectopic (~2010) Social History Smoking/Tobacco Use Status: Current every day Tobacco Type: cigarettes Smoking risk assessment performed?: Yes Alcohol Intake: never Drug use: Daily Substance use type: former substance user and marijuana Household members: none Housing: apartment current occupation: Disabled Pets and animals: Yes Pets and animals: cat(s) What type of physical activity do you participate in: none and independent ambulation Seatbelt use: always Do you feel safe at home: Yes Do you feel safe in your relationship?: Yes Exam Const General: in distress moderate, disheveled and ill appearing chronically Nutritional Appearance: overweight Orientation: alert, awake and oriented x3 HENMT Head: normal to inspection, normocephalic and atraumatic Mouth: moist mucous membranes abnormal (Dry with white coat on tongue) Neck Neck: normal visual inspection and full ROM Chest Chest: normal inspection of the chest Resp Effort & Inspection: normal respiratory effort Cardio Rate: tachycardic Rhythm: regular rhythm GI Inspection: distended Palpation: soft and tender (Generalized) Auscultation: normal bowel sounds Neuro General: patient alert, patient awake and patient oriented x3 Extrem General: normal to inspection, full ROM and no pedal edema Course Vital Signs Vital signs: Vital Signs Temperature 36.7 C 02/03/23 20:09 Pulse 120 H 02/03/23 20:09 Respiratory Rate 20 02/03/23 20:09 Blood Pressure 151/113 H 02/03/23 20:09 Pulse Oximetry 99 02/03/23 20:09 Temperature 36.7 C 02/03/23 20:09 Temperature Source Oral 02/03/23 20:09 Pulse 120 H 02/03/23 20:09 Respiratory Rate 20 02/03/23 20:09 Respiratory Effort Normal 02/03/23 20:22 Blood Pressure 151/113 H 02/03/23 20:09 Blood Pressure Position Sitting 02/03/23 20:09 Pulse Oximetry 99 02/03/23 20:09 Oxygen Delivery Method Room Air 02/03/23 20:09 Oxygen Flow Rate 0 02/03/23 20:09 Lab/Test Results Lab/Test Results: Laboratory Tests Range/Units 02/03/23 20:00 WBC (4.4-10.8) 10^3/uL 15.22 H RBC (3.93-5.22) 10^6/uL 4.72 Hgb (11.2-15.7) g/dL 14.8 Hct (36.0-46.0) % 42.6 MCV (80-95) fL 90 MCH (27.0-33.0) pg 31.4 MCHC (32.0-36.0) % 34.7 RDW (11.7-14.6) % 12.2 Plt Count (130-400) 10^3/uL 289 MPV (8.0-11.0) fL 8.6 Immature Gran % 0.9 Neutrophils % 69.7 Lymphocytes % 21.8 Monocytes % 5.1 Eosinophils % 2.0 Basophils % 0.5 Nucleated RBC % (0.0-0.3) % 0.0 Absolute Neutrophils (1.2-6.7) 10^3/uL 10.61 H Absolute Lymphocytes (1.2-3.4) 10^3/uL 3.32 Absolute Monocytes (0.1-0.8) 10^3/uL 0.78 Absolute Eosinophils (0.0-0.7) 10^3/uL 0.30 Absolute Basophils (0.0-0.2) 10^3/uL 0.08
[2023-02-03 20:55] LABS: ALT 28 U/L (14-59); AST 20 U/L (15-37); Albumin 3.9 g/dL (3.4-5.0); Alkaline Phosphatase 75 U/L (46-116); Anion Gap 12.8 mmol/L (3-11); BUN 14 mg/dL (7-18); Bilirubin, Total 0.5 mg/dL (0.2-1.0); CO2 25.2 mmol/L (21.0-32.0); CREATININE 1.4 mg/dL (0.55-1.02); Calcium 9.5 mg/dL (8.5-10.1); Chloride 101 mmol/L (98-107); Estimated GFR 48.47 (mL/min/1.73m2); Glucose 284 mg/dL (74-106); Magnesium 1.5 mg/dL (1.8-2.4); Sodium 139 mmol/L (136-145); Total Protein 7.9 g/dL (6.4-8.2)
--- NOTE | 2023-02-03 21:37 | NUR.NOTE ---
Nursing Note: Pt activated call light and stated, I want to go home since no one is dong anything for me. This RN restated all labs and meds given and pt improved symptoms as evidence of care provided. Pt demanded IV removed and desire to go home immediately. informed. PIV removed. As pt was leaving, pt stated, thank you for helping me, and, I just need to go home now for medications.
== END 2023-02-03 23:43 | disposition home or self-care (01) ==
PROVIDERS: Emergency Provider Nurse Practitioner Acute Care; PCP Family Medicine
DX: R11.2 Nausea with vomiting, unspecified (principal); E83.42 Hypomagnesemia; E11.22 Type 2 diabetes mellitus with diabetic chronic kidney disease; N18.31 Chronic kidney disease, stage 3a; F12.90 Cannabis use, unspecified, uncomplicated; F17.210 Nicotine dependence, cigarettes, uncomplicated; Z79.84 Long term (current) use of oral hypoglycemic drugs
CPT/HCPCS: 36415; 80053; 81025; 96361; 96374; 99283; 83735; 85025; J1790

== ENCOUNTER 2023-02-23 09:47 | Outpatient (REF) | payer MEDICAID, SELFPAY ==
[2023-02-23 16:46] LABS: COMMENT (LAB VIEW ONLY) 144.32 mg/dL; Microalb ug/mg Crea 7.8 ug/mg Cr
[2023-03-03 07:43] LABS: Methylphenidate 1866 ng/mL (Cutoff: 10); Ritalinic Acid 26323 ng/mL (Cutoff: 50)
== END 2023-02-23 09:48 | disposition home or self-care (01) ==
LOC: NCHCN 09:47
PROVIDERS: PCP Family Medicine; Visit Provider Family Medicine
DX: E11.9 Type 2 diabetes mellitus without complications (principal); F15.10 Other stimulant abuse, uncomplicated
CPT/HCPCS: 80360; 82043; 82570

== ENCOUNTER 2023-06-03 22:07 | Outpatient (REF) | payer MEDICAID, SELFPAY ==
[2023-06-03 16:53] LABS: Vitamin D 25 Total 52.2 ng/mL (30-100)
[2023-06-03 17:36] LABS: Calculated LDL 135 mg/dL (<100); Cholesterol 216 mg/dL (<200); HDL Cholesterol 35 mg/dL (40-60); TSH (W/Ref FT4) 1.51 uIU/mL (0.36-3.74); Triglyceride 231 mg/dL (<150)
--- OUTSIDE RECORDS SUMMARY | 2023-06-03 22:09 | XMS_ITS | Continuity of Care Document ---
Author Name Unknown Organization [facility] Ambulatory Clinics Address [address] [place] [address] Care Team Providers Care Tub Operator Name Role Phone NADIA DIEGO MD Primary Care Physician Encounter [facility] NBR [id number] Date(s): 04/08/23 - 04/08/23 [facility] Ambulatory Clinics [address] [place], [place] [address] Discharge Disposition: Home Allergies, Adverse Reactions, Alerts Substance Reaction Severity Status erythromycin Abdominal pain Mild Active penicillin Hives Mild Active morphine Vomit Mild Active Bactrim Generalized body aches Mild Activ e Zofran Angioedema Moderate Active Assessment and Plan Future Appointments Future Scheduled Tests Radiology* NM Gastric Emptying Study 04/14/23 Medications atorvastatin 20 mg oral tablet 20 mg = 1 tab, Oral, every night at bedtime, 0 Refill(s) Start Date: 02/14/23 Status: Ordered buPROPion 300 mg/24 hours (XL) oral tablet, extended release 300 mg = 1 tab, Oral, Daily, 0 Refill(s) Start Date: 02/14/23 Status: Ordered cloNIDine 0.1 mg oral tablet 0.1 mg = 1 tab, Oral, BID, PRN anxiety, 0 Refill(s) Start Date: 04/05/23 Status: Ordered Daily Claudy oral tablet 1 tab, Oral, Daily, 0 Refill(s) Start Date: 02/14/23 Status: Ordered dexmethylphenidate 40 mg oral capsule, extended release 40 mg = 1 cap, Oral, every morning, 0 Refill(s) Start Date: 04/05/23 Status: Ordered docusate-senna 50 mg-8.6 mg oral capsule 1 cap, Oral, BID, PRN constipation, 0 Refill(s) Start Date: 04/05/23 Status: Ordered glipiZIDE 2.5 mg oral tablet, extended release 2.5 mg = 1 tab, Oral, Daily, 0 Refill(s) Start Date: 02/14/23 Status: Ordered levETIRAcetam 750 mg oral tablet 750 mg = 1 tab, Oral, BID, 0 Refill(s) Start Date: 02/14/23 Status: Ordered lidocaine 4% topical cream 1 natasha, Topical, BID, PRN as needed for pain, 0 Refill(s) Start Date: 04/05/23 Status: Ordered magnesium oxide 400 mg (241.3 mg elemental magnesium) oral tablet 400 mg = 1 tab, Oral, BID, 0 Refill(s) Start Date: 02/14/23 Stop Date: 02/21/23 Status: Ordered metFORMIN 1000 mg oral tablet 1,000 mg = 1 tab, Oral, BID, 0 Refill(s) Start Date: 02/14/23 Status: Ordered methadone 10 mg/5 mL oral solution 130 mg =, Oral, Daily, 0 Refill(s) Start Date: 04/05/23 Status: Ordered methylphenidate 10 mg oral tablet 10 mg = 1 tab, Oral, Daily, 0 Refill(s) Start Date: 04/05/23 Status: Ordered ohm Allergy Relief 10 mg oral tablet 10 mg = 1 tab, Oral, Daily, 0 Refill(s) Start Date: 02/14/23 Status: Ordered OLANZapine 15 mg oral tablet 15 mg = 1 tab, Oral, BID, 0 Refill(s) Start Date: 02/14/23 Status: Ordered omeprazole 40 mg oral delayed release capsule 40 mg = 1 cap, Oral, Daily, 0 Refill(s) Start Date: 02/14/23 Status: Ordered Phenergan 25 mg oral tablet 25 mg = 1 tab, Oral, BID, PRN as needed for nausea/vomiting, 0 Refill(s) Start Date: 04/05/23 Status: Ordered ProAir HFA 90 mcg/inh inhalation aerosol 2 puffs, Inhale, every 4 hr, PRN as needed for wheezing, 0 Refill(s) Start Date: 04/05/23 Status: Ordered Trulicity Pen 0.75 mg/0.5 mL subcutaneous solution 0.75 mg = 0.5 mL, Subcutaneous, every week, 0 Refill(s) Start Date: 04/05/23 Status: Ordered valACYclovir 1 g oral tablet 1 g = 1 tab, Oral, Daily, PRN mouth sore pain, 0 Refill(s) Start Date: 04/05/23 Stop Date: 04/10/23 Status: Ordered Vitamin D3 1000 intl units oral tablet 25 mcg = 1 tab, Oral, Daily, 0 Refill(s) Start Date: 02/14/23 Status: Ordered Problem List Condition Confirmation Course Effective Dates Status H ealth Status Informant ADHD - Attention deficit disorder with hyperactivity Confirmed Active Alcohol abuse Confirmed Active Amenorrhea Confirmed Active Asthma Confirmed Active Bipolar Confirmed Active Bulimia Confirmed Active CKD - chronic kidney disease Confirmed Active CKD stage 3 Confirmed Active Constipation Confirmed Active Cramping Confirmed Active Diverticular disease Confirmed Active DM - Diabetes mellitus Confirmed Active Drug abuse Confirmed Active Dyslipidemia Confirmed Active Dyspepsia Confirmed Active Dysphagia 1 Confirmed Active Eating disorder Confirmed Active Ectopic Confirmed Active Full/full dentures Confirmed Active GERD (gastroesophageal reflux disease) Confirmed Active GERD - Gastro-esophageal reflux disease Confirmed Active Heartburn Confirmed Active Hepatic fibrosis Confirmed Active Herpes genitalis Confirmed Active Hiatal hernia Confirmed Active History of hepatitis C Confirmed Active History of IV (intravenous) drug abuse Confirmed Active Hoarseness Confirmed Active Dyspepsia Confirmed Active Migraine Confirmed Active Nausea Confirmed Active Nausea and vomiting Confirmed Active Numbness of hand Confirmed Active Opioid-related disorder Confirmed Active Ovarian cyst Confirmed Active PTSD - Post-traumatic stress disorder Confirmed Active Seizure disorder Confirmed Active Sleep apnea 2, 3 Confirmed Active Smoker Confirmed Active Splenomegaly Confirmed Active Stimulant abuse Confirmed Active Tobacco user Confirmed Active 1solids only 2no cpap at present 3central Procedures Procedure Date Related Diagnosis Body Site Status Esophagogastroduodenoscopy Biopsy 1 04/07/23 Completed Cholecystectomy 2 Complet ed Colonoscopy Completed Excision of fallopian tube a nd surgical removal of ectopic Com pleted Tonsillectomy 3 Completed 1auto-populated from documented surgical case [id number] Social History Social History Type Response Tobacco Current everyday tob acco user Tobacco Use:. 1 ppd per day. Sex Patient Care team information Care Team Personnel Name: NADIA DIEGO MD Position: No Access Member Role: Primary Care Physician Address: Address: [address] [place] [id number] [place] [address] Care Team Related Persons Name: MOLLY FRENCH Address: Home
--- OUTSIDE RECORDS SUMMARY | 2023-06-03 22:09 | XMS_ITS | Continuity of Care Document ---
Author Name Unknown Organization [facility] Ambulatory Clinics Address [address] [place] [address] Care Team Providers Care Fryer Operator Name Role Phone NADIA DIEGO MD Primary Care Physician Encounter [facility] NBR [id number] Date(s): 04/04/23 - 04/04/23 [facility] Ambulatory Clinics [address] [place], [place] [address] Discharge Disposition: Home Allergies, Adverse Reactions, Alerts Substance Reaction Severity Status erythromycin Unknown Active penicillin Unknown Active sulfamethoxazole Unknown Active morphine Unknown Active Bactrim Unknown Active Zofran Unknown Active Assessment and Plan Future Appointments Medications atorvastatin 20 mg oral tablet 20 mg = 1 tab, Oral, Daily, # 90 tab, 0 Refill(s) Start Date: 02/14/23 Status: Ordered buPROPion 300 mg/24 hours (XL) oral tablet, extended release 300 mg = 1 tab, Oral, Daily, # 60 tab, 0 Refill(s) Start Date: 02/14/23 Status: Ordered Daily Claudy oral tablet 1 tab, Oral, Daily, # 30 tab, 0 Refill(s) Start Date: 02/14/23 Status: Ordered divalproex sodium 500 mg oral tablet, extended release 500 mg = 1 tab, Oral, Daily, # 90 tab, 0 Refill(s) Start Date: 02/14/23 Status: Ordered FISH OIL CAP 1000MG FISH OIL CAP 1000MG, 0 Refill(s) Start Date: 02/14/23 Status: Ordered glipiZIDE 2.5 mg oral tablet, extended release 2.5 mg = 1 tab, Oral, Daily, # 90 tab, 0 Refill(s) Start Date: 02/14/23 Status: Ordered levETIRAcetam 750 mg oral tablet 750 mg = 1 tab, Oral, BID, # 180 tab, 0 Refill(s) Start Date: 02/14/23 Status: Ordered magnesium oxide 400 mg (241.3 mg elemental magnesium) oral tablet 400 mg = 1 tab, Oral, Daily, # 7 tab, 0 Refill(s) Start Date: 02/14/23 Stop Date: 02/21/23 Status: Ordered metFORMIN 1000 mg oral tablet 1,000 mg = 1 tab, Oral, BID, # 60 tab, 0 Refill(s) Start Date: 02/14/23 Status: Ordered methylphenidate 10 mg oral tablet 10 mg = 1 tab, Oral, BID, 0 Refill(s) Start Date: 02/14/23 Status: Ordered ohm Allergy Relief 10 mg oral tablet 10 mg = 1 tab, Oral, Daily, # 30 tab, 0 Refill(s) Start Date: 02/14/23 Status: Ordered OLANZapine 15 mg oral tablet 15 mg = 1 tab, Oral, Daily, # 90 tab, 0 Refill(s) Start Date: 02/14/23 Status: Ordered omeprazole 40 mg oral delayed release capsule 40 mg = 1 cap, Oral, Daily, # 90 cap, 0 Refill(s) Start Date: 02/14/23 Status: Ordered Vitamin D3 1000 intl units oral tablet 25 mcg = 1 tab, Oral, Daily, # 30 tab, 0 Refill(s) Start Date: 02/14/23 Status: Ordered Problem List Condition Confirmation Course Effective Dates Status H ealth Status Informant ADHD - Attention deficit disorder with hyperactivity Confirmed Active Alcohol abuse Confirmed Active Amenorrhea Confirmed Active Asthma Confirmed Active Bipolar Confirmed Active Bulimia Confirmed Active CKD - chronic kidney disease Confirmed Active Constipation Confirmed Active Cramping Confirmed Active Diverticular disease Confirmed Active DM - Diabetes mellitus Confirmed Active Drug abuse Confirmed Active Dyslipidemia Confirmed Active Dyspepsia Confirmed Active Dysphagia Confirmed Active Eating disorder Confirmed Active Ectopic Confirmed Active GERD - Gastro-esophageal reflux disease Confirmed Active Heartburn Confirmed Active Hepatic fibrosis Confirmed Active Herpes genitalis Confirmed Active Hiatal hernia Confirmed Active History seizure Confirmed Active History of hepatitis C Confirmed Active History of IV (intravenous) drug abuse Confirmed Active Hoarseness Confirmed Active Migraine Confirmed Active Nausea Confirmed Active Nausea and vomiting Confirmed Active Numbness of hand Confirmed Active Opioid-related disorder Confirmed Active Ovarian cyst Confirmed Active PTSD - Post-traumatic stress disorder Confirmed Active Sleep apnea Confirmed Active Smoker Confirmed Active Splenomegaly Confirmed Active Stimulant abuse Confirmed Active Tobacco user Confirmed Active Procedures Procedure Date Related Diagnosis Body Site Status Cholecystectomy 1 Complet ed Tonsillectomy 2 Completed 104/02 67478 Social History Social History Type Response Tobacco Current everyday tob acco user Tobacco Use:. Sex Patient Care team information Care Team Personnel Name: NADIA DIEGO MD Position: No Access Member Role: Primary Care Physician Address: Address: [address] [place] [id number] [place] [address] Care Team Related Persons Name: MOLLY FRENCH Address: Home
--- OUTSIDE RECORDS SUMMARY | 2023-06-03 22:09 | XMS_ITS | Continuity of Care Document ---
Author Name Unknown Organization [facility] Ambulatory Clinics Address [address] [place] [address] Care Team Providers Care Kettle Coordinator Name Role Phone NADIA MURILLO MD Primary Care Physician Encounter [facility] NBR [id number] Date(s): 03/02/23 - 03/02/23 [facility] Ambulatory Clinics [address] [place], [place] [address] Encounter Diagnosis Constipation(Discharge Diagnosis) - 03/02/23 GERD - Gastro-esophageal reflux disease(Discharge Diagnosis) - 03/02/23 Hepatic fibrosis(Discharge Diagnosis) - 03/02/23 Hiatal hernia(Discharge Diagnosis) - 03/02/23 History of hepatitis C(Discharge Diagnosis) - 03/02/23 Eating disorder(Discharge Diagnosis) - 03/02/23 Nausea and vomiting(Discharge Diagnosis) - 03/02/23 Discharge Disposition: Home or Self Care Attending Physician: Constanza Flowers APRN Allergies, Adverse Reactions, Alerts Substance Reaction Severity Status erythromycin Unknown Active penicillin Unknown Active sulfamethoxazole Unknown Active morphine Unknown Active Bactrim Unknown Active Zofran Unknown Active Assessment and Plan Future Appointments Functional Status 03/02/23 Other exposure to Infectious Disease Non e Medications atorvastatin 20 mg oral tablet 20 [...] Condition Confirmation Course Effective Dates Status H ealt Status Informant ADHD - Attention deficit disorder [...] Cholecystectomy 1 Complet ed Tonsillectomy 2 Completed 22551 Vital Signs Most recent to oldest [Reference Range]: 1 Temperature Temporal Artery [36-38 Deg C ] 36.7 Deg C (03/02/23 2:45 PM) Apical Heart Rate [60-100 bpm] 102 bpm *HI* (03/02/23 2:45 PM) Blood Pressure [90-140/60-90 mmHg] 122/8 8mmHg (03/02/23 2:45 PM) Weight 76.20 kg (03/02/23 2:45 PM) Weight Measured (lbs) 167.992 lb (03/02/23 2:45 PM) [place] Body Weight Calculated 50.1 kg (03/02/23 2:45 PM) Height 157.48 cm (03/02/23 2:45 PM) Height/Length Measured (inches) 62 inch (03/02/23 2:45 PM) BSA Measured 1.83 m2 (03/02/23 2:45 PM) Body Mass Index 30.73 kg/m2 (03/02/23 2:45 PM) Social History Social History Type Response Tobacco Current everyday tob acco user Tobacco Use:. Sex Physician Outpatient Note * Constanza Flowers APRN W: PERFORM Event Display: Office Clinic Note Physician Authored Date: [id number] DANI FRANCISCO :1980 Age:42 years Sex:Female Visit Date:03/02/2023 Primary Care Physician: NADIA MURILLO MD Chief Complaint Dyspepsia, dysphagia, colon thickening History of Present Illness Patient is a 42-year-old female here today at the request of Dr. Murillo for??dyspepsia, dysphagia and colon thickening. ??This is an initial consult.?? She states she has had stomach issues for 2 years. ??She has had??GERD??since she was a teenager.?? She is taking omeprazole 40 mg every morning. ??Her symptoms are worse at night.?? She uses a??ibuprofen once every 2 weeks.?? Complains of epigastric pain and lower abdominal pain. ??She has intermittent nausea and vomits approximately twice weekly. ??She has a history of an eating disorder but denies being bulimia.?? She denies inducing vomiting.?? She does use marijuana. ??She has not tried??abstinence to see if it helps her symptoms. ??Has constipation??and can have 2-3 bowel movements per week that are [place] form 2 or 3??which she can go 3 weeks without a bowel movement.?? 2 meals a day her shakes and another one is a regular meal.??She states she has pain to eat.?? Denies diarrhea, melena or hematochezia.?? She feels she has gained weight.?? Has??pyrosis and dyspepsia denies any dysphagia or globus sensation. ?? Patient has a history of hepatitis C??that has been treated.?? She has a history of??hepatic fibrosis. ?? Patient??is status postcholecystectomy. ?? 09/25/[address] scan of the abdomen and??pelvis??with pelvis??done at [facility] showed a moderate size hiatal hernia??and a large??stool burden.?? CT angiogram??was unremarkable. ?? She reports having a colonoscopy attempt 1 to 2 months ago at [facility] with poor prep.?? She has not had a EGD. ?? Denies a family history of gastrointestinal cancers or inflammatory bowel disease??or celiac disease. ?? She is accompanied by a female??maintenance today. Review of Systems General: Denies malaise or fatigue. HEENT: Denies globus sensation or dysphagia. Respiratory: Denies shortness of breath, cough, or wheeze. Cardiovascular: Denies chest pain, palpitations, lightheadedness, dizziness, syncope or peripheral edema. ?? Abdomen:??Complains of epigastric and lower abdominal pain, nausea, vomiting, constipation,??diminished appetite,??and pyrosis. ??She has gained weight. ??Denies any diarrhea, melena or hematochezia.?? Skin: Denies rashes or lesions. Neurological: Denies any problems with gait or balance. Physical Exam Vitals & Measurements T:??36.7?C ??(Temporal Artery)?? HR:??102??(Apical)?? BP:??122/88?? SpO2:??98%?? HT:??157.48??cm?? WT:??76.20??kg?? BMI:??30.73?? BSA:??1.83?? General: Well-nourished well-developed??female??in no acute distress. HEENT: Head is normocephalic, trachea midline, and no cervical lymphadenopathy. Respiratory: Respirations are even and unlabored. ??Lungs are clear to auscultation. Cardiovascular: Regular rate and rhythm with S1 and S2. Abdomen: Positive bowel sounds x4 quadrants, no masses, no guarding, no tenderness. ??No hepatosplenomegaly. ??Abdomen is soft. Skin: Warm, dry, and pink. Neurological: Alert and oriented x3, speech is clear and gait is steady. Psychological: Pleasant, calm and cooperative. Assessment/Plan 1.??Constipation??K59.00 Recommend a high-fiber diet. ??Recommend??MiraLAX 17 g in 8 ounces of fluid daily.?? Will get a copy of colonoscopy report from [facility] H??though likely limited as patient states there was poor prep.?? She has no indications other than chronic constipation at this time for colonoscopy. Ordered: Follow-up Appointment Request LT_MS, *Est. 03/16/23 +/- 2 days, Future Order, after EGD, In [facility], [facility] Surgical Procedure Booking Request KENNEDY, 03/02/23 15:07:00 EDT, 04/28/23 10:00:00 EDT, epigastric pain, n/v, CAROL, Constipation GERD - Gastro-esophageal reflux disease Hepatic fibrosis Hiatal hernia History of hepatitis C, Outpatient, EGD, Primary Procedure, 15, MAC, 28, Kike Lamp... ?? 2.??GERD - Gastro-esophageal reflux disease??K21.9 Advised switching omeprazole to 40 mg 30 minutes before evening meal. ??We discussed reflux triggering foods and beverages to avoid, to avoid eating 3 hours before bedtime and eat small frequent meals.?? EGD to assess for mucosal injury, inflammation, H. pylori infection and celiac disease.?? EGD to rule out López's esophagus with chronic will see patient 2 weeks after EGD to discuss findings and make further recommendations. Ordered: Follow-up Appointment Request [id number], *Est. 03/16/23 +/- 2 days, Future Order, after EGD, In [facility], [facility] Surgical Procedure Booking Request LTTL, 03/02/23 15:07:00 EDT, 04/28/23 10:00:00 EDT, epigastric pain, n/v, CAROL, Constipation GERD - Gastro-esophageal reflux disease Hepatic fibrosis Hiatal hernia History of hepatitis C, Outpatient, EGD, Primary Procedure, 15, MAC, 28, Kike Lamp... ?? 3.??Hepatic fibrosis??K74.00 Will ask for previous??liver work-up. Ordered: Follow-up Appointment Request [id number], *Est. 03/16/23 +/- 2 days, Future Order, after EGD, In [facility] Surgical Procedure Booking Request LTTL, 03/02/23 15:07:00 EDT, 04/28/23 10:00:00 EDT, epigastric pain, n/v, CAROL, Constipation GERD - Gastro-esophageal reflux disease Hepatic fibrosis Hiatal hernia History of hepatitis C, Outpatient, EGD, Primary Procedure, 15, MAC, 28, Kike Lamp... ?? 4.??Hiatal hernia??K44.[address] scan EGD as above for further assessment. Ordered: Follow-up Appointment Request [id number], *Est. 03/16/23 +/- 2 days, Future Order, after EGD, In [facility] Surgical Procedure Booking Request LTTL, 03/02/23 15:07:00 EDT, 04/28/23 10:00:00 EDT, epigastric pain, n/v, CAROL, Constipation GERD - Gastro-esophageal reflux disease Hepatic fibrosis Hiatal hernia History of hepatitis C, Outpatient, EGD, Primary Procedure, 15, MAC, 28, Kike Lamp... ?? 5.??History of hepatitis C??Z86.19 Will asked for confirmation of??cure??from treatment from PCP. Ordered: Follow-up Appointment Request [email or web address], *Est. 03/16/23 +/- 2 days, Future Order, after EGD, In [facility], [facility] Surgical Procedure Booking Request LTTL, 03/02/23 15:07:00 EDT, 04/28/23 10:00:00 EDT, epigastric pain, n/v, CAROL, Constipation GERD - Gastro-esophageal reflux disease Hepatic fibrosis Hiatal hernia History of hepatitis C, Outpatient, EGD, Primary Procedure, 15, MAC, 28, Kike Lamp... ?? 6.??Eating disorder??F50.9 Still struggles with. ??She denies??purging. ?? 7.??Nausea and vomiting??R11.2 EGD as above.?? Recommend??trial of 2 to 3 months without marijuana use. ??Patient voiced??disinterest. ?? Voice recognition software utilized which may result in minor fish cutting machine operator error. Problem List/Past Medical History Ongoing ADHD - Attention deficit disorder with hyperactivity Alcohol abuse Amenorrhea Asthma Bipolar Bulimia CKD - chronic kidney disease Constipation Cramping Diverticular disease DM - Diabetes mellitus Drug abuse Dyslipidemia Dyspepsia Dysphagia Eating disorder Ectopic GERD - Gastro-esophageal reflux disease Heartburn Hepatic fibrosis Herpes genitalis Hiatal hernia History of hepatitis C History of IV (intravenous) drug abuse History seizure Hoarseness Migraine Nausea Nausea and vomiting Numbness of hand Opioid-related disorder Ovarian cyst PTSD - Post-traumatic stress disorder Sleep apnea Smoker Splenomegaly Stimulant abuse Tobacco user Historical No qualifying data Procedure/Surgical History ???Cholecystectomy???Tonsillectomy Medications atorvastatin 20 mg oral tablet, 20 mg= 1 tab, Oral, Daily buPROPion 300 mg/24 hours (XL) oral tablet, extended release, 300 mg= 1 tab, Oral, Daily Daily Claudy oral tablet, 1 tab, Oral, Daily divalproex sodium 500 mg oral tablet, extended release, 500 mg= 1 tab, Oral, Daily FISH OIL CAP 1000MG glipiZIDE 2.5 mg oral tablet, extended release, 2.5 mg= 1 tab, Oral, Daily levETIRAcetam 750 mg oral tablet, 750 mg= 1 tab, Oral, BID magnesium oxide 400 mg (241.3 mg elemental magnesium) oral tablet, 400 mg= 1 tab, Oral, Daily metFORMIN 1000 mg oral tablet, 1000 mg= 1 tab, Oral, BID methylphenidate 10 mg oral tablet, 10 mg= 1 tab, Oral, BID ohm Allergy Relief 10 mg oral tablet, 10 mg= 1 tab, Oral, Daily OLANZapine 15 mg oral tablet, 15 mg= 1 tab, Oral, Daily omeprazole 40 mg oral delayed release capsule, 40 mg= 1 cap, Oral, Daily Vitamin D3 1000 intl units oral tablet, 25 mcg= 1 tab, Oral, Daily Allergies Bactrim Zofran erythromycin morphine penicillin sulfamethoxazole Social History Alcohol Never Electronic Cigarette/Vaping Electronic Cigarette Use: Never. Substance Use Current, Marijuana, Daily Tobacco Current everyday tobacco user Tobacco Use:. Family History Family history is unknown Electronically Signed on 03/02/23 03:11 PM Constanza Flowers APRN Patient Care team information Care Team Personnel Name: NADIA MURILLO MD Position: No Access Member Role: Primary Care Physician Address: Address: [address] [place] [id number] Care Team Related Persons Name: MOLLY FRENCH Address: Home
--- OUTSIDE RECORDS SUMMARY | 2023-06-03 22:09 | XMS_ITS | Continuity of Care Document ---
Author Name Unknown Organization [facility] Address [address] [place] [address] Care Team Providers Care Police Chief Name Role Phone NADIA DIEGO MD Primary Care Physician Encounter [facility] NBR [phone] Date(s): 04/14/23 - 04/14/[address] [id number] Encounter Diagnosis Constipation, unspecified(Final) - Gastro-esophageal reflux disease without esophagitis(Final) - Hepatic fibrosis, unspecified(Final) - Diaphragmatic hernia without obstruction or gangrene(Final) - Personal history of other infectious and parasitic diseases(Final) - Eating disorder, unspecified(Final) - Nausea with vomiting, unspecified(Final) - Gastroparesis(Final) - Discharge Disposition: Home or Self Care Attending Physician: Kike Craig MD Admitting Physician: Kike Craig MD Referring Physician: Kike Craig MD Allergies, Adverse Reactions, Alerts Substance Reaction Severity Status erythromycin Abdominal pain Mild Active penicillin Hives Mild Active morphine Vomit Mild Active Bactrim Generalized body aches Mild Activ e Zofran Angioedema Moderate Active Assessment and Plan Future Appointments Medications [...] 3 Completed 1auto-populated from documented surgical case [id number] Results Radiology Reports * Exam Date Time Procedure Performing Provider Status 04/14/23 2:18 PM NM Gastric Emptying Study Farhana Jason ey; Auth (Verified) Notes: (NM Gastric Emptying Study) Reason For Exam: Retained gastric contents despite 12-hour fast NM Gastric Emptying Study EXAM DESCRIPTION: CO Gastric Emptying Study 04/14/2023 2:18 RADIOPHARM: A nuclear medicine gastric emptying study was performed. Following oral administration of 99 M technetium sulfur colloid mixed with food, serial images of the stomach region were obtained up to 4 hours post tracer administration. INDICATION: RETAINED GASTRIC CONTENTS DESPITE 12-HOUR FAST COMPARISON: None. FINDINGS: 80% of administered activity was retained in the stomach at 1 hour post tracer administration, normal 30%-90%. 66% of administered activity was retained in the stomach at 2 hours post tracer administration, normal less than 60%. 52% of administered activity was retained in the stomach at 3 hours post tracer administration, normal less than 30%. 35% of administered activity was retained in the stomach at 4 hours post tracer administration, normal less than 10%. Half-time gastric clearance was 185 minutes. IMPRESSION: Abnormal study. Findings consistent with delayed gastric emptying as detailed above. JOB #: [id number] Final Signed by: Torres Cornejo MD Signed (Electronic Signature): 04/15/2023 8:52 am Social History Social History Type Response Tobacco Current everyday tob acco user Tobacco Use:. 1 ppd per day. Sex Patient Care team information Care Team Personnel Name: NADIA DIEGO MD Position: No Access Member Role: Primary Care Physician Address: Address: [address] [place] [address] Care Team Related Persons Name: MOLLY FRENCH
--- OUTSIDE RECORDS SUMMARY | 2023-06-03 22:09 | XMS_ITS | Continuity of Care Document ---
Author Name Unknown Organization [facility] Address [address] [place] [address] Care Team Providers Care Director Dietetics Department Name Role Phone NADIA DIEGO MD Primary Care Physician [phone] Encounter LTTL_ME FIN NBR [id number] Date(s): 04/07/23 - 04/07/23 [facility] [address] [place] [address]- Encounter Diagnosis Dyspepsia(Discharge Diagnosis) - 04/07/23 GERD (gastroesophageal reflux disease)(Discharge Diagnosis) - 04/07/23 Discharge Disposition: Home f/u External Provider Attending Physician: Kike Craig MD Admitting Physician: Kike Craig MD Referring Physician: Kike Craig MD Allergies, Adverse Reactions, Alerts Substance Reaction Severity Status erythromycin Abdominal pain Mild Active penicillin Hives Mild Active morphine Vomit Mild Active Bactrim Generalized body aches Mild Activ e Zofran Angioedema Moderate Active Assessment and Plan Future Appointments Future Scheduled Tests Radiology* NM Gastric Emptying Study 04/07/23 Functional Status 04/07/23 ADLs Independent Medications atorvastatin 20 mg oral tablet 20 [...] 3 Completed 1auto-populated from documented surgical case [id number] Vital Signs Most recent to oldest [Reference Range]: 1 2 3 Temperature Temporal Artery [36-38 Deg C] 36.3 Deg C (04/07/23 1:23 PM) 36.5 Deg C (04/07/23 12:26 PM) Peripheral Pulse Rate [60-100 bpm] 72 bpm (04/07/23 1:44 PM) 84 bpm (04/07/23 1:40 PM) 85 bpm (04/07/23 1:39 PM) Heart Rate Monitored [60-100 bpm] 78 bpm (04/07/23 1:27 PM) 78 bpm (04/07/23 1:23 PM) 82 bpm (04/07/23 12:26 PM) Respiratory Rate [12-24 br/min] 18 br/min (04/07/23 12:26 PM) Blood Pressure [90-140/60-90 mmHg] 126/87mmHg (04/07/23 1:44 PM) 110/79mmHg (04/07/23 1:37 PM) 110/79mmHg (04/07/23 1:36 PM) Mean Arterial Pressure, Cuff [65-140 mmHg] 100 mmHg (04/07/23 1:44 PM) 89 mmHg (04/07/23 1:37 PM) 89 mmHg (04/07/23 1:36 PM) Mean Arterial Pressure Cuff 86 mmHg (04/07/23 1:40 PM) 86 mmHg (04/07/23 1:39 PM) 86 mmHg (04/07/23 1:37 PM) Blood Pressure Location Left arm (04/07/23 1:44 PM) Left arm (04/07/23 1:36 PM) Left arm (04/07/23 1:33 PM) Weight 77.100 kg (04/07/23 12:26 PM) 77.000 kg (04/05/23 6:08 PM) Weight Dosing 77.100 kg (04/07/23 12:26 PM) 77.000 kg (04/05/23 6:08 PM) Height 157.480 cm (04/07/23 12:26 PM) 157.000 cm (04/05/23 6:08 PM) Height/Length Dosing 157.480 cm (04/07/23 12:26 PM) 157.000 cm (04/05/23 6:08 PM) Body Mass Index 31.090 kg/m2 (04/07/23 12:26 PM) Social History Social History Type Response Tobacco Current everyday tob acco user Tobacco Use:. 1 ppd per day. [facility] Discharge Instructions Patient Education 04/07/2023 12:29:03 Upper Endoscopy, Adult, Care After Upper Endoscopy, Adult, Care After This sheet gives you information about how to care for yourself after your procedure. Your health care provider may also give you more specific instructions. If you have problems or questions, contact your health care provider. What can I expect after the procedure? After the procedure, it is common to have: ??? A sore throat. ??? Mild stomach pain or discomfort. ??? Bloating. ??? Nausea. Follow these instructions at home: ??? Follow instructions from your health care provider about what to eat or drink after your procedure. ??? Return to your normal activities as told by your health care provider. Ask your health care provider what activities are safe for you. ??? Take hfyr-otw-yrtejug and prescription medicines only as told by your health care provider. ??? If you were given a sedative during the procedure, it can affect you for several hours. Do not drive or operate machinery until your health care provider says that it is safe. ??? Keep all follow-up visits as told by your health care provider. This is important. Contact a health care provider if you have: ??? A sore throat that lasts longer than one day. ??? Trouble swallowing. Get help right away if: ??? You vomit blood or your vomit looks like coffee grounds. ??? You have: ??? A fever. ??? Bloody, black, or tarry stools. ??? A severe sore throat or you cannot swallow. ??? Difficulty breathing. ??? Severe pain in your chest or abdomen. Summary ??? After the procedure, it is common to have a sore throat, mild stomach discomfort, bloating, andnausea. ??? If you were given a sedative during the procedure, it can affect you for several hours. Do not drive or operate machinery until your health care provider says that it is safe. ??? Follow instructions from your health care provider about what to eat or drink after your procedure. ??? Return to your normal activities as told by your health care provider. This information is not intended to replace advice given to you by your health care provider. Make sure you discuss any questions you have with your health care provider. Document Revised: 05/09/2020 Document Reviewed: 12/04/2018 [employer] Patient Education ?? 2022 [email or web address] 04/07/2023 12:29:00 Gastroesophageal Reflux Disease, Adult Gastroesophageal Reflux Disease, Adult Gastroesophageal reflux (CAORL) happens when acid from the stomach flows up into the tube that connects the mouth and the stomach (esophagus). Normally, food travels down the esophagus and stays in thestomach to be digested. However, when a person has CAROL, food and stomach acid sometimes move back up into the esophagus. If this becomes a more serious problem, the person may be diagnosed with a disease called gastroesophageal reflux disease (GERD). GERD occurs when the reflux: ??? Happens often. ??? Causes frequent or severe symptoms. ??? Causes problems such as damage to the esophagus. When stomach acid comes in contact with the esophagus, the acid may cause inflammation in the esophagus. Over time, GERD may create small holes (ulcers) in the lining of the esophagus. What are the causes? This condition is caused by a problem with the muscle between the esophagus and the stomach (lower esophageal sphincter, or LES). Normally, the LES muscle closes after food passes through the esophagus to the stomach. When the LES is weakened or abnormal, it does not close properly, and that allowsfood and stomach acid to go back up into the esophagus. The LES can be weakened by certain dietary substances, medicines, and medical conditions, including: ??? Tobacco use. ??? . ??? Having a hiatal hernia. ??? Alcohol use. ??? Certain foods and beverages, such as coffee, chocolate, onions, and peppermint. What increases the risk? You are more likely to develop this condition if you: ??? Have an increased body weight. ??? Have a connective tissue disorder. ??? Take NSAIDs, such as ibuprofen. What are the signs or symptoms? Symptoms of this condition include: ??? Heartburn. ??? Difficult or painful swallowing and the feeling of having a lump in the throat. ??? A bitter taste in the mouth. ??? Bad breath and having a large amount of saliva. ??? Having an upset or bloated stomach and belching. ??? Chest pain. Different conditions can cause chest pain. Make sure you see your health care provider if you experience chest pain. ??? Shortness of breath or wheezing. ??? Ongoing (chronic) cough or a nighttime cough. ??? Wearing away of tooth enamel. ??? Weight loss. How is this diagnosed? This condition may be diagnosed based on a medical history and a physical exam. To determine if youhave mild or severe GERD, your health care provider may also monitor how you respond to treatment. You may also have tests, including: ??? A test to examine your stomach and esophagus with a small camera (endoscopy). ??? A test that measures the acidity level in your esophagus. ??? A test that measures how much pressure is on your esophagus. ??? A barium swallow or modified barium swallow test to show the shape, size, and functioning of your esophagus. How is this treated? Treatment for this condition may vary depending on how severe your symptoms are. Your health care provider may recommend: ??? Changes to your diet. ??? Medicine. ??? Surgery. The goal of treatment is to help relieve your symptoms and to prevent complications. Follow these instructions at home: Eating and drinking ??? Follow a diet as recommended by your health care provider. This may involve avoiding foods and drinks such as: ??? Coffee and tea, with or without caffeine. ??? Drinks that contain alcohol. ??? Energy drinks and sports drinks. ??? Carbonated drinks or sodas. ??? Chocolate and cocoa. ??? Peppermint and mint flavorings. ??? Garlic and onions. ??? Horseradish. ??? Spicy and acidic foods, including peppers, chili powder, stacy powder, vinegar, hot sauces, andbarbecue sauce. ??? [place] fruit juices and citrus fruits, such as oranges, valerio, and limes. ??? Tomato-based foods, such as red sauce, chili, salsa, and pizza with red sauce. ??? Fried and fatty foods, such as donuts, cape verdean fries, potato chips, and high- fat dressings. ??? High-fat meats, such as hot dogs and fatty cuts of red and white meats, such as rib eye steak, sausage, ham, and garcia. ??? High-fat dairy items, such as whole milk, butter, and cream cheese. ??? Eat small, frequent meals instead of large meals. ??? Avoid drinking large amounts of liquid with your meals. ??? Avoid eating meals during the 2???3 hours before bedtime. ??? Avoid lying down right after you eat. ??? Do not exercise right after you eat. Lifestyle ??? Do not use any products that contain nicotine or tobacco. These products include cigarettes, chewing tobacco, and vaping devices, such as e-cigarettes. If you need help quitting, ask your health care provider. ??? Try to reduce your stress by using methods such as yoga or meditation. If you need help reducing stress, ask your health care provider. ??? If you are overweight, reduce your weight to an amount that is healthy for you. Ask your healthcare provider for guidance about a safe weight loss goal. General instructions ??? Pay attention to any changes in your symptoms. ??? Take vhld-dwy-qeebqzf and prescription medicines only as told by your health care provider. Do not take aspirin, ibuprofen, or other NSAIDs unless your health care provider told you to take thesemedicines. ??? Wear loose-fitting clothing. Do not wear anything tight around your waist that causes pressure on your abdomen. ??? Raise (elevate) the head of your bed about 6 inches (15 cm). You can use a wedge to do this. ??? Avoid bending over if this makes your symptoms worse. ??? Keep all follow-up visits. This is important. Contact a health care provider if: ??? You have: ??? New symptoms. ??? Unexplained weight loss. ??? Difficulty swallowing or it hurts to swallow. ??? Wheezing or a persistent cough. ??? A hoarse voice. ??? Your symptoms do not improve with treatment. Get help right away if: ??? You have sudden pain in your arms, neck, jaw, teeth, or back. ??? You suddenly feel sweaty, dizzy, or light-headed. ??? You have chest pain or shortness of breath. ??? You vomit and the vomit is green, yellow, or black, or it looks like blood or coffee grounds. ??? You faint. ??? You have stool that is red, bloody, or black. ??? You cannot swallow, drink, or eat. These symptoms may represent a serious problem that is an emergency. Do not wait to see if the symptoms will go away. Get medical help right away. Call your local emergency services (911 in the [place] Do not drive yourself to the hospital. Summary ??? Gastroesophageal reflux happens when acid from the stomach flows up into the esophagus. GERD edna disease in which the reflux happens often, causes frequent or severe symptoms, or causes problemssuch as damage to the esophagus. ??? Treatment for this condition may vary depending on how severe your symptoms are. Your health care provider may recommend diet and lifestyle changes, medicine, or surgery. ??? Contact a health care provider if you have new or worsening symptoms. ??? Take ilqg-rzt-auiolez and prescription medicines only as told by your health care provider. Do not take aspirin, ibuprofen, or other NSAIDs unless your health care provider told you to do so. ??? Keep all follow-up visits as told by your health care provider. This is important. This information is not intended to replace advice given to you by your health care provider. Make sure you discuss any questions you have with your health care provider. Document Revised: 01/12/2021 Document Reviewed: 01/12/2021 [employer] Patient Education ?? 2022 [email or web address] 04/07/2023 12:28:57 Gastroparesis Gastroparesis Gastroparesis is a condition in which food takes longer than normal to empty from the stomach. Thiscondition is also known as delayed gastric emptying. It is usually a long-term (chronic) condition. There is no cure, but there are treatments and things that you can do at home to help relieve symptoms. Treating the underlying condition that causes gastroparesis can also help relieve symptoms. What are the causes? In many cases, the cause of this condition is not known. Possible causes include: ??? A hormone (endocrine) disorder, such as hypothyroidism or diabetes. ??? A nervous system disease, such as Parkinson's disease or multiple sclerosis. ??? Cancer, infection, or surgery that affects the stomach or vagus nerve. The vagus nerve runs from your chest, through your neck, and to the lower part of your brain. ??? A connective tissue disorder, such as scleroderma. ??? Certain medicines. What increases the risk? You are more likely to develop this condition if: ??? You have certain disorders or diseases. These may include: ??? An endocrine disorder. ??? An eating disorder. ??? Amyloidosis. ??? Scleroderma. ??? Parkinson's disease. ??? Multiple sclerosis. ??? Cancer or infection of the stomach or the vagus nerve. ??? You have had surgery on your stomach or vagus nerve. ??? You take certain medicines. ??? You are female. What are the signs or symptoms? Symptoms of this condition include: ??? Feeling full after eating very little or a loss of appetite. ??? Nausea, vomiting, or heartburn. ??? Bloating of your abdomen. ??? Inconsistent blood sugar (glucose) levels on blood tests. ??? Unexplained weight loss. ??? Acid from the stomach coming up into the esophagus (gastroesophageal reflux). ??? Sudden tightening (spasm) of the stomach, which can be painful. Symptoms may come and go. Some people may not notice any symptoms. How is this diagnosed? This condition is diagnosed with tests, such as: ??? Tests that check how long it takes food to move through the stomach and intestines. These testsinclude: ??? Upper gastrointestinal (GI) series. For this test, you drink a liquid that shows up well on X-rays, and then X-rays are taken of your intestines. ??? Gastric emptying scintigraphy. For this test, you eat food that contains a small amount of radioactive material, and then scans are taken. ??? Wireless capsule GI monitoring system. For this test, you swallow a pill (capsule) that recordsinformation about how foods and fluid move through your stomach. ??? Gastric manometry. For this test, a tube is passed down your throat and into your stomach to measure electrical and muscular activity. ??? Endoscopy. For this test, a long, thin tube with a camera and light on the end is passed down your throat and into your stomach to check for problems in your stomach lining. ??? Ultrasound. This test uses sound waves to create images of the inside of your body. This can help rule out gallbladder disease or pancreatitis as a cause of your symptoms. How is this treated? There is no cure for this condition, but treatment and home care may relieve symptoms. Treatment may include: ??? Treating the underlying cause. ??? Managing your symptoms by making changes to your diet and exercise habits. ??? Taking medicines to control nausea and vomiting and to stimulate stomach muscles. ??? Getting food through a feeding tube in the hospital. This may be done in severe cases. ??? Having surgery to insert a device called a gastric electrical stimulator into your body. This device helps improve stomach emptying and control nausea and vomiting. Follow these instructions at home: ??? Take wmjs-olr-jotwlms and prescription medicines only as told by your health care provider. ??? Follow instructions from your health care provider about eating or drinking restrictions. Your health care provider may recommend that you: ??? Eat smaller meals more often. ??? Eat low-fat foods. ??? Eat low-fiber forms of high-fiber foods. For example, eat cooked vegetables instead of raw vegetables. ??? Have only liquid foods instead of solid foods. Liquid foods are easier to digest. ??? Drink enough fluid to keep your urine pale yellow. ??? Exercise as often as told by your health care provider. ??? Keep all follow-up visits. This is important. Contact a health care provider if you: ??? Notice that your symptoms do not improve with treatment. ??? Have new symptoms. Get help right away if you: ??? Have severe pain in your abdomen that does not improve with treatment. ??? Have nausea that is severe or does not go away. ??? Vomit every time you drink fluids. Summary ??? Gastroparesis is a long-term (chronic) condition in which food takes longer than normal to empty from the stomach. ??? Symptoms include nausea, vomiting, heartburn, bloating of your abdomen, and loss of appetite. ??? Eating smaller portions, low-fat foods, and low-fiber forms of high-fiber foods may help you manage your symptoms. ??? Get help right away if you have severe pain in your abdomen. This information is not intended to replace advice given to you by your health care provider. Make sure you discuss any questions you have with your health care provider. Document Revised: 11/10/2020 Document Reviewed: 11/10/2020 [employer] Patient Education ?? 2022 [employer] Discharge instructions * Mikki Munoz: PERFORM Event Display: Discharge Instructions Authored Date: [id number] DANI FRANCISCO :1980 Age:42 years Sex:Female Visit Date:04/07/2023 Primary Care Physician: JOHNATHON POSEY, [facility] Discharge Instructions We would like to thank you for allowing us to assist you with your healthcare needs. The following includes patient education materials and information regarding your injury/illness. Your Next Steps Scheduled Future Appointments Tuesday 10:30 AM EST ?? With: Constanza Flowers APRN Where: [facility] Status: Confirmed Future Orders NM Gastric Emptying Study, 04/07/23, Routine, Reason: Retained gastric contents despite 12-hour fast, Transport Mode: Ambulatory, Constipation GERD - Gastro- esophageal reflux disease Hepatic fibrosis Hiatal hernia History of hepatitis C Eating disorder Nausea and vo... Medications What How Much When Instructions Next Dose Changed methadone (methadone 10 mg/ 5 mL oral solution) 130 Milligrams Oral (given by mouth) Every day Unchanged albuterol (ProAir HFA 90 mcg/ inh inhalation aerosol) 2 Puffs Inhale (breathe in) Every 4 hours as needed for as needed for wheezing Unchanged atorvastatin (atorvastatin 20 mg oral tablet) 1 tab Oral (given by mouth) Every night at bedtime Unchanged buPROPion (buPROPion 300 mg/ 24 hours (XL) oral tablet, extended release) 1 tab Oral (given by mouth) Every day Unchanged cholecalciferol (Vitamin D3 1000 intl units oral tablet) 1 tab Oral (given by mouth) Every day Unchanged cloNIDine (cloNIDine 0.1 mg oral tablet) 1 tab Oral (given by mouth) 2 times a day as needed for anxiety Unchanged dexmethylphenidate (dexmethylphenidate 40 mg oral capsule, extended release) 1 Capsules Oral (given by mouth) Every morning Unchanged docusate-senna (docusate-senna 50 mg-8.6 mg oral capsule) 1 Capsules Oral (given by mouth) 2 times a day as needed for constipation Unchanged dulaglutide (Trulicity Pen 0.75 mg/ 0.5 mL subcutaneous solution) 0.5 Milliliters Subcutaneous (under the skin) Every week Unchanged glipiZIDE (glipiZIDE 2.5 mg oral tablet, extended release) 1 tab Oral (given by mouth) Every day Unchanged levETIRAcetam (levETIRAcetam 750 mg oral tablet) 1 tab Oral (given by mouth) 2 times a day Unchanged lidocaine topical (lidocaine 4% topical cream) 1 Application Topical (on the skin) 2 times a day as needed for as needed for pain Unchanged loratadine (ohm Allergy Relief 10 mg oral tablet) 1 tab Oral (given by mouth) Every day Unchanged magnesium oxide (magnesium oxide 400 mg (241.3 mg elemental magnesium) oral tablet) 1 tab Oral (given by mouth) 2 times a day Unchanged metFORMIN (metFORMIN 1000 mg oral tablet) 1 tab Oral (given by mouth) 2 times a day Unchanged methylphenidate (methylphenidate 10 mg oral tablet) 1 tab Oral (given by mouth) Every day Unchanged multivitamin (Daily Claudy oral tablet) 1 tab Oral (given by mouth) Every day Unchanged OLANZapine (OLANZapine 15 mg oral tablet) 1 tab Oral (given by mouth) 2 times a day Unchanged omeprazole (omeprazole 40 mg oral delayed release capsule) 1 Capsules Oral (given by mouth) Every day Unchanged promethazine (Phenergan 25 mg oral tablet) 1 tab Oral (given by mouth) 2 times a day as needed for as needed for nausea/vomiting Unchanged valACYclovir (valACYclovir 1 g oral tablet) 1 tab Oral (given by mouth) Every day as needed for mouth sore pain Duration: 5 Days Your Summary Your Care Team Admitting Physician - Kike Craig MD Attending Physician - Kike Craig MD Primary Care Physician - NADIA DIEGO MD Referring Physician - Kike Craig MD Your Diagnosis Dyspepsia GERD (gastroesophageal reflux disease) Problems Ongoing - Any problem that you are currently receiving treatment for. ADHD - Attention deficit disorder with hyperactivity Alcohol abuse Amenorrhea Asthma Bipolar Bulimia CKD - chronic kidney disease CKD stage 3 Constipation Cramping Diverticular disease DM - Diabetes mellitus Drug abuse Dyslipidemia Dyspepsia Dyspepsia Dysphagia Eating disorder Ectopic Full/full dentures GERD (gastroesophageal reflux disease) GERD - Gastro-esophageal reflux disease Heartburn Hepatic fibrosis Herpes genitalis Hiatal hernia History of hepatitis C History of IV (intravenous) drug abuse Hoarseness Migraine Nausea Nausea and vomiting Numbness of hand Opioid-related disorder Ovarian cyst PTSD - Post-traumatic stress disorder Seizure disorder Sleep apnea Smoker Splenomegaly Stimulant abuse Tobacco user Procedures Performed ???Esophagogastroduodenoscopy Biopsy (04/07/2023)???Colonoscopy???Excision of fallopian tube and surgical removal of ectopic Discharge Vitals Temperature??(Temporal Artery) 97.3 ??F (36.3 ??C) Heart Rate??(Peripheral) 72 Respiratory Rate?? 18 Blood Pressure?? 126/87?? Height?? 62.00 in (157.480 cm) Weight?? 170.01 lb (77.100 kg) BMI?? 31.090 Allergies Zofran??(Angioedema) Bactrim??(Generalized body aches) erythromycin??(Abdominal pain) morphine??(Vomit) penicillin??(Hives) Education Materials Upper Endoscopy, Adult, Care After This sheet gives you information about how to care for yourself after your procedure. Your health care provider may also give you more specific instructions. If you have problems or questions, contact your health care provider. What can I expect after the procedure? After the procedure, it is common to have: ? A sore throat. ? Mild stomach pain or discomfort. ? Bloating. ? Nausea. Follow these instructions at home: ? Follow instructions from your health care provider about what to eat or drink after your procedure. ? Return to your normal activities as told by your health care provider. Ask your health care provider what activities are safe for you. ? Take lfbp-mop-mbsjfiw and prescription medicines only as told by your health care provider. ? If you were given a sedative during the procedure, it can affect you for several hours. Do not drive or operate machinery until your health care provider says that it is safe. ? Keep all follow-up visits as told by your health care provider. This is important. Contact a health care provider if you have: ? A sore throat that lasts longer than one day. ? Trouble swallowing. Get help right away if: ? You vomit blood or your vomit looks like coffee grounds. ? You have: ? A fever. ? Bloody, black, or tarry stools. ? A severe sore throat or you cannot swallow. ? Difficulty breathing. ? Severe pain in your chest or abdomen. Summary ? After the procedure, it is common to have a sore throat, mild stomach discomfort, bloating, and nausea. ? If you were given a sedative during the procedure, it can affect you for several hours. Do not drive or operate machinery until your health care provider says that it is safe. ? Follow instructions from your health care provider about what to eat or drink after your procedure. ? Return to your normal activities as told by your health care provider. This information is not intended to replace advice given to you by your health care provider. Make sure you discuss any questions you have with your health care provider. Document Revised: 05/09/2020 Document Reviewed: 12/04/2018 [employer] Patient Education ?? 2022 [employer] Gastroesophageal Reflux Disease, Adult Gastroesophageal reflux (CAROL) happens when acid from the stomach flows up into the tube that connects the mouth and the stomach (esophagus). Normally, food travels down the esophagus and stays in thestomach to be digested. However, when a person has CAROL, food and stomach acid sometimes move back up into the esophagus. If this becomes a more serious problem, the person may be diagnosed with a disease called gastroesophageal reflux disease (GERD). GERD occurs when the reflux: ? Happens often. ? Causes frequent or severe symptoms. ? Causes problems such as damage to the esophagus. When stomach acid comes in contact with the esophagus, the acid may cause inflammation in the esophagus. Over time, GERD may create small holes (ulcers) in the lining of the esophagus. What are the causes? This condition is caused by a problem with the muscle between the esophagus and the stomach (lower esophageal sphincter, or LES). Normally, the LES muscle closes after food passes through the esophagus to the stomach. When the LES is weakened or abnormal, it does not close properly, and that allowsfood and stomach acid to go back up into the esophagus. The LES can be weakened by certain dietary substances, medicines, and medical conditions, including: ? Tobacco use. ? . ? Having a hiatal hernia. ? Alcohol use. ? Certain foods and beverages, such as coffee, chocolate, onions, and peppermint. What increases the risk? You are more likely to develop this condition if you: ? Have an increased body weight. ? Have a connective tissue disorder. ? Take NSAIDs, such as ibuprofen. What are the signs or symptoms? Symptoms of this condition include: ? Heartburn. ? Difficult or painful swallowing and the feeling of having a lump in the throat. ? A bitter taste in the mouth. ? Bad breath and having a large amount of saliva. ? Having an upset or bloated stomach and belching. ? Chest pain. Different conditions can cause chest pain. Make sure you see your health care provider if you experience chest pain. ? Shortness of breath or wheezing. ? Ongoing (chronic) cough or a nighttime cough. ? Wearing away of tooth enamel. ? Weight loss. How is this diagnosed? This condition may be diagnosed based on a medical history and a physical exam. To determine if youhave mild or severe GERD, your health care provider may also monitor how you respond to treatment. You may also have tests, including: ? A test to examine your stomach and esophagus with a small camera (endoscopy). ? A test that measures the acidity level in your esophagus. ? A test that measures how much pressure is on your esophagus. ? A barium swallow or modified barium swallow test to show the shape, size, and functioning of your esophagus. How is this treated? Treatment for this condition may vary depending on how severe your symptoms are. Your health care provider may recommend: ? Changes to your diet. ? Medicine. ? Surgery. The goal of treatment is to help relieve your symptoms and to prevent complications. Follow these instructions at home: Eating and drinking ? Follow a diet as recommended by your health care provider. This may involve avoiding foods and drinks such as: ? Coffee and tea, with or without caffeine. ? Drinks that contain alcohol. ? Energy drinks and sports drinks. ? Carbonated drinks or sodas. ? Chocolate and cocoa. ? Peppermint and mint flavorings. ? Garlic and onions. ? Horseradish. ? Spicy and acidic foods, including peppers, chili powder, stacy powder, vinegar, hot sauces, and barbecue sauce. ? [place] fruit juices and citrus fruits, such as oranges, valerio, and limes. ? Tomato-based foods, such as red sauce, chili, salsa, and pizza with red sauce. ? Fried and fatty foods, such as donuts, [place]ape [place] fries, potato chips, and high-fat dressings. ? High-fat meats, such as hot dogs and fatty cuts of red and white meats, such as rib eye steak, sausage, ham, and garcia. ? High-fat dairy items, such as whole milk, butter, and cream cheese. ? Eat small, frequent meals instead of large meals. ? Avoid drinking large amounts of liquid with your meals. ? Avoid eating meals during the 2???3 hours before bedtime. ? Avoid lying down right after you eat. ? Do not exercise right after you eat. Lifestyle ? Do not use any products that contain nicotine or tobacco. These products include cigarettes, chewing tobacco, and vaping devices, such as e-cigarettes. If you need help quitting, ask your health careprovider. ? Try to reduce your stress by using methods such as yoga or meditation. If you need help reducing stress, ask your health care provider. ? If you are overweight, reduce your weight to an amount that is healthy for you. Ask your health care provider for guidance about a safe weight loss goal. General instructions ? Pay attention to any changes in your symptoms. ? Take yefm-rhu-czgepmn and prescription medicines only as told by your health care provider. Do not take aspirin, ibuprofen, or other NSAIDs unless your health care provider told you to take these medicines. ? Wear loose-fitting clothing. Do not wear anything tight around your waist that causes pressure on your abdomen. ? Raise (elevate) the head of your bed about 6 inches (15 cm). You can use a wedge to do this. ? Avoid bending over if this makes your symptoms worse. ? Keep all follow-up visits. This is important. Contact a health care provider if: ? You have: ? New symptoms. ? Unexplained weight loss. ? Difficulty swallowing or it hurts to swallow. ? Wheezing or a persistent cough. ? A hoarse voice. ? Your symptoms do not improve with treatment. Get help right away if: ? You have sudden pain in your arms, neck, jaw, teeth, or back. ? You suddenly feel sweaty, dizzy, or light-headed. ? You have chest pain or shortness of breath. ? You vomit and the vomit is green, yellow, or black, or it looks like blood or coffee grounds. ? You faint. ? You have stool that is red, bloody, or black. ? You cannot swallow, drink, or eat. These symptoms may represent a serious problem that is an emergency. Do not wait to see if the symptoms will go away. Get medical help right away. Call your local emergency services (911 in the [place] Do not drive yourself to the hospital. Summary ? Gastroesophageal reflux happens when acid from the stomach flows up into the esophagus. GERD is a disease in which the reflux happens often, causes frequent or severe symptoms, or causes problems such as damage to the esophagus. ? Treatment for this condition may vary depending on how severe your symptoms are. Your health care provider may recommend diet and lifestyle changes, medicine, or surgery. ? Contact a health care provider if you have new or worsening symptoms. ? Take vmbq-bop-mzxywdl and prescription medicines only as told by your health care provider. Do not take aspirin, ibuprofen, or other NSAIDs unless your health care provider told you to do so. ? Keep all follow-up visits as told by your health care provider. This is important. This information is not intended to replace advice given to you by your health care provider. Make sure you discuss any questions you have with your health care provider. Document Revised: 01/12/2021 Document Reviewed: 01/12/2021 [employer] Patient Education ?? 2022 [employer] Gastroparesis Gastroparesis is a condition in which food takes longer than normal to empty from the stomach. Thiscondition is also known as delayed gastric emptying. It is usually a long-term (chronic) condition. There is no cure, but there are treatments and things that you can do at home to help relieve symptoms. Treating the underlying condition that causes gastroparesis can also help relieve symptoms. What are the causes? In many cases, the cause of this condition is not known. Possible causes include: ? A hormone (endocrine) disorder, such as hypothyroidism or diabetes. ? A nervous system disease, such as Parkinson's disease or multiple sclerosis. ? Cancer, infection, or surgery that affects the stomach or vagus nerve. The vagus nerve runs from your chest, through your neck, and to the lower part of your brain. ? A connective tissue disorder, such as scleroderma. ? Certain medicines. What increases the risk? You are more likely to develop this condition if: ? You have certain disorders or diseases. These may include: ? An endocrine disorder. ? An eating disorder. ? Amyloidosis. ? Scleroderma. ? Parkinson's disease. ? Multiple sclerosis. ? Cancer or infection of the stomach or the vagus nerve. ? You have had surgery on your stomach or vagus nerve. ? You take certain medicines. ? You are female. What are the signs or symptoms? Symptoms of this condition include: ? Feeling full after eating very little or a loss of appetite. ? Nausea, vomiting, or heartburn. ? Bloating of your abdomen. ? Inconsistent blood sugar (glucose) levels on blood tests. ? Unexplained weight loss. ? Acid from the stomach coming up into the esophagus (gastroesophageal reflux). ? Sudden tightening (spasm) of the stomach, which can be painful. Symptoms may come and go. Some people may not notice any symptoms. How is this diagnosed? This condition is diagnosed with tests, such as: ? Tests that check how long it takes food to move through the stomach and intestines. These tests include: ? Upper gastrointestinal (GI) series. For this test, you drink a liquid that shows up well on X-rays,and then X-rays are taken of your intestines. ? Gastric emptying scintigraphy. For this test, you eat food that contains a small amount of radioactive material, and then scans are taken. ? Wireless capsule GI monitoring system. For this test, you swallow a pill (capsule) that records information about how foods and fluid move through your stomach. ? Gastric manometry. For this test, a tube is passed down your throat and into your stomach to measure electrical and muscular activity. ? Endoscopy. For this test, a long, thin tube with a camera and light on the end is passed down your throat and into your stomach to check for problems in your stomach lining. ? Ultrasound. This test uses sound waves to create images of the inside of your body. This can help rule out gallbladder disease or pancreatitis as a cause of your symptoms. How is this treated? There is no cure for this condition, but treatment and home care may relieve symptoms. Treatment may include: ? Treating the underlying cause. ? Managing your symptoms by making changes to your diet and exercise habits. ? Taking medicines to control nausea and vomiting and to stimulate stomach muscles. ? Getting food through a feeding tube in the hospital. This may be done in severe cases. ? Having surgery to insert a device called a gastric electrical stimulator into your body. This device helps improve stomach emptying and control nausea and vomiting. Follow these instructions at home: ? Take xgte-ozr-tevdwoa and prescription medicines only as told by your health care provider. ? Follow instructions from your health care provider about eating or drinking restrictions. Your health care provider may recommend that you: ? Eat smaller meals more often. ? Eat low-fat foods. ? Eat low-fiber forms of high-fiber foods. For example, eat cooked vegetables instead of raw vegetables. ? Have only liquid foods instead of solid foods. Liquid foods are easier to digest. ? Drink enough fluid to keep your urine pale yellow. ? Exercise as often as told by your health care provider. ? Keep all follow-up visits. This is important. Contact a health care provider if you: ? Notice that your symptoms do not improve with treatment. ? Have new symptoms. Get help right away if you: ? Have severe pain in your abdomen that does not improve with treatment. ? Have nausea that is severe or does not go away. ? Vomit every time you drink fluids. Summary ? Gastroparesis is a long-term (chronic) condition in which food takes longer than normal to empty from the stomach. ? Symptoms include nausea, vomiting, heartburn, bloating of your abdomen, and loss of appetite. ? Eating smaller portions, low-fat foods, and low-fiber forms of high-fiber foods may help you manageyour symptoms. ? Get help right away if you have severe pain in your abdomen. This information is not intended to replace advice given to you by your health care provider. Make sure you discuss any questions you have with your health care provider. Document Revised: 11/10/2020 Document Reviewed: 11/10/2020 [employer] Patient Education ?? 2022 [employer] Patient/Senior Client Advisor Signature Patient Name:DANI FRANCISCO I have received this information and my questions have been answered. Patient/Senior Client Advisor Name: Patient/Senior Client Advisor Signature: Relationship to Patient: Witness Name/Signature: Date: Electronically Signed on: 04/07/2023 13:49 EDTSigned by:COREY History and physical note * Event Display: History and Physical Update * Kike Craig MD: PERFORM Event Display: History and Physical Authored Date: [id number] DANI FRANCISCO :1980 Age:42 years Sex:Female Visit Date:04/07/2023 Primary Care Physician: JOHNATHON POSEY, NADIA [place] History of Present Illness 42-year-old female with dyspepsia and GERD.?? She denies dysphagia. Physical Exam Obese white female no acute distress Lungs: Clear to auscultation bilaterally Heart: Regular rhythm S1-S2 Abdomen: Soft nontender Assessment/Plan 1.??Dyspepsia??R10.13 EGD today 2.??GERD (gastroesophageal reflux disease)??K21.9 Problem List/Past Medical History Ongoing ADHD - Attention deficit disorder with hyperactivity Alcohol abuse Amenorrhea Asthma Bipolar Bulimia CKD - chronic kidney disease CKD stage 3 Constipation Cramping Diverticular disease DM - Diabetes mellitus Drug abuse Dyslipidemia Dyspepsia Dyspepsia Dysphagia Eating disorder Ectopic Full/full dentures GERD (gastroesophageal reflux disease) GERD - Gastro-esophageal reflux disease Heartburn Hepatic fibrosis Herpes genitalis Hiatal hernia History of hepatitis C History of IV (intravenous) drug abuse Hoarseness Migraine Nausea Nausea and vomiting Numbness of hand Opioid-related disorder Ovarian cyst PTSD - Post-traumatic stress disorder Seizure disorder Sleep apnea Smoker Splenomegaly Stimulant abuse Tobacco user Historical No qualifying data Procedure/Surgical History ???Cholecystectomy???Colonoscopy???Excision of fallopian tube and surgical removal of ectopic ???Tonsillectomy Medications Inpatient No active inpatient medications Home atorvastatin 20 mg oral tablet, 20 mg= 1 tab, Oral, every night at bedtime buPROPion 300 mg/24 hours (XL) oral tablet, extended release, 300 mg= 1 tab, Oral, Daily cloNIDine 0.1 mg oral tablet, 0.1 mg= 1 tab, Oral, BID, PRN Daily Claudy oral tablet, 1 tab, Oral, Daily dexmethylphenidate 40 mg oral capsule, extended release, 40 mg= 1 cap, Oral, every morning docusate-senna 50 mg-8.6 mg oral capsule, 1 cap, Oral, BID, PRN glipiZIDE 2.5 mg oral tablet, extended release, 2.5 mg= 1 tab, Oral, Daily levETIRAcetam 750 mg oral tablet, 750 mg= 1 tab, Oral, BID lidocaine 4% topical cream, 1 natasha, Topical, BID, PRN magnesium oxide 400 mg (241.3 mg elemental magnesium) oral tablet, 400 mg= 1 tab, Oral, BID metFORMIN 1000 mg oral tablet, 1000 mg= 1 tab, Oral, BID methadone 10 mg/5 mL oral solution, 130 mg, Oral, Daily methylphenidate 10 mg oral tablet, 10 mg= 1 tab, Oral, Daily ohm Allergy Relief 10 mg oral tablet, 10 mg= 1 tab, Oral, Daily OLANZapine 15 mg oral tablet, 15 mg= 1 tab, Oral, BID omeprazole 40 mg oral delayed release capsule, 40 mg= 1 cap, Oral, Daily Phenergan 25 mg oral tablet, 25 mg= 1 tab, Oral, BID, PRN ProAir HFA 90 mcg/inh inhalation aerosol, 2 puffs, Inhale, every 4 hr, PRN Trulicity Pen 0.75 mg/0.5 mL subcutaneous solution, 0.75 mg= 0.5 mL, Subcutaneous, every week valACYclovir 1 g oral tablet, 1 g= 1 tab, Oral, Daily, PRN Vitamin D3 1000 intl units oral tablet, 25 mcg= 1 tab, Oral, Daily Allergies Zofran??(Angioedema) Bactrim??(Generalized body aches) erythromycin??(Abdominal pain) morphine??(Vomit) penicillin??(Hives) Social History Alcohol Never Electronic Cigarette/Vaping Electronic Cigarette Use: Never. Substance Use Current, Marijuana, Daily Tobacco Current everyday tobacco user Tobacco Use:. 1 ppd per day. Family History Family history is unknown Electronically Signed on 04/07/23 12:33 PM Kike Craig MD Patient Care team information Care Team Personnel Name: JOHNATHON POSEY, NADIA Putnam Position: No Access Member Role: Primary Care Physician Address: Address: [address] [place] [address]- Care Team Related Persons Name: MOLLY FRENCH
== END 2023-06-03 22:08 | disposition home or self-care (01) ==
LOC: NCHCN 22:07
PROVIDERS: PCP Family Medicine; Visit Provider Family Medicine
DX: E11.9 Type 2 diabetes mellitus without complications (principal); F31.89 Other bipolar disorder; Z79.899 Other long term (current) drug therapy
CPT/HCPCS: 80061; 82306; 84443

== ENCOUNTER 2023-06-22 08:22 | Emergency (ER) | payer MEDICAID, SELFPAY ==
[2023-06-22] VITALS (10 sets, daily range): BP systolic 169–172; BP diastolic 102–124; PULSE 76–118; RESP 10–27; TEMP 37.1; O2SAT 98–100
--- NOTE | 2023-06-22 09:13 | ED.GENADUL_ITS ---
Discharge Plan Disposition Patient Disposition: Home Discharge Details Clinical Impression: Chronic, continuous use of opioids, Increased stool volume Primary Care Provider: Damian Murillo ED Provider: Raven Hewtit Home Meds and New Rx's Prescriptions: New Relistor 150 mg tablet 450 mg PO QAM Qty: 9 0RF prochlorperazine maleate [Compazine] 5 mg tablet 5 mg PO TID PRNQty: 10 0RF Continued albuterol sulfate 90 mcg/actuation aerosol powdr breath activated 2 inh IH Q4H PRN (Reason: shortness of breath or wheezing) Patient Comments: pt states she has never used methadone 10 mg/5 mL solution 105 mg PO DAILY ferrous sulfate [FeroSul] 325 mg (65 mg iron) tablet 325 mg PO DAILY bupropion HCl 300 mg tablet extended release 24 hr 300 mg PO DAILY Qty: 30 5RF omeprazole [Prilosec] 20 MG capsule,delayed release(DR/EC) 40 mg PO DAILY loratadine 10 MG tablet 10 mg PO DAILY omega-3 fatty acids-fish oil 1 EACH capsule 2 ea PO DAILY (DME) OneTouch Verio test strips Strip See Rx Instructions .ROUTE .MEDSUPPLY Qty: 10 Rx Instructions: daily As directed (DME) lancets [OneTouch UltraSoft Lancets] Misc See Rx Instructions .ROUTE .MEDSUPPLY Qty: 100 Rx Instructions: DAILY multivitamin Tablet 1 tab PO DAILY levetiracetam 750 mg tablet 750 mg PO BID metformin 500 mg tablet 1,000 mg PO BID atorvastatin 20 mg tablet 20 mg PO QHS glipizide 2.5 mg tablet extended release 24hr 2.5 mg PO DAILY hydroxyzine HCl 25 mg tablet 25 mg PO TID PRN cholecalciferol (vitamin D3) [Vitamin D3] 1,000 unit Capsule 1,000 unit PO DAILY olanzapine 15 mg tablet 15 mg PO BID Patient Comments: TAKE ONE TABLET BY MOUTH TWICE A DAY divalproex 500 mg tablet extended release 24 hr 500 mg PO DAILY Patient Comments: TAKE 1 TABLET BY MOUTH EVERY DAY dexmethylphenidate [Focalin XR] 35 mg capsule,ER biphasic 50-50 40 mg PO DAILY clonidine HCl 0.1 mg Tablet 0.1 mg PO BID promethazine 25 mg tablet 25 mg PO TID PRNQty: 14 0RF Discharge Instructions Additional Instructions: Please follow-up with your mortgage branch manager tomorrow Take the Relistor daily as prescribed this will help with the constipation likely induced by your methadone use I recommend taking MiraLAX daily while on methadone to prevent constipation I am also writing for Compazine as needed for nausea and vomiting Increase fluid hydration you have transportation to your appt tomorrow to [place] Referrals: Damian Murillo [Primary Care Provider] - Medical Decision Making 42-year-old female, nausea, several episodes of vomiting Presents with report of abdominal pain, constipation stated age and comorbidities, CT abdomen and pelvis was ordered, Evidence of large stool volume, will need close outpatient GI follow-up, has had endoscopy within the past several months, denies history of cancer or known Crohn's Afebrile and nontoxic here, able to tolerate p.o. Given a dose of Relistor as patient likely has opioid induced constipation Will start on MiraLAX Feels comfortable discharge home at this time Encouraged to follow-up with her mortgage branch manager at her scheduled appointment on [place] [address] findings reviewed with Dr. Spears as there was concern for possible foreign body, patient does not endorse any ingested capsule or foreign bodies, surgery suggest that this is likely a food bolus Encouraged to return earlier should she have new or worsening complaints HPI General Date/Time Provider Initiated Documentation: 06/22/23 08:38 . HPI Narrative: 42-year-old female presents with lower abdominal cramping since yesterday. States that she has this pain in the morning typically about has bowel movement and her pain resolves. She presents today secondary to persistent pain. Denies any fever or chills. She has had nausea with several episodes of vomiting. Last BM was yesterday and normal for patient. Denies any blood in vomitus or stool. Denies any urinary frequency or burning. Denies any chance of . Has had recent colonoscopy and endoscopy. Related Data Home Medications Medication Instructions Recorded Confirmed omeprazole 20 mg capsule,delayed 40 mg PO DAILY 04/18/15 06/22/23 release (Prilosec) loratadine 10 mg tablet 10 mg PO DAILY 07/04/17 06/22/23 omega-3 fatty acids-fish oil 300 2 ea PO DAILY 12/01/17 06/22/23 mg-1,000 mg capsule bupropion HCl 300 mg 24 hr tablet, 300 mg PO DAILY #30 tab-caps 11/13/18 06/22/23 extended release cholecalciferol (vitamin D3) 25 1,000 unit PO DAILY 04/22/19 12/22/22 mcg (1,000 unit) capsule (Vitamin D3) ferrous sulfate 325 mg (65 mg 325 mg PO DAILY 04/23/20 06/22/23 iron) tablet (FeroSul) blood sugar diagnostic (OneTouch #10 ea 06/05/20 12/22/22 Verio test strips) lancets (OneTouch UltraSoft #100 ea 06/05/20 12/22/22 Lancets) levetiracetam 750 mg tablet 750 mg PO BID 06/05/20 06/22/23 multivitamin 1 tab PO DAILY 06/05/20 06/22/23 albuterol sulfate 90 mcg/actuation 2 inh inhalation Q4H PRN shortness 07/21/20 06/22/23 breath activated powder inhaler of breath or wheezing divalproex 500 mg tablet,extended 500 mg PO DAILY 01/10/22 06/22/23 release 24 hr olanzapine 15 mg tablet 15 mg PO BID 01/10/22 06/22/23 dexmethylphenidate 35 mg 40 mg PO DAILY 01/26/22 06/22/23 capsule,extended release [id number] (Focalin XR) methadone 10 mg/5 mL oral solution 105 mg PO DAILY 07/06/22 06/22/23 clonidine HCl 0.1 mg tablet 0.1 mg PO BID 09/25/22 06/22/23 promethazine 25 mg tablet 25 mg PO TID PRN #14 tabs 09/25/22 06/22/23 atorvastatin 20 mg tablet 20 mg PO QHS 10/08/22 06/22/23 metformin 500 mg tablet 1,000 mg PO BID 10/08/22 06/22/23 glipizide 2.5 mg tablet, extended 2.5 mg PO DAILY 12/02/22 06/22/23 release 24 hr hydroxyzine HCl 25 mg tablet 25 mg PO TID PRN 12/02/22 06/22/23 methylnaltrexone 150 mg tablet 450 mg (3 x 150 mg) PO QAM #9 tabs 06/22/23 (Relistor) prochlorperazine maleate 5 mg 5 mg PO TID PRN #10 tabs 06/22/23 tablet (Compazine) Previous Rx's Medication Instructions Recorded bupropion HCl 300 mg 24 hr tablet, 300 mg PO DAILY #30 tab-caps 11/13/18 extended release promethazine 25 mg tablet 25 mg PO TID PRN #14 tabs 09/25/22 methylnaltrexone 150 mg tablet 450 mg (3 x 150 mg) PO QAM #9 tabs 06/22/23 (Relistor) prochlorperazine maleate 5 mg 5 mg PO TID PRN #10 tabs 06/22/23 tablet (Compazine) Allergies Allergy/AdvReac Type Severity Reaction Status Date / Time Penicillins Allergy Intermediate hives/swell Verified 06/22/23 08:43 ing sulfamethoxazole Allergy Mild Verified 06/22/23 08:43 [From Bactrim] trimethoprim [From Bactrim] Allergy Mild Verified 06/22/23 08:43 Sulfa (Sulfonamide AdvReac Severe body aches Verified 06/22/23 08:43 Antibiotics) erythromycin base AdvReac Intermediate stomach Verified 06/22/23 08:43 pain morphine AdvReac Intermediate Nausea Verified 06/22/23 08:43 ondansetron HCl AdvReac Intermediate Hives Verified 06/22/23 08:43 [From Zofran (as hydrochloride)] General Stated Complaint: Abd Prob RAVEN: 3 PFSH All Active Problems (Updated 06/22/23 @ 14:44 by DUKE Guidry) Increased stool volume (Acute) Chronic, continuous use of opioids (Acute) Dyspepsia (Acute) Ovarian cyst (Acute) Vulvitis (Acute) 04/22/2018. Secondary to contact dermatitis. Negative vag path screen, negative STI check. Treated with Dosepak of steroids and topical lidocaine. Screening and evaluation for female sterilization (Acute) 04/2019. Not a candidate for OCPs. Declines L ARC. Given info on laparoscopic sterilization. 09/2019. Medicaid consent obtained. Postoperative pain (Acute) History of tubal ligation (Chronic) 12/19/19. Laparoscopic left salpingectomy. Patient previously had a right salpingectomy. Elevated serum creatinine (Acute) 12/2019: 1.05 at time of preop evaluation Pelvic pain (Acute) Vaginal discharge (Acute) Labial lesion (Acute) (Acute) Genital HSV (Acute) Trichomoniasis (Acute) Right carpal tunnel syndrome (Acute) Right cervical radiculopathy (Acute) Infection due to trichomonas (Acute) Polysubstance (including opioids) dependence with physiological dependence (Chronic) Non-insulin treated type 2 diabetes mellitus (Acute) KOBI (acute kidney injury) (Acute) Frequency of micturition (Acute) Hand numbness (Acute) Asthma, intermittent (Acute) Hoarseness (Acute) Constipation due to pain medication (Acute) Methadone Medical History (Updated 06/22/23 @ 14:44 by DUKE Guidry) Dysphonia Depression Anxiety ETOH abuse Drug abuse Ectopic of right ovary GERD (gastroesophageal reflux disease) History of hepatitis C Chronic kidney disease (CKD) stage G3a/A1, moderately decreased glomerular filtration rate (GFR) between 45-59 mL/min/1.73 square meter and albuminuria creatinine ratio less than 30 mg/g Bipolar disorder Diabetes mellitus, type II Stimulant abuse Gram-negative bacteremia Hydronephrosis with obstructing calculus E. coli pyelonephritis Right distal ureteral calculus Unspecified disorder resulting from impaired renal function Opioid dependence Amenorrhea Tobacco dependency Migraine headache Central sleep apnea PTSD (post-traumatic stress disorder) ADHD CKD (chronic kidney disease), stage III Dyslipidemia Metabolic syndrome Seizure disorder Pt. states she has not had a seizure in a very long time, states it was a result of ovrdosing on drugs Otitis externa, chronic Rhinitis, allergic Chronic diarrhea Low back pain Eating disorder Problem related to living arrangement Hepatic fibrosis Sexually transmitted disease exposure Methamphetamine abuse Alcohol use Cervical radiculopathy Asthma, moderate persistent Numbness and tingling of right arm Diabetes type 2, controlled Pt. states she tested her blood sugar 12/15 and it was 400, and not sure why it was so high History of intravenous drug abuse states she has not used in 9 years IVDU Bipolar disorder ADD, PTSD, Anxiety and Depression Amenorrhea, secondary 06/2014 Nl pelvic us. ES 3.5mm. No response to Progestin challenges. Nl labs. Hepatitis C pt. states she was treated and is now non-detectable GERD Surgical History (Updated 12/02/22 @ 12:22 by Bhumi Dominguez RN) History of tonsillectomy (~1999) molar extraction , Ectopic (~2010) Diagnostic Laproscopy (~2005) Cholecystectomy (~10/2001) Social History Smoking/Tobacco Use Status: Current every day Tobacco Type: cigarettes Smoking risk assessment performed?: Yes Alcohol Intake: never Drug use: Daily Substance use type: former substance user and marijuana Household members: none Housing: apartment current occupation: Disabled Pets and animals: Yes Pets and animals: cat(s) What type of physical activity do you participate in: none and independent ambulation Seatbelt use: always Do you feel safe at home: Yes Do you feel safe in your relationship?: Yes Course Vital Signs Vital signs: Vital Signs Temperature 37.1 C 06/22/23 08:35 Pulse 111 H 06/22/23 08:35 Respiratory Rate 20 06/22/23 08:35 Blood Pressure 172/124 H 06/22/23 08:35 Pulse Oximetry 98 06/22/23 08:35 Temperature 37.1 C 06/22/23 08:35 Temperature Source Temporal Artery Scan 06/22/23 08:35 Pulse 111 H 06/22/23 08:35 Respiratory Rate 20 06/22/23 08:35 Respiratory Effort Short of Breath 06/22/23 08:37 Blood Pressure 172/124 H 06/22/23 08:35 Blood Pressure Position Sitting 06/22/23 08:35 Pulse Oximetry 98 06/22/23 08:35 Oxygen Delivery Method Room Air 06/22/23 08:35 Oxygen Flow Rate 0 06/22/23 08:35
[2023-06-22] MEDS: Prochlorperazine 10 MG/2 ML VIAL 5 MG IVP (09:14)
[2023-06-22] MEDS: Normal Saline 1,000 ML 1000 ML IV (09:14)
[2023-06-22] MEDS: ACETAMINOPHEN 1,000 MG/100 ML BTL 400 MG IVPB (09:14)
[2023-06-22 09:19] LABS: Abs Immature Grans 0.08 10^3/uL (0.0-0.06); Basophils % 0.3; HCT 42.3 % (36.0-46.0); HGB 14.3 g/dL (11.2-15.7); Immature Grans % 0.5; Lymphocytes % 13.8; MCH 30.5 pg (27.0-33.0); MCHC 33.8 % (32.0-36.0); MCV 90 fL (80-95); MPV 8.5 fL (8.0-11.0); Neutrophils % 76.4; Platelet Count 306 10^3/uL (130-400); RBC 4.69 10^6/uL (3.93-5.22); RDW 12.4 % (11.7-14.6); RDW-SD 40.5 fL
[2023-06-22 09:20] LABS: Absolute Basophil Count 0.05 10^3/uL (0.0-0.2); Absolute Eosinophil Count 0.52 10^3/uL (0.0-0.7); Absolute Monocyte Count 1.04 10^3/uL (0.1-0.8); Absolute Neutrophil Count 13.29 10^3/uL (1.2-6.7)
[2023-06-22 09:44] LABS: ALT 20 U/L (14-59); AST 14 U/L (15-37); Albumin 3.9 g/dL (3.4-5.0); Alkaline Phosphatase 74 U/L (46-116); Anion Gap 12.1 mmol/L (3-11); BUN 18 mg/dL (7-18); Bilirubin, Total 0.5 mg/dL (0.2-1.0); CO2 26.9 mmol/L (21.0-32.0); CREATININE 1.5 mg/dL (0.55-1.02); Calcium 9.7 mg/dL (8.5-10.1); Chloride 97 mmol/L (98-107); Estimated GFR 44.62 (mL/min/1.73m2); Glucose 271 mg/dL (74-106); Lipase 66 U/L (16-77); Magnesium 1.7 mg/dL (1.8-2.4); Potassium 4.3 mmol/L (3.5-5.1); Sodium 136 mmol/L (136-145); Total Protein 8.2 g/dL (6.4-8.2); Troponin I < 50 ng/L (<or=60)
--- NOTE | 2023-06-22 10:00 | DI.CT_ITS ---
Exam(s) CT ABDOMEN PELVIS W EXAM: CT ABDOMEN PELVIS W CLINICAL HISTORY: lower abdominal pain, elevated wbc count. TECHNIQUE: Imaging Protocol: Axial computed tomography images with coronal and sagittal reformatted images were created and reviewed CONTRAST MATERIAL: Intravenous: Omnipaque-350 100cc Oral: None COMPARISON: CT CT ABDOMEN PELVIS CTA from 10/02/2022 FINDINGS: VISUALIZED LUNG BASES: No nodules nor pleural effusions evident. ABDOMEN: There is no ascites. Small hiatal hernia noted. No evidence of small-bowel obstruction. However, t here is an intraluminal foreign body within the nondilated anteriorly located small bowel loop in the lower abdomen, this measuring 2.1 cm by 0.9 cm. There is no transition point in the bowel at this l evel. There is abundant fecal material noted throughout the colon. The colon is somewhat distended to the level of the descending colon. There is circumferential thickening of the sigmoid just below the iliac crest. Circumferential wall thickening to 1 cm at this level, this over a distance of appr oximately 2.4 cm. Below this level the colon-sigmoid is again noted be fecal filled and distended 4 cm diameter. The rectum is decompressed. Appendix is not seen and may be surgically absent. LIVER: There are no focal hepatic lesions evident. No dilated intrahepatic ducts. GALLBLADDER/BILIARY: The gallbladder is again noted be surgically absent. CBD is not dilated. PANCREAS: No evidence of pancreatic mass nor dilatation of the pancreatic duct. SPLEEN: Spleen is not enlarged. No obvious intrasplenic lesions. Splenic and portal veins are paten t. ADRENALS: There are no significant adrenal masses. KIDNEYS:There are few small benign cysts in both kidneys which not require follow-up. No solid renal masses. No calculi nor hydronephrosis.. ABDOMINAL AORTA: Abdominal aorta is not enlarged. LYMPH NODES:There is no retroperitoneal nor paraaortic adenopathy. ABDOMINAL WALL: No evidence of significant anterior abdominal wall nor inguinal hernia. PELVIS: GI: No evidence of appendicitis.No obvious sigmoid diverticulosis. LYMPH NODES: There is no intrapelvic nor inguinal adenopathy. REPRODUCTIVE: Uterus and adnexal regions unremarkable. URINARY BLADDER: No calculi nor obvious masses evident OSSEOUS: No fractures and no significant osseous lesions. IMPRESSION: 1. There is a 2.1 x 0.9 cm foreign body in a nondilated small bowel loops in the lower abdomen. Susp ect that this may be an ingested camera device. There is no small bowel transition point at this lev el. There is no small bowel obstruction. 2. The entire colon is filled with abundant fecal material and dilated. There is, however, a narrow or 2.4 cm length of upper sigmoid which exhibits circumferential thickening and lumen devoid of fecal material at this level. The sigmoid below this level is also distended with fecal material 4 cm elijah meter. Cannot exclude neoplasm at this level. Colonoscopy is recommended. Discussed with ER provider RADIATION DOSE DELIVERED: Total DLP DATA REPOSITORY: All CT scans at this facility are submitted to the National Radiology Data Registry (NRDR) Dose Index Registry (DIR) with the [employer] (ACR). RADIATION OPTIMIZATION: All CT scans at this facility use at least one of these dose optimization te chniques: automated exposure control; mA and/or kV adjustment per patient size (includes targeted exa ms where dose is matched to clinical indication); or iterative reconstruction.
[2023-06-22] MEDS: fentaNYL 100 MCG/2 ML VIAL 50 MCG IVP (11:05)
[2023-06-22] MEDS: Omnipaque 350 MG/ML 100 ML BTL IJ (11:56)
[2023-06-22] MEDS: Normal Saline - Diluent 50 ML VIAL IJ (11:58)
[2023-06-22] MEDS: Methylnaltrexone 12 MG/0.6 ML VIAL SC (14:05)
--- NOTE | 2023-06-25 07:38 | NUR.NOTE ---
Chart accessed to determine number of EKG orders. Order cancelled, no EKG. Nursing Note:
== END 2023-06-22 15:10 | disposition home or self-care (01) ==
PROVIDERS: Emergency Provider Physician Assistant; PCP Family Medicine
DX: R10.9 Unspecified abdominal pain (principal); R19.5 Other fecal abnormalities; I12.9 Hypertensive chronic kidney disease with stage 1 through stage 4 chronic kidney disease, or unspecified chronic kidney disease; E11.22 Type 2 diabetes mellitus with diabetic chronic kidney disease; N18.31 Chronic kidney disease, stage 3a; Z90.49 Acquired absence of other specified parts of digestive tract; Z79.84 Long term (current) use of oral hypoglycemic drugs
CPT/HCPCS: 80053; 83690; 96361; 96372; 96374; 96375; 99285; 74177; 83735; 84484; 85025; 99284; J0131; J0780; J3010; J3490

== ENCOUNTER 2023-07-06 16:00 | Outpatient (REF) | payer MEDICAID, SELFPAY ==
--- NOTE | 2023-07-06 15:40 | PAPFT_PTH ---
PATIENT: Ne Kennedy LOC: [facility] U#:[id number] AGE/SX: 42/F ROOM: RE07/06/[address]: Katlyn Awad MD : [id number] BED: DIS: 07/06/2023 SPEC #: [id number] RECD: 07/06/23 17:18 STATUS: EDGAR REQ #: [id number] VIKA: 07/06/23 15:[address]: Katlyn Awad DEPT: [facility] Cytology RECD BY: Raven Allen ENTERED: 07/06/23 17:18 SP TYPE: PAPFT OTHR DR: Damian Murillo Tissues: 1 - CX/ENDOCX FOR PAP SMEARS Procedures: PAP THIN PREP/UVM Screening HPV DNA PROBE Comments: [id number] (CHLAMYDIA/GC)
[2023-07-07 13:14] LABS: Chlamydia Result Negative (Negative); GC Result Negative (Negative)
== END 2023-07-06 16:01 | disposition home or self-care (01) ==
LOC: LBN 16:00
PROVIDERS: PCP Family Medicine; Visit Provider Obstetrics & Gynecology
DX: Z12.4 Encounter for screening for malignant neoplasm of cervix (principal)
CPT/HCPCS: 87491; 87591; 88142; 87624

== ENCOUNTER → 2023-08-05 00:42 | Outpatient (CLI) | payer MEDICAID, SELFPAY ==
--- NOTE | 2023-08-05 07:12 | DI.MAMMO_ITS ---
Exam(s) MAMMO SCREENING EXAM: MAMMO SCREENING CLINICAL HISTORY: screening,z12.31. TECHNIQUE: Bilateral full field digital CC and MLO mammographic images were obtained with 3D tomosyn thesis and utilizing computer aided detection (CAD). COMPARISON: None. This is a baseline mammogram on this 42-year-old FINDINGS: In the left breast there is a slightly lobulated 8 x 7 mm nodule located medial of center approximate ly 6 cm in from the nipple. Requires further imaging to determine solid versus cystic. In the right breast there is a slightly lobulated well-defined noncalcified nodule measuring 5 x 3 mm , located 5 cm in from the nipple on the CC view. No other significant focal right breast findings. There are no malignant appearing microcalcification groups. There is no significant architectural distortion nor skin thickening-retraction. IMPRESSION: There is a single nodule in each breast as described above. Spot compression view and ultrasound bot h breasts recommended BI-RADS Category 0 - Assessment Incomplete: Need additional imaging evaluation Breast Density - Category B - Scattered areas of fibroglandular density Breast density Category C or D implies that the patient has dense breast tissue. Dense breast tissue can make it harder to find cancer on a mammogram. Dense breast tissue is also associated with an incr eased risk of breast cancer. This information about the result of the mammogram report was provided to the patient to raise their awareness. Use this report when you speak with the patient about their risks for breast cancer, which includes their family history. At that time, you may recommend additional screening tests (Ultrasoun d or MRI) as these tests may add significant information. A negative radiographic report should not delay biopsy if a dominant or clinically suspicious mass is present. Up to ten percent of cancers are not identified on mammography. A negative report may reinforce clinical impression. Adenosis and dense breasts may obscure an underlying neoplasm. False positive reports average 6 to 10%. Patient will receive a letter notifying them of these results.
== END ==
PROVIDERS: PCP Family Medicine; Visit Provider Obstetrics & Gynecology
DX: Z12.31 Encounter for screening mammogram for malignant neoplasm of breast (principal)
CPT/HCPCS: 77063; 77067

== ENCOUNTER → 2023-08-19 01:09 | Outpatient (CLI) | payer MEDICAID, SELFPAY ==
--- NOTE | 2023-08-19 | DI.MAMMO_ITS ---
Exam(s) US BREAST RT COMPLETE US BREAST LT LIMITED MG MAMMO SCREEN CALL BACK BI EXAM: MG MAMMO SCREEN CALL BACK BI and complete right breast ultrasound and limited left breast ultr asound CLINICAL HISTORY: F/U MAMMO, SINGLE NODULE EACH BREAST, R92.8. TECHNIQUE: Craniocaudal and mediolateral oblique Full Field Digital Mammography views of the bilater al breast with Computer Aided Diagnosis followed by Tomosynthesis and bilateral breast ultrasound. COMPARISON: Comparison is made with prior examinations. FINDINGS: Mammography/Tomosynthesis: Masses/Architectural Distortion: There is again seen a well-circumscribed nodule in the medial aspect of the left breast on the additional views. There is also again seen a well-circumscribed nodule in the central right breast on the craniocaudad view. This may lie in 6 or 12 o'clock. No areas of ar chitectural distortion are seen. Microcalcifictions: No suspicious pleomorphic-type are seen. Skin Thickening/Nipple Retraction: None. Bilateral breast US: All 4 quadrants of the right breast were evaluated sonographically including the right axilla and right retroareolar region. Echotexture: Normal appearance of the glandular tissue. Shadowing: No suspicious foci. Cyst: None. Solid lesions: In the right breast, there is a 0.4 cm lymph node at the 2 o'clock position 2 cm from the nipple. In the left breast, there is a 0.6 cm well-circumscribed homogeneously hyperechoic nodul e at the 1 o'clock position 4 cm from the nipple consistent with a benign lesion such as a lipoma. Ductal dilation: None. IMPRESSION: 1. No definite evidence of malignancy is noted. 2. A follow-up left mammogram is recommended for re-evaluation in 6 months. 3. The findings were discussed with the patient on the date of the examination. BI-RADS Category 3 - 6 month - Probably Benign Finding: Recommend follow-up imaging in 6 months Breast Density - Category B - Scattered areas of fibroglandular density Breast density Category C or D implies that the patient has dense breast tissue. Dense breast tissue can make it harder to find cancer on a mammogram. Dense breast tissue is also associated with an incr eased risk of breast cancer. This information about the result of the mammogram report was provided to the patient to raise their awareness. Use this report when you speak with the patient about their risks for breast cancer, which includes their family history. At that time, you may recommend additional screening tests (Ultrasoun d or MRI) as these tests may add significant information. A negative radiographic report should not delay biopsy if a dominant or clinically suspicious mass is present. Up to ten percent of cancers are not identified on mammography. A negative report may reinforce clinical impression. Adenosis and dense breasts may obscure an underlying neoplasm. False positive reports average 6 to 10%. Patient will receive a letter notifying them of these results.
== END ==
PROVIDERS: PCP Family Medicine; Visit Provider Obstetrics & Gynecology
DX: Z12.31 Encounter for screening mammogram for malignant neoplasm of breast (principal); N63.11 Unspecified lump in the right breast, upper outer quadrant
CPT/HCPCS: 76642; 77063; 77067

== ENCOUNTER 2024-01-06 07:21 | Emergency (ER) | payer MEDICAID, SELFPAY ==
[2024-01-06 07:27] VITALS: BP 133/102; PULSE 120; RESP 18; TEMP 36.5; O2SAT 99
--- NOTE | 2024-01-06 07:30 | RT.EKG_ITS ---
APPROVED REPORT Exam: Resting ECG Reason for Exam: check qt for droperidol Patient Location: E HR:97 bpm ECG Measurements Heart Rate 97 AXIS NJ 158 P 58 QRSd 81 QRS 23 QT 340 T 79 QTc 432 Conclusion Sinus rhythm...normal P axis, V-rate 60- 99
--- NOTE | 2024-01-06 07:40 | ED.GENADUL_ITS ---
Discharge Plan Disposition Patient Disposition: Home Condition: Stable Discharge Details Clinical Impression: Abdominal pain, Constipation Primary Care Provider: Damian Murillo ED Provider: Jai Arriaza [place] Meds and New Rx's Prescriptions: Continued methadone 10 mg/5 mL solution 67 mg PO DAILY ferrous sulfate [FeroSul] 325 mg (65 mg iron) tablet 325 mg PO DAILY bupropion HCl 300 mg tablet extended release 24 hr 300 mg PO DAILY Qty: 30 5RF omeprazole [Prilosec] 20 MG capsule,delayed release(DR/EC) 40 mg PO DAILY loratadine 10 MG tablet 10 mg PO DAILY omega-3 fatty acids-fish oil 1 EACH capsule 2 ea PO DAILY (DME) OneTouch Verio test strips Strip See Rx Instructions .ROUTE .MEDSUPPLY Qty: 10 Rx Instructions: daily As directed (DME) lancets [OneTouch UltraSoft Lancets] Misc See Rx Instructions .ROUTE .MEDSUPPLY Qty: 100 Rx Instructions: DAILY multivitamin Tablet 1 tab PO DAILY levetiracetam 750 mg tablet 750 mg PO BID metformin 500 mg tablet 1,000 mg PO BID atorvastatin 20 mg tablet 20 mg PO QHS glipizide 2.5 mg tablet extended release 24hr 2.5 mg PO DAILY hydroxyzine HCl 25 mg tablet 25 mg PO TID PRN methylphenidate HCl 10 mg tablet 10 mg PO DAILY Patient Comments: TAKE ONE TABLET BY MOUTH EVERY DAY IN THE AFTERNOON cholecalciferol (vitamin D3) [Vitamin D3] 1,000 unit Capsule 1,000 unit PO DAILY olanzapine 15 mg tablet 15 mg PO BID Patient Comments: TAKE ONE TABLET BY MOUTH TWICE A DAY divalproex 500 mg tablet extended release 24 hr 500 mg PO DAILY Patient Comments: TAKE 1 TABLET BY MOUTH EVERY DAY dexmethylphenidate [Focalin XR] 35 mg capsule,ER biphasic 50-50 40 mg PO DAILY clonidine HCl 0.1 mg Tablet 0.1 mg PO BID promethazine 25 mg tablet 25 mg PO TID PRNQty: 14 0RF Relistor 150 mg tablet 450 mg PO QAM Qty: 9 0RF prochlorperazine maleate [Compazine] 5 mg tablet 5 mg PO TID PRNQty: 10 0RF Discharge Instructions Additional Instructions: You can take stool softener such as docusate and laxative such as milk of magnesia, follow dosing instructions on the packaging Your CAT scan showed you are very constipated and possibly have a mass. You will need to have a follow-up colonoscopy and I have placed you on a follow-up list to see the general surgeons for this. You should be contacted with an appointment. You should also follow-up with your primary care provider within 1 to 2 weeks If you feel more ill, or have new symptoms such as persistent vomiting return to the emergency department for reevaluation HPI General Mode of arrival: ambulatory . Date/Time Provider Initiated Documentation: 01/06/24 07:23 . Limitations to Documentation: no limitations . Information obtained by: patient . History of Present Illness 43 year old F presents to the emergency department with the chief complaint of constipated, described as moderate, Patient started experiencing this week(s) (2) and it has been constant. No relieving factors improve symptom(s), No exacerbating factors reported . Patient notes denies fever/chills and shortness of breath. Patient did receive the following treatments prior to arrival, none Related Data Home Medications Medication Instructions Recorded Confirmed omeprazole 20 mg capsule,delayed 40 mg PO DAILY 04/18/15 01/06/24 release (Prilosec) loratadine 10 mg tablet 10 mg PO DAILY 07/04/17 01/06/24 omega-3 fatty acids-fish oil 300 2 ea PO DAILY 12/01/17 01/06/24 mg-1,000 mg capsule bupropion HCl 300 mg 24 hr tablet, 300 mg PO DAILY #30 tab-caps 11/13/18 01/06/24 extended release cholecalciferol (vitamin D3) 25 1,000 unit PO DAILY 04/22/19 01/06/24 mcg (1,000 unit) capsule (Vitamin D3) ferrous sulfate 325 mg (65 mg 325 mg PO DAILY 04/23/20 01/06/24 iron) tablet (FeroSul) blood sugar diagnostic (OneTouch #10 ea 06/05/20 01/06/24 Verio test strips) lancets (OneTouch UltraSoft #100 ea 06/05/20 01/06/24 Lancets) levetiracetam 750 mg tablet 750 mg PO BID 06/05/20 01/06/24 multivitamin 1 tab PO DAILY 06/05/20 01/06/24 divalproex 500 mg tablet,extended 500 mg PO DAILY 01/10/22 01/06/24 release 24 hr olanzapine 15 mg tablet 15 mg PO BID 01/10/22 01/06/24 dexmethylphenidate 35 mg 40 mg PO DAILY 01/26/22 01/06/24 capsule,extended release [id number] (Focalin XR) methadone 10 mg/5 mL oral solution 67 mg PO DAILY 07/06/22 01/06/24 clonidine HCl 0.1 mg tablet 0.1 mg PO BID 09/25/22 01/06/24 promethazine 25 mg tablet 25 mg PO TID PRN #14 tabs 09/25/22 01/06/24 atorvastatin 20 mg tablet 20 mg PO QHS 10/08/22 01/06/24 metformin 500 mg tablet 1,000 mg PO BID 10/08/22 01/06/24 glipizide 2.5 mg tablet, extended 2.5 mg PO DAILY 12/02/22 01/06/24 release 24 hr hydroxyzine HCl 25 mg tablet 25 mg PO TID PRN 12/02/22 01/06/24 methylnaltrexone 150 mg tablet 450 mg (3 x 150 mg) PO QAM #9 tabs 06/22/23 01/06/24 (Relistor) prochlorperazine maleate 5 mg 5 mg PO TID PRN #10 tabs 06/22/23 01/06/24 tablet (Compazine) methylphenidate HCl 10 mg tablet 10 mg PO DAILY 01/06/24 01/06/24 Previous Rx's Medication Instructions Recorded bupropion HCl 300 mg 24 hr tablet, 300 mg PO DAILY #30 tab-caps 11/13/18 extended release promethazine 25 mg tablet 25 mg PO TID PRN #14 tabs 09/25/22 methylnaltrexone 150 mg tablet 450 mg (3 x 150 mg) PO QAM #9 tabs 06/22/23 (Relistor) prochlorperazine maleate 5 mg 5 mg PO TID PRN #10 tabs 06/22/23 tablet (Compazine) Allergies Allergy/AdvReac Type Severity Reaction Status Date / Time Penicillins Allergy Intermediate hives/swell Verified 01/06/24 07:31 ing trimethoprim [From Bactrim] Allergy Mild Other (See Verified 01/06/24 07:31 Comment) Sulfa (Sulfonamide AdvReac Severe body aches Verified 01/06/24 07:31 Antibiotics) erythromycin base AdvReac Intermediate stomach Verified 01/06/24 07:31 pain morphine AdvReac Intermediate N&V Verified 01/06/24 07:43 ondansetron HCl AdvReac Intermediate Hives Verified 01/06/24 07:31 [From Zofran (as hydrochloride)] sulfamethoxazole AdvReac Mild Muscle ache Verified 01/06/24 07:43 [From Bactrim] General Stated Complaint: Abd Prob RAVEN: 3 Review of Systems All systems reviewed & are unremarkable except as noted in HPI and below Constitutional Constitutional: Denies chills, Denies fever(s) and Denies weakness Cardiovascular Cardiovascular: Denies chest pain and Denies dyspnea Respiratory Respiratory: Denies cough and Denies dyspnea Gastrointestinal Gastrointestinal: Reports abdominal pain, Reports nausea and Reports vomiting Musculoskeletal Musculoskeletal: Denies joint swelling Neurologic Neurologic: Denies weakness Exam Const General: no acute distress Orientation: alert HENMT Head: normal to inspection Ears: external ears normal General nose exam: external nose normal Mouth: moist mucous membranes Eyes General: appearance normal, both eyes and all related structures Neck Neck: normal visual inspection Resp Effort & Inspection: normal respiratory effort and able to speak in complete sentences Cardio Rate: regular rate GI Palpation: soft and tender Skin General skin exam: no rashes or lesions noted Neuro General: patient alert and patient oriented x3 Extrem General: normal to inspection Psych Mental Status: mental status grossly normal Course Vital Signs Vital signs: Vital Signs Temperature 36.5 C 01/06/24 07:27 Pulse 120 H 01/06/24 07:27 Respiratory Rate 18 01/06/24 07:27 Blood Pressure 133/102 H 01/06/24 07:27 Pulse Oximetry 99 01/06/24 07:27 Temperature 36.5 C 01/06/24 07:27 Temperature Source Skin 01/06/24 07:27 Pulse 120 H 01/06/24 07:27 Respiratory Rate 18 01/06/24 07:27 Blood Pressure 133/102 H 01/06/24 07:27 Blood Pressure Position Sitting 01/06/24 07:27 Pulse Oximetry 99 01/06/24 07:27 Oxygen Delivery Method Room Air 01/06/24 07:27 Oxygen Flow Rate 0 01/06/24 07:27 Pain Level 6 01/06/24 07:27 Medical Decision Making 44-year-old female who is currently on methadone denies significant issues with constipation comes in with 2 weeks of intermittent constipation has a bowel movement 3 to 4 days she states that she has not had any vomiting but has had some nausea. Also has some lower abdominal pain. Denies any fevers. She is alert and oriented on arrival her abdomen is soft but is tender in the left lower and right lower abdomen without guarding. Will obtain CBC, CMP, lipase and CT to evaluate for possible bowel obstruction Patient feeling better, does note improvement in her abdominal discomfort. CT shows significant constipation and question of a proximal sigmoid mass. She does states she has had a colonoscopy but it has been years per patient. She feels much better requesting discharge, discussed results with her and concern for mass. I will place on a follow-up list to see general surgery to set up for a colonoscopy. Return precautions given Differential Diagnosis Differential Diagnosis: Constipation, methadone side effect, bowel obstruction Medical Records Medical records reviewed: Yes I reviewed the patient's medical records. Imaging Data Radiologic Study: Attestation: I personally reviewed and interpreted this imaging study as follows: Imaging: CT Scan Radiologist's impression: COMPARISON: CT CT ABDOMEN PELVIS W from 06/22/2023 FINDINGS: ABDOMEN and PELVIS: Lung Bases: No acute findings. Liver: Normal density. No suspicious mass. Gallbladder and biliary tract: Status post cholecystectomy. No biliary dilation. Pancreas: Normal density. No abnormal calcifications or inflammatory process. No evidence of mass. Spleen: Normal. Kidneys: Normal size, contour and axis. No radiodense stones. No obstructive uropathy. No suspicious masses seen. Adrenal glands: No masses seen. Vasculature: Abdominal aorta non-dilated. Soft tissues: Unremarkable. Bladder: No gross wall thickening. No calculi.No focal mass. Bowel: Large quantity of stool seen throughout the colon. Cecum is distended with stool to a diameter 8 cm. Focal area of wall thickening and luminal narrowing noted at the proximal sigmoid. This could represent a mass. No small-bowel obstruction. Peritoneal cavity: No ascites. No focal collection. No mesenteric inflammatory response. Bones: Unremarkable for age. Reproductive organs: Unremarkable. Lymph nodes: No pathologically enlarged lymph nodes. IMPRESSION:: Large quantity of stool. Focal area of narrowing in the proximal sigmoid may represent a mass. Colonoscopy recommended for further evaluation. Findings called to Dr. Arriaza of the emergency department. Lab Data Lab results reviewed: Yes I reviewed the patient's lab results. ECG Data Attestation: I personally reviewed and interpreted this ECG (s) as follows: Prior ECG tracings: available for review Interpretation: sinus rate of 97 qtc 432 no stemi Quality:SDOH Health Related Social Needs: No Data to Display PFSH All Active Problems (Updated 01/06/24 @ 10:58 by Jai Arriaza MD) Constipation (Acute) Abdominal pain (Acute) Dyspepsia (Acute) Right carpal tunnel syndrome (Acute) Right cervical radiculopathy (Acute) Polysubstance (including opioids) dependence with physiological dependence ( Chronic) Non-insulin treated type 2 diabetes mellitus (Acute) KOBI (acute kidney injury) (Acute) Frequency of micturition (Acute) Hand numbness (Acute) Asthma, intermittent (Acute) Hoarseness (Acute) Constipation due to pain medication (Acute) Methadone Medical History (Updated 01/06/24 @ 10:58 by Jai Arriaza MD) Elevated serum creatinine (12/22/17) Amenorrhea, secondary (01/14/14) Nl pelvic u/s. ES 3.2mm. labs c/w hypogonadotropic hypothalamic amenorrehea. No EMBx done. 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 105 mg day dose. History of alcohol abuse (09/06/16) Chronic hepatitis C without hepatic coma (09/06/16) Dysphonia Genital HSV Elevated serum creatinine 12/2019: 1.05 at time of preop evaluation Depression Anxiety GERD (gastroesophageal reflux disease) History of hepatitis C Chronic kidney disease (CKD) stage G3a/A1, moderately decreased glomerular filtration rate (GFR) between 45-59 mL/min/1.73 square meter and albuminuria creatinine ratio less than 30 mg/g Stimulant abuse Hydronephrosis with obstructing calculus E. coli pyelonephritis Right distal ureteral calculus Tobacco dependency Migraine headache Central sleep apnea PTSD (post-traumatic stress disorder) ADHD Dyslipidemia Metabolic syndrome Seizure disorder Pt. states she has not had a seizure in a very long time, states it was a result of ovrdosing on drugs Otitis externa, chronic Rhinitis, allergic Low back pain Eating disorder Problem related to living arrangement Hepatic fibrosis Cervical radiculopathy History of intravenous drug abuse states she has not used in 9 years Bipolar disorder ADD, PTSD, Anxiety and Depression Surgical History (Updated 07/06/23 @ 15:53 by Katlyn Awad MD) History of tubal ligation 12/19/19. Laparoscopic left salpingectomy. Patient previously had a right salpingectomy. History of tonsillectomy (~1999) molar extraction , Ectopic (~2010) Diagnostic Laproscopy (~2005) Cholecystectomy (~10/2001) Social History Smoking/Tobacco Use Status: Current every day Tobacco Type: cigarettes Smoking risk assessment performed?: Yes Alcohol Intake: never Drug use: Daily Substance use type: former substance user and marijuana Household members: none Housing: apartment current occupation: Disabled Pets and animals: Yes Pets and animals: cat(s) What type of physical activity do you participate in: none and independent ambulation Seatbelt use: always Do you feel safe at home: Yes Do you feel safe in your relationship?: Yes
[2024-01-06 09:32] LABS: Abs Immature Grans 0.05 10^3/uL (0.0-0.06); Absolute Eosinophil Count 0.48 10^3/uL (0.0-0.7); Absolute Monocyte Count 1.06 10^3/uL (0.1-0.8); Basophils % 0.5 %; Eosinophils % 3.1 %; HGB 14.8 g/dL (11.2-15.7); Immature Grans % 0.3 %; MCH 30.5 pg (27.0-33.0); MCHC 32.9 % (32.0-36.0); MCV 93 fL (80-95); MPV 8.9 fL (8.0-11.0); Monocytes % 6.9 %; Neutrophils % 68.2 %; Platelet Count 317 10^3/uL (130-400); RBC 4.86 10^6/uL (3.93-5.22); RDW 12.5 % (11.7-14.6); RDW-SD 42.8 fL
[2024-01-06] MEDS: Droperidol 5 MG/2 ML VIAL 2.5 MG IVP (09:33)
[2024-01-06] MEDS: Normal Saline Flush 10 ML SYR IVP (09:34)
[2024-01-06] MEDS: Ketorolac 15 MG/ML VIAL IVP (09:35)
[2024-01-06 09:36] LABS: Absolute Basophil Count 0.08 10^3/uL (0.0-0.2); Absolute Lymphocyte Count 3.23 10^3/uL (1.2-3.4)
[2024-01-06] MEDS: Milk of Magnesia 30 ML CUP PO (09:37)
[2024-01-06] MEDS: Normal Saline - Diluent 50 ML VIAL IJ (09:47)
[2024-01-06] MEDS: Omnipaque 350 MG/ML 500 ML BTL-Imaging package 100 ML IJ (09:49)
[2024-01-06 09:53] LABS: ALT 22 U/L (14-59); AST 28 U/L (15-37); Albumin 3.9 g/dL (3.4-5.0); Alkaline Phosphatase 70 U/L (46-116); Anion Gap 10.4 mmol/L (3-11); BUN 14 mg/dL (7-18); CO2 27.6 mmol/L (21.0-32.0); CREATININE 1.1 mg/dL (0.55-1.02); Calcium 9.4 mg/dL (8.5-10.1); Chloride 100 mmol/L (98-107); Estimated GFR 64.34 (mL/min/1.73m2); Glucose 200 mg/dL (74-106); Lipase 25 U/L (16-77); Magnesium 1.9 mg/dL (1.8-2.4); Potassium 4.7 mmol/L (3.5-5.1); Sodium 138 mmol/L (136-145); Total Protein 8.4 g/dL (6.4-8.2)
--- NOTE | 2024-01-06 09:54 | DI.CT_ITS ---
Exam(s) CT ABDOMEN PELVIS W EXAM: CT ABDOMEN PELVIS W CLINICAL HISTORY: lower abdomen pain, constipation. TECHNIQUE: Imaging Protocol: Axial computed tomography images with coronal and sagittal reformatted images were created and reviewed CONTRAST MATERIAL: Intravenous: Omnipaque 350 Contrast volume:100 ml Oral: no COMPARISON: CT CT ABDOMEN PELVIS W from 06/22/2023 FINDINGS: ABDOMEN and PELVIS: Lung Bases: No acute findings. Liver: Normal density. No suspicious mass. Gallbladder and biliary tract: Status post cholecystectomy. No biliary dilation. Pancreas: Normal density. No abnormal calcifications or inflammatory process. No evidence of mass. Spleen: Normal. Kidneys: Normal size, contour and axis. No radiodense stones. No obstructive uropathy. No suspicious masses seen. Adrenal glands: No masses seen. Vasculature: Abdominal aorta non-dilated. Soft tissues: Unremarkable. Bladder: No gross wall thickening. No calculi.No focal mass. Bowel: Large quantity of stool seen throughout the colon. Cecum is distended with stool to a diamete r 8 cm. Focal area of wall thickening and luminal narrowing noted at the proximal sigmoid. This cou ld represent a mass. No small-bowel obstruction. Peritoneal cavity: No ascites. No focal collection. No mesenteric inflammatory response. Bones: Unremarkable for age. Reproductive organs: Unremarkable. Lymph nodes: No pathologically enlarged lymph nodes. IMPRESSION:: Large quantity of stool. Focal area of narrowing in the proximal sigmoid may represent a mass. Colonoscopy recommended for further evaluation. Findings called to Dr. Arriaza of the emergency department. RADIATION DOSE DELIVERED: 960.07mGy.cm Total DLP DATA REPOSITORY: All CT scans at this facility are submitted to the National Radiology Data Registry (NRDR) Dose Index Registry (DIR) with the [employer] (A[employer]). RADIATION OPTIMIZATION: All CT scans at this facility use at least one of these dose optimization te chniques: automated exposure control; mA and/or kV adjustment per patient size (includes targeted exa ms where dose is matched to clinical indication); or iterative reconstruction.
[2024-01-06 10:04] LABS: Bilirubin Negative (Negative); Blood Negative (Negative); Clarity Sl Cloudy (Clear); Glucose 500 mg/dL (Negative); Ketones 40 mg/dL (Negative); Leukocyte Esterase Negative (Negative); Nitrite Negative (Negative); Specific Gravity 1.015 (1.005-1.025); Urobilinogen 0.2 mg/dL (Up to 0.2)
--- NOTE | 2024-01-06 11:01 | NUR.NOTE ---
Nursing Note: PT needs follow up with general surgery in 2 weeks for a colonoscopy. Referral faxed to [facility] general surgery. LARRY Barahona
[2024-01-06 11:02] VITALS: BP 117/74; PULSE 88; RESP 18; TEMP 36.2; O2SAT 99
== END 2024-01-06 11:07 | disposition home or self-care (01) ==
PROVIDERS: Emergency Provider Emergency Medicine; PCP Family Medicine
DX: R10.30 Lower abdominal pain, unspecified (principal); K59.00 Constipation, unspecified
CPT/HCPCS: 80053; 83690; 93005; 96374; 96375; 99285; 74177; 81003; 83735; 85025; 93010; 99283; J1790; J1885

== ENCOUNTER 2024-01-20 03:02 | Outpatient (CLI) | payer MEDICAID, SELFPAY ==
[2024-01-20 13:38] LABS: VALPROIC ACID 25.5 ug/mL
== END 2024-01-20 03:03 | disposition home or self-care (01) ==
LOC: LBO 03:02
PROVIDERS: PCP Family Medicine; Visit Provider Registered Nurse
DX: Z51.81 Encounter for therapeutic drug level monitoring (principal); F31.81 Bipolar II disorder; F11.21 Opioid dependence, in remission; F14.11 Cocaine abuse, in remission
CPT/HCPCS: 36415; 80164

== ENCOUNTER → 2024-02-21 01:03 | Outpatient (CLI) | payer MEDICAID, SELFPAY ==
--- NOTE | 2024-02-21 07:15 | DI.MAMMO_ITS ---
Exam(s) US BREAST LT COMPLETE MG MAMMO DIAGNOSTIC UNI EXAM: MG MAMMO DIAGNOSTIC UNI-LEFT AND COMPLETE LEFT BREAST ULTRASOUND CLINICAL HISTORY: 6 MO F/U IMAGING, R92.8,LT BREAST NODULE. TECHNIQUE: UNILATERAL LEFT BREAST CC AND MLO mammographic images were obtained with 3D tomosynthesis technique and utilizing computer aided detection (CAD). COMPLETE LEFT BREAST ULTRASOUND was performed including all 4 quadrants as well as the left axilla. COMPARISON: Prior baseline mammogram of July 2023 and subsequent diagnostic studies reviewed FINDINGS: DIAGNOSTIC LEFT BREAST MAMMOGRAM: The previously described nodule medial of center is no longer seen, implying that it most probably wa s a cyst which has resolved (or possibly a benign intramammary lymph node which has resolved). There are no new significant focal mammographic findings in left breast. No new spiculated masses. No malignant-appearing microcalcification groups. No significant architectural distortion nor skin t hickening-retraction. COMPLETE LEFT BREAST ULTRASOUND: No evidence of solid or significant cystic lesions in all 4 quadrants. Scanning of the axilla is negative for adenopathy. IMPRESSION: No radiographic evidence of malignancy in the left breast Negative complete left breast ultrasound Appropriate follow-up is to keep this patient on a yearly mammogram schedule. The patient was informed of the findings and follow-up recommendations by myself prior to leaving the department today. BI-RADS Category 1 - Negative Breast Density - Category B - Scattered areas of fibroglandular density Breast density Category C or D implies that the patient has dense breast tissue. Dense breast tissue can make it harder to find cancer on a mammogram. Dense breast tissue is also associated with an incr eased risk of breast cancer. This information about the result of the mammogram report was provided to the patient to raise their awareness. Use this report when you speak with the patient about their risks for breast cancer, which includes their family history. At that time, you may recommend additional screening tests (Ultrasoun d or MRI) as these tests may add significant information. A negative radiographic report should not delay biopsy if a dominant or clinically suspicious mass is present. Up to ten percent of cancers are not identified on mammography. A negative report may reinforce clinical impression. Adenosis and dense breasts may obscure an underlying neoplasm. False positive reports average 6 to 10%. Patient will receive a letter notifying them of these results.
== END ==
PROVIDERS: PCP Family Medicine; Visit Provider Obstetrics & Gynecology
DX: R92.8 Other abnormal and inconclusive findings on diagnostic imaging of breast (principal)
CPT/HCPCS: 76642; 77061; 77065; G0279

== ENCOUNTER 2024-05-17 09:16 | Emergency (ER) | payer MEDICAID, SELFPAY ==
[2024-05-17 09:22] VITALS: BP 147/71; PULSE 99; RESP 18; TEMP 36.6; O2SAT 98
--- NOTE | 2024-05-17 09:32 | ED.GENADUL_ITS ---
Discharge Plan Disposition Patient Disposition: Home Condition: Stable Discharge Details Clinical Impression: Abdominal pain, CAP (community acquired pneumonia) Primary Care Provider: Damian Murillo ED Provider: Jai Arriaza Cable Meds and New Rx's Prescriptions: New prednisone 20 mg tablet 60 mg PO DAILY 4 Days Qty: 12 0RF levofloxacin 750 mg tablet 750 mg PO DAILY Qty: 7 0RF Continued methadone 10 mg/5 mL solution 53 mg PO DAILY ferrous sulfate [FeroSul] 325 mg (65 mg iron) tablet 325 mg PO DAILY bupropion HCl 300 mg tablet extended release 24 hr 300 mg PO DAILY Qty: 30 5RF omeprazole [Prilosec] 20 MG capsule,delayed release(DR/EC) 40 mg PO DAILY loratadine 10 MG tablet 10 mg PO DAILY omega-3 fatty acids-fish oil 1 EACH capsule 2 ea PO DAILY (DME) OneTouch Verio test strips Strip See Rx Instructions .ROUTE .MEDSUPPLY Qty: 10 Rx Instructions: daily As directed (DME) lancets [OneTouch UltraSoft Lancets] Misc See Rx Instructions .ROUTE .MEDSUPPLY Qty: 100 Rx Instructions: DAILY multivitamin Tablet 1 tab PO DAILY levetiracetam 750 mg tablet 750 mg PO BID metformin 500 mg tablet 1,000 mg PO BID atorvastatin 20 mg tablet 20 mg PO QHS glipizide 2.5 mg tablet extended release 24hr 2.5 mg PO DAILY hydroxyzine HCl 25 mg tablet 25 mg PO TID PRN methylphenidate HCl 10 mg tablet 10 mg PO DAILY Patient Comments: TAKE ONE TABLET BY MOUTH EVERY DAY IN THE AFTERNOON cholecalciferol (vitamin D3) [Vitamin D3] 1,000 unit Capsule 1,000 unit PO DAILY olanzapine 15 mg tablet 15 mg PO BID Patient Comments: TAKE ONE TABLET BY MOUTH TWICE A DAY divalproex 500 mg tablet extended release 24 hr 500 mg PO DAILY Patient Comments: TAKE 1 TABLET BY MOUTH EVERY DAY dexmethylphenidate [Focalin XR] 35 mg capsule,ER biphasic 50-50 40 mg PO DAILY clonidine HCl 0.1 mg Tablet 0.1 mg PO BID promethazine 25 mg tablet 25 mg PO TID PRNQty: 14 0RF Relistor 150 mg tablet 450 mg PO QAM Qty: 9 0RF prochlorperazine maleate [Compazine] 5 mg tablet 5 mg PO TID PRNQty: 10 0RF Discharge Instructions Additional Instructions: Your CAT scan did not show any concerning findings in your abdomen or pelvis but you do have a pneumonia in your lungs Follow-up with your primary care provider within 1 to 2 weeks. You should have follow-up imaging to make sure the pneumonia has resolved. If you feel more ill or have worsening shortness of breath or new symptoms such as persistent vomiting return to the emergency department for reevaluation HPI General Mode of arrival: ambulatory . Date/Time Provider Initiated Documentation: 05/17/24 09:27 . Limitations to Documentation: no limitations . Information obtained by: patient . History of Present Illness 43 year old F presents to the emergency department with the chief complaint of right sided flank pain, described as moderate, Quality is described as aching, Patient started experiencing this day(s) (3) and it has been constant. No relieving factors improve symptom(s), No exacerbating factors reported . Patient notes no other symptoms.. Patient did receive the following treatments prior to arrival, none Related Data Home Medications ?Medication ?Instructions ?Recorded ?Confirmed omeprazole 20 mg capsule,delayed 40 mg PO DAILY 04/18/15 05/17/24 release (Prilosec) loratadine 10 mg tablet 10 mg PO DAILY 07/04/17 05/17/24 omega-3 fatty acids-fish oil 300 2 ea PO DAILY 12/01/17 05/17/24 mg-1,000 mg capsule bupropion HCl 300 mg 24 hr tablet, 300 mg PO DAILY #30 tab-caps 11/13/18 05/17/24 extended release cholecalciferol (vitamin D3) 25 1,000 unit PO DAILY 04/22/19 05/17/24 mcg (1,000 unit) capsule (Vitamin D3) ferrous sulfate 325 mg (65 mg 325 mg PO DAILY 04/23/20 05/17/24 iron) tablet (FeroSul) blood sugar diagnostic (OneTouch #10 ea 06/05/20 05/17/24 Verio test strips) lancets ([employer] SystemsTouch UltraSoft #100 ea 06/05/20 05/17/24 Lancets) levetiracetam 750 mg tablet 750 mg PO BID 06/05/20 05/17/24 multivitamin 1 tab PO DAILY 06/05/20 05/17/24 divalproex 500 mg tablet,extended 500 mg PO DAILY 01/10/22 05/17/24 release 24 hr olanzapine 15 mg tablet 15 mg PO BID 01/10/22 05/17/24 dexmethylphenidate 35 mg 40 mg PO DAILY 01/26/22 05/17/24 capsule,extended release -27 (Focalin XR) methadone 10 mg/5 mL oral solution 53 mg PO DAILY 07/06/22 05/17/24 clonidine HCl 0.1 mg tablet 0.1 mg PO BID 09/25/22 05/17/24 promethazine 25 mg tablet 25 mg PO TID PRN #14 tabs 09/25/22 05/17/24 atorvastatin 20 mg tablet 20 mg PO QHS 10/08/22 05/17/24 metformin 500 mg tablet 1,000 mg PO BID 10/08/22 05/17/24 glipizide 2.5 mg tablet, extended 2.5 mg PO DAILY 12/02/22 05/17/24 release 24 hr hydroxyzine HCl 25 mg tablet 25 mg PO TID PRN 12/02/22 05/17/24 methylnaltrexone 150 mg tablet 450 mg (3 x 150 mg) PO QAM #9 tabs 06/22/23 05/17/24 (Relistor) prochlorperazine maleate 5 mg 5 mg PO TID PRN #10 tabs 06/22/23 05/17/24 tablet (Compazine) methylphenidate HCl 10 mg tablet 10 mg PO DAILY 01/06/24 05/17/24 levofloxacin 750 mg tablet 750 mg PO DAILY #7 tabs 05/17/24 prednisone 20 mg tablet 60 mg (3 x 20 mg) PO DAILY 4 days 05/17/24 #12 tabs Previous Rx's ?Medication ?Instructions ?Recorded bupropion HCl 300 mg 24 hr tablet, 300 mg PO DAILY #30 tab-caps 11/13/18 extended release promethazine 25 mg tablet 25 mg PO TID PRN #14 tabs 09/25/22 methylnaltrexone 150 mg tablet 450 mg (3 x 150 mg) PO QAM #9 tabs 06/22/23 (Relistor) prochlorperazine maleate 5 mg 5 mg PO TID PRN #10 tabs 06/22/23 tablet (Compazine) levofloxacin 750 mg tablet 750 mg PO DAILY #7 tabs 05/17/24 prednisone 20 mg tablet 60 mg (3 x 20 mg) PO DAILY 4 days 05/17/24 #12 tabs Allergies Allergy/AdvReac Type Severity Reaction Status Date / Time Penicillins Allergy Intermediate hives/swell Verified 05/17/24 09:26 ing trimethoprim (From Bactrim) Allergy Mild Other (See Verified 05/17/24 09:26 Comment) Sulfa (Sulfonamide AdvReac Severe body aches Verified 05/17/24 09:26 Antibiotics) erythromycin base AdvReac Intermediate stomach Verified 05/17/24 09:26 pain morphine AdvReac Intermediate N&V Verified 05/17/24 09:26 ondansetron HCl (From Zofran AdvReac Intermediate Hives Verified 05/17/24 09:26 (as hydrochloride)) sulfamethoxazole (From AdvReac Mild Muscle ache Verified 05/17/24 09:26 Bactrim) General Stated Complaint: FlankPain RAVEN: 3 Review of Systems All systems reviewed & are unremarkable except as noted in HPI and below Constitutional Constitutional: Denies chills, Denies fever(s) and Denies weakness Cardiovascular Cardiovascular: Denies chest pain and Denies dyspnea Respiratory Respiratory: Denies cough and Denies dyspnea Gastrointestinal Gastrointestinal: Reports abdominal pain, Reports nausea and Denies vomiting Integumentary/Breasts Skin/Breast: Denies rash Neurologic Neurologic: Denies weakness Exam Const General: no acute distress Orientation: alert [facility] Head: normal to inspection Ears: external ears normal General nose exam: external nose normal Mouth: moist mucous membranes Eyes General: appearance normal, both eyes and all related structures Neck Neck: normal visual inspection Resp Effort & Inspection: normal respiratory effort and able to speak in complete sentences Cardio Rate: regular rate GI Palpation: soft and tender Back/Spine/Pelvis Back: no CVA tenderness Skin General skin exam: no rashes or lesions noted Neuro General: patient alert and patient oriented x3 Extrem General: normal to inspection Psych Mental Status: mental status grossly normal Course Vital Signs Vital signs: Vital Signs Temperature 36.6 C 05/17/24 09:22 Pulse 99 H 05/17/24 09:22 Respiratory Rate 18 05/17/24 09:22 Blood Pressure 147/71 H 05/17/24 09:22 Pulse Oximetry 98 05/17/24 09:22 Temperature 36.6 C 05/17/24 09:22 Temperature Source Temporal Artery Scan 05/17/24 09:22 Pulse 99 H 05/17/24 09:22 Respiratory Rate 18 05/17/24 09:22 Blood Pressure 147/71 H 05/17/24 09:22 Blood Pressure Position Sitting 05/17/24 09:22 Pulse Oximetry 98 05/17/24 09:22 Oxygen Delivery Method Room Air 05/17/24 09:22 Oxygen Flow Rate 0 05/17/24 09:22 Pain Level 7 05/17/24 09:22 Medical Decision Making 43-year-old female with a history of prior substance abuse on methadone and states she is no longer using illicit drugs, type 2 diabetes, who comes in with chief complaint of 2 to 3 days of right oblique right anterior abdomen pain. Denies any vomiting, fevers, chills. She is alert and oriented x 4 on arrival, her abdomen is soft with minimal tenderness in the right upper quadrant and right oblique area. There is no lower abdominal tenderness. She denies any vaginal bleeding or discharge. Given location of her pain we will proceed with CBC, CMP, lipase, UA and also a CT renal colic to evaluate for kidney stone, patient has had her gallbladder out in the past Patient's CT abdomen pelvis shows no acute findings in the abdomen or pelvis but does have bilateral infiltrates. She does note that she has had an increased cough similar to chest x-ray which also shows infiltrates. She is not hypoxic and feels well, will start her on oral levofloxacin and she states that she has had to use inhalers in the past and will provide a short course of prednisone and albuterol inhaler. Her lungs are currently clear. She will follow-up with PCP and return precautions given. Differential Diagnosis Differential Diagnosis: kidney stone, pancreatitis abdominal wall strain Medical Records Medical records reviewed: Yes I reviewed the patient's medical records. Lab Data Lab results reviewed: Yes I reviewed the patient's lab results. Quality:SDOH Health Related Social Needs: No Data to Display PFSH All Active Problems (Updated 05/17/24 @ 11:17 by Jai Arriaza MD) CAP (community acquired pneumonia) (Acute) Abdominal pain (Acute) Dyspepsia (Acute) Right carpal tunnel syndrome (Acute) Right cervical radiculopathy (Acute) Polysubstance (including opioids) dependence with physiological dependence (Chronic) Non-insulin treated type 2 diabetes mellitus (Acute) KOBI (acute kidney injury) (Acute) Frequency of micturition (Acute) Hand numbness (Acute) Asthma, intermittent (Acute) Hoarseness (Acute) Constipation due to pain medication (Acute) Methadone Medical History (Updated 05/17/24 @ 11:17 by Jai Arriaza MD) Elevated serum creatinine (12/22/17) Amenorrhea, secondary (01/14/14) Nl pelvic u/s. ES 3.2mm. labs c/w hypogonadotropic hypothalamic amenorrehea. No EMBx done. 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 105 mg day dose. History of alcohol abuse (09/06/16) Chronic hepatitis C without hepatic coma (09/06/16) Dysphonia Genital HSV Elevated serum creatinine 12/2019: 1.05 at time of preop evaluation Depression Anxiety GERD (gastroesophageal reflux disease) History of hepatitis C Chronic kidney disease (CKD) stage G3a/A1, moderately decreased glomerular filtration rate (GFR) between 45-59 mL/min/1.73 square meter and albuminuria creatinine ratio less than 30 mg/g Stimulant abuse Hydronephrosis with obstructing calculus E. coli pyelonephritis Right distal ureteral calculus Tobacco dependency Migraine headache Central sleep apnea PTSD (post-traumatic stress disorder) ADHD Dyslipidemia Metabolic syndrome Seizure disorder Pt. states she has not had a seizure in a very long time, states it was a result of ovrdosing on drugs Otitis externa, chronic Rhinitis, allergic Low back pain Eating disorder Problem related to living arrangement Hepatic fibrosis Cervical radiculopathy History of intravenous drug abuse states she has not used in 9 years Bipolar disorder ADD, PTSD, Anxiety and Depression Surgical History (Updated 07/06/23 @ 15:53 by Katlyn Awad MD) History of tubal ligation 12/19/19. Laparoscopic left salpingectomy. Patient previously had a right salpingectomy. History of tonsillectomy (~1999) molar extraction , Ectopic (~2010) Diagnostic Laproscopy (~2005) Cholecystectomy (~10/2001) Social History Smoking/Tobacco Use Status: Current every day Tobacco Type: cigarettes Smoking risk assessment performed?: Yes Alcohol Intake: never Drug use: Daily Substance use type: former substance user and marijuana Household members: none Housing: apartment current occupation: Disabled Pets and animals: Yes Pets and animals: cat(s) What type of physical activity do you participate in: none and independent ambulation Seatbelt use: always Do you feel safe at home: Yes Do you feel safe in your relationship?: Yes
--- NOTE | 2024-05-17 10:00 | RT.EKG_ITS ---
APPROVED REPORT Exam: Resting ECG Reason for Exam: check qt Patient Location: E HR:95 bpm ECG Measurements Heart Rate 95 AXIS NJ 144 P 33 QRSd 80 QRS 38 QT 347 T 57 QTc 436 Conclusion Sinus rhythm...normal P axis, V-rate 60- 99 ST elev, probable normal early repol pattern...ST elevation, age<55
[2024-05-17 10:24] LABS: Abs Immature Grans 0.15 10^3/uL (0.0-0.06); Absolute Eosinophil Count 0.36 10^3/uL (0.0-0.7); Absolute Lymphocyte Count 2.51 10^3/uL (1.2-3.4); Absolute Monocyte Count 1.32 10^3/uL (0.1-0.8); Basophils % 0.6 %; Eosinophils % 2.6 %; HCT 35.1 % (36.0-46.0); HGB 11.5 g/dL (11.2-15.7); Immature Grans % 1.1 %; Lymphocytes % 17.9 %; MCH 28.5 pg (27.0-33.0); MCHC 32.8 % (32.0-36.0); MCV 87 fL (80-95); Monocytes % 9.4 %; Neutrophils % 68.4 %; Platelet Count 344 10^3/uL (130-400); RBC 4.03 10^6/uL (3.93-5.22); RDW 14.1 % (11.7-14.6); RDW-SD 45.1 fL; WBC 14.03 10^3/uL (4.4-10.8)
[2024-05-17 10:26] LABS: Absolute Basophil Count 0.08 10^3/uL (0.0-0.2)
[2024-05-17] MEDS: Droperidol 5 MG/2 ML VIAL 2.5 MG IVP (10:36)
[2024-05-17] MEDS: Ketorolac 15 MG/ML VIAL IVP (10:37)
[2024-05-17 10:39] LABS: Bilirubin, Direct 0.1 mg/dL (0.0-0.2)
[2024-05-17 10:42] LABS: ALT 62 U/L (14-59); AST 49 U/L (15-37); Albumin 2.4 g/dL (3.4-5.0); Alkaline Phosphatase 84 U/L (46-116); Anion Gap 10.5 mmol/L (3-11); BUN 17 mg/dL (7-18); Bilirubin, Total 0.29 mg/dL (0.2-1.0); CO2 27.5 mmol/L (21.0-32.0); CREATININE 1.1 mg/dL (0.55-1.02); Calcium 9.5 mg/dL (8.5-10.1); Chloride 99 mmol/L (98-107); Estimated GFR 64.34 (mL/min/1.73m2); Glucose 124 mg/dL (74-106); Lipase 15 U/L (16-77); Magnesium 1.9 mg/dL (1.8-2.4); Potassium 3.2 mmol/L (3.5-5.1); Sodium 137 mmol/L (136-145); Total Protein 7.7 g/dL (6.4-8.2)
--- NOTE | 2024-05-17 10:45 | DI.RAD_ITS ---
Exam(s) XR CHEST 2V PA LATERAL EXAM: XR CHEST 2V PA LATERAL CLINICAL HISTORY: cough TECHNIQUE: 2D digital imaging was performed. Two views. COMPARISON: CR XR CHEST 2V PA LATERAL from 04/08/2020 FINDINGS: HEART: Normal size. Aorta: Not dilated. PULMONARY VASCULATURE: Normal. MEDIASTINUM: Unremarkable. LUNGS: Area of consolidation noted in the right lower lobe. Milder infiltrates seen medial left lowe r lobe. PLEURAL SPACE: No pleural effusion or pneumothorax. BONE:Unremarkable for age. SOFT TISSUES: Unremarkable. IMPRESSION: Bilateral lower lobe pneumonia, right greater than left. DATA REPOSITORY: RADIATION DOSE DELIVERED:
--- NOTE | 2024-05-17 11:02 | DI.CT_ITS ---
Exam(s) CT RENAL COLIC WO EXAM: CT RENAL COLIC WO CLINICAL HISTORY: right flank pain. TECHNIQUE: Imaging Protocol: Axial computed tomography images with coronal and sagittal reformatted images were created and reviewed. CONTRAST MATERIAL: Noncontrast COMPARISON: CT CT ABDOMEN PELVIS W from 01/06/2024 FINDINGS: ABDOMEN: Lung Bases: Infiltrates consistent with pneumonia noted at both lung bases, right greater than left. Small hiatal hernia. Liver: Moderately enlarged. Moderate hepatic steatosis.. No measurable mass. Gallbladder and biliary tract: Status post cholecystectomy. No biliary dilation. Pancreas: Normal density, no calcifications or inflammatory process. Spleen: Normal. Kidneys: Normal size, contour and axis. No radiodense stones or obstructive uropathy. No masses seen. Adrenal glands: No masses seen. Abdominal Aorta: Abdominal portion non-dilated. Soft tissues: Unremarkable. PELVIS: Bladder: Symmetric distention, no gross wall thickening. No evidence of stones.No visible mass. Bowel: No obstruction or bowel wall thickening. Increased quantity of stool seen in ascending and t ransverse colon. Reproductive: Unremarkable. Peritoneal cavity: No ascites, collection or mesenteric inflammatory response. Bones: Unremarkable for age.. IMPRESSION: Bilateral lower lobe pneumonia, right greater than left. No acute abnormality in the abdomen or pelvis. The liver is enlarged and shows hepatic steatosis. RADIATION DOSE DELIVERED: 580.51mGy.cm Total DLP DATA REPOSITORY: All CT scans at this facility are submitted to the National Radiology Data Registry (NRDR) Dose Index Registry (DIR) with the [employer] ([employer]). RADIATION OPTIMIZATION: All CT scans at this facility use at least one of these dose optimization te chniques: automated exposure control; mA and/or kV adjustment per patient size (includes targeted exa ms where dose is matched to clinical indication); or iterative reconstruction.
[2024-05-17] MEDS: Methadone Liquid 10 MG/ML 53 MG PO (11:05)
[2024-05-17] MEDS: predniSONE 20 MG TAB 60 MG PO (11:24)
[2024-05-17] MEDS: Albuterol HFA 8 GM 60 PUFF INH IH (11:24)
[2024-05-17 11:27] VITALS: BP 132/92; PULSE 87; RESP 20; TEMP 37.5; O2SAT 98
== END 2024-05-17 11:30 | disposition home or self-care (01) ==
PROVIDERS: Emergency Provider Emergency Medicine; PCP Family Medicine
DX: R10.9 Unspecified abdominal pain (principal); J18.2 Hypostatic pneumonia, unspecified organism; E11.22 Type 2 diabetes mellitus with diabetic chronic kidney disease; N18.31 Chronic kidney disease, stage 3a; E78.5 Hyperlipidemia, unspecified; F11.20 Opioid dependence, uncomplicated; F17.210 Nicotine dependence, cigarettes, uncomplicated; Z79.84 Long term (current) use of oral hypoglycemic drugs; Z79.899 Other long term (current) drug therapy
CPT/HCPCS: 80053; 82962; 83690; 93005; 96374; 96375; 99285; 71046; 74176; 82248; 83735; 85025; 93010; 99284; J1790; J1885; J7512

== ENCOUNTER 2024-06-05 20:16 | Outpatient (REF) | payer MEDICAID, SELFPAY ==
[2024-06-05 22:25] LABS: *AMPHETAMINES SCREEN URINE Negative (Negative); *BARBITURATES SCREEN URINE Negative (Negative); *BENZODIAZEPINES SCREEN URINE Negative (Negative); Cannabinoids THC Positive (Negative); Cocaine Screen,Urine Negative (Negative); METHADONE URINE SCREEN Negative (Negative); OPIATES URINE SCREEN Negative (Negative)
[2024-06-05 22:27] LABS: Tricyclic Antidepressants Negative (Negative)
== END 2024-06-05 20:17 | disposition home or self-care (01) ==
LOC: LBN 20:16
PROVIDERS: PCP Family Medicine; Visit Provider Registered Nurse
DX: F31.81 Bipolar II disorder (principal); F11.21 Opioid dependence, in remission; F14.11 Cocaine abuse, in remission; Z51.81 Encounter for therapeutic drug level monitoring
CPT/HCPCS: 80307

== ENCOUNTER 2024-07-17 15:43 | Outpatient (REF) | payer MEDICAID, SELFPAY ==
[2024-07-21 11:59] LABS: Methylphenidate 25 ng/mL (Cutoff: 10); Ritalinic Acid 4235 ng/mL (Cutoff: 50)
== END 2024-07-17 15:44 | disposition home or self-care (01) ==
LOC: LBN 15:43
PROVIDERS: PCP Student in an Organized Health Care Education/Training Program; Visit Provider Registered Nurse
DX: Z51.81 Encounter for therapeutic drug level monitoring (principal); F14.11 Cocaine abuse, in remission
CPT/HCPCS: 80360

== ENCOUNTER 2024-07-27 00:15 | Outpatient (CLI) | payer MEDICAID, SELFPAY ==
--- NOTE | 2024-07-27 | DI.RAD_ITS ---
Exam(s) XR CHEST 2V PA LATERAL EXAM: XR CHEST 2V PA LATERAL CLINICAL HISTORY: J18.9 Pneumonia, check for resolution of pneumonia at end of April TECHNIQUE: 2D digital imaging was performed of the chest. Two images were obtained. PA and lateral views were obtained. COMPARISON: CR XR CHEST 2V PA LATERAL from 05/17/2024 FINDINGS: MEDIASTINUM: Normal. HEART: Normal. PULMONARY VASCULATURE: Normal. LUNGS: There has been complete resolution of the prior pneumonia. The lungs are clear. PLEURAL SPACE: No pleural effusion or pneumothorax. BONE:Within normal limits for the patient's age. OTHER FINDINGS:Normal. IMPRESSION: No acute pulmonary findings. DATA REPOSITORY: RADIATION DOSE DELIVERED:
== END 2024-07-27 00:35 ==
LOC: DI 00:16
PROVIDERS: PCP Student in an Organized Health Care Education/Training Program; Visit Provider Student in an Organized Health Care Education/Training Program
DX: J18.9 Pneumonia, unspecified organism (principal)
CPT/HCPCS: 71046

== ENCOUNTER 2024-07-27 11:29 | Outpatient (REF) | payer MEDICAID, SELFPAY ==
[2024-07-30 12:32] LABS: Chlamydia Result Negative (Negative); GC Result Negative (Negative)
== END 2024-07-27 11:30 | disposition home or self-care (01) ==
LOC: LBN 11:29
PROVIDERS: PCP Student in an Organized Health Care Education/Training Program; Visit Provider Obstetrics & Gynecology
DX: Z11.3 Encounter for screening for infections with a predominantly sexual mode of transmission (principal)
CPT/HCPCS: 87491; 87591

== ENCOUNTER 2024-08-15 10:35 | Outpatient (CLI) | payer MEDICAID, SELFPAY ==
[2024-08-15 10:53] LABS: Abs Immature Grans 0.03 10^3/uL (0.0-0.06); Absolute Basophil Count 0.05 10^3/uL (0.0-0.2); Absolute Eosinophil Count 0.55 10^3/uL (0.0-0.7); Absolute Lymphocyte Count 3.24 10^3/uL (1.2-3.4); Absolute Monocyte Count 0.76 10^3/uL (0.1-0.8); Basophils % 0.4 %; Eosinophils % 4.5 %; HGB 12.7 g/dL (11.2-15.7); Immature Grans % 0.2 %; Lymphocytes % 26.6 %; MCH 27.7 pg (27.0-33.0); MCHC 31.8 % (32.0-36.0); MCV 87 fL (80-95); MPV 8.7 fL (8.0-11.0); Monocytes % 6.2 %; Neutrophils % 62.1 %; Platelet Count 265 10^3/uL (130-400); RBC 4.59 10^6/uL (3.93-5.22); RDW 14.1 % (11.7-14.6); RDW-SD 44.6 fL; WBC 12.19 10^3/uL (4.4-10.8)
[2024-08-15 10:56] LABS: Absolute Neutrophil Count 7.57 10^3/uL (1.2-6.7)
[2024-08-15 10:59] LABS: Hemoglobin A1C 8.2 % (<5.7)
[2024-08-15 11:26] LABS: VALPROIC ACID 35.7 ug/mL
[2024-08-15 11:46] LABS: ALT 67 U/L (14-59); AST 26 U/L (15-37); Albumin 3.7 g/dL (3.4-5.0); Alkaline Phosphatase 75 U/L (46-116); Anion Gap 8.7 mmol/L (3-11); BUN 14 mg/dL (7-18); Bilirubin, Total 0.33 mg/dL (0.2-1.0); CO2 28.3 mmol/L (21.0-32.0); CREATININE 1.3 mg/dL (0.55-1.02); Calcium 9.2 mg/dL (8.5-10.1); Calculated LDL 168 mg/dL (<100); Chloride 103 mmol/L (98-107); Cholesterol 261 mg/dL (<200); Estimated GFR 52.65 (mL/min/1.73m2); FREE T4 1.03 ng/dL (0.76-1.46); Glucose 210 mg/dL (74-106); HDL Cholesterol 49 mg/dL (40-60); Potassium 4.3 mmol/L (3.5-5.1); Sodium 140 mmol/L (136-145); TSH 1.25 uIU/mL (0.36-3.74); Total Protein 7.8 g/dL (6.4-8.2); Triglyceride 224 mg/dL (<150); Vitamin D 25 Total 41.7 ng/mL (30-100)
[2024-08-15 17:51] LABS: FSH 19.9 mIU/mL (See Note)
[2024-08-15 17:56] LABS: Estradiol 18 pg/mL (See Note); Prolactin 10.1 ng/mL (See Note)
[2024-08-17 10:34] LABS: Levetiracetam 25.1 mcg/mL
[2024-08-24 16:02] LABS: Testosterone, Free 0.27 ng/dL (<0.13-0.98); Testosterone, Total 11 ng/dL (8-60)
== END 2024-08-15 10:36 | disposition home or self-care (01) ==
LOC: LBO 10:36
PROVIDERS: Obstetrics & Gynecology; PCP Student in an Organized Health Care Education/Training Program; Visit Provider Registered Nurse
DX: N91.1 Secondary amenorrhea (principal); F31.81 Bipolar II disorder; F11.21 Opioid dependence, in remission; F14.11 Cocaine abuse, in remission; Z51.81 Encounter for therapeutic drug level monitoring
CPT/HCPCS: 36415; 80053; 80061; 82306; 84402; 84403; 80164; 80177; 82670; 83001; 83036; 84146; 84439; 84443; 85025

== ENCOUNTER 2024-09-25 16:24 | Outpatient (REF) | payer MEDICAID, SELFPAY | END 2024-09-25 16:25 | disposition home or self-care (01) | LOC: LBN 16:24 | PROVIDERS: PCP Student in an Organized Health Care Education/Training Program; Visit Provider Nurse Practitioner Family | DX: L08.9 Local infection of the skin and subcutaneous tissue, unspecified (principal); B95.62 Methicillin resistant Staphylococcus aureus infection as the cause of diseases classified elsewhere | CPT/HCPCS: 87077; 87070; 87186; 87205 ==

== ENCOUNTER 2025-04-20 11:38 | Emergency (ER) | payer MEDICAID, SELFPAY ==
[2025-04-20 11:39] VITALS: BP 185/85; PULSE 73; RESP 18; TEMP 36.5; O2SAT 93
--- NOTE | 2025-04-20 11:45 | DI.CT_ITS ---
Exam(s) CT HEAD WO EXAM: CT HEAD WO CLINICAL HISTORY: Dizziness, vomiting. TECHNIQUE: Imaging Protocol: Axial computed tomography images with coronal and sagittal reformatted images were created and reviewed COMPARISON: CT HEAD WITHOUT CONTRAST from 05/11/2016 FINDINGS: There are no skull fractures. There is partial opacification of the right maxillary sinus, similar to 2016. The left maxillary sinus is clear as are the other paranasal sinuses and mastoid air cells. There is no evidence of intracranial hemorrhage, mass effect, or shift of midline structures. There are no extra-axial fluid collections. The ventricles are not enlarged or shifted and there is no blood within the ventricular system nor within the basal cisterns. IMPRESSION: No acute intracranial findings on this noninfused CT scan of the brain. Right maxillary sinus disease (partially included in the field of view). This was also evident on CT scan of April 2016 RADIATION DOSE DELIVERED: 894.53mGy.cm Total DLP DATA REPOSITORY: All CT scans at this facility are submitted to the National Radiology Data Registry (NRDR) Dose Index Registry (DIR) with the [employer] (A[employer]). RADIATION OPTIMIZATION: All CT scans at this facility use at least one of these dose optimization techniques: automated exposure control; mA and/or kV adjustment per patient size (includes targeted exams where dose is matched to clinical indication); or iterative reconstruction.
--- NOTE | 2025-04-20 11:45 | RT.EKG_ITS ---
APPROVED REPORT Exam: Resting ECG Reason for Exam: Dizziness Patient Location: E HR:81 bpm ECG Measurements Heart Rate 81 AXIS GA 169 P 0 QRSd 81 QRS 18 QT 403 T 64 QTc 470 Conclusion Sinus rhythm...normal P axis, V-rate 60- 99
--- NOTE | 2025-04-20 11:54 | W.ED.GENAD ---
Discharge Plan Disposition Patient Disposition: Home Condition: Stable Discharge Details Clinical Impression: Sinusitis, Vomiting Primary Care Provider: Kike White ED Provider: Tammi Epps Meds and New Rx's Prescriptions: New metoclopramide HCl [Reglan] 5 mg tablet 5 mg PO QACHS MDD 15mg PRN (Reason: nausea and vomiting) Qty: 10 0RF Rx Instructions: Take 1 tablet by mouth prior to meals and at bedtime as needed for nausea vomiting No Action methadone 10 mg/5 mL solution 53 mg PO DAILY dexmethylphenidate 10 mg tablet 10 mg PO DAILY dapagliflozin propanediol [Farxiga] 10 mg tablet 10 mg PO DAILY glipizide 10 mg tablet extended release 24hr 10 mg PO DAILY valacyclovir 1 gram tablet 1,000 mg PO DAILY PRN Patient Comments: 07/27/24- pt takes once a day x5 days per episode as written in pharmacy olanzapine 20 mg tablet 20 mg PO QHS ferrous sulfate [FeroSul] 325 mg (65 mg iron) tablet 325 mg PO DAILY bupropion HCl 300 mg tablet extended release 24 hr 300 mg PO DAILY Qty: 30 5RF omeprazole [Prilosec] 20 MG capsule,delayed release(DR/EC) 40 mg PO DAILY loratadine 10 MG tablet 10 mg PO DAILY omega-3 fatty acids-fish oil 1 EACH capsule 2 ea PO DAILY (DME) OneTouch Verio test strips Strip See Rx Instructions .ROUTE .MEDSUPPLY Qty: 10 Rx Instructions: daily As directed (DME) lancets [OneTouch UltraSoft Lancets] Misc See Rx Instructions .ROUTE .MEDSUPPLY Qty: 100 Rx Instructions: DAILY multivitamin Tablet 1 tab PO DAILY metformin 500 mg tablet 1,000 mg PO BID atorvastatin 20 mg tablet 20 mg PO QHS hydroxyzine HCl 25 mg tablet 25 mg PO TID PRN multivitamin [Daily-Claudy] Tablet 1 tab PO DAILY acetic acid 2 % solution 3 drp otic (ear) Q6H Rx Instructions: apply to (cotton) wick; replace wick every 24 hours ciprofloxacin HCl 750 mg tablet 750 mg PO Q12H sennosides-docusate sodium [Senexon-S] 8.6-50 mg tablet 1 tab-cap PO QHS permethrin 5 % cream 1 applic topical Q14D Rx Instructions: apply second treatment 14 days after first treatment if live lice remain triamcinolone acetonide 0.1 % cream 1 applic topical BID ofloxacin 0.3 % drops 10 drp otic (ear) DAILY docusate sodium 100 mg capsule 100 mg PO BID albuterol sulfate [Ventolin HFA] 90 mcg/actuation HFA aerosol inhaler 2 puff inhalation Q6H PRN ondansetron 4 mg tablet,disintegrating 4 mg PO Q8H mometasone 0.1 % cream 1 applic topical DAILY methadone 5 mg/5 mL solution 10 mg PO DAILY ciprofloxacin-dexamethasone 0.3-0.1 % drops,suspension 4 drp otic (ear) BID Vraylar 1.5 mg capsule 1.5 mg PO DAILY magnesium oxide 200 mg magnesium tablet,chewable 400 mg PO methylphenidate HCl 10 mg tablet 10 mg PO DAILY Patient Comments: TAKE ONE TABLET BY MOUTH EVERY DAY IN THE AFTERNOON levofloxacin 750 mg tablet 750 mg PO DAILY Qty: 7 0RF cholecalciferol (vitamin D3) [Vitamin D3] 1,000 unit Capsule 1,000 unit PO DAILY olanzapine 15 mg tablet 15 mg PO BID Patient Comments: TAKE ONE TABLET BY MOUTH TWICE A DAY divalproex 500 mg tablet extended release 24 hr 500 mg PO DAILY Patient Comments: TAKE 1 TABLET BY MOUTH EVERY DAY dexmethylphenidate [Focalin XR] 35 mg capsule,ER biphasic 50-50 40 mg PO DAILY clonidine HCl 0.1 mg Tablet 0.1 mg PO BID promethazine 25 mg tablet 25 mg PO TID PRNQty: 14 0RF Relistor 150 mg tablet 450 mg PO QAM Qty: 9 0RF prochlorperazine maleate [Compazine] 5 mg tablet 5 mg PO TID PRNQty: 10 0RF Discharge Instructions Instructions: Sinusitis, Adult ED, Nausea and Vomiting, Adult ED Additional Instructions: This time the head CT is within normal limits. You have a little bit of inflammation in your left maxillary sinus. Your magnesium and potassium was slightly low. You were given a magnesium supplement. Please drink oral electrolyte fluids over the next 3 to 4 days. Please take the nausea medications as directed. Follow up with primary care provider in 3-5 days. Return to ED sooner if any worsening or concerns. Please take Tylenol or Ibuprofen with food every 4-6 hours as needed for pain and swelling. Referrals: Kike White [Primary Care Provider, Medicine] - 5 days Referral Note: ER follow-up, call for an appointment Discharge Data Discharge Date/Time-TO BE ENTERED AT DEPARTURE: 04/20/25 15:34 HPI General Mode of arrival: EMS. Date/Time Provider Initiated Documentation: 04/20/25 11:45. Limitations to Documentation: no limitations. Information obtained by: patient, RN notes reviewed and old records reviewed. HPI Narrative: 44-year-old female presents to the ER with a chief complaint of acute onset of dizziness feeling as if she was spinning this morning. This was followed by nausea and vomiting and diarrhea. Worse with laying flat. Does have a history of diabetes melitis type II, is taking methadone which she did take this morning, other history includes chronic kidney disease stage III, GERD hepatitis C anxiety depression history of IV drug use, PTSD, bipolar. She has had a cholecystectomy and a tubal ligation. Reports increased sweatiness and diaphoresis this morning. Denies any known recent injuries denies any chest pain shortness of breath or problems urinating. Related Data Home Medications ?Medication ?Instructions ?Recorded ?Confirmed omeprazole 20 mg capsule,delayed 40 mg PO DAILY 04/18/15 07/27/24 release (Prilosec) loratadine 10 mg tablet 10 mg PO DAILY 07/04/17 05/17/24 omega-3 fatty acids-fish oil 300 2 ea PO DAILY 12/01/17 07/27/24 mg-1,000 mg capsule bupropion HCl 300 mg 24 hr tablet, 300 mg PO DAILY #30 tab-caps 11/13/18 07/27/24 extended release cholecalciferol (vitamin D3) 25 1,000 unit PO DAILY 04/22/19 05/17/24 mcg (1,000 unit) capsule (Vitamin D3) ferrous sulfate 325 mg (65 mg 325 mg PO DAILY 04/23/20 05/17/24 iron) tablet (FeroSul) blood sugar diagnostic (OneTouch #10 ea 06/05/20 05/17/24 Verio test strips) lancets (OneTouch UltraSoft #100 ea 06/05/20 05/17/24 Lancets) multivitamin 1 tab PO DAILY 06/05/20 07/27/24 divalproex 500 mg tablet,extended 500 mg PO DAILY 01/10/22 07/27/24 release 24 hr olanzapine 15 mg tablet 15 mg PO BID 01/10/22 05/17/24 dexmethylphenidate 35 mg 40 mg PO DAILY 01/26/22 07/27/24 capsule,extended release [id number] (Focalin XR) methadone 10 mg/5 mL oral solution 53 mg PO DAILY 07/06/22 05/17/24 clonidine HCl 0.1 mg tablet 0.1 mg PO BID 09/25/22 05/17/24 promethazine 25 mg tablet 25 mg PO TID PRN #14 tabs 09/25/22 05/17/24 atorvastatin 20 mg tablet 20 mg PO QHS 10/08/22 07/27/24 metformin 500 mg tablet 1,000 mg PO BID 10/08/22 07/27/24 hydroxyzine HCl 25 mg tablet 25 mg PO TID PRN 12/02/22 05/17/24 methylnaltrexone 150 mg tablet 450 mg (3 x 150 mg) PO QAM #9 tabs 06/22/23 05/17/24 (Relistor) prochlorperazine maleate 5 mg 5 mg PO TID PRN #10 tabs 06/22/23 05/17/24 tablet (Compazine) methylphenidate HCl 10 mg tablet 10 mg PO DAILY 01/06/24 05/17/24 levofloxacin 750 mg tablet 750 mg PO DAILY #7 tabs 05/17/24 dapagliflozin propanediol 10 mg 10 mg PO DAILY 07/27/24 07/27/24 tablet (Farxiga) dexmethylphenidate 10 mg tablet 10 mg PO DAILY 07/27/24 07/27/24 glipizide 10 mg tablet, extended 10 mg PO DAILY 07/27/24 07/27/24 release 24 hr olanzapine 20 mg tablet 20 mg PO QHS 07/27/24 07/27/24 valacyclovir 1 gram tablet 1,000 mg PO DAILY PRN 07/27/24 07/27/24 acetic acid 2 % ear solution 3 drp otic (ear) Q6H 03/22/25 albuterol sulfate 90 mcg/actuation 2 puff inhalation Q6H PRN 03/22/25 aerosol inhaler (Ventolin HFA) cariprazine 1.5 mg capsule 1.5 mg PO DAILY 03/22/25 (Vraylar) ciprofloxacin 0.3 %-dexamethasone 4 drp otic (ear) BID 03/22/25 0.1 % ear drops,suspension ciprofloxacin HCl 750 mg tablet 750 mg PO Q12H 03/22/25 docusate sodium 100 mg capsule 100 mg PO BID 03/22/25 magnesium oxide 400 mg PO 03/22/25 methadone 5 mg/5 mL oral solution 10 mg PO DAILY 03/22/25 mometasone 0.1 % topical cream 1 applic topical DAILY 03/22/25 multivitamin (Daily-Claudy tablet) 1 tab PO DAILY 03/22/25 ofloxacin 0.3 % ear drops 10 drp otic (ear) DAILY 03/22/25 ondansetron 4 mg disintegrating 4 mg PO Q8H 03/22/25 tablet permethrin 5 % topical cream 1 applic topical Q14D 03/22/25 sennosides 8.6 mg-docusate sodium 1 tab-cap PO QHS 03/22/25 50 mg tablet (Senexon-S) triamcinolone acetonide 0.1 % 1 applic topical BID 03/22/25 topical cream metoclopramide HCl 5 mg tablet 5 mg PO QACHS PRN nausea and 04/20/25 (Reglan) vomiting #10 tabs Previous Rx's ?Medication ?Instructions ?Recorded bupropion HCl 300 mg 24 hr tablet, 300 mg PO DAILY #30 tab-caps 11/13/18 extended release promethazine 25 mg tablet 25 mg PO TID PRN #14 tabs 09/25/22 methylnaltrexone 150 mg tablet 450 mg (3 x 150 mg) PO QAM #9 tabs 06/22/23 (Relistor) prochlorperazine maleate 5 mg 5 mg PO TID PRN #10 tabs 06/22/23 tablet (Compazine) levofloxacin 750 mg tablet 750 mg PO DAILY #7 tabs 05/17/24 metoclopramide HCl 5 mg tablet 5 mg PO QACHS PRN nausea and 04/20/25 (Reglan) vomiting #10 tabs Allergies Allergy/AdvReac Type Severity Reaction Status Date / Time Penicillins Allergy Intermediate hives/swell Verified 07/27/24 09:32 ing trimethoprim (From Bactrim) Allergy Mild Other (See Verified 07/27/24 09:32 Comment) doxycycline Allergy Skin Rash Verified 03/22/25 13:03 Sulfa (Sulfonamide AdvReac Severe body aches Verified 07/27/24 09:32 Antibiotics) erythromycin base AdvReac Intermediate stomach Verified 07/27/24 09:32 pain morphine AdvReac Intermediate N&V Verified 07/27/24 09:32 ondansetron HCl (From Zofran AdvReac Intermediate Hives Verified 07/27/24 09:32 (as hydrochloride)) sulfamethoxazole (From AdvReac Mild Muscle ache Verified 07/27/24 09:32 Bactrim) General Stated Complaint: Dizzy/Sync RAVEN: 3 Review of Systems All systems reviewed & are unremarkable except as noted in HPI and below Constitutional Constitutional: Reports as per HPI ENT Ears, Nose, Mouth, and Throat: Reports dizziness Gastrointestinal Gastrointestinal: Reports diarrhea, Reports nausea and Reports vomiting Neurologic Neurologic: Reports dizziness Exam Narrative Exam Narrative: Constitutional: Alert and oriented x3. Appears stated age. Normal body habitus. Patient appears tired states she just recently took her methadone. Falls asleep easily. Head: Normocephalic, no trauma. Eyes: Pupils PERRL, Red reflex noted, EOM's intact. Eyelids symmetrical without lesions, discharge, or swelling. ENT: Bilateral TM's WNL, External ear normal to inspection, no mastoid TTP, swelling, or erythema, Nasal turbinates WNL, no nasal discharge. Normal dentition, Posterior pharynx WNL, no exudate. Chest: RRR, Normal S1, S2, distal pulses intact. Resp: Lungs clear to auscultation bilaterally, no wheezes, rales, or rhonchi. Abdomen: Soft, non-distended, Normoactive bowel sounds all 4 quads. Musculoskeletal: Normal gait, Moves all 4 extremities without difficulty. Skin: No suspicious rashes or lesions. Capillary refill less than 2 sec. Neurologic: Cranial nerves II-XII intact. Alert and oriented x 3. Motor: No deficits noted. Sensory: Intact bilaterally all 4 extremities. Hematologic/Lymphatic: No ecchymosis, no lymphadenopathy. Course Vital Signs Vital signs: Vital Signs Temperature 36.5 C 04/20/25 11:39 Pulse 73 04/20/25 11:39 Respiratory Rate 18 04/20/25 11:39 Blood Pressure 185/85 H 04/20/25 11:39 Pulse Oximetry 93 04/20/25 11:39 Temperature 36.5 C 04/20/25 11:39 Temperature Source Temporal Artery Scan 04/20/25 11:39 Pulse 73 04/20/25 11:39 Respiratory Rate 18 04/20/25 11:39 Blood Pressure 185/85 H 04/20/25 11:39 Pulse Oximetry 93 04/20/25 11:39 Oxygen Delivery Method Room Air 04/20/25 11:39 Oxygen Flow Rate 0 04/20/25 11:39 Pain Level 3 04/20/25 11:39 Comment pain in upper abd pt says its from vomiting 04/20/25 11:39 Medical Decision Making 44-year-old female presents to the ER with a chief complaint of acute onset of dizziness feeling as if she was spinning this morning. This was followed by nausea and vomiting and diarrhea. Worse with laying flat. Does have a history of diabetes melitis type II, is taking methadone which she did take this morning, other history includes chronic kidney disease stage III, GERD hepatitis C anxiety depression history of IV drug use, PTSD, bipolar. She has had a cholecystectomy and a tubal ligation. Reports increased sweatiness and diaphoresis this morning. Denies any known recent injuries denies any chest pain shortness of breath or problems urinating. Workup ordered including CBC CMP lipase magnesium urinalysis, EKG, serial troponins, 500 cc normal saline, Reglan. Nose no acute intracranial abnormality, right maxillary sinus disease. Patient is requesting to be discharged from the department. She is ambulatory without assistance. UDS is positive for methadone and THC, no evidence of urinary tract infection. This text was generated using [employer] dictation system, please disregard any oddities of phrase or misspellings. Medical Records Medical records reviewed: Yes I reviewed the patient's medical records. Imaging Data Radiologic Study: Imaging: CT Scan Radiologist's impression: Exam: CT Head Without Contrast Exam date and time: 04/20/2025 12:17 PM Age: 44 years old Clinical indication: Dizziness and other: Vomiting; Dizziness, vomiting TECHNIQUE: Imaging protocol: Computed tomography of the head without contrast. COMPARISON: MR CERVICAL SPINE WO/W 06/10/2020 9:03 AM FINDINGS: Brain: No hemorrhage. Unremarkable white matter. No mass effect. Cerebral ventricles: No ventriculomegaly. Paranasal sinuses: Right maxillary sinus fluid level. Mastoid air cells: Visualized mastoid air cells are well aerated. Bones: Unremarkable. No acute fracture. Soft tissues: Unremarkable. IMPRESSION: 1. No acute intracranial findings. 2. Right maxillary sinus disease. Thank you for allowing us to participate in the care of your patient. Dictated and Authenticated by: Pb Tavera MD Lab Data Lab results reviewed: Yes I reviewed the patient's lab results. Labs: Laboratory Tests Range/Units 04/20/25 04/20/25 04/20/25 12:17 13:30 14:50 WBC (4.4-10.8) 10^3/uL 8.97 RBC (3.93-5.22) 10^6/uL 5.07 Hgb (11.2-15.7) g/dL 12.9 Hct (36.0-46.0) % 41.7 MCV (80-95) fL 82 MCH (27.0-33.0) pg 25.4 L MCHC (32.0-36.0) % 30.9 L RDW (11.7-14.6) % 18.6 H Plt Count (130-400) 10^3/uL 319 MPV (8.0-11.0) fL 8.3 Immature Gran % % 0.6 Neutrophils % % 64.1 Lymphocytes % % 26.3 Monocytes % % 5.8 Eosinophils % % 2.8 Basophils % % 0.4 Nucleated RBC % (0.0-0.3) % 0.0 Absolute Neutrophils (1.2-6.7) 10^3/uL 5.75 Absolute Lymphocytes (1.2-3.4) 10^3/uL 2.36 Absolute Monocytes (0.1-0.8) 10^3/uL 0.52 Absolute Eosinophils (0.0-0.7) 10^3/uL 0.25 Absolute Basophils (0.0-0.2) 10^3/uL 0.04 Sodium (136-145) mmol/L 141 Potassium (3.5-5.1) mmol/L 3.2 L Chloride (98-107) mmol/L 98 Carbon Dioxide (21.0-32.0) mmol/L 32.1 H Anion Gap (3-11) mmol/L 10.9 BUN (7-18) mg/dL 10 Creatinine (0.55-1.02) mg/dL 0.9 Est GFR (CKD-EPI 2020) (mL/min/1.73m2) 81.35 Glucose (74-106) mg/dL 111 H Calcium (8.5-10.1) mg/dL 9.2 Magnesium (1.8-2.4) mg/dL 1.6 L Total Bilirubin (0.2-1.0) mg/dL 0.4 AST (15-37) U/L 21 ALT (14-59) U/L 26 Alkaline Phosphatase (46-116) U/L 70 Troponin I (<or=51) ng/L 6 5 Cancelled Total Protein (6.4-8.2) g/dL 7.8 Albumin (3.4-5.0) g/dL 4.0 PFSH All Active Problems (Updated 04/20/25 @ 14:30 by Tammi Epps NP) Vomiting (Acute) Sinusitis (Acute) Mild intermittent asthma (Acute) Type 2 diabetes mellitus without complication (Acute) Dyspepsia (Acute) Right carpal tunnel syndrome (Acute) Right cervical radiculopathy (Acute) Polysubstance (including opioids) dependence with physiological dependence (Chronic) Non-insulin treated type 2 diabetes mellitus (Acute) KOBI (acute kidney injury) (Acute) Frequency of micturition (Acute) Hand numbness (Acute) Asthma, intermittent (Acute) Hoarseness (Acute) Constipation due to pain medication (Acute) Methadone Medical History Chronic otitis externa 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 ES 3.2mm. labs c/w hypogonadotropic hypothalamic amenorrehea. No EMBx done. 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 105 mg day dose. History of alcohol abuse (09/06/16) Chronic hepatitis C without hepatic coma (09/06/16) Dysphonia Genital HSV Elevated serum creatinine 12/2019: 1.05 at time of preop evaluation Depression Anxiety GERD (gastroesophageal reflux disease) History of hepatitis C Chronic kidney disease (CKD) stage G3a/A1, moderately decreased glomerular filtration rate (GFR) between 45-59 mL/min/1.73 square meter and albuminuria creatinine ratio less than 30 mg/g Stimulant abuse Hydronephrosis with obstructing calculus E. coli pyelonephritis Right distal ureteral calculus Tobacco dependency Migraine headache Central sleep apnea PTSD (post-traumatic stress disorder) ADHD Dyslipidemia Metabolic syndrome Seizure disorder Pt. states she has not had a seizure in a very long time, states it was a result of ovrdosing on drugs Otitis externa, chronic Rhinitis, allergic Low back pain Eating disorder Problem related to living arrangement Hepatic fibrosis Cervical radiculopathy History of intravenous drug abuse states she has not used in 9 years Bipolar disorder ADD, PTSD, Anxiety and Depression Surgical History History of tubal ligation 12/19/19. Laparoscopic left salpingectomy. Patient previously had a right salpingectomy. History of tonsillectomy (~1999) molar extraction , Ectopic (~2010) Diagnostic Laproscopy (~2005) Cholecystectomy (~10/2001) Family History Paternal Grandmother Heart disease Mother No problems noted. Father Mental health disorder Sister No problems noted. Brother No problems noted. Brother No problems noted. Social History Smoking/Tobacco Use Status: Current every day Tobacco Type: cigarettes Quit status: not considering quitting Smoking risk assessment performed?: Yes Alcohol Intake: never Drug use: Daily Substance use type: former substance user and marijuana Household members: none Housing: apartment current occupation: Disabled Pets and animals: Yes Pets and animals: cat(s) What type of physical activity do you participate in: none and independent ambulation Seatbelt use: always Do you feel safe at home: Yes Do you feel safe in your relationship?: Yes
[2025-04-20 12:26] LABS: Abs Immature Grans 0.05 10^3/uL (0.0-0.06); HCT 41.7 % (36.0-46.0); HGB 12.9 g/dL (11.2-15.7); Immature Grans % 0.6 %; MCH 25.4 pg (27.0-33.0); MCHC 30.9 % (32.0-36.0); MCV 82 fL (80-95); MPV 8.3 fL (8.0-11.0); Platelet Count 319 10^3/uL (130-400); RBC 5.07 10^6/uL (3.93-5.22); RDW 18.6 % (11.7-14.6); RDW-SD 53.1 fL; WBC 8.97 10^3/uL (4.4-10.8)
[2025-04-20] MEDS: Metoclopramide 10 MG/2 ML VIAL IVP (12:38)
[2025-04-20] MEDS: Normal Saline 500 ML IV (12:39)
[2025-04-20 12:58] LABS: ALT 26 U/L (14-59); AST 21 U/L (15-37); Albumin 4.0 g/dL (3.4-5.0); Alkaline Phosphatase 70 U/L (46-116); Anion Gap 10.9 mmol/L (3-11); BUN 10 mg/dL (7-18); Bilirubin, Total 0.4 mg/dL (0.2-1.0); CO2 32.1 mmol/L (21.0-32.0); Calcium 9.2 mg/dL (8.5-10.1); Chloride 98 mmol/L (98-107); Estimated GFR 81.35 (mL/min/1.73m2); Glucose 111 mg/dL (74-106); Magnesium 1.6 mg/dL (1.8-2.4); Potassium 3.2 mmol/L (3.5-5.1); Sodium 141 mmol/L (136-145); Total Protein 7.8 g/dL (6.4-8.2); Troponin I 6 ng/L (<or=51)
[2025-04-20 13:34] VITALS: RESP 18
[2025-04-20] MEDS: Magnesium Oxide 400 MG TAB PO (13:46)
--- NOTE | 2025-04-20 13:47 | NUR.NOTE ---
Nursing Note: PT has not given urine sample when asked if pt could give a urine sample she said I'll pee when I pee
[2025-04-20 13:54] LABS: Troponin I 5 ng/L (<or=51)
--- NOTE | 2025-04-20 14:18 | DI.VRAD_ITS ---
PROCEDURE INFORMATION: Exam: CT Head Without Contrast Exam date and time: 04/20/2025 12:17 PM Age: 44 years old Clinical indication: Dizziness and other: Vomiting; Dizziness, vomiting TECHNIQUE: Imaging protocol: Computed tomography of the head without contrast. COMPARISON: MR CERVICAL SPINE WO/W 06/10/2020 9:03 AM FINDINGS: Brain: No hemorrhage. Unremarkable white matter. No mass effect. Cerebral ventricles: No ventriculomegaly. Paranasal sinuses: Right maxillary sinus fluid level. Mastoid air cells: Visualized mastoid air cells are well aerated. Bones: Unremarkable. No acute fracture. Soft tissues: Unremarkable. IMPRESSION: 1. No acute intracranial findings. 2. Right maxillary sinus disease. Dictated and Authenticated by: Pb Tavera MD. Orderin Supriya Cadena MD
[2025-04-20 14:44] LABS: Glucose 500 mg/dL (Negative)
[2025-04-20 14:54] LABS: C & S Indicated? No; RBC 0-2 HPF (0-2); WBC 0-2 HPF (0-5)
[2025-04-20 14:58] LABS: Cannabinoids THC Positive (Negative); METHADONE URINE SCREEN Positive (Negative)
[2025-04-20 15:04] VITALS: BP 157/70; PULSE 82; O2SAT 98
[2025-04-20 15:10] VITALS: BP 157/70; RESP 18; O2SAT 98
--- NOTE | 2025-04-22 17:15 | NUR.NOTE ---
Access chart to determine if a referral was done and completed. Nursing Note:
== END 2025-04-20 15:34 | disposition home or self-care (01) ==
LOC: ER 15:06
PROVIDERS: Registered Nurse; Emergency Provider Registered Nurse Emergency; PCP Student in an Organized Health Care Education/Training Program
DX: J32.9 Chronic sinusitis, unspecified; R11.2 Nausea with vomiting, unspecified; R42 Dizziness and giddiness; R19.7 Diarrhea, unspecified; E11.9 Type 2 diabetes mellitus without complications
CPT/HCPCS: 36415; 36416; 80053; 80307; 80360; 82962; 93005; 96361; 96374; 99284; 70450; 81003; 81015; 83735; 84484; 85025; 93010; J2765

== ENCOUNTER 2025-04-21 12:13 | Emergency (ER) | payer MEDICAID, SELFPAY ==
[2025-04-21 12:24] VITALS: BP 149/99; PULSE 105; RESP 14; TEMP 37.7; O2SAT 93
--- NOTE | 2025-04-21 12:33 | W.ED.GENAD ---
Discharge Plan Disposition Patient Disposition: Home Discharge Details Clinical Impression: Finger laceration, Elevated blood pressure reading Primary Care Provider: Kike White ED Provider: Andreea Buckner Home Meds and New Rx's Prescriptions: No Action methadone 10 mg/5 mL solution 53 mg PO DAILY dexmethylphenidate 10 mg tablet 10 mg PO DAILY dapagliflozin propanediol [Farxiga] 10 mg tablet 10 mg PO DAILY glipizide 10 mg tablet extended release 24hr 10 mg PO DAILY valacyclovir 1 gram tablet 1,000 mg PO DAILY PRN Patient Comments: 07/27/24- pt takes once a day x5 days per episode as written in pharmacy olanzapine 20 mg tablet 20 mg PO QHS ferrous sulfate [FeroSul] 325 mg (65 mg iron) tablet 325 mg PO DAILY bupropion HCl 300 mg tablet extended release 24 hr 300 mg PO DAILY Qty: 30 5RF omeprazole [Prilosec] 20 MG capsule,delayed release(DR/EC) 40 mg PO DAILY loratadine 10 MG tablet 10 mg PO DAILY omega-3 fatty acids-fish oil 1 EACH capsule 2 ea PO DAILY (DME) OneTouch Verio test strips Strip See Rx Instructions .ROUTE .MEDSUPPLY Qty: 10 Rx Instructions: daily As directed (DME) lancets [OneTouch UltraSoft Lancets] Misc See Rx Instructions .ROUTE .MEDSUPPLY Qty: 100 Rx Instructions: DAILY multivitamin Tablet 1 tab PO DAILY metformin 500 mg tablet 1,000 mg PO BID atorvastatin 20 mg tablet 20 mg PO QHS hydroxyzine HCl 25 mg tablet 25 mg PO TID PRN multivitamin [Daily-Claudy] Tablet 1 tab PO DAILY acetic acid 2 % solution 3 drp otic (ear) Q6H Rx Instructions: apply to (cotton) wick; replace wick every 24 hours ciprofloxacin HCl 750 mg tablet 750 mg PO Q12H sennosides-docusate sodium [Senexon-S] 8.6-50 mg tablet 1 tab-cap PO QHS permethrin 5 % cream 1 applic topical Q14D Rx Instructions: apply second treatment 14 days after first treatment if live lice remain triamcinolone acetonide 0.1 % cream 1 applic topical BID ofloxacin 0.3 % drops 10 drp otic (ear) DAILY docusate sodium 100 mg capsule 100 mg PO BID albuterol sulfate [Ventolin HFA] 90 mcg/actuation HFA aerosol inhaler 2 puff inhalation Q6H PRN ondansetron 4 mg tablet,disintegrating 4 mg PO Q8H mometasone 0.1 % cream 1 applic topical DAILY methadone 5 mg/5 mL solution 10 mg PO DAILY ciprofloxacin-dexamethasone 0.3-0.1 % drops,suspension 4 drp otic (ear) BID Vraylar 1.5 mg capsule 1.5 mg PO DAILY magnesium oxide 200 mg magnesium tablet,chewable 400 mg PO DAILY methylphenidate HCl 10 mg tablet 10 mg PO DAILY Patient Comments: TAKE ONE TABLET BY MOUTH EVERY DAY IN THE AFTERNOON cholecalciferol (vitamin D3) [Vitamin D3] 1,000 unit Capsule 1,000 unit PO DAILY olanzapine 15 mg tablet 15 mg PO BID Patient Comments: TAKE ONE TABLET BY MOUTH TWICE A DAY divalproex 500 mg tablet extended release 24 hr 500 mg PO DAILY Patient Comments: TAKE 1 TABLET BY MOUTH EVERY DAY dexmethylphenidate [Focalin XR] 35 mg capsule,ER biphasic 50-50 40 mg PO DAILY clonidine HCl 0.1 mg Tablet 0.1 mg PO BID promethazine 25 mg tablet 25 mg PO TID PRNQty: 14 0RF Relistor 150 mg tablet 450 mg PO QAM Qty: 9 0RF prochlorperazine maleate [Compazine] 5 mg tablet 5 mg PO TID PRNQty: 10 0RF metoclopramide HCl [Reglan] 5 mg tablet 5 mg PO QACHS MDD 15mg PRN (Reason: nausea and vomiting) Qty: 10 0RF Rx Instructions: Take 1 tablet by mouth prior to meals and at bedtime as needed for nausea vomiting Discharge Instructions Instructions: Laceration Repair With Glue ED Additional Instructions: Please call your primary care provider to discuss management of your blood pressure. I recommend that you remove the ring on your index finger when you get home to prevent it from getting stuck on due to swelling. Please keep your wound clean clean and dry. Wash daily with antibacterial soap and water then cover with a Band-Aid. Your wound was closed with glue. Do not pick at the glue or apply triple antibiotic ointment, as this may degrade the glue. It will come off on its own. Keep an eye out for signs of infection such as redness, swelling, pus drainage, increasing pain. If notice any of these, please seek care immediately. Referrals: Kike White [Primary Care Provider, Medicine] Discharge Data Discharge Date/Time-TO BE ENTERED AT DEPARTURE: 04/21/25 13:29 HPI General Date/Time Provider Initiated Documentation: 04/21/25 12:23. HPI Narrative: Ne is a 44-year-old female who presents to the emergency department today for evaluation of right index finger laceration. She reports she sustained a deep cut while reaching into her bag and encountered her pocket knife open. Denies distal numbness/tingling, other injuries, or difficulty moving the finger. Last tetanus 01/11/2020. Related Data Home Medications ?Medication ?Instructions ?Recorded ?Confirmed omeprazole 20 mg capsule,delayed 40 mg PO DAILY 04/18/15 04/21/25 release (Prilosec) loratadine 10 mg tablet 10 mg PO DAILY 07/04/17 04/21/25 omega-3 fatty acids-fish oil 300 2 ea PO DAILY 12/01/17 04/21/25 mg-1,000 mg capsule bupropion HCl 300 mg 24 hr tablet, 300 mg PO DAILY #30 tab-caps 11/13/18 04/21/25 extended release cholecalciferol (vitamin D3) 25 1,000 unit PO DAILY 04/22/19 04/21/25 mcg (1,000 unit) capsule (Vitamin D3) ferrous sulfate 325 mg (65 mg 325 mg PO DAILY 04/23/20 04/21/25 iron) tablet (FeroSul) blood sugar diagnostic (OneTouch #10 ea 06/05/20 04/21/25 Verio test strips) lancets (OneTouch UltraSoft #100 ea 06/05/20 04/21/25 Lancets) multivitamin 1 tab PO DAILY 06/05/20 04/21/25 divalproex 500 mg tablet,extended 500 mg PO DAILY 01/10/22 04/21/25 release 24 hr olanzapine 15 mg tablet 15 mg PO BID 01/10/22 04/21/25 dexmethylphenidate 35 mg 40 mg PO DAILY 01/26/22 04/21/25 capsule,extended release [id number] (Focalin XR) methadone 10 mg/5 mL oral solution 53 mg PO DAILY 07/06/22 04/21/25 clonidine HCl 0.1 mg tablet 0.1 mg PO BID 09/25/22 04/21/25 promethazine 25 mg tablet 25 mg PO TID PRN #14 tabs 09/25/22 04/21/25 atorvastatin 20 mg tablet 20 mg PO QHS 10/08/22 04/21/25 metformin 500 mg tablet 1,000 mg PO BID 10/08/22 04/21/25 hydroxyzine HCl 25 mg tablet 25 mg PO TID PRN 12/02/22 04/21/25 methylnaltrexone 150 mg tablet 450 mg (3 x 150 mg) PO QAM #9 tabs 06/22/23 04/21/25 (Relistor) prochlorperazine maleate 5 mg 5 mg PO TID PRN #10 tabs 06/22/23 04/21/25 tablet (Compazine) methylphenidate HCl 10 mg tablet 10 mg PO DAILY 01/06/24 04/21/25 dapagliflozin propanediol 10 mg 10 mg PO DAILY 07/27/24 04/21/25 tablet (Farxiga) dexmethylphenidate 10 mg tablet 10 mg PO DAILY 07/27/24 04/21/25 glipizide 10 mg tablet, extended 10 mg PO DAILY 07/27/24 04/21/25 release 24 hr olanzapine 20 mg tablet 20 mg PO QHS 07/27/24 04/21/25 valacyclovir 1 gram tablet 1,000 mg PO DAILY PRN 07/27/24 04/21/25 acetic acid 2 % ear solution 3 drp otic (ear) Q6H 03/22/25 04/21/25 albuterol sulfate 90 mcg/actuation 2 puff inhalation Q6H PRN 03/22/25 04/21/25 aerosol inhaler (Ventolin HFA) cariprazine 1.5 mg capsule 1.5 mg PO DAILY 03/22/25 04/21/25 (Vraylar) ciprofloxacin 0.3 %-dexamethasone 4 drp otic (ear) BID 03/22/25 04/21/25 0.1 % ear drops,suspension ciprofloxacin HCl 750 mg tablet 750 mg PO Q12H 03/22/25 04/21/25 docusate sodium 100 mg capsule 100 mg PO BID 03/22/25 04/21/25 magnesium oxide 400 mg PO DAILY 03/22/25 04/21/25 methadone 5 mg/5 mL oral solution 10 mg PO DAILY 03/22/25 04/21/25 mometasone 0.1 % topical cream 1 applic topical DAILY 03/22/25 04/21/25 multivitamin (Daily-Claudy tablet) 1 tab PO DAILY 03/22/25 04/21/25 ofloxacin 0.3 % ear drops 10 drp otic (ear) DAILY 03/22/25 04/21/25 ondansetron 4 mg disintegrating 4 mg PO Q8H 03/22/25 04/21/25 tablet permethrin 5 % topical cream 1 applic topical Q14D 03/22/25 04/21/25 sennosides 8.6 mg-docusate sodium 1 tab-cap PO QHS 03/22/25 04/21/25 50 mg tablet (Senexon-S) triamcinolone acetonide 0.1 % 1 applic topical BID 03/22/25 04/21/25 topical cream metoclopramide HCl 5 mg tablet 5 mg PO QACHS PRN nausea and 04/20/25 04/21/25 (Reglan) vomiting #10 tabs Previous Rx's ?Medication ?Instructions ?Recorded bupropion HCl 300 mg 24 hr tablet, 300 mg PO DAILY #30 tab-caps 11/13/18 extended release promethazine 25 mg tablet 25 mg PO TID PRN #14 tabs 09/25/22 methylnaltrexone 150 mg tablet 450 mg (3 x 150 mg) PO QAM #9 tabs 06/22/23 (Relistor) prochlorperazine maleate 5 mg 5 mg PO TID PRN #10 tabs 06/22/23 tablet (Compazine) metoclopramide HCl 5 mg tablet 5 mg PO QACHS PRN nausea and 04/20/25 (Reglan) vomiting #10 tabs Allergies Allergy/AdvReac Type Severity Reaction Status Date / Time Penicillins Allergy Intermediate hives/swell Verified 04/21/25 12:27 ing trimethoprim (From Bactrim) Allergy Mild Other (See Verified 04/21/25 12:27 Comment) doxycycline Allergy Skin Rash Verified 04/21/25 12:27 Sulfa (Sulfonamide AdvReac Severe body aches Verified 07/27/24 09:32 Antibiotics) erythromycin base AdvReac Intermediate stomach Verified 04/21/25 12:27 pain morphine AdvReac Intermediate N&V Verified 04/21/25 12:27 ondansetron HCl (From Zofran AdvReac Intermediate Hives Verified 07/27/24 09:32 (as hydrochloride)) sulfamethoxazole (From AdvReac Mild Muscle ache Verified 07/27/24 09:32 Bactrim) General Stated Complaint: Laceration RAVEN: 4 Exam Narrative Exam Narrative: General Appearance: Normal. Vital signs: Within normal limits. Skin: Right index finger laceration, superficial and linear, approximately 0.5 cm, no active bleeding. Wound cleaned with soap, water, antiseptic, and let applied. Musculoskeletal: Full painless range of motion (extension and flexion) to right index finger. Sensation grossly intact. Psychiatric: Normal. Course Vital Signs Vital signs: Vital Signs Temperature 37.7 C H 04/21/25 12:24 Pulse 105 H 04/21/25 12:24 Respiratory Rate 14 04/21/25 12:24 Blood Pressure 149/99 H 04/21/25 12:24 Pulse Oximetry 93 04/21/25 12:24 Temperature 37.7 C H 04/21/25 12:24 Temperature Source Oral 04/21/25 12:24 Pulse 105 H 04/21/25 12:24 Respiratory Rate 14 04/21/25 12:24 Blood Pressure 149/99 H 04/21/25 12:24 Blood Pressure Position Sitting 04/21/25 12:24 Pulse Oximetry 93 04/21/25 12:24 Oxygen Delivery Method Room Air 04/21/25 12:24 Oxygen Flow Rate 0 04/21/25 12:24 Pain Level 6 04/21/25 12:24 Medical Decision Making Initial Assessment: 44-year-old female with superficial index finger laceration. Patient up-to-date for tetanus ED Course: Wound cleaned with soap, water, antiseptic, and let to help facilitate irrigation. I examined wound to the base in a bloodless field, no foreign bodies visualized. Wound irrigated extensively by MICHELLE Moncada. Dermabond applied. Clinical Impression: Index finger laceration. No indication for complex closure, Dermabond applied. No prophylactic antibiotics indicated, as knife was not visibly contaminated. Reviewed discharge instructions with patient, including symptomatic management. He is agreeable with plan of care. Patient consented to the use of [facility] PFSH All Active Problems (Updated 04/21/25 @ 13:27 by Andreea Stephen) Elevated blood pressure reading (Acute) Finger laceration (Acute) Vomiting (Acute) Sinusitis (Acute) Mild intermittent asthma (Acute) Type 2 diabetes mellitus without complication (Acute) Dyspepsia (Acute) Right carpal tunnel syndrome (Acute) Right cervical radiculopathy (Acute) Polysubstance (including opioids) dependence with physiological dependence (Chronic) Non-insulin treated type 2 diabetes mellitus (Acute) KOBI (acute kidney injury) (Acute) Frequency of micturition (Acute) Hand numbness (Acute) Asthma, intermittent (Acute) Hoarseness (Acute) Constipation due to pain medication (Acute) Methadone Medical History Chronic otitis externa 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 ES 3.2mm. labs c/w hypogonadotropic hypothalamic amenorrehea. No EMBx done. 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 105 mg day dose. History of alcohol abuse (09/06/16) Chronic hepatitis C without hepatic coma (09/06/16) Dysphonia Genital HSV Elevated serum creatinine 12/2019: 1.05 at time of preop evaluation Depression Anxiety GERD (gastroesophageal reflux disease) History of hepatitis C Chronic kidney disease (CKD) stage G3a/A1, moderately decreased glomerular filtration rate (GFR) between 45-59 mL/min/1.73 square meter and albuminuria creatinine ratio less than 30 mg/g Stimulant abuse Hydronephrosis with obstructing calculus E. coli pyelonephritis Right distal ureteral calculus Tobacco dependency Migraine headache Central sleep apnea PTSD (post-traumatic stress disorder) ADHD Dyslipidemia Metabolic syndrome Seizure disorder Pt. states she has not had a seizure in a very long time, states it was a result of ovrdosing on drugs Otitis externa, chronic Rhinitis, allergic Low back pain Eating disorder Problem related to living arrangement Hepatic fibrosis Cervical radiculopathy History of intravenous drug abuse states she has not used in 9 years Bipolar disorder ADD, PTSD, Anxiety and Depression Surgical History History of tubal ligation 12/19/19. Laparoscopic left salpingectomy. Patient previously had a right salpingectomy. History of tonsillectomy (~1999) molar extraction , Ectopic (~2010) Diagnostic Laproscopy (~2005) Cholecystectomy (~10/2001) Family History Paternal Grandmother Heart disease Mother No problems noted. Father Mental health disorder Sister No problems noted. Brother No problems noted. Brother No problems noted. Social History Smoking/Tobacco Use Status: Current every day Tobacco Type: cigarettes Quit status: not considering quitting Smoking risk assessment performed?: Yes Alcohol Intake: never Drug use: Daily Substance use type: former substance user and marijuana Household members: none Housing: apartment current occupation: Disabled Pets and animals: Yes Pets and animals: cat(s) What type of physical activity do you participate in: none and independent ambulation Seatbelt use: always Do you feel safe at home: Yes Do you feel safe in your relationship?: Yes
[2025-04-21] MEDS: Lidocaine/Epinephri/Tetracaine Topical Gel 3 ML TP (12:48)
[2025-04-21 13:21] VITALS: BP 164/103; PULSE 96; RESP 16; O2SAT 100
== END 2025-04-21 13:29 | disposition home or self-care (01) ==
PROVIDERS: Emergency Provider Nurse Practitioner Family; PCP Student in an Organized Health Care Education/Training Program
DX: S61.210A Laceration without foreign body of right index finger without damage to nail, initial encounter (principal); R03.0 Elevated blood-pressure reading, without diagnosis of hypertension; W26.9XXA Contact with unspecified sharp object(s), initial encounter
CPT/HCPCS: 12001